=== PATIENT | female | born 1980 | race Caucasian/White ===

== ENCOUNTER → 2022-08-06 16:08 | Outpatient (CLI) | payer BC, SELFPAY ==
--- NOTE | ~2022-08-06 | MM_ITS ---
EXAMINATION: MM screening sony BI w kumar HISTORY: Screening mammogram TECHNIQUE: Craniocaudal and mediolateral oblique 3-D tomosynthesis images were obtained and synthetic 2-D images were generated. CAD analysis was submitted and interpreted. COMPARISON: None, baseline BREAST PARENCHYMAL COMPOSITION: There are scattered areas of fibroglandular density. FINDINGS: No suspicious mass, calcification, or architectural distortion are identified in either marisol ast to suggest malignancy. IMPRESSION: 1. No mammographic evidence of malignancy. 2. Recommend routine screening mammography in one year. BI-RADS Category 1: Negative Reviewed, dictated and finalized at location A. NSE ISSUER
== END ==
PROVIDERS: PCP Nurse Practitioner Obstetrics & Gynecology; Visit Provider Nurse Practitioner Obstetrics & Gynecology
DX: Z12.31 Encounter for screening mammogram for malignant neoplasm of breast (principal)
CPT/HCPCS: 77063; 77067

== ENCOUNTER → 2022-10-17 16:07 | Outpatient (CLI) | payer BC, SELFPAY ==
--- NOTE | ~2022-10-17 | MR_ITS ---
MRI of the left knee Clinical history: Chronic pain Technique: Coronal proton density and proton density-weighted images, sagittal proton-density and T2 fat-sat images, and axial proton-density fat-saturated images were acquired. Findings: Anterior and posterior cruciate ligaments are intact. Medial collateral ligament and the la teral collateral ligament complex are intact. Popliteus tendon is intact. Medial and lateral menisci are intact, without evidence of tear. Articular cartilage is well preserved in the medial lateral compartments, and along the femoral troch angela. Focal moderate to high-grade chondral lesions or fissures at the patellar apex and along the lateral patellar facet. Bone marrow signals are essentially unremarkable. Extensor mechanism is intact. Very large joint effusion is present. Small Garcia cyst present. There i s extensive subcutaneous soft tissue edema about the knee. There is marked edematous change of the po pliteus muscle belly with possible focal muscle tear. There is minimal edematous change of the distal vastus medialis muscle belly. Impression: Very large joint effusion, with small Garcia's cyst. This is nonspecific, and precise etiology for thi s effusion is unclear. Consider joint aspiration, especially if there is any clinical concern for inf ected joint. Focal degenerative chondromalacia patella lesions, as above. Marked edematous change and possible tear of the popliteus muscle belly. Minimal edematous change of the distal vastus medialis muscle belly. Reviewed, dictated and finalized at [facility]. Impression: Very large joint effusion, with small Garcia's cyst. This is nonspecific, and pr ecise etiology for this effusion is unclear. Consider joint aspiration, especia lly if there is any clinical concern for infected joint. Focal degenerative chondromalacia patella lesions, as above. Marked edematous change and possible tear of the popliteus muscle belly. Minima l edematous change of the distal vastus medialis muscle belly.
== END ==
PROVIDERS: PCP Nurse Practitioner Family; Visit Provider Orthopaedic Surgery
DX: M25.562 Pain in left knee (principal); G89.29 Other chronic pain; M25.462 Effusion, left knee; M71.22 Synovial cyst of popliteal space [Baker], left knee; M22.42 Chondromalacia patellae, left knee
CPT/HCPCS: 73721

== ENCOUNTER 2023-07-26 11:03 | Outpatient (CLI) | payer BC, SELFPAY ==
--- NOTE | ~2023-07-26 | XR_ITS ---
Left wrist Technique: PA, oblique, lateral, and ulnar deviation views were obtained. Clinical History: Polyarthralgia Findings: No acute fracture or dislocation is seen. Osseous alignment is anatomic. Joint spaces are p reserved. Soft tissues are unremarkable. Impression: Unremarkable left wrist radiographs. Reviewed, dictated and finalized at location . GROWER Impression: Unremarkable left wrist radiographs.
--- NOTE | ~2023-07-26 | XR_ITS ---
Right wrist Technique: PA, oblique, lateral, and ulnar deviation views were obtained. Clinical History: Polyarthralgia Findings: No acute fracture or dislocation is seen. Osseous alignment is anatomic. Joint spaces are p reserved. Soft tissues are unremarkable. Impression: Unremarkable right wrist radiographs. Reviewed, dictated and finalized at location . MACHINERY MECHANIC Impression: Unremarkable right wrist radiographs.
--- NOTE | ~2023-07-26 | XR_ITS ---
Left Hand Technique: PA, oblique, and lateral views were obtained. Clinical History: Arthritis Findings: No acute fracture or dislocation is seen. Osseous alignment is anatomic. Joint spaces are p reserved. Soft tissues are unremarkable. Impression: Unremarkable left hand. Reviewed, dictated and finalized at location M. AS WORKER Impression: Unremarkable left hand.
--- NOTE | ~2023-07-26 | XR_ITS ---
AP and oblique views of the bilateral SI joints CLINICAL HISTORY: Polyarthralgia FINDINGS: No fracture or dislocation seen. Bilateral hip and bilateral SI joints are unremarkable. So ft tissues are unremarkable, aside from IUD. IMPRESSION: No significant abnormality seen. Reviewed, dictated and finalized at [facility]. TER HAND
--- NOTE | ~2023-07-26 | XR_ITS ---
Right foot Technique: AP, oblique, and lateral views were obtained. Clinical History: Polyarthralgia Findings: No acute fracture or dislocation is seen. Osseous alignment is anatomic. Joint spaces are p reserved without erosive or degenerative change. Soft tissues are unremarkable. Impression: Unremarkable right foot radiographs. Reviewed, dictated and finalized at [facility]. STANT TO THE VICE PRESIDENT Impression: Unremarkable right foot radiographs.
--- NOTE | ~2023-07-26 | XR_ITS ---
Right Hand Technique: PA, oblique, and lateral views were obtained. Clinical History: Polyarthralgia Findings: No acute fracture or dislocation is seen. Osseous alignment is anatomic. Joint spaces are p reserved. Soft tissues are unremarkable. Impression: Unremarkable right hand. Reviewed, dictated and finalized at location . SMITH Impression: Unremarkable right hand.
--- NOTE | ~2023-07-26 | XR_ITS ---
Left foot Technique: AP, oblique, and lateral views were obtained. Clinical History: Polyarthralgia Findings: No acute fracture or dislocation is seen. Osseous alignment is anatomic. Joint spaces are p reserved without erosive or degenerative change. Soft tissues are unremarkable. Impression: Unremarkable left foot radiographs. Reviewed, dictated and finalized at [facility]. L LOT OPERATOR Impression: Unremarkable left foot radiographs.
== END 2023-07-26 11:04 | disposition home or self-care (01) ==
PROVIDERS: PCP Nurse Practitioner Family
DX: M25.50 Pain in unspecified joint (principal)
CPT/HCPCS: 72202; 73110; 73130; 73630

== ENCOUNTER 2024-07-20 02:00 | Emergency (ER) | payer OTHER, SELFPAY ==
--- NOTE | ~2024-07-20 | US_ITS ---
Duplex Sonography of the right upper extremity: Indication: Pain and swelling Sagittal and transverse B-mode images as well as color-flow imaging were performed on the right inter nal jugular, subclavian, axillary, brachial, basilic veins. B-mode examination was done without and with compression in the transverse plane. There is good visualization of the internal jugular, subcl jurgen, axillary, brachial, and basilic veins. Normal flow was seen on color-flow imaging. Normal com pressibility was demonstrated. Impression: No evidence of deep vein thrombosis involving the right upper extremity. Reviewed, dictated and finalized at location M. TECH Impression: No evidence of deep vein thrombosis involving the right upper extre [facility].
--- NOTE | ~2024-07-20 | XR_ITS ---
Right Hand Technique: PA, oblique, and lateral views were obtained. Clinical History: Pain Findings: No acute fracture or dislocation is seen. Osseous alignment is anatomic. Joint spaces are p reserved. Soft tissues are unremarkable. Impression: Unremarkable right hand. Reviewed, dictated and finalized at location M. LE ASSEMBLER Impression: Unremarkable right hand.
[2024-07-20 02:12] VITALS: BP 161/98; PULSE 100; RESP 16; TEMP 37; O2SAT 98
[2024-07-20 05:35] VITALS: BP 135/105; PULSE 67; RESP 16; TEMP 36.2; O2SAT 99
[2024-07-20 07:30] VITALS: BP 161/100; PULSE 85; RESP 18; O2SAT 97
--- NOTE | 2024-07-20 08:53 | ED_ITS ---
HPI - Extremity Injury (Upper) General Chief Complaint: Extremity Injury, Upper Stated Complaint: right hand swelling x 1 week Time Seen by Provider: 07/20/24 08:24 Source: patient Mode of arrival: ambulatory Limitations: no limitations History of Present Illness HPI narrative: Patient presents with complaint of right hand and forearm swelling. This is accompanied by intermittent paresthesias from her right elbow occurring distally. The pain and swelling is limiting her ability to fully use this extremity which is her dominant hand. Denies any fevers, trauma, or previous surgical intervention on this arm. Denies any clear overuse injury although she states possibly while pushing a shopping cart. Alternating Prescription strength ibuprofen and ydeo-ezx-rgyilqs Tylenol was helping at 1st not now. She does have some skin that is breaking and peeling in her left greater than right hand for the past 1 week. She has also been using ice and heat. This happened previously approximately 2-3 years ago in September in her left leg and subsequently in her left arm. She had extensive workup done which 1st did not identify any clear etiology however was later determined that she has psoriatic arthritis this she follows with a enchilada maker Dr. Marlin Guy through [facility] ([facility]). PCP is Janell Lemos in [place]. She has been on various regimens for her psoriatic arthritis, previously injection but had site reaction. She has been on Otesla BID for awhile now. Not on steroids chronically. Denies that neck pain had been a complaint other than some very mild neck pain she is experiencing only after having been sitting awhile in the ER waiting room. Related Data Allergies Allergy/AdvReac Type Severity Reaction Status Date / Time latex Allergy Unknown Verified 04/08/16 13:49 Penicillins Allergy Unknown Verified 04/08/16 13:49 [facility] Past Medical History Medical History (Updated 07/21/24 @ 06:11 by Keli King MD) Psoriatic arthritis follows w/ Insurance Sales Associate Dr Jeremy Guy ([facility]) Exam 2 Narrative: GENERAL: Well-appearing, well-nourished, and in no acute distress. HEAD: Normocephalic, atraumatic. EYES: Non injected, non icteric ENT: Nares clear, no rhinorrhea or epistaxis. NECK: Supple. CHEST: Speaking in full sentences. No respiratory distress. HEART: Regular rate and rhythm. Strong radial pulse is the right. Brisk capillary refill in multiple digits on the right. ABDOMEN: Soft, nondistended. EXTREMITIES: Mild swelling throughout entirety of right hand and right wrist as well as to a lesser degree throughout the right forearm when compared to the left. Patient is able demonstrate extension and flexion at the elbow. Full range of motion with extension and flexion as well as eversion inversion at the right wrist is limited (motion is initiated but unable to perform at the extremes). Patient can generally make a fist although not tight and does demonstrate full extension of fingers. Can oppose each digit to the thumb. SKIN: Warm, dry. Some skin breakdown and peeling although particularly in digits on the left hand to a greater degree than on the right. NEURO: No focal deficits. Alert and oriented x3. Sensation intact throughout bilateral upper extremity including throughout the forearm wrist and hand on the right. PSYCH: Normal mood and affect. Course Vital Signs Vital signs: Vital Signs Temperature 98.6 F 07/20/24 02:12 Pulse Rate 100 07/20/24 02:12 Respiratory Rate 16 07/20/24 02:12 Blood Pressure 161/98 H 07/20/24 02:12 Pulse Oximetry 98 07/20/24 02:12 Oxygen Delivery Room Air 07/20/24 02:12 Temperature 98.0 F 07/20/24 12:03 Pulse Rate 80 07/20/24 12:03 Respiratory Rate 20 07/20/24 12:03 Blood Pressure 149/99 H 07/20/24 12:03 Pulse Oximetry 100 07/20/24 12:03 Oxygen Delivery Room Air 07/20/24 02:12 MDM - Extremity Injury (Upper) MDM Narrative Medical decision making narrative: Patient is a mxqti-vktb-hlikuyzx female who presents with right hand and forearm swelling. She has a history of psoriatic arthritis and sees a enchilada maker and is on Otesla BID. In the emergency department she is afebrile with vital signs notable for hypertension. Physical exam is reassuring in that she is neurovascularly intact although there is a degree swelling throughout the hand wrist and to a lesser degree the forearm. Full range of motion at the extremes at the wrist is limited secondary to pain and swelling although she can initiate each of these movements. Analgesic medication ordered. Patient has an elevated CRP as well as a leukocytosis. ESR is also elevated. Ultrasound negative. No emergent etiology identified for her symptoms. While this may represent a psoriatic arthritis flare, of the main stays of treatment for this are NSAIDs as well as potential DMARDs. Advised her to continue her analgesic regimen and follow-up with her primary care physician and knitting machine operator helper. Discharged in stable condition. Differential Diagnosis Differential diagnosis: Likely sprain and strain of wrist and other (DVT, psoriatic arthritis, myositis) Lab Data Attestation: I reviewed the patient's lab results. 07/20/24 09:49 07/20/24 09:26 Labs: Lab Results 07/20/24 07/20/24 Range/Units 09:26 09:49 WBC 13.2 H (4.5-10.0) K/mm3 RBC 5.02 (4.2-5.4) M/mm3 Hgb 15.4 H (12.0-15.0) g/dL Hct 45.2 (37.0-47.0) % MCV 90.0 (80-100) fl MCH 30.7 (26-34) pg MCHC 34.1 (32-36) g/dl RDW 12.1 (11.5-14.5) % Plt Count 257 (150-375) k/mm3 MPV 9.0 (7.4-10.4) fl Immature Gran % (Auto) 0.3 (0-0.5) % Neut % (Auto) 70.0 (45.5-73.1) % Lymph % (Auto) 21.8 (18.3-44.2) % Calvert % (Auto) 5.1 (2.6-8.5) % Eos % (Auto) 2.4 (0-4.4) % Baso % (Auto) 0.4 (0.2-1.2) % Lymph # (Auto) 2.88 (0.9-3.2) K/mm3 Calvert # (Auto) 0.7 H (0.1-0.6) K/mm3 Eos # (Auto) 0.3 (0-0.3) K/mm3 Baso # (Auto) 0.1 (0.0-0.1) K/mm3 Abs Immat Gran (auto) 0.04 H (0.00-0.031) K/mm3 Absolute Neuts (auto) 9.2 H (1.3-6.7) K/mm3 Absolute Nucleated RBC 0.000 (0.0-0.012) K/mm3 Nucleated RBC % 0.0 (0.0-0.2) % ESR 52 H (0-20) mm/hr Sodium 135 L (137-145) mmol/L Potassium 4.2 (3.4-5.0) mmol/L Chloride 108 H (98-107) mmol/L Carbon Dioxide 22 (22-30) mmol/L Anion Gap 5 (4-12) mmol/L BUN 12 (7-17) mg/dL Creatinine 0.70 (0.7-1.0) mg/dL Estim Creat Clear Calc 110 ml/min Estimated GFR > 60 (59 - ) Glucose 108 (65-110) mg/dL Calcium 9.1 (8.4-10.2) mg/dL Total Creatine Kinase 43 (30-135) U/L C-Reactive Protein 3.7 H (<1.0) mg/dL Imaging Data Radiologist's impression: Impressions Hand X-Ray 07/20/24 06:23 Impression: Unremarkable right hand. Venous Doppler Study 07/20/24 12:20 Impression: No evidence of deep vein thrombosis involving the right upper extremity. Discharge Plan Discharge Clinical Impression: Swelling of right upper extremity, Leukocytosis, CRP elevated, ESR raised Patient Disposition: Home, Self-Care Condition: Stable Instructions: Antibiotic Form, Leukocytosis (ED), Arm Pain (ED) Additional Instructions: No clear etiology for your symptoms. Follow-up with primary care physician and your enchilada maker. Return to the emergency department any new or worsening symptoms. If this represents a flare of your psoriatic arthritis, the recommendation is to use NSAIDs. Acetaminophen/Tylenol (maximum 4000 mg per day, typically taken as 1000mg every 6 hours) is safe to take with NSAIDs (ibuprofen/Motrin 600mg every 8 hours) for pain relief. Make sure taking optimal/maximal dosing. Return to the emergency department with any new or worsening symptoms. Patient Language: Mexican Prescriptions: New acetaminophen 500 mg capsule 1,000 mg PO Q6H PRN (Reason: pain) Qty: 20 0RF ibuprofen 600 mg tablet 600 mg PO TID PRN (Reason: pain) Qty: 20 0RF Follow-up/Referrals: Canelo,ANTONELLA Donaldson [Primary Care Provider] - Stand Alone Forms: Work/School Release IP Time of Disposition: 12:52
[2024-07-20] MEDS: HYDROcodone/acetaminophen (*CRX) 5-325 MG TABLET 1 TAB PO (09:14)
[2024-07-20 09:50] LABS: Anion Gap 5 mmol/L (4-12); Blood Urea Nitrogen 12 mg/dL (7-17); CRP 3.7 mg/dL (<1.0); Calcium 9.1 mg/dL (8.4-10.2); Carbon Dioxide 22 mmol/L (22-30); Chloride 108 mmol/L (98-107); Creatine Kinase 43 U/L (30-135); Estimated CRCL calculation 110 ml/min; Estimated Glomerular Filt Rate > 60; Glucose 108 mg/dL (65-110); Potassium 4.2 mmol/L (3.4-5.0); Sodium 135 mmol/L (137-145)
[2024-07-20 09:58] LABS: Basophils Absolute Auto 0.1 K/mm3 (0.0-0.1); Basophils Percent Auto 0.4 % (0.2-1.2); Eosinophils Absolute Auto 0.3 K/mm3 (0-0.3); Eosinophils Percent Auto 2.4 % (0-4.4); Hematocrit 45.2 % (37.0-47.0); Hemoglobin 15.4 g/dL (12.0-15.0); Immature Granulocyte Absolute 0.04 K/mm3 (0.00-0.031); Immature Granulocyte Percent A 0.3 % (0-0.5); Lymphocytes Absolute Auto 2.88 K/mm3 (0.9-3.2); Lymphocytes Percent Auto 21.8 % (18.3-44.2); Mean Corpuscular HGB Conc 34.1 g/dl (32-36); Mean Corpuscular Hemoglobin 30.7 pg (26-34); Monocytes Absolute Auto 0.7 K/mm3 (0.1-0.6); Monocytes Percent Auto 5.1 % (2.6-8.5); Neutrophils Absolute Auto 9.2 K/mm3 (1.3-6.7); Platelet Count Result 257 k/mm3 (150-375); Red Blood Count 5.02 M/mm3 (4.2-5.4); Red Cell Distribution Width 12.1 % (11.5-14.5); White Blood Count 13.2 K/mm3 (4.5-10.0)
[2024-07-20 10:51] LABS: Erythrocyte Sedimentation Rate 52 mm/hr (0-20)
[2024-07-20 12:03] VITALS: BP 149/99; PULSE 80; RESP 20; TEMP 36.7; O2SAT 100
[2024-07-20] MEDS: KETOROLAC 30 MG/ML VIAL (*BKC) 15 MG IM (13:24)
--- OUTSIDE RECORDS SUMMARY | 2024-07-27 02:30 | XMS_ITS | Encounter Summary ---
Author Organization [facility] Address [facility] [place] [address] Care Team Providers Care Porcelain Technician Name Role Phone Anika Lemos EARL-VIRTUAL OFFICE ASSISTANT Primary Care Provider + Encounter Details Date Type Department Care Team (Late Contact Info) Description 06/25/2024 Orders Only [facility] - Rheumatology [address] [place] [phone] Jeremy Guy MD [address] [place] [address] [address] [place] [phone] Therapeutic drug monitoring Social History Tobacco Use Types Packs/Day Years Used Date Smoking Tobacco: Never Smokeless Tobacco: Never Alcohol Use Standard Drinks/Week Comments Not Currently 0 (1 standard drink = 0.6 oz pur e alcohol) PHQ-2 Answer Date Recorded Patient Health Questionnaire-2 Score 0 03/30/2024 Sex and Gender Information Value Date Recorded Sex Assigned at Not on file Gender Identity Not on file Sexual Orientation Not on file documented as of this encounter Plan of Treatment Upcoming Encounters Date Type Department Care Team (Late Contact Info) Description 09/28/2024 3:00 PM CDT Office Visit [facility] - Rheumatology [address] [place] [phone] Jeremy Guy MD [address] [place] [address] [address] [place] [phone] documented as of this encounter Visit Diagnoses Diagnosis Therapeutic drug monitoring Encounter for therapeutic drug monitoring documented in this encounter Care Teams Porcelain Technician Relationship Specialty Start Date End Date Anika Lmeos, HEAD BOYS TENNIS COACH-VIRTUAL OFFICE ASSISTANT [facility] [facility] [address] [facility] [place] [address] PCP - General Nurse Practitioner 07/08/23 documented as of this encounter
--- OUTSIDE RECORDS SUMMARY | 2024-07-27 02:30 | XMS_ITS | Encounter Summary ---
Author Organization [facility] Address [address] [place] [address] Care Team Providers Care Salon Coordinator Name Role Phone Anika Lemos Yung ELLIOTT-EXTRUDING MACHINE OPERATOR Primary Care Provider + Reason for Visit * Reason Onset Date Comments Medication Management 11/05/2023 Humira Encounter Details Date Type Department Care Team (Late st Contact Info) Description 11/05/2023 Refill [facility] - Rheumatology [address] [place] [address], [place] [phone] Jeremy Guy MD [address] [place] [address] [place] [phone] Medication Management (Humira) Social History Tobacco Use Types Packs/Day Years Used Date Smoking Tobacco: Never Smokeless Tobacco: Never Alcohol Use Standard Drinks/Week Comments Not Currently 0 (1 standard drink = 0.6 oz pur e alcohol) Sex and Gender Information Value Date Recorded Sex Assigned at Not on file Gender Identity Not on file Sexual Orientation Not on file documented as of this encounter Miscellaneous Notes * Telephone Encounter - Nathan Fuchs, PharmD - 11/05/2023 5:22 PM CDT [facility] has received specialty prescription order (Humira) for this patient. Our pharmacy is unable to fill the prescription due to insurance restrictions. Prescription(s) have been pended back to prescriber to be resent to correct pharmacy- ([facility]). Thank you for the opportunity to participate in this patient's care. [place] Status: Prior Authorization Approved Nathan Fuchs PharmD [facility]- [phone] documented in this encounter Plan of Treatment Upcoming Encounters Date Type Department Care Team (Late st Contact Info) Description 09/28/2024 3:00 PM CDT Office Visit [facility] - Rheumatology [address] [place] [address], [place] [phone] Jeremy Guy MD [facility] [place] [phone] documented as of this encounter Visit Diagnoses Diagnosis Psoriatic arthritis (HCC) Psoriatic arthropathy documented in this encounter Care Teams Salon Coordinator Relationship Specialty Start Date End Date Anika Lemos APRN-EXTRUDING MACHINE OPERATOR [address] [facility] [address] PCP - General Nurse Practitioner 07/08/23 documented as of this encounter
--- OUTSIDE RECORDS SUMMARY | 2024-07-27 02:30 | XMS_ITS | Encounter Summary ---
Author Organization [facility] Address [facility] [place] [address] Care Team Providers Care Jewelry Coater Name Role Phone Anika Lemos EARL-WEATHERIZATION TECHNICIAN Primary Care Provider + Encounter Details Date Type Department Care Team ([facility] Contact Info) Description 01/09/2024 Orders Only [facility] - Rheumatology [address] [place] [phone] Jereym Guy MD [address] [place] [address] [address] [place] [address] Therapeutic drug monitoring Social History [...] Upcoming Encounters Date Type Department Care Team ([facility] Contact Info) Description 09/28/2024 3:00 PM CDT Office Visit [facility] - Rheumatology [address] [place] [phone] Jeremy Guy MD [address] [place] [address] [address] [phone] documented as of this encounter Visit Diagnoses Diagnosis Therapeutic drug monitoring Encounter for therapeutic drug monitoring documented in this encounter Care Teams Jewelry Coater Relationship Specialty Start Date End Date Anika Lemos, MEDICAL OFFICE COORDINATOR-WEATHERIZATION TECHNICIAN [address] [facility] [address] [place] [address] [place] [id number] PCP - General Nurse Practitioner 07/08/23 documented as of this encounter
--- OUTSIDE RECORDS SUMMARY | 2024-07-27 02:30 | XMS_ITS | Data Portability ---
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 Patient will come back in a year unless there are new symptoms. [email or web address] Not available 01/02/2021 12:43:53 05/06/2022 05/06/2022 Annual gynecological exam performed. Patient will come back in a year unless there are new symptoms. Not available 05/06/2022 12:12:24 08/07/2023 08/07/2023 Annual gynecological exam performed. Patient will come back in a year unless there are new symptoms. [email or web address] Not available 08/07/2023 09:30:11 Plan of Treatment Reminders Order Date Submit Date Provider Last Modified By Organization Details Last Modified Time Details Appointments None recorded. Lab None recorded. Referral None recorded. Procedures None recorded. Surgeries None recorded. Imaging MAMMO, screening, bilateral 2023 024 [email or web address] [facility], [address], [place], [address], 15:54:56 Medication Orders Diflucan 200 mg tablet 2023 024 [id number], [address], [place], [place], [id number], 4 09:51:26 Patient TargetsNo targets recorded. Patient InstructionsNo instructions recorded. Reason for Referral None Reported. Results Created Date Observation Date Name Description Value Unit Range Abnormal Flag Note LastModifiedBy Organization Detail LastModifiedTime 05/06/20 22 05/06/2022 IMAGE GUIDE D PAP AND HPV REGAR DLESS image guided Pap, HPV regardless of Pap result SEE RESULT S BELOW CASE REPOR T: Cytol ogy Gynec ologi sonu Repor t Case: [id number] Autho geoff otto Provi axel: Sherice dena Jones Colle cted: 05/06 1303 [facility] PROVIDER Order ing Locat ion: [place] Path[facility] log[facility] Recei benita: 05/07 0340 First Scree n: Malia Mendes, CT Rescr een: Ember Muñoz, CT Speci men: Scree abdon Pap - Image d, Cervi x STATE MENT OF ADEQU ACY: Satis facto ry for evalu ation Trans forma tion zone compo nent absen t The absen ce of an endoc ervic al compo nent was confi rmed by an addit ional scree ner. FINAL DIAGN OSIS: Negat mitchel for Intra epith elial Lesio n or Elsie hoyt (NIL) . Funga l organ isms morph ologi samaria consi stent with Ambreen da spp. Elect wilmer musa dylon d by Ember Muñoz, CT on 05/10 at 7:39 AM ----- ----- ----- ----- ----- ----- ----- ----- ----- ----- ----- ----- ----- ----- ----- ----- ----- ---- HPV RESUL TS: HPV mRNA E6/E7 : No HPV mRNA Detec gricel NOTE: This high risk HPV mRNA assay detec ts fourt een high- risk HPV types (16, 18, 31, 33, 35, 39, 45, 51, 52, 56, 58, 59, 66, 68) witho ut diffe renti ation . COMME NT: Note: This speci men was revie wed by a Cytot echno logis t and/o r Patho logis t (as indic ated in this repor t) after evalu ation using the Thinp rep Imagi ng Syste m. CLINI SONU INFOR MATIO N: Menst rual Statu s: LMP (if appli cable ): Clini sonu Histo ry/Pr eviou s Pap: Type of Neopl bailee (if appli cable ): Signi fican t Clini sonu Findi ngs: Other Histo ry: Hormo paige (if appli cable ): PAP EDUCA JOSSE L NOTE: The Pap Test is a scree abdon test with an inher ent false negat mitchel rate. Liqui d-bas ed sampl ing may decre ase, but will not elimi madelyn, false negat mitchel resul ts. A negat mitchel resul t does not precl ude the prese nce and/o r devel opmen t of disea se, since the prese nce of abnor mal cells in the sampl e depen ds on the locat ion of the lesio n and sampl ing techn ique. Pedro nued regul ar scree abdon is the best metho d of cance r preve ntion . If repor gricel cytol ogic findi ng do not corre late with physi sonu and/o r histo rical findi ngs, furth er inves tigat ion is recom bria d, as clini samaria preston nted. Not Available [facility] [address] [place], [address], 05/10/2022 08:42:14 08/07/19 24 08/07/2023 IMAGE GUIDE D PAP AND HPV REGAR DLESS image guided Pap, HPV regardless of Pap result SEE RESULT S BELOW CASE REPOR T: Cytol ogy Gynec ologi sonu Repor t Case: [id number] Autho geoff otto Provi axel: Jones Mattson Colle cted: 08/07 1058 [facility]DC[facility] PROVIDER Order ing Locat ion: [place] Patho logy Recei benita: 08/08 0639 First Scree n: Laura Sims ret, CT Speci men: Scree abdon Pap - Image d, Cervi x STATE MENT OF ADEQU ACY: Satis facto ry for evalu ation Trans forma tion zone compo nent prese nt Parti ally obscu ring blood prese nt. FINAL DIAGN OSIS: Negat mitchel for Intra epith elial Lesio n or Elsie hoyt (NIL) . Elect wilmer lencho dylon d by Laura Sims ret, CT on 2023 at 11:31 AM ----- ----- ----- ----- ----- ----- ----- ----- ----- ----- ----- ----- ----- ----- ----- ----- ----- ---- HPV RESUL TS: HPV mRNA E6/E7 : No HPV mRNA Detec gricel NOTE: This high risk HPV mRNA assay detec ts fourt een high- risk HPV types (16, 18, 31, 33, 35, 39, 45, 51, 52, 56, 58, 59, 66, 68) witho ut diffe renti ation . COMME NT: This speci men was revie wed by a Cytot echno logis t and/o r Patho logis t (as indic ated in this repor t) after evalu ation using the Thinp rep Imagi ng Syste m. CLINI SONU INFOR MATIO N: Menst rual Statu s: LMP (if appli cable ): Clini sonu Histo ry/Pr eviou s Pap: Type of Neopl bailee (if appli cable ): Signi fican t Clini sonu Findi ngs: Other Histo ry: Hormo paige (if appli cable ): PAP EDUCA JOSSE L NOTE: The Pap Test is a scree abdon test with an inher ent false negat mitchel rate. Liqui d-bas ed sampl ing may decre ase, but will not elimi madelyn, false negat mitchel resul ts. A negat mitchel resul t does not precl ude the prese nce and/o r devel opmen t of disea se, since the prese nce of abnor mal cells in the sampl e depen ds on the locat ion of the lesio n and sampl ing techn ique. Pedro nued regul ar scree abdon is the best metho d of cance r preve ntion . If repor gricel cytol ogic findi ng do not corre late with physi sonu and/o r histo rical findi ngs, furth er inves tigat ion is recom bria d, as clini samaria warrmar nted. Not Available [facility] (Lab) [address], [place], [address], 08/09/2023 12:35:28 08/06/19 23 08/06/2022 MAMMO , scree abdon, bilat eral No observ ation record ed. [email or web address] [facility] [address] [facility] [address], [place], [address], 08/07/2023 09:51:34 Result Notes None recorded. Problems Name Problem SNOMED Code Status Onset Date Resolution Date Notes Provider Name and Address Organization Details Recorded Time Insertio n of intraute rine contrace ptive device Completed 201601/02/2021 Encounte r for insertio n of intraute rine contrace ptive device;P ractice ID: 0001 Shyanne huizar [facility] 12:45:38 Pregnanc y test negative [id number] Completed 201601/02/2021 Encounte r for pregnanc y test, result negative ;Practic e ID: 0001 Shyanne huizar [facility] 12:45:54 Contrace ptive sheath status [id number] Completed 201601/02/2021 Encounte r for routine checking of intraute rine contrace p dev;Prac jade ID: 0001 Shyanne huizar [facility] 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 12:46:09 Primigra nathalie [id number] Completed 201401/02/2021 Supervis ion of normal first pregnanc y;Record ed Elsewher e: No Locat ion: [facility] S ource: EHR Public Health Analyst elsa: N Jeffti ce ID: 0001 Bandar lable Time: 03:15:00 PM Shyanne Torre [facility] 12:46:01 Screenin g for malignan t neoplasm of cervix Completed 201401/02/2021 Screenin g for malignan t neoplasm s of the cervix;R ecorded Elsewher e: No Locat ion: [facility] S ource: EHR Public Health Analyst elsa: N Practi ce ID: 0001 Bandar lable Time: 01:15:00 PM Shyanne Torre [facility] 12:46:02 Speciali zed medical examinat ion Completed 201101/02/2021 Gynecolo gical Examinat ion;Guicho rded Elsewher e: No Locat ion: [facility] S ource: EHR Public Health Analyst elsa: N Jeffti ce ID: 0001 Bandar lable Time: 10:00:00 AM Shyanne Torre [facility] 12:46:10 Syphilis test finding [id number] Completed 201501/02/2021 Encntr screen for infectio ns w sexl mode of transmis s;Record ed Elsewher e: No Locat ion: [facility] S ource: EHR Public Health Analyst elsa: N Practi ce ID: 0001 Bandar lable Time: 05:00:00 PM Shyanne Torre [facility] 1 12:46:14 Acute frontal sinusiti s [id number] Completed 201301/02/2021 Sinusiti s of frontal sinus;Re corded Elsewher e: No Locat ion: Oanh gregory [facility] S ource: EHR Public Health Analyst elsa: N Mary ce ID: 0001 Bandar lable Time: 10:45:[address] [facility] 12:44:59 Pregnanc y, childbir th and puerperi um finding Completed 201501/02/2021 Encounte r for supervis ion of normal first pregnanc y, third trimeste r;Record ed Elsewher e: No Locat ion: Oanh gregory [facility] S ource: EHR Public Health Analyst elsa: N Mary ce ID: 0001 Bandar lable Time: 08:45:[address] [facility] 1 12:45:59 Normal pregnanc y in multigra nathalie [id number] Completed 201501/02/2021 Encounte r for suprvsn of normal pregnanc y, third trimeste r;Record ed Elsewher e: No Locat ion: Oanh gregory [facility] S ource: EHR Public Health Analyst elsa: N Mary ce ID: 0001 Bandar lable Time: 06:15:[address] [facility] 1 12:45:46 Antenata l ultrasou nd scan for slow growth [id number] Completed 201401/02/2021 Antenata l screenin g for growth retardat ion using ultrason ics;Guicho rded Elsewher e: No Locat ion: Oanh gregory [facility] S ource: EHR Public Health Analyst elsa: N Mary ce ID: 0001 Bandar lable Time: 08:00:[address] [facility] 1 12:45:07 Clinical finding Completed 201601/02/2021 Presence of (intraut erine) contrace ptive device;R ecorded Elsewher e: No Locat ion: Oanh gregory [facility] S ource: EHR Public Health Analyst elsa: N Practi ce ID: 0001 Bandar lable Time: 04:00:00 PM Shyanne huizar [facility] 12:45:10 Body mass index 30+ - obesity 226199539 Completed 201701/02/2021 Body mass index (BMI) 35.0-35. 9, adult;Re corded Elsewher e: No Locat ion: Oanh gregory [facility] S ource: EHR Public Health Analyst elsa: N Practi ce ID: 0001 Bnadar lable Time: 02:00:00 PM Shyanne huizar [facility] 12:45:08 Infectio n screenin g Completed 201501/02/2021 Encounte r for screenin g for oth infec/pa rastc diseases ;Recorde d Elsewher e: No Locat ion: Oanh gregory [facility] S ource: EHR Public Health Analyst elsa: N Practi ce ID: 0001 Bandar lable Time: 05:00:00 PM Shyanne huizar [facility] 12:45:37 Amenorrh ea 09013270 Completed 201201/02/2021 AMENORRH EA;Pract ice ID: 0001 Shyanne huizar, [facility] 12:45:02 Threaten ed miscarri age [id number] Completed 201201/02/2021 Threaten ed , antepart um;Pract ice ID: 0001 Shyanne huizar, [facility] 12:46:16 Pregnanc y test positive [id number] Completed 201201/02/2021 Positive Pregnanc y Test;Pra ctice ID: 0001 Shyanne huizar, [facility] 12:45:56 Complete Completed 201201/02/2021 Spontane ous , complete , without mention of complica tion;Pra ctice ID: 0001 Shyanne huizar, [facility] 12:45:13 Pregnanc y care of habitual aborter Completed 201301/02/2021 Habitual aborter, currentl y , unspecif ied as to episode of care;Pra ctice ID: 0001 [facility] 12:45:50 Acute pharyngi tis [id number] Completed 201301/02/2021 Acute pharyngi tis;Prac jade ID: [address] [facility] 12:45:01 Speciali zed medical examinat ion Completed 201301/02/2021 Other specifie d chlamydi al diseases ;Practic e ID: [address] [facility] 12:46:12 Venereal disease screenin g Completed 201301/02/2021 Screenin g examinat ion for venereal disease; Practice ID: 0001 Shyanne huizar [facility] 12:46:22 Ultrason ography Completed 201301/02/2021 Antenata l screenin g for malforma tion using ultrason ics;Prac jade ID: 0001 Shyanne huizar [facility] 12:46:18 Antenata l screenin g Completed 201301/02/2021 Antenata l screenin g for malforma tion using ultrason ics;Prac jade ID: 0001 Shyanne huizar [facility] 12:45:05 Congenit al malforma tion [id number] Completed 201301/02/2021 Antenata l screenin g for malforma tion using ultrason ics;Prac jade ID: 0001 Shyanne huizar [facility] 12:45:16 anatomy study Completed [facility]02[facility];P ractice ID: 0001 Shyanne huizar [facility] 12:45:29 Dietary manageme nt surveill ance Completed 201401/02/2021 Dietary surveill ance and counseli ng;Pract ice ID: 0001 [facility] 12:45:25 Poor growth affectin g manageme nt [id number] Completed 201401/02/2021 GROWTH POOR SGA;Prac jade ID: 0001 Shyanne huizar [facility] 12:45:47 Glucose toleranc e test during pregnanc y - baby not yet delivere d outside referenc e range [id number] Completed 201401/02/2021 Gestatat ional Diabetes Antepart um;Pract ice ID: 0001 [facility] 12:44:58 Delivery normal [id number] Completed 201401/02/2021 Normal delivery ;Practic e ID: 0001 Shyanne huizar [facility] 12:45:23 Single live [id number] Completed 201401/02/2021 Mother with single liveborn ;Practic e ID: 0001 Shyanne huizar [facility] 12:46:05 Postpart um care Completed 201401/02/2021 Postpart um follow-u p;Practi ce ID: 0001 Shyanne huizar [facility] 12:45:49 Secondar y amenorrh ea [id number] Completed 201501/02/2021 Secondar y amenorrh ea;Pract ice ID: 0001 [facility] 12:46:04 Pregnanc y detectio n examinat ion Completed 201501/02/2021 Encounte r for pregnanc y test, result positive ;Practic e ID: 0001 Shyanne huizar, [facility] 12:45:52 Pregnanc y, childbir th and puerperi um finding Completed 201501/02/2021 Encntr for suprvsn of normal first preg, second trimeste r;Practi ce ID: 0001 Shyanne Torre [facility], [facility] 12:45:58 Uterine size for dates discrepa ncy Completed 201501/02/2021 Uterine size-kash e discrepa ncy, third trimeste r;Practi ce ID: 0001 Shyanne Torre [facility], [facility] 12:46:20 Gestatio n period, 38 weeks [id number] Completed 201501/02/2021 38 weeks gestatio n of pregnanc y;Practi ce ID: 0001 Shyanne Torre [facility], [facility] 12:45:32 Antenata l care: multipar ous, older than 35 years [id number] Completed 201501/02/2021 Supervis ion of elderly multigra nathalie, third trimeste r;Practi ce ID: 0001 Shyanne huizar, [facility] 12:45:04 Lacerati on of female perineum Completed 201501/02/2021 Second degree perineal lacerati on during delivery ;Practic e ID: 0001 Shyanne huizar, [facility] 12:45:40 Gestatio n period, 39 weeks [id number] Completed 201501/02/2021 39 weeks gestatio n of pregnanc y;Practi ce ID: 0001 [facility] 12:45:34 Hemorrho ids [id number] Completed 201501/02/2021 Unspecif ied hemorrho ids;Prac jade ID: 0001 Shyanne Torre [facility] 12:45:35 Lochia finding Completed 201501/02/2021 Encounte r for routine postpart um follow-u p;Practi ce ID: 0001 Shyanne Torre [facility] 12:45:43 Gestatio n period, 13 weeks [id number] Completed 201501/02/2021 13 weeks gestatio n of pregnanc y;Record ed Elsewher e: No Locat ion: Oanh gregory [facility] S ource: EHR Public Health Analyst elsa: N Practi ce ID: 0001 Bandar lable Time: 05:00:00 PM Shyanne Torre [facility] 12:45:30 Abnormal glucose toleranc e in mother complica ting pregnanc y, childbir th AND/OR puerperi um [id number] Completed 201401/02/2021 Abnormal glucose toleranc e of mother, complica ting pregnanc y, childbir th, or the puerperi um, unspecif ied as to episode of care;Rec orded Elsewher e: No Locat ion: Oanh gregory [facility] S ource: EHR Public Health Analyst elsa: N Practi ce ID: 0001 Bandar lable Time: 09:00:00 AM Shyanne Torre [facility] 12:44:[address] Concept Completed 201601/02/2021 Encntr for general adult medical exam w/o abnormal findings ;Recorde d Elsewher e: No Locat ion: Oanh gregory [facility] S ource: EHR Public Health Analyst elsa: N Practi ce ID: 0001 Bandar lable Time: 03:30:00 PM Shyanne Torre [facility] 1 12:46:07 Excessiv e growth affectin g manageme nt of mother [id number] Completed 201401/02/2021 Excessiv e growth, affectin g manageme nt of mother, antepart um;Recor ded Elsewher e: No Locat ion: [facility] S ource: EHR Public Health Analyst elsa: N Practi ce ID: 0001 Bandar lable Time: 08:00:00 AM Shyanne [facility] 1 12:45:27 Contrace ption care manageme nt Completed 201601/02/2021 Encounte r for contrace ptive manageme nt, unspecif ied;Guicho rded Elsewher e: No Locat ion: [facility] S ource: EHR Public Health Analyst elsa: N Practi ce ID: 0001 Bandar lable Time: 04:45:[address] [facility] 1 12:45:18 Problem Notes None recorded. Procedures Surgical History Date Name Laterality Status Provider Name and Address Organization Details Recorded Time 3 Date of Last Mammogram completed [facility] 08/07/2023 09:36:13 2 Date of Last Pap Smear completed [facility] 08/07/2023 09:27:15 Imaging Results Imaging Date Name Status LastModified by Organiz ation Details LastModified Time 08/06/2022 MAMMO, screening, bilateral completed [address] [facility] [address], [place], [address], 08/07/2023 09:51:34 Procedure Notes None recorded. Medical Equipment None Reported. Allergies Allergen ID Allergen Name Allergen Category Reaction Reaction Severity Criticality Documentation Date Start Date Code Code System Note Provider Name and Address Organization Details Recorded Time 31724 latex environme nt,medica tion Not available Not available Not available 07/07/2020 15103 91 RxNorm Comme nt: Locat ion: Sowmya Delgado r; Not Available [facility] 0 14:20:41 74452 Medicinal product containin g penicilli n and acting as antibacte rial agent (product) medicatio n Not available Not available Not available 07/07/2020 24618 05 SNOMED Comme nt: Locat ion: Sowmya Delgado r; Not Available [facility] 0 14:20:41 Medications Name Sig Start Date Stop Date Status Note LastModified by Organization Details LastModified Time Mirena 21 mcg/24 hr (up to 8 years) 52 mg intrauter ine device active Prescrib ed Elsewher e: Yes Loca tion: Oanh gregory [facility] odify By: carlos grandeunter DateTime : 07/08/20 02:30:00 PM Not Available Not Available Not Available doxycycli ne hyclate 100 mg capsule TAKE 1 CAPSULE BY MOUTH TWICE DAILY WITH FOOD FOR 14 DAYS 08/07 completed Not Available Not Available Not Available ibuprofen 800 mg tablet active Not Available Not Available Not Available fluconazo le 200 mg tablet TAKE 1 TABLET BY MOUTH EVERY OTHER DAY. active Not Available Not Available No t Available prednison e 20 mg tablet TAKE 3 TABLETS BY MOUTH DAILY FOR 3 DAYS THEN TAKE 2 TABLETS BY MOUTH DAILY FOR 3 DAYS THEN TAKE 1 TABLET BY MOUTH DAILY FOR 3 DAYS 08/07 completed Not Available Not Available Not Available Zithromax Z-Edward 250 mg tablet take 2 tablet by oral route every day for 1 day then 1 tablet (250 mg) by oral route once daily for 4 days 06/11 completed Prescrib ed Elsewher e: No Locat ion: Mellissasejal bri [facility] odify By: cmedical Landont er DateTime : 06/07/20 14 10:45:00 AM Not Available Not Available Not Available meloxicam 7.5 mg tablet TAKE 2 TABLETS BY MOUTH DAILY 08/07 completed Not Available Not Available Not Available lancets Check blood sugar QID. Fasting in the morning and 1 hr after meals. 02/16 completed Prescrib ed Elsewher e: No Locat ion: Mellissaerica bri [facility] odify By: amkuhl E ncounter DateTime : 11/22/19 15 11:01:25 AM Not Available Not Available Not Available methotrex ate sodium 2.5 mg tablet active Not Available Not Available Not Available doxycycli ne monohydra te 100 mg capsule take 1 capsule by oral route 2 times every day for 20 days 12/12 completed Prescrib ed Elsewher e: No [facility] By: fred Navarrete ter DateTime : 11/24/19 14 03:30:00 PM Not Available Not Available Not Available omeprazol e 20 mg capsule,d elayed release active Not Available Not Available Not Available folic acid 1 mg tablet TAKE 1 TABLET BY MOUTH EVERY DAY active Not Available Not Available No t Available Vitamin D2 1,250 mcg (50,000 unit) capsule take 1 capsule by oral route every week 05/09 completed Prescrib ed Elsewher e: No Locat ion: [facility] odify By: robbi Gregory ncounter DateTime : 10/26/19 16 01:53:17 PM Not Available Not Available Not Available Zyrtec 10 mg capsule 05/06 completed Prescrib ed Elsewher e: Yes Loca tion: [facility] odify By: saran Gregory ncounter DateTime : 06/15/20 14 01:00:00 PM Not Available Not Available Not Available Triveen-D uo DHA 29 mg-1 mg-400 mg oral pack TAKE ONE TABLET AND ONE SOFTGEL CAPSULE BY MOUTH ONCE DAILY DIRECTED 11/11 completed Prescrib ed Elsewher e: No [facility] By: radha Gregory ncounter DateTime : 10/11/19 16 05:00:00 PM Not Available Not Available Not Available biotin 1 mg capsule 12/03 completed Prescrib ed Elsewher e: Yes [facility] By: farrukh z Landon ter DateTime : 03/01/20 15 01:15:00 PM Not Available Not Available Not Available Anusol-HC 2.5 % topical cream with perineal applicato r apply by topical route 2 times every day to the affected area(s) 05/06 completed Prescrib matt Brock e: No Locat ion: [facility] M odify By: fred choe DateTime : 05/09/20 16 11:15:00 AM Not Available Not Available Not Available Vitals Date Recorded Body height Body mass index (BMI) Body weight Systolic blood pressure Diastolic blood pressure Provider Name and Address Organization Details Last Updated DateTime 01/03/2021 162.56 cm 37.2 kg/m2 05108.54 g 120 mm[Hg] 79 mm[Hg] [facility] 1 16:54:07 Date Recorded Body height Body mass index (BMI) Body weight Systolic blood pressure Diastolic blood pressure Provider Name and Address Organization Details Last Updated DateTime 05/06/2022 163.83 cm 37.3 kg/m2 889992.9 1 g 126 mm[Hg] 74 mm[Hg] [facility] 2 12:13:05 Date Recorded Body height Body mass index (BMI) Body weight Systolic blood pressure Diastolic blood pressure Provider Name and Address Organization Details Last Updated DateTime 08/07/2023 163.83 cm 37.9 kg/m2 433454.6 9 g 128 mm[Hg] 91 mm[Hg] Lexus Hewitt [facility] 4 09:33:44 Social History Question Answer Notes LastModified by Organizat ion Details LastModified Time Tobacco Smoking Status Never Smoker [facility] 05/06/2022 12:02:48 Do You Have An Advance Directive? No Information not available 01/03/2021 What Is Your Level Of Alcohol Consumption? Occasional Information not available 01/03/2021 How Many Years Have You Consumed Alcohol? 19 Information not available 01/03/2021 Are You Blind Or Do You Have Difficulty Seeing? No Information not available 01/03/2021 What Is Your Level Of Caffeine Consumption? Moderate Information not available 01/03/2021 How Much Tobacco Do You Chew? None Information not available 01/03/2021 In The 14 Days Before Symptom Onset, Have You Had Close Contact With A Laboratory-confir med COVID-19 While That Case Was Ill? No Information not available 01/03/2021 In The 14 Days Before Symptom Onset, Have You Had Close Contact With A Person Who Is Under Investigation For COVID-19 While That Person Was Ill? No Information not available 01/03/2021 Have You Been To An Area Known To Be High Risk For COVID-19? No Information not available 01/03/2021 Are You Deaf Or Do You Have Serious Difficulty Hearing? No Information not available 01/03/2021 What Type Of Diet Are You Following? CARBOHYDRATE Information not available 01/03/2021 What Is The Highest Grade Or Level Of School You Have Completed Or The Highest Degree You Have Received? 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 Yes Information not available 01/03/2021 Do You Use Protection During Sex? Always Information not available 01/03/2021 Do You Use Your Seat Belt Or Car Seat Routinely? Yes Information not available 01/03/2021 Do You Have Smoke And Carbon Monoxide Detectors In Your Home? Yes Information not available 01/03/2021 How Much Tobacco Do You Smoke? No Information not available 01/03/2021 Do You Feel Stressed (tense, Restless, Nervous, Or Anxious, Or Unable To Sleep At Night)? [id number] Information not available 01/03/2021 Do You Use Any Illicit Or Recreational Drugs? No Information not available 01/03/2021 Do You Use Sunscreen Routinely? Yes Information not available 01/03/2021 Have You Used IV Drugs? No Information not available 01/03/2021 Sex: Unknown Functional Status Question Answer Note LastModified by Organizat ion Details LastModified Time Do you have difficulty walking or climbing stairs? No Information not available 05/06/2022 Are you able to walk? YESWOREST Information not available 01/03/2021 Are you able to care for yourself? Yes Information not available 05/06/2022 Do you have difficulty dressing or bathing? No Information not available 05/06/2022 What is your exercise level? Occasional Information not available 01/03/2021 Mental Status None recorded. Family History Relationship Description Onset Age of this Age Resolved Age Notes LastModified by Organization Details LastModified Time Maternal Grandfather Blood coagulation disorder Not available 2020 12:50:51 Maternal Grandfather Malignant tumor of lung Not available 2020 12:51:01 Maternal Grandmother Diabetes mellitus Not available 2020 12:51:08 Mother Disorder of thyroid gland Not available 2020 12:51:16 Medical History Condition Response Allergies (Food, seasonal, environmental ) Y Other Y Breast Cancer N Drug/Latex Allergies/Reactions N Blood Transfusion N Dermatologic Disorders N Lung Disease N Defects or Inherited Disease N Breast Problem N Gestational Diabetes N Hematologic disorders N Anesthesia Complications N History of STI N Deep Vein Thrombosis N Polycystic ovary syndrome N Anxiety Disorder N Autoimmune disease N Arthritis Y Infertility N Polyps N Acid Reflux (GERD) N History of abnormal pap N Cancer Y Stroke N Varicosities N Neurologic/Epilepsy N Endometriosis N High Cholesterol N Headaches N Fibromyalgia N Kidney Disease N Heart Problems N Kidney or Bladder Problems N Thyroid Problems N GI Problems N Eating Disorder N Anemia N Art (IVF or FET) N Psychiatric Illness N Ovarian Cancer N Diabetes N Pulmonary (TB, Asthma) N Hepatitis/Liver Disease N No Past Medical History N Eczema Y Urinary Tract Infection N Abuse/Domestic Violence N Asthma N Trauma/Violence N Depression/ depression N Heart Disease N Pre-Eclampsia N Hypertension N Osteoporosis N Thrombophilias N Gynecological History Statement/Question Response Abnormal Pap Y Flow Light Date of Last Mammogram 08/06/2022 Date of LMP N On BCP's at Conception? N STIs/STDs N Was last menstrual period normal Y HPV Vaccine N Duration of Flow (days) 2 Current Control Method IUD Age at First Child 34 Are cycles usually normal N Sexually Active? Y IUD Menses Monthly N Age of first menstrual cycle 11 Date of Last Pap Smear 05/06/2022 Sexual Problems? N LMP Approximate Desired Control Method IUD N Obstetrics History GPAL:G 4 P 2 0 2 2 Type Value Full Term 2 Spontaneous 2 Living 2 Total 4 Past Encounters Encounter ID Performer Location Encounter Start Date Encounter Closed Date Diagnosis/Indication Diagnosis SNOMED-CT Code Diagnosis ICD10 Code Diagnosis Note [id number] Damaris Trimble [facility] [address] [address] 01/03/2021 16:43:26 01/03/2021 17:14:03 Gynecologic examination [id number] Z01.419 Suggested Calcium with Vitamin D 1200-1500m g daily. Patient advised to get an annual flu shot in the fall and she could obtain at [facility] or [facility] care clinic. Also to obtain TDap vaccinatio n if you have not had one in the last 10 years. Recommend yearly mammograms . Encouraged monthly self breast exams. Encourage safe sexual practices, to use condoms and limit partners if not already in a monogamous relationsh ip. Engage in daily exercise of low impact aerobic exercise 45-60 minutes 4-5 times weekly. Avoid tobacco and illicit drugs as well as using moderation with alcohol intake less than 1-2 8 oz beverages daily. This lifestyle behavior pattern will lead to less health conditions and longer life span. If BMI greater than 25 weight watchers or dietary consult advised. All questions have been answered. Patient appears to understand informatio n, but if you have any questions please call or respond to this email. Pap/hpv defer 2022 (q5yrs per asccp unless otherwise indicated) .STD declinedMa mmo orderedNo issues or questionsM raad IUD good for 6yrs from placement. [id number] Damaris Trimble [facility] [address] [address] 05/06/2022 12:01:18 05/07/2022 16:27:05 Gynecologic examination [id number] Z01.419 Z11.51 Suggested Calcium with Vitamin D 1200-1500m g daily. Patient advised to get an annual flu shot in the fall and she could obtain at [facility] or [facility] care clinic. Also to obtain TDap vaccinatio n if you have not had one in the last 10 years. Recommend yearly mammograms . Encouraged monthly self breast exams. Encourage safe sexual practices, to use condoms and limit partners if not already in a monogamous relationsh ip. Engage in daily exercise of low impact aerobic exercise 45-60 minutes 4-5 times weekly. Avoid tobacco and illicit drugs as well as using moderation with alcohol intake less than 1-2 8 oz beverages daily. This lifestyle behavior pattern will lead to less health conditions and longer life span. If BMI greater than 25 weight watchers or dietary consult advised. All questions have been answered. Patient appears to understand informatio n, but if you have any questions please call or respond to this email. Pap/hpv sent STD Screen declined Genetic Screen discussed Colon Screen na Dexa Screen na Routine Labs PCPMammo ordered [id number] Damaris Trimble [facility] [address] [address] 08/07/2023 09:25:08 08/07/2023 09:53:45 Gynecologic examination [id number] Z01.419 Z11.51 Suggested Calcium with Vitamin D 1200-1500m g daily. Patient advised to get an annual flu shot in the fall and she could obtain at [facility] or [facility]. Also to obtain TDap vaccinatio n if you have not had one in the last 10 years. Recommend yearly mammograms . Encouraged monthly self breast exams. Encourage safe sexual practices, to use condoms and limit partners if not already in a monogamous relationsh ip. Engage in daily exercise of low impact aerobic exercise 45-60 minutes 4-5 times weekly. Avoid tobacco and illicit drugs as well as using moderation with alcohol intake less than 1-2 8 oz beverages daily. This lifestyle behavior pattern will lead to less health conditions and longer life span. If BMI greater than 25 weight watchers or dietary consult advised. All questions have been answered. Patient appears to understand informatio n, but if you have any questions please call or respond to this email.Pap/ hpv defer 2022 (q5yrs per asccp unless otherwise indicated) .STD declinedMa mmo orderedNo issues or questionsM raad IUD good for 8yrs from placement. Screening mammography [id number] Z12.31 Vaginitis [id number] N76.0 Yeast + on exam todayRx sent Counseled on medication R/B's, Most common side effects, & use. All questions were answered to patient satisfacti on. Health Concerns Section Related Observation LastModified by Organization Detai ls LastModified Time None Recorded Concern Status LastModified by Organization Details LastModified Time None Recorded Advance Directives Directive N: Payers Encounter Date Sequence Insurance Name Policy Number Policy Saldana Covered Member ID Saldana Member ID Guarantor Name 01/03/2021 1 [place] [id number] Yarelis Mann [id number] Yarelis Mann 05/06/2022 1 [place] [id number] Yarelis Mann [id number] Yarelis Mann 08/07/2023 1 [place] [id number] Yarelis Mann [id number] Yarelis Mann Notes Date Note Type Note Provider Name and Address Organization Details Recorded Time 01/03/2021 text/html Annual GYNReport ed bypatient.History: no gynecologic complaints Menstrual cycle:Amenorrheic on IUD. Urinary symptoms:No hematuria; No incontinence Vulva:No genital lesion Vagina:Normal vaginal discharge Breast:No breast pain; No breast lump; No nipple discharge Current Contraception:Sati sfied with current contraception; Monogamous relationship; Intrauterine device (iud) Sexual complaints:No sexual complaints; No pain during intercourse; Normal libido Menopausal Symptoms:No menopausal symptoms; Normal vaginal lubrication Psychological symptoms:No depression; No anxiety; No PMDD Preventive measures:Encourage self breast examination; Encourage regular exercise; Encourage no tobacco use; Encourage regular mammograms starting age 40; Followed with Q3 year pap smear and high risk HPV typing; Needs to schedule mammogram RUFINO Ferguson- [address], [place], [address], [facility] 01/03/2021 17:13:05 05/06/2022 text/html Annual GYNReport ed bypatient.Menstrua l cycle:Normal menses (Only random light menses some months on Mirena IUD) Urinary symptoms:No hematuria; No incontinence Vulva:No genital lesion Vagina:Normal vaginal discharge Breast:No breast pain; No breast lump; No nipple discharge Current Contraception:Sati sfied with current contraception; Intrauterine device (iud) Sexual complaints:No sexual complaints; No pain during intercourse; Normal libido Menopausal Symptoms:No menopausal symptoms; Normal vaginal lubrication Psychological symptoms:No depression; No anxiety; No PMDD Preventive measures:Encourage self breast examination; Encourage regular exercise; Encourage no tobacco use; Encourage regular mammograms starting age 40; Followed with yearly pap smears; Needs to schedule mammogram MARGOT Ferguson [address], [place], [address], [facility] 05/06/2022 20:42:07 08/07/2023 text/html Annual GYNReport ed bypatient.History: no gynecologic complaints Menstrual cycle:Normal menses (Light or amenorrheic on IUD) Urinary symptoms:No hematuria; No incontinence Vulva:No genital lesion Vagina:Normal vaginal discharge Breast:No breast pain; No breast lump; No nipple discharge Current Contraception:Sati sfied with current contraception; Intrauterine device (iud) Sexual complaints:No sexual complaints; No pain during intercourse; Normal libido Menopausal Symptoms:No menopausal symptoms; Normal vaginal lubrication Psychological symptoms:No depression; No anxiety; No PMDD Preventive measures:Encourage self breast examination; Encourage regular exercise; Encourage no tobacco use; Encourage regular mammograms starting age 40; Followed with yearly pap smears; Needs to schedule mammogram RUFINO FergusonCLAIR [address], [place], [address], [facility] 08/07/2023 09:53:05 OBGyn Episode Ob Episode Information Episode Created Date Number of Fetuses Patient Bloodtype Patient rh Status Prepregnancy Weight lbs Domestic Partner Domestic Partner Phone Father Name Scrap Hoist Operator Status 01/03/20 21 1 CLOSED Fetus Data First Name Last Name Admitted to NICU Weight (g) Sex Living Outcome Pediatric Complications Fetus ID Race Codes Race Delivery Type 2834.95 F Full Term [id number] Vaginal Delivery Kwadwo Calculation Initial Kwadwo Date Initial Exam Date Initial Exam Provider Initial Ultrasound Date Last Menstrual Period Date Ultra Sound Weeks Gestation 0 Eighteen To Twenty Week Kwadwo Update Ultra Sound Date Fundal Height At Umbil Quickening Date Ultra Sound Latest Weeks Gestation Final Kwadwo Confirmed By Final Kwadwo Confirmed Date Final Kwadwo Date Ultra Sound Latest Days Gestation 0 0 Menstrual History Last Menstrual Date Menses Monthly On Bcp Conception Prior Menses Frequency Hcg Plus Date Menarche Onset Age Delivery Information Delivery Date Delivery Type Labor Anesthesia Weeks Gestation Incision Type Labor Labor Length Hrs Delivered By Post Complications Tubal Sterilization Discharge Date Comments 6 39 Discharge Information Feeding Method Contraceptive Method Maternal HG B and HCT Levels Ob Episode Information Episode Created Date Number of Fetuses Patient Bloodtype Patient rh Status Prepregnancy Weight lbs Domestic Partner Domestic Partner Phone Father Name Scrap Hoist Operator Status 01/03/20 21 1 CLOSED Fetus Data First Name Last Name Admitted to NICU Weight (g) Sex Living Outcome Pediatric Complications Fetus ID Race Codes Race Delivery Type , Spontane ous [id number] Kwadwo Calculation Initial Kwadwo Date Initial Exam Date Initial Exam Provider Initial Ultrasound Date Last Menstrual Period Date Ultra Sound Weeks Gestation 0 Eighteen To Twenty Week Kwadwo Update Ultra Sound Date Fundal Height At Umbil Quickening Date Ultra Sound Latest Weeks Gestation Final Kwadwo Confirmed By Final Kwadwo Confirmed Date Final Kwadwo Date Ultra Sound Latest Days Gestation 0 0 Menstrual History Last Menstrual Date Menses Monthly On Bcp Conception Prior Menses Frequency Hcg Plus Date Menarche Onset Age Delivery Information Delivery Date Delivery Type Labor Anesthesia Weeks Gestation Incision Type Labor Labor Length Hrs Delivered By Post Complications Tubal Sterilization Discharge Date Comments 8 Discharge Information Feeding Method Contraceptive Method Maternal HG B and HCT Levels Ob Episode Information Episode Created Date Number of Fetuses Patient Bloodtype Patient rh Status Prepregnancy Weight lbs Domestic Partner Domestic Partner Phone Father Name Scrap Hoist Operator Status 01/03/20 21 1 CLOSED Fetus Data First Name Last Name Admitted to NICU Weight (g) Sex Living Outcome Pediatric Complications Fetus ID Race Codes Race Delivery Type 2522.87 [id number] F Full Term [id number] Vaginal Delivery Kwadwo Calculation Initial Kwadwo Date Initial Exam Date Initial Exam Provider Initial Ultrasound Date Last Menstrual Period Date Ultra Sound Weeks Gestation 0 Eighteen To Twenty Week Kwadwo Update Ultra Sound Date Fundal Height At Umbil Quickening Date Ultra Sound Latest Weeks Gestation Final Kwadwo Confirmed By Final Kwadwo Confirmed Date Final Kwadwo Date Ultra Sound Latest Days Gestation 0 0 Menstrual History Last Menstrual Date Menses Monthly On Bcp Conception Prior Menses Frequency Hcg Plus Date Menarche Onset Age Delivery Information Delivery Date Delivery Type Labor Anesthesia Weeks Gestation Incision Type Labor Labor Length Hrs Delivered By Post Complications Tubal Sterilization Discharge Date Comments 5 39 Discharge Information Feeding Method Contraceptive Method Maternal HG B and HCT Levels Ob Episode Information Episode Created Date Number of Fetuses Patient Bloodtype Patient rh Status Prepregnancy Weight lbs Domestic Partner Domestic Partner Phone Father Name Scrap Hoist Operator Status 01/03/20 21 1 CLOSED Fetus Data First Name Last Name Admitted to NICU Weight (g) Sex Living Outcome Pediatric Complications Fetus ID Race Codes Race Delivery Type , Spontane ous [id number] Kwadwo Calculation Initial Kwadwo Date Initial Exam Date Initial Exam Provider Initial Ultrasound Date Last Menstrual Period Date Ultra Sound Weeks Gestation 0 Eighteen To Twenty Week Kwadwo Update Ultra Sound Date Fundal Height At Umbil Quickening Date Ultra Sound Latest Weeks Gestation Final Kwadwo Confirmed By Final Kwadwo Confirmed Date Final Kwadwo Date Ultra Sound Latest Days Gestation 0 0 Menstrual History Last Menstrual Date Menses Monthly On Bcp Conception Prior Menses Frequency Hcg Plus Date Menarche Onset Age Delivery Information Delivery Date Delivery Type Labor Anesthesia Weeks Gestation Incision Type Labor Labor Length Hrs Delivered By Post Complications Tubal Sterilization Discharge Date Comments 3 Discharge Information Feeding Method Contraceptive Method Maternal HG B and HCT Levels
--- OUTSIDE RECORDS SUMMARY | 2024-07-27 02:30 | XMS_ITS | Encounter Summary ---
Author Organization [facility] Address [address] [place] [address] Care Team Providers Care Oil Rig Driller Name Role Phone Anika Lemos Primary Care Provider + Encounter Details Date Type Department Care Team (Latest Contact Info) Description 07/31/2023 Travel Social History Tobacco Use Types Packs/Day Years [...] Office Visit [facility] - Rheumatology [address] [place] [address], [place] [phone] Jeremy Guy MD [address] [place] [address] [place] [phone] documented as of this encounter Visit Diagnoses Not on filedocumented in this encounter Care Teams Oil Rig Driller Relationship Specialty Start Date End Date Anika Lemos APRN-CNP [address] [place] [address] PCP - General Nurse Practitioner 07/08/23 documented as of this encounter
--- OUTSIDE RECORDS SUMMARY | 2024-07-27 02:30 | XMS_ITS | Encounter Summary ---
Author Organization [facility] Address [address] [place] [address] Care Team Providers Care Ladle Repairman Name Role Phone Anika Lemos Primary Care Provider + Encounter Details Date Type Department Care Team (Latest Contact Info) Description 12/30/2023 Travel Social History Tobacco Use Types Packs/Day [...] Office Visit [facility] - Rheumatology [address] [place] [address], [place] [phone] Jeremy Guy MD [address] [place] [address] [place] [phone] documented as of this encounter Visit Diagnoses Not on filedocumented in this encounter Care Teams Ladle Repairman Relationship Specialty Start Date End Date Anika Lemos APRN-CNP [address] [facility] [place] [address] PCP - General Nurse Practitioner 07/08/23 documented as of this encounter
--- OUTSIDE RECORDS SUMMARY | 2024-07-27 02:30 | XMS_ITS | Encounter Summary ---
Author Organization [facility] Address [address] [place] [address] Care Team Providers Care Burnisher Name Role Phone Anika Lemos Yung ELLIOTT-MATLAB DEVELOPER Primary Care Provider + Reason for Referral * Medication Prior Authorization - Closed Specialty Diagnoses / Procedures Referred By Contac t Referred To Contact Diagnoses Psoriatic arthritis (HCC) Jeremy Guy MD [address] [place] [address] [address] [place] [address] Referral ID Status Reason Start Date Expiration Date Visits Re quested Visits Authorized [id number] Closed 1 1 Reason for Visit * Reason Comments Follow-up 3 month f/u Encounter Details Date Type Department Care Team (Late st Contact Info) Description 03/30/2024 3:40 PM CDT Office Visit [facility] - Rheumatology [address] [place] [address], [place] [address] Jeremy Guy MD [address] [place] [address] [address] [place] [address] Psoriatic arthritis (HCC) (Primary Dx); Therapeutic drug monitoring; Immunosuppression due to drug therapy (HCC) Social History Tobacco Use Types Packs/Day Years Used Date Smoking Tobacco: Never Smokeless Tobacco: Never Tobacco Cessation:Counseling Given: Not Answered Alcohol Use Standard Drinks/Week Comments Not Currently 0 (1 standard drink = 0.6 oz pur e alcohol) PHQ-2 Answer Date Recorded Patient Health Questionnaire-2 Score 0 03/30/2024 Sex and Gender Information Value Date Recorded Sex Assigned at Not on file Gender Identity Not on file Sexual Orientation Not on file documented as of this encounter Last Filed Vital Signs Vital Sign Reading Time Taken Comments Blood Pressure 128/93 03/30/2024 3:07 PM CDT Pulse 94 03/30/2024 3:07 PM CDT Temperature 36.8 ??C (98.2 ??F) 03/30/2024 3:07 PM CD T Respiratory Rate - - Oxygen Saturation 97% 03/30/2024 3:07 PM CDT Inhaled Oxygen Concentration - - Weight 105.2 kg (232 lb) 03/30/2024 3:07 PM CDT Height 165.1 cm (5' 5 ) 03/30/2024 3:07 PM CDT Body Mass Index 38.61 03/30/2024 3:07 PM CDT documented in this encounter Progress Notes * Jeremy Guy MD - 03/30/2024 3:43 PM CDT Images from the original note were not included. Rheumatology Clinic Note Patient: Yarelis Mann ( 1980, ) Encounter Date: 03/30/2024 Chief Concern: Psoriatic Arthritis Assessment & Recommendations Yarelis Mann is a 43 year old female seen for follow up of Psoriatic arthritis #. Psoriatic arthritis - Onset: 2022. Phenotype: Inflammatory arthritis history involving left knee, right wrist. left index finger dactylitis(confirmed on exam), nail pitting and dystrophic changes and dry rash on palms(suspected skin psoriasis), Negative RA serologies. Her sister has skin psoriasis. She is on Humira 40 mg subcut. every other week and reported no significant response to Humira so far plus she has persistent injection site reaction with Humira and would prefer PO meds so will switch Humira to Otezla as below. #. Long-Term Immunosuppression due to Drug Therapy ( prior use of Humira): Checking HBV, HCV, TB quant. Negative HBV (2022), HCV (-2022), TB Quant (-2022). Immunizations per PCP: for all patients on immunosuppressive therapy with Humira I recommend annual influenza vaccine, COVID19 vaccine, Prevnar, Pneumovax, Shingrix. Avoid live vaccines. Patient advised to contact clinic in case of any infections or antibiotic use. #. Follow-up: In 2-3 months or sooner if needed. Thank you for placing trust in us. I educated the patient regarding risks and benefits of the management plan, their medical problems, and contingency plans for worsening symptoms. Additional contributions to medical decision making for today's encounter: - The patient will be on drug therapy requiring intensive monitoring for toxicity. - I reviewed the patient's chart including review of clinical notes, laboratory results, and imaging results dating back to 11/2023 Jeremy Guy MD Division of Rheumatology Department of Internal Medicine [facility] ICD-10-CM 1. Psoriatic arthritis (HCC) L40.50 2. Therapeutic drug monitoring Z51.81 3. Immunosuppression due to drug therapy (HCC) D84.821 Z79.899 Orders Placed This Encounter apremilast (Otezla) 10 & 20 & 30 MG tablet Apremilast (Otezla) 30 MG Future Appointments Date Time Provider Department Center 06/29/2024 3:40 PM Jeremy Guy MD [address] Subjective History of Present Illness: She is overall feeling better still has left index finger stiffness though better mobility. She haspersistent injection site reactions with Humira and wants to try PO meds. Prior therapy: MTX: D.c 10/2023 for elevated ALT and after Humira was started. Disease Hx: 10/10 she woke up with left knee swelling(she thought she twisted it) s/p knee aspiration by Ortho showing WBCs ~34506 and negative for infectious and crystals. Knee swelling has mostly resolved and she is able to walk. Left finger swelled up and looked like Sausage and was seen by DErm where she was told she might have dactylitis. she gets dry rash on palms and underneath nailbeds and follows Derm for h/o Eczema. she does not carry any dx of Skin psoriasis. she still has difficulty bending leftindex finger. Then 04/12 her right distal forearm to dorsum of hand was swollen and was given prednisone that resolved the swelling. she has lower back stiffness(h/o spine injury) in the morning for an hour. does not wake her up from sleep. sister has psoriasis. no h/o IBD. no h/o Uveitis. Review of Systems: All other systems reviewed and negative or noncontributory except as stated in the HPI. Home Medications: Current Outpatient Medications: adalimumab (Humira, 2 Pen,) 40 MG/0.4ML injection, Inject 0.4 mL subcutaneously every 14 days, Disp: 2.4 mL, Rfl: 1 apremilast (Otezla) 10 & 20 & 30 MG tablet, Take by mouth as directed, Disp: 1 Each, Rfl: 0 Apremilast (Otezla) 30 MG, Take 1 (one) tablet by mouth 2 times daily, Disp: 180 tablet, Rfl: 0 cetirizine (ZyrTEC) 10 MG tablet, Take 1 (one) tablet by mouth as needed for Allergies, Disp: , Rfl: Cholecalciferol 250 MCG (25308 UT) TABS, Take 1 (one) tablet by mouth once daily, Disp: , Rfl: levonorgestrel (Mirena, 52 MG,) 20 MCG/DAY IUD, Mirena 21 mcg/24 hours (8 yrs) 52 mg intrauterine device, Disp: , Rfl: omeprazole (PriLOSEC) 20 MG capsule, Take 1 (one) capsule by mouth once daily, Disp: , Rfl: Adverse Drugs Reactions: Allergies Allergen Reactions Latex Urticaria Penicillins Urticaria Vitamin C Drops [Kdc:Red Dye+Yellow Dye+Ascorbate+Soybean Oil] Urticaria Fever blisters on mouth Past Medical History: Patient Active Problem List: Chronic pain of left knee Obesity (BMI 30-39.9) Past Medical History: Diagnosis Date Gestational diabetes (HCC) Past Surgical History: No past surgical history on file. Immunization History: There is no immunization history on file for this patient. Social History: Social History Socioeconomic History Marital status: Tobacco Use Smoking status: Never Smokeless tobacco: Never Vaping Use Vaping Use: Never used Substance and Sexual Activity Alcohol use: Not Currently Family History: Family History Problem Relation Name Age of Onset Psoriasis Sister Patient Care Team: Patient Care Team: Anika Lemos APRN-LAVINIA as PCP - General (Nurse Practitioner) Objective Physical Exam BP 128/93 Pulse 94 Temp 98.2 ??F (36.8 ??C) (Oral) Ht 1.651 m (5' 5 ) Wt 105.2 kg (232 lb) SpO2 97% BMI 38.61 kg/m?? GENERAL: not in acute distress HEENT/NECK: Eyes with white sclerae. No oropharyngeal lesions. CHEST/LUNGS: Normal work of breathing, CARDIOVASCULAR: Regular rhythm, no edema. SKIN/NAILS: dry rash on palms. NEURO: Normal muscle bulk and strength in limbs. MSK: nail pitting, left index finger DIP limited flexion. rest of small and larger joints without signs of active inflammatory arthritis Common Labs CBC Recent Labs Component Name 11/25/23 0856 08/30/23 1132 07/26/23 1044 WBC 8.6 10.6 10.6 HGB 14.6 14.5 15.0 MCV 95 90 90 PLTCOUNT 237 271 256 No results found for: NEUTABS , LYMPHS , MONO , EOS , BASO , GRANIMMABS Metabolic Profile Recent Labs Component Name 11/25/23 0856 08/30/23 1132 07/26/23 1044 POTASSIUM - 4.3 4.5 CO2 - 24 22 BUN - 10 12 CREATININE - 0.81 0.86 GLUCOSE - 87 91 CALCIUM - 8.9 8.8 EGFR - 93 86 AST 22 17 16 ALT 52* 24 23 ALKPHOS 68 62 69 Lab Results Component Value Date/Time DBIL 0.26 11/25/2023 08:56 AM UA & UPC No results found for: SPECGRAVUA , PHUA , PROTEINUA , BLOODUA , LEUKOCYTEUA , NITRITEUA , GLUCOSEUA , KETONEUA , BILIRUBINUA , UROBILINUA , REFLXSTAT , URMIC , SQUAMOUS , TRANSEPIUA , RBCUA , WBCUA , BACTUA , EOSINU No results found for: PROTEINTO , CREATININEUR , BMRLQIMCC0BG No results for input(s): HCGURINE , HCGQUANT in the last 40714 hours. Latent Infections No results found for: HEPBSAG , HBVSAB , HEPBSAB , HEPBCAB , HEPCAB No results found for: QUANTIFER , QNTTBGOLD , QNTPLUSTB1 , QNTPLUSTB2 , QNTMITOGEN , QUANTIFERO , QUANTIFECI , QUANTIF , QUANNIL , QUAMIT , QFTTBAGN , AOMDGXIJH21 , AFBSMR Immunology Labs Inflammatory Markers Recent Labs Component Name 11/25/23 0856 08/30/23 1132 07/26/23 1044 SEDRATE - 9 12 CRP 7 17* 11* RA-related Auto-Ab's Lab Results Component Value Date/Time RA <10.0 08/30/2023 11:32 AM CCPIGGIGA 8 08/30/2023 11:30 AM JOHNATHAN-related No results found for: ANATITER , ANAPATTERN , ANTINUCLE , ANAIGG , DSDNAABIU , ANTIDNADSABQ , DSDNAIGGAB , SMITHANTI , ANTICHRO , CHROMATINAB , SSAANTIBO , SSBANTIBO , SMRNPANTI , SMITHRNPAB , SCL70 , ANTICENTROB , TN0VJWTP , MJYRH815HE , HAEPTTV3ZI , HISTONEIGG No results for input(s): C3 , C4 in the last 81646 hours. APLS-related Auto-Ab's No results found for: W1RDWQMTLD , P0YMDJTHUZ , T2BAPQNQGF , WEIV3BOF , TNTY2OPJ , CRDLPNIGM , CRDLPNIGG , CRDLPNIGA , DILUTEPT , DPTCFMRATIO , TT , PTTLA , DRVVTBASE , LABINTE Myopathy No results found for: CK , ALDOLASE , SAE1AB , NXP2AB , MDA5AB , JVU1EMT , MYOINTERP , MI2AB , V202755 , PL12AB , PL7AB , OJAB , EJAB , SRPAB , AP9XCKMO , KUAB , SMITHRNPAB , BJNSW213JT , JIA20CH , VMN83KU , ESTXSFHG8WJH , ACHBLOCKAB , ACHBINDAB Vasculitis and ANCAs No results found for: NEUTCYTOAB , ANTIPROT3 , ANTIMPO , Y2NODVS Genetics Lab Results Component Value Date/Time HLAB27 Negative 08/30/2023 11:31 AM Gammopathy/Paraproteinemia No results found for: KAPPAFREE , LAMBDAFREE , KLFREERATIO , IGM , IGG , IGA No results found for: SPEINTERP , SERUMPEALB , SERUMPEA1 , SERUMPEA2 , SERUMPEBE , SERUMPEGA , PROT , LABIMMURE , CRYOGLOBQUAL Other Labs Endocrine & Metabolic No results for input(s): URICACID , HGBA1C , TSH , T4FREE in the last 72676 hours. No results found for: RBIC51AB Heme No results found for: RETICCTPCT , RETICULOCYTE , IRON , FERRITIN , TRANSFERRIN , TRANSFERRSAT , TIBC , FIBRINOGEN , DDIMER , VITB12 , FOLATE , HAPTOGLOBIN , LDHTOTAL No results for input(s): PT , INR , PTT in the last 12207 hours. Renal No results found for: CALCIUMION , PHBLD , IONCAART , MAGNESIUM , PHOS , SODIUMRAN , POTASSIUMUR , CHLORIDER Cardiac & Lipids No results for input(s): TROPONINI , CKMB , BNP in the last 42711 hours. No results for input(s): CHOL , TRIG , HDL , LDLCALC , LDLDIRECT in the last 36798 hours. Respiratory No results found for: SARSCOV2 , RINFLUANAA , RINFLUBNAA , INFLUARAPID , INFLUBRAPID , INFLUCNTRL , STREPARAPID , STREPAQC Hepatobiliary & GI No results found for: GGT , LIPASE , N8IWQEIUUIWO , CMVPCR , CMVSOURCE , GDHANTIGEN , CDIFFTOXINAB , CDIFFINTRP , GLIADINIGG , GLIADINIGA , ENDOMYSIA , TTRANIGA , TTRANIGG Drug Screen No results found for: THCUR , PCPUR , COCAINEUR , METHAMPHETUR , OPIATESUR , AMPHETUR , BENZODIAZUR , TCAUR , METHADONEUR , BARBITURATUR , OXYCODONEUR , PROPOXYUR Synovial Fluid No results found for: COLORFL , CLARITYFLUID , BFVOLUME , VISCOSITY , WBCFLUID , RBCFL , CRYSTALEXAM , DIFF , BFBAND , BFSEGS , BFLYMPH , BFMONO , BFEOS , BFMACRO , PATHDIFFRVW Neuro/CSF No results found for: GLUCSF , PROTEINCSF , HNJ9ERUSUF , FAF2SBTYRO , GFLB3JLM , COCCIDIGG , TEN2KPO , CRYPTOAGCSF , ENTEROVIRPCR , OLIGOBAND , OLIGOBANDNUM , IGG , YRU0OOA , ALBUMINMS , SOBQXDR9KPE , ALBUMININDEX , IGGINDEX , IGGALBRATIO , SYNTHESRTE , OLIGOCINTRP , TOXOPLASIGG , CYSTICERO Body Fluid No results found for: LABLD , GROSSDESCRIP , MICROPDESCR STIs (HIV, GC, Trich, Syphilis) No results found for: HIV12 , YKK8OFRTOA , KTD9TSK22MEE , CHLAMDIA , CHLTRNAA , GC , NGONORRNAA , TRICVAGAP , TRICHVAGBY , TPALLIDUM Cultures & Other Micro No results found for: URINECULT , BLOODCULT , BDERMAGUR , BDERMINTERP For assessment and recommendations, please see above. This note was generated using the [employer] speech recognition system. Grammatical errors, random wordinsertions, substitutions, deletions, pronoun errors, and incomplete sentences are an occasional consequence of this technology due to software limitations. Prior to signing the note, I reviewed it for misspellings or errors related to dictation to a reasonable extent, although it is possible that not all errors were caught or corrected. If there are questions or concerns about the content of this note or information contained within the body of this dictation, they should be addressed directlywith the author for clarification. Thank you. documented in this encounter Plan of Treatment Upcoming Encounters Date Type Department Care Team (Late st Contact Info) Description 09/28/2024 3:00 PM CDT Office Visit [facility] - Rheumatology [address] [place] [address], [facility] [place] [address] Jeremy Guy MD [address] [place] [address] [place] [id number] documented as of this encounter Visit Diagnoses Diagnosis Psoriatic arthritis (HCC)- Primary Psoriatic arthropathy Therapeutic drug monitoring Encounter for therapeutic drug monitoring Immunosuppression due to drug therapy (HCC) documented in this encounter Care Teams Burnisher Relationship Specialty Start Date End Date Anika Lemos APRN-MATLAB DEVELOPER [address] [place] [address] PCP - General Nurse Practitioner 07/08/23 documented as of this encounter
--- OUTSIDE RECORDS SUMMARY | 2024-07-27 02:30 | XMS_ITS | Clinical Summary ---
Author Organization [facility] Address [address] [place] [address] Care Team Providers Care Cardboard Cutter Name Role Phone Otilioclari Anika Yung ELLIOTT-DIRECT CARE SUPERVISOR Primary Care Provider + Source Comments [facility],non-owned Affiliates and Associated Physician Practices is amultiple site organization consisting of ambulatory clinics and hospital sitesin [place] and [place]. This disclosure is being madepursuant to the Care Everywhere program and may not contain all information available regarding this patient. Last updated 18.[facility] Allergies Active Allergy Reactions Criticality Noted Date Comments Latex Urticaria Medium 10/04/2022 Penicillins Urticaria Medium 10/04/2022 Kdc:Red Dye+Yellow Dye+Ascorbate+Soybean Oil Urticaria Medium 11/04/2023 Fever blisters on mouth Medications * Be aware that medications may not be up to date on this document. Alwaysverify current medications with the patient. Medication Sig Dispensed Refills Start Date End Date Status omeprazole (PriLOSEC) 20 MG capsule Take 1 (one) capsule by mouth once daily 06/10/2023 Active levonorgestrel (Mirena, 52 MG,) 20 MCG/DAY IUD Mirena 21 mcg/24 hours (8 yrs) 52 mg intrauterine device Active Cholecalciferol 250 MCG (91267 UT) TABS Take 1 (one) tablet by mouth once daily Active cetirizine (ZyrTEC) 10 MG tablet Take 1 (one) tablet by mouth as needed for Allergies Active Apremilast (Otezla) 30 MGIndications:P soriatic arthritis (HCC) Take 1 (one) tablet by mouth 2 times daily 180 tablet 03/30/2024 Active methylPREDNISol one (Medrol Dosepak) 4 MG tablet Take as directed by mouth per package instructions. 21 tablet 07/22/2024 Active adalimumab (Humira, 2 Pen,) 40 MG/0.4ML injectionIndica tions:Psoriatic arthritis (HCC) Inject 0.4 mL subcutaneously every 14 days 2.4 mL 1 11/06/2023 Discontinue d(List Clean-Up) apremilast (Otezla) 10 & 20 & 30 MG tabletIndicatio ns:Psoriatic arthritis (HCC) Take by mouth as directed 1 Each 03/30/2024 4 Discontinue d(List Clean-Up) Active Problems Problem Noted Date Diagnosed Date Obesity (BMI 30-39.9) 11/14/2022 07/08/2023 Overview (07/08/2023): Last Assessment & Plan: Discussed the patients BMI: The BMI is above average BMI management is complete. BMI follow-up includes: Nutrition Counseling and education provided Chronic pain of left knee 11/07/20222022 Encounters Date Type Department Care Team Description 07/22/2024 Orders Only [facility] - Rheumatology [address] [place] [phone] Jeremy Guy MD 07/22/2024 Telephone [facility] - Rheumatology [address] [place] [phone] Jeremy Guy MD Pain 06/29/2024 3:40 PM INSURANCE PROCESSING CLERK Office Visit [facility] - Rheumatology [address] [place] [phone] Jeremy Guy MD Psoriatic arthritis (HCC) (Primary Dx); Therapeutic drug monitoring 06/29/2024 Travel 06/25/2024 Orders Only [facility] - Rheumatology [address] [place] [phone] Jeremy Guy MD Therapeutic drug monitoring from Last 3 Months Family History Medical History Relation Name Comments Psoriasis Sister Relation Name Status Comments Sister Social History Tobacco Use Types Packs/Day Years [...] on file Sexual Orientation Not on file Last Filed Vital Signs Vital Sign Reading Time Taken Comments Blood Pressure 127/89 06/29/2024 3:50 PM INSURANCE PROCESSING CLERK Pulse 105 06/29/2024 3:50 PM INSURANCE PROCESSING CLERK Temperature 36.3 ??C (97.3 ??F) 06/29/2024 3:50 PM CS T Respiratory Rate - - Oxygen Saturation 97% 03/30/2024 3:07 PM CDT Inhaled Oxygen Concentration - - Weight 102.9 kg (226 lb 12.8 oz) 06/29/2024 3:50 PM INSURANCE PROCESSING CLERK Height 165.1 cm (5' 5 ) 06/29/2024 3:50 PM INSURANCE PROCESSING CLERK Body Mass Index 37.74 06/29/2024 3:50 PM INSURANCE PROCESSING CLERK Plan of Treatment Upcoming Encounters Date Type Department Care Team (Late st Contact Info) Description 09/28/2024 3:00 PM CDT Office Visit [facility] - Rheumatology [address] [place] [address], [place] [address] Jeremy Guy MD [address] [place] [address] [place] [address] Health Maintenance Due Date Last Done Comments LIPID TESTING 1980 MAMMOGRAM 1980 PAP SMEAR 1980 COVID-19 VACCINE (#1) 1985 PNEUMOCOCCAL VACCINE (1 of 2 - PCV) 1986 HIV SCREENING 12/16/1995 DTAP/TDAP/TD VACCINES (1 - Tdap) 12/16/1999 HEPATITIS B VACCINE (1 of 3 - 19+ 3-dose series) 12/16/1999 ZOSTER VACCINE (1 of 2) 12/16/1999 INFLUENZA VACCINE (#1) 2024 3, 05/11/2022, 05/10/2021, Additional history exists DEPRESSION SCREENING 07/21/2024 03/30/2024 SCREENING FOR DIABETES 08/30/2026 08/30/2023, 2023 HEPATITIS C SCREENING Completed 08/30/2023 HIB VACCINE Aged Out No longer eligi ble based on patient's age to complete this topic HPV VACCINE Aged Out No longer eligi ble based on patient's age to complete this topic MENINGOCOCCAL VACCINE Aged Out No lindsay suyapa eligible based on patient's age to complete this topic Procedures Procedure Name Priority Date/Time Associated Diagnosis Comments COMPREHENSIVE METABOLIC PANEL 08/30/2023 11:32 AM INSURANCE PROCESSING CLERK HEPATITIS C ANTIBODY Routine 08/30/2023 11:30 AM INSURANCE PROCESSING CLERK Polyarthritis from Last 3 Months or Most Recently Relevant to Health Maintenance Results * COMPREHENSIVE METABOLIC PANEL (08/30/2023 11:32 AM INSURANCE PROCESSING CLERK) Glucose 87 70 - 99 mg/dL [facility] INSURANCE BILL BUN 10 6 - 24 mg/dL [facility] INSURANCE BILL Creatinine 0.81 0.57 - 1.00 mg/dL [facility] INSURANCE BILL eGFR by CKD-EPI 93 >59 mL/min/1.7 3 [facility] INSURANCE BILL BUN/Creatinine Ratio 12 9 - 23 [facility] INSURANCE BILL Sodium 138 134 - 144 mmol/L [facility] INSURANCE BILL Potassium 4.3 3.5 - 5.2 mmol/L [facility] INSURANCE BILL Chloride 103 96 - 106 mmol/L [facility] INSURANCE BILL CO2 24 20 - 29 mmol/L [facility] INSURANCE BILL Calcium 8.9 8.7 - 10.2 mg/dL [facility] INSURANCE BILL Protein Total 6.6 6.0 - 8.5 g/dL [facility] INSURANCE BILL Albumin 4.1 3.9 - 4.9 g/dL [facility] INSURANCE BILL Globulin Total 2.5 1.5 - 4.5 g/dL [facility] INSURANCE BILL Albumin/Globulin Ratio 1.6 1.2 - 2.2 [facility] INSURANCE BILL Bilirubin Total 0.7 0.0 - 1.2 mg/dL [facility] INSURANCE BILL Alkaline Phosphatase 62 44 - 121 IU/L [facility] INSURANCE BILL AST 17 0 - 40 IU/L [facility] INSURANCE BILL ALT 24 0 - 32 IU/L [facility] INSURANCE BILL 08/30/2023 11:3 2 AM INSURANCE PROCESSING CLERK 08/30/2023 Narrative Resulting Agency Comment Lab Testing performed at: [facility] [address] ??[facility] [id number] Jeremy Guy MD LAB - CHEMISTRY LUZ RLODAN [facility] INSURANCE BILL [address] [place] [address] * HEPATITIS C ANTIBODY (08/30/2023 11:30 AM INSURANCE PROCESSING CLERK) Pathologist [facility] Hepatitis C Antibody Non Reactive Non Reactive [facility] INSURANCE BILL Comment: HCV antibody alone does not differentiate between previously resolved infection and active infection. Equivocal and Reactive HCV antibody results should be followed up with an HCV RNA test to support the diagnosis of active HCV infection. Blood BLOOD SPECIMEN / Unknown 08/30/2023 11:30 AM INSURANCE PROCESSING CLERK 08/30/2023 Narrative Resulting Agency Comment Lab Testing performed at: [facility] [address] ??[facility] [id number] Jeremy Guy MD LAB - CHEMISTRY LUZ ROLDAN Performing Organization Address City/[facility]/ZIP Co de Phone Number [facility] INSURANCE BILL [address] [place] [address] from Last 3 Months or Most Recently Relevant to Health Maintenance Care Teams Cardboard Cutter Relationship Specialty Start Date End Date Anika Lemos, DRAMATIC ART TEACHER-DIRECT CARE SUPERVISOR [address] [place] [address] PCP - General Nurse Practitioner 07/08/23
--- OUTSIDE RECORDS SUMMARY | 2024-07-27 02:30 | XMS_ITS | Patient Health Summary ---
Author Organization [facility] Address [address] [place] [address] Care Team Providers Care Loss Claim Clerk Name Role Phone OtilioclariAnika APRN-HANDSTITCHING MACHINE COLLAR FELLER Primary Care Provider + Note from [facility],non-owned Affiliates and Associated Physician Practices is amultiple site organization consisting of ambulatory clinics and hospital sitesin [place], [place], [place] and [place]. This disclosure is being madepursuant to the Care Everywhere program and may not contain all information available regarding this patient. Last updated 18.[facility] Allergies * Latex(Urticaria) -Medium Criticality * Penicillins(Urticaria) -Medium Criticality * Kdc:Red Dye+Yellow Dye+Ascorbate+Soybean Oil(Urticaria) -Medium Criticality Medications * Be aware that medications may not be up to date on this document. Alwaysverify current medications with the patient. * omeprazole (PriLOSEC) 20 MG capsule(Started 06/10/2023) Take 1 (one) capsule by mouth once daily * levonorgestrel (Mirena, 52 MG,) 20 MCG/DAY IUD Mirena 21 mcg/24 hours (8 yrs) 52 mg intrauterine device * Cholecalciferol 250 MCG (29865 UT) TABS Take 1 (one) tablet by mouth once daily * cetirizine (ZyrTEC) 10 MG tablet Take 1 (one) tablet by mouth as needed for Allergies * Apremilast (Otezla) 30 MG(Started 03/30/2024) Take 1 (one) tablet by mouth 2 times daily * methylPREDNISolone (Medrol Dosepak) 4 MG tablet(Started 07/22/2024) Take as directed by mouth per package instructions. Ended Medications* adalimumab (Humira, 2 Pen,) 40 MG/0.4ML injection(Started 11/06/2023)(Discontinued) Inject 0.4 mL subcutaneously every 14 days 1 refill by 11/05/2024 * apremilast (Otezla) 10 & 20 & 30 MG tablet(Started 03/30/2024)(Discontinued) Take by mouth as directed Active Problems Problem Noted Date Diagnosed Date Obesity (BMI 30-39.9) 11/14/2022 07/08/2023 Chronic pain of left knee 11/07/20222022 Social History Tobacco Use Types Packs/Day Years [...] Comments Blood Pressure 127/89 06/29/2024 3:50 PM STEEL LAYER Pulse 105 06/29/2024 3:50 PM STEEL LAYER Temperature 36.3 ??C (97.3 ??F) 06/29/2024 3:50 PM CS T Respiratory Rate - - Oxygen Saturation 97% 03/30/2024 3:07 PM CDT Inhaled Oxygen Concentration - - Weight 102.9 kg (226 lb 12.8 oz) 06/29/2024 3:50 PM STEEL LAYER Height 165.1 cm (5' 5 ) 06/29/2024 3:50 PM STEEL LAYER Body Mass Index 37.74 06/29/2024 3:50 PM STEEL LAYER Procedures * HEPATIC FUNCTION PANEL(Performed 11/25/2023) Performed for Therapeutic drug monitoring * C-REACTIVE PROTEIN(Performed 11/25/2023) Performed for Therapeutic drug monitoring * CBC W AUTO DIFFERENTIAL(Performed 11/25/2023) Performed for Therapeutic drug monitoring * QUANTIFERON-TB GOLD PLUS 4-TUBE(Performed 08/30/2023) * HEPATITIS B CORE ANTIBODY TOTAL(Performed 08/30/2023) * HEPATITIS B SURFACE ANTIGEN W RFLX CONFIRMATION(Performed 08/30/2023) * RHEUMATOID FACTOR BLOOD QUANTITATIVE(Performed 08/30/2023) * COMPREHENSIVE METABOLIC PANEL(Performed 08/30/2023) * ERYTHROCYTE SEDIMENTATION RATE(Performed 08/30/2023) * HEPATIC FUNCTION PANEL(Performed 08/30/2023) Performed for Therapeutic drug monitoring * C-REACTIVE PROTEIN(Performed 08/30/2023) Performed for Therapeutic drug monitoring * CBC W AUTO DIFFERENTIAL(Performed 08/30/2023) Performed for Therapeutic drug monitoring * HLA TYPING B27(Performed 08/30/2023) Performed for Polyarthritis * CYCLIC CITRUL PEPTIDE ANTIBODY IGG/IGA (CCP)(Performed 08/30/2023) Performed for Polyarthritis * HEPATITIS C ANTIBODY(Performed 08/30/2023) Performed for Polyarthritis * QUANTIFERON TB-GOLD(Performed 07/26/2023) * ERYTHROCYTE SEDIMENTATION RATE(Performed 07/26/2023) Performed for Polyarthralgia * C-REACTIVE PROTEIN(Performed 07/26/2023) Performed for Polyarthralgia * COMPREHENSIVE METABOLIC PANEL(Performed 07/26/2023) Performed for Polyarthralgia * CBC W AUTO DIFFERENTIAL(Performed 07/26/2023) Performed for Polyarthralgia * RHEUMATOID FACTOR BLOOD QUANTITATIVE(Performed 07/26/2023) Performed for Polyarthralgia * HLA TYPING B27(Performed 07/26/2023) Performed for Polyarthralgia * CYCLIC CITRULLINATED PEPTIDE(CCP) AB IGG(Performed 07/26/2023) Performed for Polyarthralgia * HEPATITIS B SURFACE ANTIGEN W RFLX CONFIRMATION(Performed 07/26/2023) Performed for Need for hepatitis B screening test * HEPATITIS B CORE ANTIBODY TOTAL(Performed 07/26/2023) Performed for Need for hepatitis B screening test Results * C-REACTIVE PROTEIN (11/25/2023 8:56 AM CDT) Only the most recent of3 resultswithin the time period is included. C-Reactive Protein 7 0 - 10 mg/L [employer] [facility] INSURANCE BILL Blood BLOOD SPECIMEN / Unknown 11/25/2023 8:56 AM CDT 11/25/2023 Narrative Resulting Agency Comment Lab Testing performed at: [facility] [address] ??[facility] [phone] Jeremy Guy MD LAB - CHEMISTRY LUZ ROLDAN [facility] Organization Address City/State/ZIP Co de Phone Number [facility] INSURANCE BILL [address] [place] [address] * CBC WITH DIFFERENTIAL (11/25/2023 8:56 AM CDT) Only the most recent of3 resultswithin the time period is included. WBC 8.6 3.4 - 10.8 x10E3/uL [facility] INSURANCE BILL RBC 4.63 3.77 - 5.28 x10E6/uL [facility] INSURANCE BILL Hemoglobin 14.6 11.1 - 15.9 g/dL [facility] INSURANCE BILL Hematocrit 44.0 34.0 - 46.6 % [facility] INSURANCE BILL MCV 95 79 - 97 fL [facility] INSURANCE BILL MCH 31.5 26.6 - 33.0 pg [facility] INSURANCE BILL MCHC 33.2 31.5 - 35.7 g/dL [facility] INSURANCE BILL RDW 14.5 11.7 - 15.4 % [facility] INSURANCE BILL Platelet Count 237 150 - 450 x10E3/uL [facility] INSURANCE BILL Granulocytes % 61 Not Estab. % [facility] INSURANCE BILL Lymphocytes % 30 Not Estab. % [facility] INSURANCE BILL Monocytes % 6 Not Estab. % [facility] INSURANCE BILL Eosinophils % 2 Not Estab. % [facility] INSURANCE BILL Basophils % 1 Not Estab. % [facility] INSURANCE BILL Immature Cells NOT AVAILABLE [facility] INSURANCE BILL Comment:Result cannot be obt ained for this observation. Granulocytes Absolute 5.2 1.4 - 7.0 x10E3/uL [facility] INSURANCE BILL Lymphocytes Absolute 2.6 0.7 - 3.1 x10E3/uL [facility] INSURANCE BILL Monocytes Absolute 0.5 0.1 - 0.9 x10E3/uL [facility] INSURANCE BILL Eosinophils Absolute 0.2 0.0 - 0.4 x10E3/uL [facility] INSURANCE BILL Basophils Absolute 0.0 0.0 - 0.2 x10E3/uL [facility] INSURANCE BILL Immature Granulocytes 0 Not Estab. % [facility] INSURANCE BILL Immature Granulocytes Absolute 0.0 0.0 - 0.1 x10E3/uL [facility] INSURANCE BILL nRBC NOT AVAILABLE [facility] INSURANCE BILL Comment:Result cannot be obt ained for this observation. Comment Hematology NOT AVAILABLE [facility] INSURANCE BILL Comment:Result cannot be obt ained for this observation. Blood BLOOD SPECIMEN / Unknown 11/25/2023 8:56 AM CDT 11/25/2023 Narrative Resulting Agency Comment Lab Testing performed at: [facility] [address] [facility] ??[facility] [phone] Jeremy Guy MD LAB - HEMATOLOGY ORD ERABLES [facility] INSURANCE BILL [address] [place] [address] * (ABNORMAL) HEPATIC FUNCTION PANEL (11/25/2023 8:56 AM CDT) Only the most recent of2 resultswithin the time period is included. Pathologist [facility] Protein Total 6.5 6.0 - 8.5 g/dL [facility] INSURANCE BILL Albumin 3.9 3.9 - 4.9 g/dL [facility] INSURANCE BILL Bilirubin Total 0.9 0.0 - 1.2 mg/dL [facility] INSURANCE BILL Bilirubin Direct 0.26 0.00 - 0.40 mg/dL [facility] INSURANCE BILL Alkaline Phosphatase 68 44 - 121 IU/L [facility] INSURANCE BILL AST 22 0 - 40 IU/L [facility] INSURANCE BILL ALT 52(H) 0 - 32 IU/L [facility] INSURANCE BILL Blood BLOOD SPECIMEN / Unknown 11/25/2023 8:56 AM CDT 11/25/2023 Narrative Resulting Agency Comment Lab Testing performed at: [facility] [address] ??[facility] [phone] Jeremy Guy MD LAB - CHEMISTRY ORDE RABLES Performing Organization Address City/[facility]/ZIP Co de Phone Number [facility] INSURANCE BILL [address] [place] [address] * QUANTIFERON-TB GOLD PLUS 4-TUBE (08/30/2023 11:32 AM STEEL LAYER) QuantiFERON Criteria [facility] INSURANCE BILL Comment: QuantiFERON-TB Gold Plus is a qualitative indirect test for M tuberculosis infection (including disease) and is intended for use in conjunction with risk assessment, radiography, and other medical and diagnostic evaluations. The QuantiFERON-TB Gold Plus result is determined by subtracting the Nil value from either TB antigen (Ag) value. The Mitogen tube serves as a control for the test. QuantiFERON TB1 Ag Value 0.01 IU/mL [facility] INSURANCE BILL QuantiFERON TB2 Ag Value 0.01 IU/mL [facility] INSURANCE BILL QuantiFERON Nil Value 0.02 IU/mL [facility] INSURANCE BILL QuantiFERON Mitogen Value >10.00 IU/mL [facility] INSURANCE BILL QuantiFERON-TB Gold Plus Negative Negative [facility] INSURANCE BILL Comment: No response to M tuberculosis antigens detected. Infection with M tuberculosis is unlikely, but high risk individuals should be considered for additional testing (ATS/IDSA/CDC Clinical Practice Guidelines, 2017). The reference range is an Antigen minus Nil result of <0.35 IU/mL. The specimen received for QuantiFERON testing was incubated by the ordering institution. Specific procedures outlined in our Directory of Services and in the package insert for the QuantiFERON Gold (In Tube) test must be followed to enable for proper stimulation of cells for the production of interferon gamma. Chemiluminescence immunoassay methodology 08/30/2023 11:3 2 AM STEEL LAYER 08/30/2023 Narrative Resulting Agency Comment Lab Testing performed at: [facility] ??[facility] [phone] Jeremy Guy MD LAB - CHEMISTRY LUZ [facility] Organization Address City/State/ZIP Co de Phone Number [facility] INSURANCE BILL [address] [place] [address] * RHEUMATOID FACTOR BLOOD QUANTITATIVE (08/30/2023 11:32 AM STEEL LAYER) Only the most recent of2 resultswithin the time period is included. Rheumatoid Factor <10.0 <14.0 IU/mL [facility] INSURANCE BILL 08/30/2023 11:3 2 AM STEEL LAYER 08/30/2023 Narrative Resulting Agency Comment Lab Testing performed at: [facility] ??[facility] [phone] Jeremy Guy MD LAB - CHEMISTRY ORDJuju ROLDAN [facility] INSURANCE BILL [address] [place] [address] * ERYTHROCYTE SEDIMENTATION RATE (08/30/2023 11:32 AM STEEL LAYER) Only the most recent of2 resultswithin the time period is included. Erythrocyte Sedimentation Rate Westergren 9 0 - 32 mm/hr [facility] INSURANCE BILL 08/30/2023 11:3 2 AM STEEL LAYER 08/30/2023 Narrative Resulting Agency Comment Lab Testing performed at: [facility] [address] ??[facility] [phone] Jeremy Guy MD LAB - HEMATOLOGY ORD ISAK Performing Organization Address City/[facility]/ZIP Co de Phone Number [facility] INSURANCE BILL [address] [place] [address] * COMPREHENSIVE METABOLIC PANEL (08/30/2023 11:32 AM STEEL LAYER) Only the most recent of2 resultswithin the time period is included. Glucose 87 70 - 99 mg/dL [facility] [...] [facility] INSURANCE BILL 08/30/2023 11:3 2 AM STEEL LAYER 08/30/2023 Narrative Resulting Agency Comment Lab Testing performed at: [facility] [address] ??[facility] [phone] Jeremy Guy MD LAB - CHEMISTRY LUZ ROLDAN [facility] INSURANCE BILL [address] [place] [address] * HEPATITIS B CORE ANTIBODY TOTAL (08/30/2023 11:32 AM STEEL LAYER) Only the most recent of2 resultswithin the time period is included. Hepatitis B Core Virus Antibody Total Negative Negative [facility] INSURANCE BILL 08/30/2023 11:3 2 AM STEEL LAYER 08/30/2023 Narrative Resulting Agency Comment Lab Testing performed at: [facility] [address] ??[facility] [phone] Jeremy Guy MD LAB - CHEMISTRY LUZ ROLDAN [facility] INSURANCE BILL [address] [place] [address] * HEPATITIS B SURFACE ANTIGEN W RFLX CONFIRMATION (08/30/2023 11:32 AM STEEL LAYER) Only the most recent of2 resultswithin the time period is included. Hepatitis B Virus Surface Antigen Negative Negative [facility] INSURANCE BILL 08/30/2023 11:3 2 AM STEEL LAYER 08/30/2023 Narrative Resulting Agency Comment Lab Testing performed at: [facility] [address] ??[facility] [phone] Jeremy Guy MD LAB - CHEMISTRY LUZ ROLDAN [facility] INSURANCE BILL [address] [place] [address] * HLA TYPING B27 (08/30/2023 11:31 AM STEEL LAYER) Only the most recent of2 resultswithin the time period is included. Pathologist [facility] HLA-B27 Negative [facility] INSURANCE BILL Comment: HLA-B*27 Negative B27 allele interpretation for all loci based on IMGT/HLA database version 3.51.0 This test was developed and its performance characteristics determined by [facility]. ??It has not been cleared or approved by the Food and Drug Administration. HLA Lab CLIA ID Number [id number] THis test was performed using Polymerase Chain Reaction (PCR) and Sequence Specific Oligonucleotide Probes (SSOP) technique. Sequence Based Typing (SBT) may be used as a supplemental method when necessary. If you have questions, please call [employer] customer service at or email at [email or web address]. Blood BLOOD SPECIMEN / Unknown 08/30/2023 11:31 AM STEEL LAYER 08/30/2023 Narrative Resulting Agency Comment Lab Testing performed at: [place] [address] [facility] ??[facility] [phone] Jeremy Guy MD LAB - CHEMISTRY LUZ ROLDAN [facility] INSURANCE BILL [address] [place] [address] * CYCLIC CITRUL PEPTIDE ANTIBODY IGG/IGA (CCP) (08/30/2023 11:30 AM STEEL LAYER) [facility] CCP Antibodies IgG/IgA 8 0 - 19 units [facility] INSURANCE BILL Comment: ? Negative ? <20 ? Weak positive ?20 - 39 ? Moderate positive ??40 - 59 ? Strong positive ?>59 Blood BLOOD SPECIMEN / Unknown 08/30/2023 11:30 AM STEEL LAYER 08/30/2023 Narrative Resulting Agency Comment [facility]: [facility] [address] ??[facility] [phone] Jeremy Guy MD LAB - SEROLOGY ORDER GEOVANNA Performing Organization Address [facility] de Phone Number [facility] INSURANCE BILL [address] [place] [address] * HEPATITIS C ANTIBODY (08/30/2023 11:30 AM STEEL LAYER) Hepatitis C Antibody Non Reactive Non Reactive [facility] INSURANCE BILL Comment: HCV antibody alone does not differentiate between previously resolved infection and active infection. Equivocal and Reactive HCV antibody results should be followed up with an HCV RNA test to support the diagnosis of active HCV infection. Blood BLOOD SPECIMEN / Unknown 08/30/2023 11:30 AM STEEL LAYER 08/30/2023 Narrative Resulting Agency Comment Lab Testing performed at: [facility] [address] ??[facility] [phone] Jeremy Guy MD LAB - CHEMISTRY ORDE RABMIGUEL Performing Organization Address [facility] de Phone Number [facility] INSURANCE BILL [address] [place] [address] * CYCLIC CITRULLINATED PEPTIDE(CCP) AB IGG (07/26/2023 10:44 AM STEEL LAYER) CCP Antibodies IgG/IgA <20 <20 Units [facility] INSURANCE BILL Comment: ? Negative: <20 ? Weak Positive: 20-39 ? Moderate Positive: 40-59 ??Strong Positive: >59 Blood BLOOD SPECIMEN / Unknown 07/26/2023 10:44 AM STEEL LAYER 07/26/2023 Narrative Resulting Agency Comment Lab Testing performed at: [facility] [address] [facility] ??[facility] [phone] Jeremy Guy MD LAB - CHEMISTRY LUZ ROLDAN Performing Organization Address City/[facility]/ZIP Co de Phone Number [facility] INSURANCE BILL [address] [place] [address] * QUANTIFERON TB-GOLD (07/26/2023 10:44 AM STEEL LAYER) [facility] QuantiFERON Incubation Incubation performed. [facility] INSURANCE BILL QuantiFERON Criteria [facility] INSURANCE BILL Comment: QuantiFERON-TB Gold Plus is a qualitative indirect test for M tuberculosis infection (including disease) and is intended for use in conjunction with risk assessment, radiography, and other medical and diagnostic evaluations. The QuantiFERON-TB Gold Plus result is determined by subtracting the Nil value from either TB antigen (Ag) value. The Mitogen tube serves as a control for the test. QuantiFERON TB1 Ag Value 0.01 IU/mL [facility] INSURANCE BILL QuantiFERON TB2 Ag Value 0.01 IU/mL [facility] INSURANCE BILL QuantiFERON Nil Value 0.00 IU/mL [facility] INSURANCE BILL QuantiFERON Mitogen Value >10.00 IU/mL [facility] INSURANCE BILL QuantiFERON-TB Gold Plus Negative Negative [facility] INSURANCE BILL Comment: No response to M tuberculosis antigens detected. Infection with M tuberculosis is unlikely, but high risk individuals should be considered for additional testing (ATS/IDSA/CDC Clinical Practice Guidelines, 2017). The reference range is an Antigen minus Nil result of <0.35 IU/mL. Chemiluminescence immunoassay methodology 07/26/2023 10:4 4 AM STE[employer]ER 07/26/2023 Narrative Resulting Agency Comment Lab Testing performed at: [facility] [place] [address] ??[facility] [phone] Jeremy Guy MD LAB - CHEMISTRY LUZ ROLDAN [facility] INSURANCE BILL [address] [place] [address] Care Teams Loss Claim Clerk Relationship Specialty Start Date End Date Anika Lemos, SHOWER ROOM ATTENDANT-HANDSTITCHING MACHINE COLLAR FELLER [address] [place] [address] PCP - General Nurse Practitioner 07/08/23
--- OUTSIDE RECORDS SUMMARY | 2024-07-27 02:30 | XMS_ITS | Encounter Summary ---
Author Organization [facility] Address [address] [place] [address] Care Team Providers Care Flame Cutting Supervisor Name Role Phone Anika Lemos Primary Care Provider + Encounter Details Date Type Department Care Team (Latest Contact Info) Description 07/23/2023 Travel Social History Tobacco Use Types Packs/Day [...] Office Visit [facility] - Rheumatology [address] [place] [address], [place] [phone] Jeremy Guy MD [address] [place] [address] [place] [address] documented as of this encounter Visit Diagnoses Not on filedocumented in this encounter Care Teams Flame Cutting Supervisor Relationship Specialty Start Date End Date Anika Lemos APRN-CNP [address] [place] [address] PCP - General Nurse Practitioner 07/08/23 documented as of this encounter
--- OUTSIDE RECORDS SUMMARY | 2024-07-27 02:30 | XMS_ITS | Referral Summary ---
Author Organization [facility] Address [address] [facility] [place] [address] Care Team Providers Care Template Storage Clerk Name Role Phone Anika Lemos Yung ELLIOTT-DIRECTOR OF OPERATIONS Primary Care Provider + Source Comments [facility],non-owned Affiliates and Associated Physician Practices is amultiple site organization consisting of ambulatory clinics and hospital sitesin [place], [place], [place] and [place]. This disclosure is being madepursuant to the Care Everywhere program and may not contain all information available regarding this patient. Last updated 18.[facility] Encounters Date Type Department Care Team Description 07/22/2024 Orders Only [facility] - Rheumatology [address] [place] [phone] Jeremy Guy MD 07/22/2024 Telephone [facility] - Rheumatology [address] [place] [phone] Jeremy Guy MD Pain 06/29/2024 Travel 06/29/2024 3:40 PM RUBBER CUTTER AND SHAPE CARVER Office Visit [facility] - Rheumatology [address] [place] [phone] Jeremy Guy MD Psoriatic arthritis (HCC) (Primary Dx); Therapeutic drug monitoring 06/25/2024 Orders Only [facility] - Rheumatology [address] [place] [phone] Jeremy Guy MD Therapeutic drug monitoring from Last 3 Months Allergies Active Allergy Reactions Criticality Noted Date [...] mg intrauterine device Active Cholecalciferol 250 MCG (64395 UT) TABS Take 1 (one) tablet by [...] every 14 days 2.4 mL 1 11/06/2023 4 Discontinue d(List Clean-Up) apremilast (Otezla) 10 & [...] provided Chronic pain of left knee 11/07/20222022 Social [...] Comments Blood Pressure 127/89 06/29/2024 3:50 PM RUBBER CUTTER AND SHAPE CARVER Pulse 105 06/29/2024 3:50 PM RUBBER CUTTER AND SHAPE CARVER Temperature 36.3 ??C (97.3 ??F) 06/29/2024 3:50 PM CS T Respiratory Rate - - Oxygen Saturation 97% 03/30/2024 3:07 PM CDT Inhaled Oxygen Concentration - - Weight 102.9 kg (226 lb 12.8 oz) 06/29/2024 3:50 PM RUBBER CUTTER AND SHAPE CARVER Height 165.1 cm (5' 5 ) 06/29/2024 3:50 PM RUBBER CUTTER AND SHAPE CARVER Body Mass Index 37.74 06/29/2024 3:50 PM RUBBER CUTTER AND SHAPE CARVER Plan of Treatment Upcoming Encounters Date Type Department Care Team (Late st Contact Info) Description 09/28/2024 3:00 PM CDT Office Visit [facility] - Rheumatology [address] [place] [address], [facility] [place] [address] Jeremy Guy MD [address] [place] [address] [place] [address] Procedures Procedure Name Priority Date/Time Associated Diagnosis Comments COMPREHENSIVE METABOLIC PANEL 08/30/2023 11:32 AM RUBBER CUTTER AND SHAPE CARVER HEPATITIS C ANTIBODY Routine 08/30/2023 11:30 AM RUBBER C[employer]TER AND SHAPE CARVER Polyarthritis from Last 3 Months or Most Recently Relevant to Health Maintenance Results * COMPREHENSIVE METABOLIC PANEL (08/30/2023 11:32 AM RUBBER CUTTER AND SHAPE CARVER) Glucose 87 70 - 99 mg/dL [facility] [...] [facility] INSURANCE BILL 08/30/2023 11:3 2 AM RUBBER CUTTER AND SHAPE CARVER 08/30/2023 Narrative Resulting Agency Comment Lab Testing performed at: [place] [id number] [facility] ??[facility] [phone] Jeremy Guy MD LAB - CHEMISTRY LUZ ROLDAN [facility] INSURANCE BILL [address] [place] [address] * HEPATITIS C ANTIBODY (08/30/2023 11:30 AM RUBBER C[employer]TER AND SHAPE CARVER) Hepatitis C Antibody Non Reactive Non Reactive [facility] INSURANCE BILL Comment: HCV antibody alone does not differentiate between previously resolved infection and active infection. Equivocal and Reactive HCV antibody results should be followed up with an HCV RNA test to support the diagnosis of active HCV infection. Blood BLOOD SPECIMEN / Unknown 08/30/2023 11:30 AM RUBBER CUTTER AND SHAPE CARVER 08/30/2023 Narrative Resulting Agency Comment Lab Testing performed at: [facility] [address] ??[place] [phone] Jeremy Guy MD LAB - CHEMISTRY LUZ ROLDAN [facility] INSURANCE BILL [address] [place] [address] from Last 3 Months or Most Recently Relevant to Health Maintenance Care Teams Template Storage Clerk Relationship Specialty Start Date End Date Anika Lemos, SHOW DOG TRAINER-DIRECTOR OF OPERATIONS [facility] [facility] [place] [address] PCP - General Nurse Practitioner 07/08/23
--- OUTSIDE RECORDS SUMMARY | 2024-07-27 02:30 | XMS_ITS | Encounter Summary ---
Author Organization [facility] Address [address] [place] [address] Care Team Providers Care Environmental Solutions Engineer Name Role Phone Anika Lemos Yung ELLIOTT-TECHNICAL INSTRUCTOR COURSE DEVELOPER Primary Care Provider + Reason for Visit * Reason Comments Follow-up 3 MONTH F/U Encounter Details Date Type Department Care Team (Late st Contact Info) Description 06/29/2024 3:40 PM PEDIATRIC ACUTE CARE UNIT NURSE Office Visit [facility] - Rheumatology [address] [place] [address], [facility] [place] [address] Jeremy Guy MD [address] [place] [address] [place] [address] Psoriatic arthritis (HCC) (Primary Dx); Therapeutic drug monitoring Social History Tobacco Use [...] Comments Blood Pressure 127/89 06/29/2024 3:50 PM PEDIATRIC ACUTE CARE UNIT NURSE Pulse 105 06/29/2024 3:50 PM PEDIATRIC ACUTE CARE UNIT NURSE Temperature 36.3 ??C (97.3 ??F) 06/29/2024 3:50 PM CS T Respiratory Rate - - Oxygen Saturation - - Inhaled Oxygen Concentration - - Weight 102.9 kg (226 lb 12.8 oz) 06/29/2024 3:50 PM PEDIATRIC ACUTE CARE UNIT NURSE Height 165.1 cm (5' 5 ) 06/29/2024 3:50 PM PEDIATRIC ACUTE CARE UNIT NURSE Body Mass Index 37.74 06/29/2024 3:50 PM PEDIATRIC ACUTE CARE UNIT NURSE documented in this encounter Progress Notes * Jeremy Guy MD - 06/29/2024 4:00 PM CST Images from the original note were not included. Rheumatology Clinic Note Patient: Yarelis Mann ( 1980, ) Encounter Date: 06/29/2024 Chief Concern: Psoriatic Arthritis Assessment & Recommendations [...] sister has skin psoriasis. She is on Otezla 30 mg BID and overall responding well without signs of active inflammatory arthritis on exam. Continue Otezla #. Long-Term Immunosuppression due to Drug Therapy [...] infections or antibiotic use. #. Follow-up: In 3 months or sooner if needed. Thank you for placing trust in us. I educated the patient regarding risks and benefits of the management plan, their medical problems, and contingency plans for worsening symptoms. Additional contributions to medical decision making for today's encounter: - The patient will be on drug therapy requiring monitoring for toxicity. - I reviewed the patient's chart including review of clinical notes, laboratory results, and imaging results dating back to 03/2024 Jeremy Guy MD Division of Rheumatology Department of Internal Medicine [facility] ICD-10-CM 1. Psoriatic arthritis (HCC) L40.50 2. Therapeutic drug monitoring Z51.81 Z79.899 No orders of the defined types were placed in this encounter. Future Appointments Date Time Provider Department Center 09/28/2024 3:00 PM Jeremy Guy MD [id number] Subjective History of Present Illness: She is overall feeling better still has left index finger stiffness though better mobility. She thinks Otezla working well for her. NO GI intolerance. Prior therapy: MTX: D.c 10/2023 for elevated ALT and after Humira was started. Humira: ineffective+injection site reaction Disease Hx: 10/10 she woke up with left knee swelling(she thought she twisted it) s/p knee aspiration by Ortho showing WBCs ~22445 and negative for infectious and crystals. Knee [...] the HPI. Home Medications: Current Outpatient Medications: Apremilast (Otezla) 30 MG, Take 1 (one) tablet by mouth 2 times daily, Disp: 180 tablet, Rfl: 0 cetirizine (ZyrTEC) 10 MG tablet, Take 1 (one) tablet by mouth as needed for Allergies, Disp: , Rfl: Cholecalciferol 250 MCG ([address] UT) TABS, Take 1 (one) tablet by [...] Never Smokeless tobacco: Never Vaping Use Vaping status: Never Used Substance and Sexual Activity Alcohol use: Not Currently Family History: Family History Problem Relation Name Age of Onset Psoriasis Sister Patient Care Team: Patient Care Team: Anika Lemos APRN-LAVINIA as PCP - General (Nurse Practitioner) Objective Physical Exam BP 127/89 (BP Location: Left arm, Patient Position: Sitting, BP Cuff Size: Adult) Pulse 105 Temp 97.3 ??F (36.3 ??C) (Skin) Ht 1.651 m (5' 5 ) Wt 102.9 kg (226 lb 12.8 oz) BMI 37.74 kg/m?? GENERAL: not in acute distress HEENT/NECK: [...] results found for: PROTEINTO , CREATININEUR , UPKGHRLCD7ED No results for input(s): HCGURINE , HCGQUANT in the last 97621 hours. Latent Infections No results found for: HEPBSAG , HBVSAB , HEPBSAB , HEPBCAB , HEPCAB No results found for: QUANTIFER , QNTTBGOLD , QNTPLUSTB1 , QNTPLUSTB2 , QNTMITOGEN , QUANTIFERO , QUANTIFECI , QUANTIF , QUANNIL , QUAMIT , QFTTBAGN , PQGIOQWAU17 , AFBSMR Immunology Labs Inflammatory Markers Recent [...] , SMITHRNPAB , SCL70 , ANTICENTROB , AR6SOAPW , CYFKG113ED , NUNENNJ4XO , HISTONEIGG No results for input(s): C3 , C4 in the last 00134 hours. APLS-related Auto-Ab's No results found for: W3YRETTWIP , W3CNGXOSUB , C5YXCJIWDV , IMVF2MUD , IYDR0BWF , CRDLPNIGM , CRDLPNIGG , CRDLPNIGA , DILUTEPT , DPTCFMRATIO , TT , PTTLA , DRVVTBASE , LABINTE Myopathy No results found for: CK , ALDOLASE , SAE1AB , NXP2AB , MDA5AB , DPC7NXE , MYOINTERP , MI2AB , [id number] , PL12AB , PL7AB , OJAB , EJAB , SRPAB , VA4TPLOM , KUAB , SMITHRNPAB , KWKHP619ZB , TLL49MQ , RDY25GV , LXSQCVBA5RTN , ACHBLOCKAB , ACHBINDAB Vasculitis and ANCAs No results found for: NEUTCYTOAB , ANTIPROT3 , ANTIMPO , E3PYBYR Genetics Lab Results Component Value Date/Time HLAB27 [...] , TSH , T4FREE in the last 53437 hours. No results found for: DIZK00HX Heme No results found for: RETICCTPCT , RETICULOCYTE , IRON , FERRITIN , TRANSFERRIN , TRANSFERRSAT , TIBC , FIBRINOGEN , DDIMER , VITB12 , FOLATE , HAPTOGLOBIN , LDHTOTAL No results for input(s): PT , INR , PTT in the last 47835 hours. Renal No results found for: CALCIUMION , PHBLD , IONCAART , MAGNESIUM , PHOS , SODIUMRAN , POTASSIUMUR , CHLORIDER Cardiac & Lipids No results for input(s): TROPONINI , CKMB , BNP in the last 80905 hours. No results for input(s): CHOL , TRIG , HDL , LDLCALC , LDLDIRECT in the last 27998 hours. Respiratory No results found for: SARSCOV2 , RINFLUANAA , RINFLUBNAA , INFLUARAPID , INFLUBRAPID , INFLUCNTRL , STREPARAPID , STREPAQC Hepatobiliary & GI No results found for: GGT , LIPASE , L1JKLMHMIEGB , CMVPCR , CMVSOURCE , GDHANTIGEN , [...] results found for: GLUCSF , PROTEINCSF , NYX3UOOWCX , UEV0WWTGLE , DSKD3MLT , COCCIDIGG , OPY1TVF , CRYPTOAGCSF , ENTEROVIRPCR , OLIGOBAND , OLIGOBANDNUM , IGG , ITG2SLH , ALBUMINMS , NXZNAND0OZL , ALBUMININDEX , IGGINDEX , IGGALBRATIO , SYNTHESRTE , OLIGOCINTRP , TOXOPLASIGG , CYSTICERO Body Fluid No results found for: LABLD , GROSSDESCRIP , MICROPDESCR STIs (HIV, GC, Trich, Syphilis) No results found for: HIV12 , IES7WZJDEC , OCC1HVH75ZQN , CHLAMDIA , CHLTRNAA , GC , NGONORRNAA , TRICVAGAP , TRICHVAGBY , TPALLIDUM Cultures & Other Micro No results found for: URINECULT , BLOODCULT , BDERMAGUR , BDERMINTERP For assessment and recommendations, please see above. This note was generated using the [employer] speech recognition system. Grammatical errors, random wordinsertions, [...] directlywith the author for clarification. Thank you. [facility] UN[facility] NURSE documented in this encounter Plan of Treatment Upcoming Encounters Date Type Department Care Team (Late st Contact Info) Description 09/28/2024 3:00 PM CDT Office Visit [facility] - Rheumatology [address] [facility], [place] [address] Jeremy Guy MD [address] [place] [address] [place] [phone] documented as of this encounter Visit Diagnoses Diagnosis Psoriatic arthritis (HCC)- Primary Psoriatic arthropathy Therapeutic drug monitoring Encounter for therapeutic drug monitoring documented in this encounter Care Teams Environmental Solutions Engineer Relationship Specialty Start Date End Date Anika Lemos, EARL-TECHNICAL INSTRUCTOR COURSE DEVELOPER [address] [place] [address] PCP - General Nurse Practitioner 07/08/23 documented as of this encounter
--- OUTSIDE RECORDS SUMMARY | 2024-07-27 02:30 | XMS_ITS | Encounter Summary ---
Author Organization [facility] Address [address] [place] [address] Care Team Providers Care Senior Painter Name Role Phone Anika Lemos Primary Care Provider + Encounter Details Date Type Department Care Team (Latest Contact Info) Description 11/04/2023 Travel Social History Tobacco Use Types Packs/Day [...] Office Visit [facility] - Rheumatology [address] [place] [address], [place] [address] Jeremy Guy MD [address] [place] [address] [place] [phone] documented as of this encounter Visit Diagnoses Not on filedocumented in this encounter Care Teams Senior Painter Relationship Specialty Start Date End Date Anika Lemos APRN-CNP [address] [address] PCP - General Nurse Practitioner 07/08/23 documented as of this encounter
--- OUTSIDE RECORDS SUMMARY | 2024-07-27 02:30 | XMS_ITS | Encounter Summary ---
Author Organization [facility] Address [address] [place] [address] Care Team Providers Care Flatwork Tier Name Role Phone Anika Lemos Yung ELLIOTT-MANAGER VIDEO Primary Care Provider + Reason for Visit * Reason Comments Establish Care Encounter Details Date Type Department Care Team (Latest Contact Info) Description 07/08/2023 1:00 PM SENIOR GEOTECHNICAL ENGINEER Office Visit [facility] - Rheumatology [address] [place] [address], [facility] [place] [address] Jeremy Guy MD [address] [place] [address] [place] [address] Polyarthritis (Primary Dx); Need for hepatitis B screening test; Need for hepatitis C screening test; Screening-pulmonary TB; Polyarthralgia; Family history of psoriasis Social History Tobacco Use Types Packs/Day Years [...] Sign Reading Time Taken Comments Blood Pressure 138/88 07/08/2023 1:07 PM SENIOR GEOTECHNICAL ENGINEER Pulse 81 07/08/2023 1:07 PM SENIOR GEOTECHNICAL ENGINEER Temperature 36.4 ??C (97.6 ??F) 07/08/2023 1:07 PM CS T Respiratory Rate - - Oxygen Saturation - - Inhaled Oxygen Concentration - - Weight 100.6 kg (221 lb 12.8 oz) 07/08/2023 1:07 PM SENIOR GEOTECHNICAL ENGINEER Height 167.6 cm (5' 6 ) 07/08/2023 1:07 PM SENIOR GEOTECHNICAL ENGINEER Body Mass Index 35.8 07/08/2023 1:07 PM SENIOR GEOTECHNICAL ENGINEER documented in this encounter Progress Notes * Jeremy Guy MD - 07/08/2023 1:17 PM CST Images from the original note were not included. Rheumatology Clinic Note Patient: Yarelis Mann ( 1980, ) Encounter Date: 07/08/2023 Chief Concern: Inflammatory Arthritis Assessment & Recommendations Yarelis Mann is a 42 year old female seen as new consult for evaluation of Inflammatory arthritis. #. Inflammatory arthritis - Onset: 2022. Phenotype: Inflammatory arthritis history involving left knee, right wrist and left index finger dactylitis, nail dystrophic changes/15. Reported history of eczema involving the nails and palms which I suspect could be due to skin psoriasis. Her sister has skin psoriasis. Her history is very suggestive of inflammatory arthritis and with family history of psoriasis and dactylitis I think she probably has psoriatic arthritis. I will check RA serologies, musculoskeletal x-rays, HLA-B27 and other labs as below but she would need to be on DMARDs which we will review at follow-up visit. #. Long-Term Immunosuppression due to Drug Therapy (anticipated DMARDs use): Checking HBV, HCV, TB quant. Negative HBV (ordered), HCV (ordered), TB Quant (ordered). Immunizations per PCP: for all patients on immunosuppressive therapy with DMARDs I recommend annual influenza vaccine, COVID19 vaccine, Prevnar, Pneumovax, Shingrix. Avoid live vaccines. Patient advised to contact clinic in case of any infections or antibiotic use. #. Follow-up: In 3 weeks or sooner if needed. Thank you for placing trust in us. I educated the patient regarding risks and benefits of the management plan, their medical problems, and contingency plans for worsening symptoms. Additional contributions to medical decision making for today's encounter: - The patient has a -undiagnosed new problem with uncertain prognosis and requires further workup -chronic illness that poses a threat to life or bodily function in the short- term without treatment. - The patient will be on drug therapy requiring intensive monitoring for toxicity. - I reviewed the patient's chart including review of clinical notes, laboratory results, and imaging results dating back to 10/10 - Additional independent source(s) of information used for assessment included the patient's spousewho accompanied the patient during the visit. - Total time spent reviewing records, conducting interview and physical, counseling, care coordination, placing any orders for investigative studies and/or medications, and documentation: 45 minutes. Jeremy Guy MD Division of Rheumatology Department of Internal Medicine [facility] Encounter Diagnoses, Orders, and Future Appointments: 1. Polyarthritis 2. Need for hepatitis B screening test 3. Need for hepatitis C screening test 4. Screening-pulmonary TB Orders Placed This Encounter ??? XR HAND LEFT 3VW OR MORE ??? XR FOOT RIGHT WT BEARING 3VW ??? XR WRIST LEFT 3VW OR MORE ??? XR WRIST RIGHT 3VW OR MORE ??? XR HAND RIGHT 3VW OR MORE ??? XR SI JOINTS 3VW OR MORE ??? XR FOOT LEFT WT BEARING 3VW ??? HEPATITIS B CORE ANTIBODY TOTAL ??? HEPATITIS B SURFACE ANTIGEN W RFLX CONFIRMATION ??? HEPATITIS C AB SCREEN RFLX NAAT QUANT ??? QUANTIFERON-TB GOLD PLUS 4-TUBE ??? CYCLIC CITRULLINATED PEPTIDE(CCP) AB IGG ??? HLA TYPING B27 ??? RHEUMATOID FACTOR BLOOD QUANTITATIVE ??? CBC WITH DIFFERENTIAL ??? COMPREHENSIVE METABOLIC PANEL ??? C-REACTIVE PROTEIN ??? ERYTHROCYTE SEDIMENTATION RATE Future Appointments Date Time Provider Department Center 07/29/2023 3:20 PM Jeremy Guy MD [id number] [facility] Subjective History of Present Illness: 10/10 she woke up with left knee swelling(she thought she twisted it) s/p knee aspiration by Ortho showing WBCs ~85043 and negative for infectious and crystals. Knee [...] the HPI. Home Medications: Current Outpatient Medications: ??? Cholecalciferol 250 MCG (64641 UT) TABS, Take 1 (one) tablet by mouth once daily, Disp: , Rfl: ??? levonorgestrel (Mirena, 52 MG,) 20 MCG/DAY IUD, Mirena 21 mcg/24 hours (8 yrs) 52 mg intrauterine device, Disp: , Rfl: ??? omeprazole (PriLOSEC) 20 MG capsule, Take 1 (one) capsule by mouth once daily, Disp: , Rfl: Adverse Drugs Reactions: Allergies Allergen Reactions ??? Latex Urticaria ??? Penicillins Urticaria Past Medical History: Patient Active Problem List: Chronic pain of left knee Obesity (BMI 30-39.9) Past Medical History: Diagnosis Date ??? Gestational diabetes Past Surgical History: No past surgical history on file. Immunization History: There is no immunization history on file for this patient. Social History: Social History Socioeconomic History ??? Marital status: Tobacco Use ??? Smoking status: Never ??? Smokeless tobacco: Never Vaping Use ??? Vaping Use: Never used Substance and Sexual Activity ??? Alcohol use: Not Currently Family History: Family History Problem Relation Name Age of Onset ??? Psoriasis Sister Patient Care Team: Patient Care Team: Anika Lemos APRN-LAVINIA as PCP - General (Nurse Practitioner) Objective Physical Exam BP 138/88 Pulse 81 Temp 97.6 ??F (36.4 ??C) Ht 1.676 m (5' 6 ) Wt 100.6 kg (221 lb 12.8 oz) BMI 35.80 kg/m?? GENERAL: not in acute distress HEENT/NECK: Eyes with white sclerae. No oropharyngeal lesions. CHEST/LUNGS: Normal work of breathing, CARDIOVASCULAR: Regular rhythm, no edema. SKIN/NAILS: dry rash on palms. NEURO: Normal muscle bulk and strength in limbs. MSK: left knee swelling but no warmth or erythema. possible nail pitting. rest of small and larger joints without signs of active inflammatory arthritis Common Labs CBC No results for input(s): WBC , HGB , MCV , PLTCOUNT in the last 58287 hours. No results found for: NEUTABS , LYMPHS , MONO , EOS , BASO , GRANIMMABS Metabolic Profile No results for input(s): NA , POTASSIUM , CL , CO2 , BUN , CREATININE , GLUCOSE , CALCIUM , ANIONGAP , EGFR , AST , ALT , ALKPHOS , PROT , ALB , TBILI in the last 89836 hours. No results found for: MG , PHOS , DBIL UA & UPC No results found for: SPECGRAVUA , PHUA , PROTEINUA , BLOODUA , LEUKOCYTEUA , NITRITEUA , GLUCOSEUA , KETONEUA , BILIRUBINUA , UROBILINUA , REFLXSTAT , URMIC , SQUAMOUS , TRANSEPIUA , RBCUA , WBCUA , BACTUA , EOSINU No results found for: PROTEINTO , CREATININEUR , GIHDPLGHU7BB No results for input(s): HCGURINE , HCGQUANT in the last 48632 hours. Latent Infections No results found for: HEPBSAG , HBVSAB , HEPBSAB , HEPBCAB , HEPCAB No results found for: QUANTIFER , QNTTBGOLD , QNTPLUSTB1 , QNTPLUSTB2 , QNTMITOGEN , QUANTIFERO , QUANTIFECI , QUANTIF , QUANNIL , QUAMIT , QFTTBAGN , JYHNJAIGE87 , AFBSMR Immunology Labs Inflammatory Markers No results for input(s): ESR , SEDRATE , CRP in the last 61923 hours. RA-related Auto-Ab's No results found for: RF , RA , RAQNT , CCPIGG , CCPIGGIGA JOHNATHAN-related No results found for: ANATITER , ANAPATTERN , ANTINUCLE , ANAIGG , DSDNAABIU , ANTIDNADSABQ , DSDNAIGGAB , SMITHANTI , ANTICHRO , CHROMATINAB , SSAANTIBO , SSBANTIBO , SMRNPANTI , SMITHRNPAB , SCL70 , ANTICENTROB , XK0VLFRQ , JXQLI630BV , CFPCNJP7IY , HISTONEIGG No results for input(s): C3 , C4 in the last 14969 hours. APLS-related Auto-Ab's No results found for: H0KAKNTSXD , C6ZTESFRJX , Q0GVSRIMBG , HXIZ4LWJ , OHIF5SYG , CRDLPNIGM , CRDLPNIGG , CRDLPNIGA , DILUTEPT , DPTCFMRATIO , TT , PTTLA , DRVVTBASE , LABINTE Myopathy No results found for: CK , ALDOLASE , SAE1AB , NXP2AB , MDA5AB , TKK6CAX , MYOINTERP , MI2AB , N829236 , PL12AB , PL7AB , OJAB , EJAB , SRPAB , PS1NEGDB , KUAB , SMITHRNPAB , KMKJQ946WN , OIV23QX , XOV30UE , WLAVWANR3QDR , ACHBLOCKAB , ACHBINDAB Vasculitis and ANCAs No results found for: NEUTCYTOAB , ANTIPROT3 , ANTIMPO , G4ZGEUI Genetics No results found for: HLAB27 Gammopathy/Paraproteinemia No results found for: KAPPAFREE , LAMBDAFREE , KLFREERATIO , IGM , IGG , IGA No results found for: SPEINTERP , SERUMPEALB , SERUMPEA1 , SERUMPEA2 , SERUMPEBE , SERUMPEGA , PROT , LABIMMURE , CRYOGLOBQUAL Other Labs Endocrine & Metabolic No results for input(s): URICACID , HGBA1C , TSH , T4FREE in the last 01077 hours. No results found for: KVLX38MP Heme No results found for: RETICCTPCT , RETICULOCYTE , IRON , FERRITIN , TRANSFERRIN , TRANSFERRSAT , TIBC , FIBRINOGEN , DDIMER , VITB12 , FOLATE , HAPTOGLOBIN , LDHTOTAL No results for input(s): PT , INR , PTT in the last 66178 hours. Renal No results found for: CALCIUMION , PHBLD , IONCAART , MAGNESIUM , PHOS , SODIUMRAN , POTASSIUMUR , CHLORIDER Cardiac & Lipids No results for input(s): TROPONINI , CKMB , BNP in the last 52752 hours. No results for input(s): CHOL , TRIG , HDL , LDLCALC , LDLDIRECT in the last 21031 hours. Respiratory No results found for: SARSCOV2 , RINFLUANAA , RINFLUBNAA , INFLUARAPID , INFLUBRAPID , INFLUCNTRL , STREPARAPID , STREPAQC Hepatobiliary & GI No results found for: GGT , LIPASE , H2BOUTEIEFJG , CMVPCR , CMVSOURCE , GDHANTIGEN , [...] results found for: GLUCSF , PROTEINCSF , SUX2JZYYWL , MVW4DQZOMA , VCZD4JYY , COCCIDIGG , XMT3NUB , CRYPTOAGCSF , ENTEROVIRPCR , OLIGOBAND , OLIGOBANDNUM , IGG , SUD6NMR , ALBUMINMS , GDODNHF2HPK , ALBUMININDEX , IGGINDEX , IGGALBRATIO , SYNTHESRTE , OLIGOCINTRP , TOXOPLASIGG , CYSTICERO Body Fluid No results found for: LABLD , GROSSDESCRIP , MICROPDESCR STIs (HIV, GC, Trich, Syphilis) No results found for: HIV12 , KPO2PMWPZE , WEL2NNN07ZEC , CHLAMDIA , CHLTRNAA , GC , NGONORRNAA , TRICVAGAP , TRICHVAGBY , TPALLIDUM Cultures & Other Micro No results found for: URINECULT , BLOODCULT , BDERMAGUR , BDERMINTERP For assessment and recommendations, please see above. This note was generated using the [employer] speech recognition system. Grammatical errors, random wordinsertions, [...] directlywith the author for clarification. Thank you. OR GEOTECHNICAL ENGINEER documented in this encounter Plan of Treatment Upcoming Encounters Date Type Department Care Team (Late st Contact Info) Description 09/28/2024 3:00 PM CDT Office Visit [facility] - Rheumatology [address] [place] [address], [place] [address] Jeremy Guy MD [address] [place] [address] [place] [address] Scheduled Orders Name Type Priority Associated Diagnoses Orde r Schedule HEPATITIS C AB SCREEN RFLX NAAT QUANT Lab Routine Need for hepatitis C screening test Ordered: 07/08/2023 QUANTIFERON-TB GOLD PLUS 4-TUBE Lab Routine Screening-pulmonary TB Ordered: 07/08/2023 XR HAND LEFT 3VW OR MORE Imaging Routine Polyarthralgia 1 Occurrences starting 07/08/2023 until 07/08/2024 XR FOOT RIGHT WT BEARING 3VW Imaging Routine Polyarthralgia 1 Occurrences starting 07/08/2023 until 07/08/2024 XR WRIST LEFT 3VW OR MORE Imaging Routine Polyarthralgia 1 Occurrences starting 07/08/2023 until 07/08/2024 XR WRIST RIGHT 3VW OR MORE Imaging Routine Polyarthralgia 1 Occurrences starting 07/08/2023 until 07/08/2024 XR HAND RIGHT 3VW OR MORE Imaging Routine Polyarthralgia 1 Occurrences starting 07/08/2023 until 07/08/2024 XR SI JOINTS 3VW OR MORE Imaging Routine Polyarthralgia 1 Occurrences starting 07/08/2023 until 07/08/2024 XR FOOT LEFT WT BEARING 3VW Imaging Routine Polyarthralgia 1 Occurrences starting 07/08/2023 until 07/08/2024 documented as of this encounter Procedures Procedure Name Priority Date/Time Associated Diagnosis Comments RHEUMATOID FACTOR BLOOD QUANTITATIVE Routine 07/26/2023 10:44 AM SENIOR GEOTECHNICAL ENGINEER Polyarthralgia C-REACTIVE PROTEIN Routine 07/26/2023 10 :44 AM SENIOR GEOTECHNICAL ENGINEER Polyarthralgia HLA TYPING B27 Routine 07/26/2023 10:44 AM SENIOR GEOTECHNICAL ENGINEER Polyarthralgia CYCLIC CITRULLINATED PEPTIDE(CCP) AB IGG Routine 07/26/2023 10:44 AM SENIOR GEOTECHNICAL ENGINEER Polyarthralgia QUANTIFERON TB-GOLD 07/26/2023 1 0:44 AM SENIOR GEOTECHNICAL ENGINEER ERYTHROCYTE SEDIMENTATION RATE Routine 07/26/2023 10:44 AM SENIOR GEOTECHNICAL ENGINEER Polyarthralgia CBC W AUTO DIFFERENTIAL Routine 07/26/2023 10:44 AM SENIOR GEOTECHNICAL ENGINEER Polyarthralgia COMPREHENSIVE METABOLIC PANEL Routine 07/26/2023 10:44 AM SENIOR GEOTECHNICAL ENGINEER Polyarthralgia HEPATITIS B CORE ANTIBODY TOTAL Routine 07/26/2023 10:44 AM SENIOR GEOTECHNICAL ENGINEER Need for hepatitis B screening test HEPATITIS B SURFACE ANTIGEN W RFLX CONFIRMATION Routine 07/26/2023 10:44 AM SENIOR GEOTECHNICAL ENGINEER Need for hepatitis B screening test documented in this encounter Results * QUANTIFERON TB-GOLD (07/26/2023 10:44 AM SENIOR GEOTECHNICAL ENGINEER) QuantiFERON Incubation Incubation performed. [facility] INSURANCE BILL [...] Chemiluminescence immunoassay methodology 07/26/2023 10:4 4 AM SENIOR GEOTECHNICAL ENGINEER 07/26/2023 Narrative Resulting Agency Comment Lab Testing performed at: [facility] [address] ??[facility] [phone] Jeremy Guy MD LAB - CHEMISTRY ORDJuju ROLDAN Performing Organization Address City/[facility]/ZIP Co de Phone Number [facility] INSURANCE BILL [address] [place] [address] * ERYTHROCYTE SEDIMENTATION RATE (07/26/2023 10:44 AM SENIOR GEOTECHNICAL ENGINEER) Erythrocyte Sedimentation Rate Westergren 12 0 - 32 mm/hr [facility] INSURANCE BILL Blood BLOOD SPECIMEN / Unknown 07/26/2023 10:44 AM SENIOR GEOTECHNICAL ENGINEER 07/26/2023 Narrative Resulting Agency Comment Lab Testing performed at: [facility] [address] ??[facility] [phone] Jeremy Guy MD LAB - HEMATOLOGY ORD ERABLES Performing Organization Address [facility] Co de Phone Number [facility] INSURANCE BILL [address] [place] [address] * (ABNORMAL) C-REACTIVE PROTEIN (07/26/2023 10:44 AM SENIOR GEOTECHNICAL ENGINEER) C-Reactive Protein 11(H) 0 - 10 mg/L [facility] INSURANCE BILL Blood BLOOD SPECIMEN / Unknown 07/26/2023 10:44 AM SENIOR GEOTECHNICAL ENGINEER 07/26/2023 Narrative Resulting Agency Comment Lab Testing performed at: [facility] [address] ??[facility] [phone] Jeremy Guy MD LAB - CHEMISTRY ORDE RABMIGUEL [facility] INSURANCE BILL [address] [place] [address] * COMPREHENSIVE METABOLIC PANEL (07/26/2023 10:44 AM SENIOR GEOTECHNICAL ENGINEER) Pathologist [facility] Glucose 91 70 - 99 mg/dL [facility] INSURANCE BILL BUN 12 6 - 24 mg/dL [facility] INSURANCE BILL Creatinine 0.86 0.57 - 1.00 mg/dL [facility] INSURANCE BILL eGFR by CKD-EPI 86 >59 mL/min/1.7 3 [facility] INSURANCE BILL BUN/Creatinine Ratio 14 9 - 23 [facility] INSURANCE BILL Sodium 139 134 - 144 mmol/L [facility] INSURANCE BILL Potassium 4.5 3.5 - 5.2 mmol/L [facility] INSURANCE BILL Chloride 104 96 - 106 mmol/L [facility] INSURANCE BILL CO2 22 20 - 29 mmol/L [facility] INSURANCE BILL Calcium 8.8 8.7 - 10.2 mg/dL [facility] INSURANCE BILL Protein Total 6.8 6.0 - 8.5 g/dL [facility] INSURANCE BILL Albumin 4.1 3.9 - 4.9 g/dL [facility] INSURANCE BILL Globulin Total 2.7 1.5 - 4.5 g/dL [facility] INSURANCE BILL Albumin/Globulin Ratio 1.5 1.2 - 2.2 [facility] INSURANCE BILL Bilirubin Total 0.9 0.0 - 1.2 mg/dL [facility] INSURANCE BILL Alkaline Phosphatase 69 44 - 121 IU/L [facility] INSURANCE BILL AST 16 0 - 40 IU/L [facility] INSURANCE BILL ALT 23 0 - 32 IU/L [facility] INSURANCE BILL Blood BLOOD SPECIMEN / Unknown 07/26/2023 10:44 AM SENIOR GEOTECHNICAL ENGINEER 07/26/2023 Narrative Resulting Agency Comment Lab Testing performed at: [facility] [address] [facility] ??[facility] [phone] Jeremy Guy MD LAB - CHEMISTRY LUZ ROLDAN [facility] INSURANCE BILL [address] [place] [address] * (ABNORMAL) CBC WITH DIFFERENTIAL (07/26/2023 10:44 AM SENIOR GEOTECHNICAL ENGINEER) [facility] WBC 10.6 3.4 - 10.8 x10E3/uL [facility] INSURANCE BILL RBC 4.95 3.77 - 5.28 x10E6/uL [facility] INSURANCE BILL Hemoglobin 15.0 11.1 - 15.9 g/dL [facility] INSURANCE BILL Hematocrit 44.7 34.0 - 46.6 % [facility] INSURANCE BILL MCV 90 79 - 97 fL [facility] INSURANCE BILL MCH 30.3 26.6 - 33.0 pg [facility] INSURANCE BILL MCHC 33.6 31.5 - 35.7 g/dL [facility] INSURANCE BILL RDW 12.7 11.7 - 15.4 % [facility] INSURANCE BILL Platelet Count 256 150 - 450 x10E3/uL [facility] INSURANCE BILL Granulocytes % 61 Not Estab. % [facility] INSURANCE BILL Lymphocytes % 27 Not Estab. % [facility] INSURANCE BILL Monocytes % 6 Not Estab. % [facility] INSURANCE BILL Eosinophils % 5 Not Estab. % [facility] INSURANCE BILL Basophils % 1 Not Estab. % [facility] INSURANCE BILL Immature Cells NOT AVAILABLE [facility] INSURANCE BILL Comment:Result cannot be obt ained for this observation. Granulocytes Absolute 6.6 1.4 - 7.0 x10E3/uL [facility] INSURANCE BILL Lymphocytes Absolute 2.8 0.7 - 3.1 x10E3/uL [facility] INSURANCE BILL Monocytes Absolute 0.6 0.1 - 0.9 x10E3/uL [facility] INSURANCE BILL Eosinophils Absolute 0.5(H) 0.0 - 0.4 x10E3/uL [facility] INSURANCE BILL Basophils Absolute 0.1 0.0 - 0.2 x10E3/uL [facility] INSURANCE BILL Immature Granulocytes 0 Not Estab. % [facility] INSURANCE BILL Immature Granulocytes Absolute 0.0 0.0 - 0.1 x10E3/uL [facility] INSURANCE BILL nRBC NOT AVAILABLE [facility] INSURANCE BILL Comment:Result cannot be obt ained for this observation. Comment Hematology NOT AVAILABLE [facility] INSURANCE BILL Comment:Result cannot be obt ained for this observation. Blood BLOOD SPECIMEN / Unknown 07/26/2023 10:44 AM SENIOR GEOTECHNICAL ENGINEER 07/26/2023 Narrative Resulting Agency Comment Lab Testing performed at: [facility] ??[facility] [phone] Jeremy Guy MD LAB - HEMATOLOGY ORD ERAEMANUEL [facility] INSURANCE BILL [address] [place] [address] * RHEUMATOID FACTOR BLOOD QUANTITATIVE (07/26/2023 10:44 AM SENIOR GEOTECHNICAL ENGINEER) Rheumatoid Factor <10.0 <14.0 IU/mL [facility] INSURANCE BILL Blood BLOOD SPECIMEN / Unknown 07/26/2023 10:44 AM SENIOR GEOTECHNICAL ENGINEER 07/26/2023 Narrative Resulting Agency Comment [facility] performed at: [facility] [address] [facility] ??[facility] [phone] Jeremy Guy MD LAB - CHEMISTRY LUZ ROLDAN Performing Organization Address [facility] Co de Phone Number [facility] INSURANCE BILL [address] [place] [address] * HLA TYPING B27 (07/26/2023 10:44 AM SENIOR GEOTECHNICAL ENGINEER) Pathologist [facility] HLA-B27 Negative [facility] INSURANCE BILL Comment: HLA-B*27 Negative B27 allele interpretation for all loci based on IMGT/HLA database version 3.51.0 This test was developed and its performance characteristics determined by [facility]. ??It has not been cleared or approved by the Food and Drug Administration. [facility] CLIA ID Number [id number] THis test was performed using Polymerase Chain Reaction (PCR) and Sequence Specific Oligonucleotide Probes (SSOP) technique. Sequence Based Typing (SBT) may be used as a supplemental method when necessary. If you have questions, please call [facility] customer service at or email at [email or web address]. Blood BLOOD SPECIMEN / Unknown 07/26/2023 10:44 AM SENIOR GEOTECHNICAL ENGINEER 07/26/2023 Narrative Resulting Agency Comment Lab Testing performed at: [facility] ??[facility] [phone] Jeremy Guy MD LAB - CHEMISTRY LUZ ROLDAN [facility] INSURANCE BILL [address] [place] [address] * CYCLIC CITRULLINATED PEPTIDE(CCP) AB IGG (07/26/2023 10:44 AM SENIOR GEOTECHNICAL ENGINEER) CCP Antibodies IgG/IgA <20 <20 Units [facility] INSURANCE BILL Comment: ? Negative: <20 ? Weak Positive: 20-39 ? Moderate Positive: 40-59 ??Strong Positive: >59 Blood BLOOD SPECIMEN / Unknown 07/26/2023 10:44 AM SENIOR GEOTECHNICAL ENGINEER 07/26/2023 Narrative Resulting Agency Comment Lab Testing performed at: [facility] [address] [place] [address] ??[facility] [phone] Jeremy Guy MD LAB - CHEMISTRY LUZ ROLDAN Performing Organization Address [facility] de Phone Number [facility] INSURANCE BILL [address] [place] [address] * HEPATITIS B SURFACE ANTIGEN W RFLX CONFIRMATION (07/26/2023 10:44 AM SENIOR GEOTECHNICAL ENGINEER) Hepatitis B Virus Surface Antigen Negative Negative [facility] INSURANCE BILL Blood BLOOD SPECIMEN / Unknown 07/26/2023 10:44 AM SENIOR GEOTECHNICAL ENGINEER 07/26/2023 Narrative Resulting Agency Comment Lab Testing performed at: [facility] [address] [place] [address] ??[facility] [phone] Jeremy Guy MD LAB - CHEMISTRY LUZ ROLDAN [facility] INSURANCE BILL [address] [place] [address] * HEPATITIS B CORE ANTIBODY TOTAL (07/26/2023 10:44 AM SENIOR GEOTECHNICAL ENGINEER) Hepatitis B Core Virus Antibody Total Negative Negative [facility] INSURANCE BILL Blood BLOOD SPECIMEN / Unknown 07/26/2023 10:44 AM SENIOR GEOTECHNICAL ENGINEER 07/26/2023 Narrative Resulting Agency Comment Lab Testing performed at: [facility] [address] [facility] ??[facility] [phone] Jeremy Guy MD LAB - CHEMISTRY LUZ ROLDAN [facility] INSURANCE BILL [address] [place] [address] documented in this encounter Visit Diagnoses Diagnosis Polyarthritis- Primary Unspecified polyarthropathy or polyarthritis, site unspecified Need for hepatitis B screening test Need for hepatitis C screening test Special screening examination for other specified viral diseases Screening-pulmonary TB Screening examination for pulmonary tuberculosis Polyarthralgia Pain in joint, multiple sites Family history of psoriasis Family history of skin conditions documented in this encounter Care Teams Flatwork Tier Relationship Specialty Start Date End Date Anika Lemos, EVENT SPECIALIST-MANAGER VIDEO [address] [place] [address] PCP - General Nurse Practitioner 07/08/23 documented as of this encounter
--- OUTSIDE RECORDS SUMMARY | 2024-07-27 02:30 | XMS_ITS | Encounter Summary ---
Author Organization [facility] Address [address] [place] [address] Care Team Providers Care Brand Marketing Manager Name Role Phone Anika Lemos EARL-MACHINE ERECTOR Primary Care Provider + Encounter Details Date Type Department Care Team ([facility] Contact Info) Description 10/17/2023 Orders Only [facility] - Rheumatology [address] [place] [phone] Jeremy Guy MD [address] [place] [address] [address] [place] [address] Therapeutic drug monitoring Social History [...] Upcoming Encounters Date Type Department Care Team ([facility] Contact Info) Description 09/28/2024 3:00 PM CDT Office Visit [facility] - Rheumatology [address] [place] [phone] Jeremy Guy MD [address] [place] [address] [address] [place] [phone] documented as of this encounter Procedures Procedure Name Priority Date/Time Associated Diagnosis Comments C-REACTIVE PROTEIN Routine 11/25/2023 8: 56 AM CDT Therapeutic drug monitoring CBC W AUTO DIFFERENTIAL Routine 11/25/2023 8:56 AM CDT Therapeutic drug monitoring HEPATIC FUNCTION PANEL Routine 11/25/2023 8:56 AM CDT Therapeutic drug monitoring documented in this encounter Results * (ABNORMAL) HEPATIC FUNCTION PANEL (11/25/2023 8:56 AM CDT) Protein Total 6.5 6.0 - 8.5 g/dL [...] Agency Comment Lab Testing performed at: [facility] [address] [facility] [phone] Jeremy Guy MD LAB - CHEMISTRY LUZ ROLDAN Performing Organization Address [facility] Co de Phone Number [facility] INSURANCE BILL [address] [place] [address] * C-REACTIVE PROTEIN (11/25/2023 8:56 AM CDT) C-Reactive Protein 7 0 - 10 mg/L [facility] INSURANCE BILL Blood BLOOD SPECIMEN / Unknown 11/25/2023 8:56 AM CDT 11/25/2023 Narrative Resulting Agency Comment Lab Testing performed at: [facility] [address] ??[facility] [phone] Jeremy Guy MD LAB - CHEMISTRY LUZ ROLDAN [facility] INSURANCE BILL [address] [place] [address] * CBC WITH DIFFERENTIAL (11/25/2023 8:56 AM CDT) WBC 8.6 3.4 - 10.8 x10E3/uL [facility] [...] Agency Comment Lab Testing performed at: [facility] [address] [facility] [phone] Jeremy Guy MD LAB - HEMATOLOGY ORD ERABLES [facility] INSURANCE BILL [address] [place] [address] documented in this encounter Visit Diagnoses Diagnosis Therapeutic drug monitoring Encounter for therapeutic drug monitoring documented in this encounter Care Teams Brand Marketing Manager Relationship Specialty Start Date End Date Anika Lemos, ELECTRICAL MAINTENANCE WORKER-MACHINE ERECTOR [address] [facility] [address] [place] [address] [place] [id number] PCP - General Nurse Practitioner 07/08/23 documented as of this encounter
--- OUTSIDE RECORDS SUMMARY | 2024-07-27 02:30 | XMS_ITS | Encounter Summary ---
Author Organization [facility] Address [address] [place] [address] Care Team Providers Care Community Health Consultant Name Role Phone Anika Lemos Yung ELLIOTT-STOCK BUYER Primary Care Provider + Reason for Visit * Reason Comments Follow-up Encounter Details Date Type Department Care Team (Late st Contact Info) Description 12/30/2023 3:40 PM CDT Office Visit [facility] - Rheumatology [address] [place] [address], [facility] [place] [address] Jeremy Guy MD [address] [place] [address] [place] [address] Psoriatic arthritis (HCC) (Primary Dx); [...] Sign Reading Time Taken Comments Blood Pressure 137/95 12/30/2023 3:24 PM CDT Pulse 91 12/30/2023 3:16 PM CDT Temperature 36.1 ??C (97 ??F) 12/30/2023 3:16 PM CDT Respiratory Rate - - Oxygen Saturation 98% 12/30/2023 3:16 PM CDT Inhaled Oxygen Concentration - - Weight 103.2 kg (227 lb 9.6 oz) 12/30/2023 3:16 PM CDT Height 165.1 cm (5' 5 ) 12/30/2023 3:16 PM CDT Body Mass Index 37.87 12/30/2023 3:16 PM CDT documented in this encounter Progress Notes * Jeremy Guy MD - 12/30/2023 3:26 PM CDT Images from the original note were not included. Rheumatology Clinic Note Patient: Yarelis Mann ( 1980, ) Encounter Date: 12/30/2023 Chief Concern: Psoriatic Arthritis Assessment & Recommendations Yaerlis Mann is a 43 year old female [...] 40 mg subcut. every other week and doing well. Status: responding well to Humira and will continue at current dose. #. Therapeutic drug monitoring(Methotrexate) Patient was on drug therapy requiring intensive lab monitoring. last labs showed elevated liver enzymes to check hepatic function panel for follow up. MTX has been discontinued #. Long-Term Immunosuppression due to Drug Therapy ( Humira): Checking HBV, HCV, TB quant. NegativeHBV (2022), HCV (-2022), TB Quant (-2022). Immunizations [...] results, and imaging results dating back to 09/2023 Jeremy Guy MD Division of Rheumatology Department of Internal Medicine [facility] ICD-10-CM 1. Psoriatic arthritis (HCC) L40.50 2. Therapeutic drug monitoring Z51.81 3. Immunosuppression due to drug therapy (HCC) D84.821 Z79.899 Orders Placed This Encounter HEPATIC FUNCTION PANEL Future Appointments Date Time Provider Department Center 03/30/2024 3:40 PM Jeremy Guy MD [id number] [facility] Subjective History of Present Illness: She is overall feeling better and still has left index finger stiffness though better mobility. Shehas had 3 injections of Humira so far. She has stopped MTX Prior therapy: MTX: D.c 10/2023 for elevated ALT and after Humira was started. Disease Hx: 10/10 she woke up with left knee swelling(she thought she twisted it) s/p knee aspiration by Ortho showing WBCs ~44742 and negative for infectious and crystals. Knee [...] HPI. Home Medications: Current Outpatient Medications: adalimumab (Humira) 40 MG/0.4ML injection, Inject 0.4 mL subcutaneously every 14 days, Disp: 0.4 mL, Rfl: 0 adalimumab (Humira, 2 Pen,) 40 MG/0.4ML injection, Inject 0.4 mL subcutaneously every 14 days, Disp: 2.4 mL, Rfl: 1 cetirizine (ZyrTEC) 10 MG tablet, Take 1 (one) tablet by mouth once daily, Disp: , Rfl: Cholecalciferol 250 MCG (67878 UT) TABS, Take 1 (one) tablet by [...] General (Nurse Practitioner) Objective Physical Exam BP 137/95 Pulse 91 Temp 97 ??F (36.1 ??C) (Skin) Ht 1.651 m (5' 5 ) Wt 103.2 kg (227 lb 9.6oz) LMP (Exact Date) SpO2 98% BMI 37.87 kg/m?? GENERAL: not in acute distress HEENT/NECK: [...] results found for: PROTEINTO , CREATININEUR , DTJNYWZTB3NG No results for input(s): HCGURINE , HCGQUANT in the last 51330 hours. Latent Infections No results found for: HEPBSAG , HBVSAB , HEPBSAB , HEPBCAB , HEPCAB No results found for: QUANTIFER , QNTTBGOLD , QNTPLUSTB1 , QNTPLUSTB2 , QNTMITOGEN , QUANTIFERO , QUANTIFECI , QUANTIF , QUANNIL , QUAMIT , QFTTBAGN , UCHSLTCOV88 , AFBSMR Immunology Labs Inflammatory Markers Recent [...] , SMITHRNPAB , SCL70 , ANTICENTROB , DT2PFJFW , YGQVB769NP , OIEAPJK8JH , HISTONEIGG No results for input(s): C3 , C4 in the last 27177 hours. APLS-related Auto-Ab's No results found for: Z4EFMLZROJ , B5SITULVHF , E7PHQWTAUH , GAFF2IET , WHHX3XGV , CRDLPNIGM , CRDLPNIGG , CRDLPNIGA , DILUTEPT , DPTCFMRATIO , TT , PTTLA , DRVVTBASE , LABINTE Myopathy No results found for: CK , ALDOLASE , SAE1AB , NXP2AB , MDA5AB , QEH5AKH , MYOINTERP , MI2AB , Y951613 , PL12AB , PL7AB , OJAB , EJAB , SRPAB , BA6BZGBG , KUAB , SMITHRNPAB , WXDKI197KD , DIO64DD , GVA22HB , WSKUZEKY2BVC , ACHBLOCKAB , ACHBINDAB Vasculitis and ANCAs No results found for: NEUTCYTOAB , ANTIPROT3 , ANTIMPO , N7AUUPG Genetics Lab Results Component Value Date/Time HLAB27 [...] , TSH , T4FREE in the last 05658 hours. No results found for: RQMK28PK Heme No results found for: RETICCTPCT , RETICULOCYTE , IRON , FERRITIN , TRANSFERRIN , TRANSFERRSAT , TIBC , FIBRINOGEN , DDIMER , VITB12 , FOLATE , HAPTOGLOBIN , LDHTOTAL No results for input(s): PT , INR , PTT in the last 39146 hours. Renal No results found for: CALCIUMION , PHBLD , IONCAART , MAGNESIUM , PHOS , SODIUMRAN , POTASSIUMUR , CHLORIDER Cardiac & Lipids No results for input(s): TROPONINI , CKMB , BNP in the last 41773 hours. No results for input(s): CHOL , TRIG , HDL , LDLCALC , LDLDIRECT in the last 41065 hours. Respiratory No results found for: SARSCOV2 , RINFLUANAA , RINFLUBNAA , INFLUARAPID , INFLUBRAPID , INFLUCNTRL , STREPARAPID , STREPAQC Hepatobiliary & GI No results found for: GGT , LIPASE , X1SJQNGAUBDW , CMVPCR , CMVSOURCE , GDHANTIGEN , [...] results found for: GLUCSF , PROTEINCSF , UZA5YYYMMW , KUH9DMVTBX , FRRH7ZFL , COCCIDIGG , XWP5TDR , CRYPTOAGCSF , ENTEROVIRPCR , OLIGOBAND , OLIGOBANDNUM , IGG , QGJ0BJA , ALBUMINMS , FJYILDB2CFZ , ALBUMININDEX , IGGINDEX , IGGALBRATIO , SYNTHESRTE , OLIGOCINTRP , TOXOPLASIGG , CYSTICERO Body Fluid No results found for: LABLD , GROSSDESCRIP , MICROPDESCR STIs (HIV, GC, Trich, Syphilis) No results found for: HIV12 , JTP1WGMKGD , UFN8QWS87BVA , CHLAMDIA , CHLTRNAA , GC , NGONORRNAA , TRICVAGAP , TRICHVAGBY , TPALLIDUM Cultures & Other Micro No results found for: URINECULT , BLOODCULT , BDERMAGUR , BDERMINTERP For assessment and recommendations, please see above. This note was generated using the [employer] speech recognition system. Grammatical errors, random wordinsertions, [...] Description 09/28/2024 3:00 PM CDT Office Visit [facility] - Rheumatology [address] [place] [address], [facility] [place] [address] Jeremy Guy MD [address] [place] [address] [place] [address] Scheduled Orders Name Type Priority Associated Diagnoses Orde r Schedule HEPATIC FUNCTION PANEL Lab Routine Therapeutic drug monitoring Ordered: 12/30/2023 documented as of this encounter Visit Diagnoses Diagnosis Psoriatic arthritis (HCC)- Primary Psoriatic arthropathy Therapeutic drug monitoring Encounter for therapeutic drug monitoring Immunosuppression due to drug therapy (HCC) documented in this encounter Care Teams Community Health Consultant Relationship Specialty Start Date End Date Anika Lemos, EARL-STOCK BUYER [address] [place] [address] PCP - General Nurse Practitioner 07/08/23 documented as of this encounter
--- OUTSIDE RECORDS SUMMARY | 2024-07-27 02:30 | XMS_ITS | Encounter Summary ---
Author Organization [facility] Address [address] [place] [address] Care Team Providers Care Manager Emergency Name Role Phone Anika Lemos Primary Care Provider + Encounter Details Date Type Department Care Team (Latest Contact Info) Description 03/30/2024 Travel Social History Tobacco Use Types Packs/Day [...] Office Visit [facility] - Rheumatology [address] [place] [address], [place] [phone] Jeremy Guy MD [address] [place] [address] [place] [phone] documented as of this encounter Visit Diagnoses Not on filedocumented in this encounter Care Teams Manager Emergency Relationship Specialty Start Date End Date Anika Lemos APRN-CNP [address] [place] [address] PCP - General Nurse Practitioner 07/08/23 documented as of this encounter
--- OUTSIDE RECORDS SUMMARY | 2024-07-27 02:30 | XMS_ITS | Encounter Summary ---
Author Organization [facility] Address [address] [place] [address] Care Team Providers Care Lead Infrastructure Architect Name Role Phone Anika Lemos Yung ELLIOTT-LAVINIA Primary Care Provider + Reason for Visit * Reason Onset Date Comments Medication Prior Auth Request 03/31/2024 Ot ezla Start Pack Encounter Details Date Type Department Care Team (Late st Contact Info) Description 03/31/2024 Telephone [facility] - Rheumatology [address] [place] [address], [place] [address] Jeremy Guy MD [address] [place] [address] [place] [address] Medication Prior Auth Request (Otezla Start Pack) Social History Tobacco Use Types Packs/Day Years [...] encounter Miscellaneous Notes * Telephone Encounter - Jaswinder Sosa CPhT - 03/31/2024 8:27 AM CDT Medication Prior Authorization Medication: apremilast (Otezla) 10 & 20 & 30 MG tablet Status: Approved through 03/30/2025 Submitted via: [email or web address] Insurance: [employer] Case Number: Mane: [id number] documented in this encounter Plan of Treatment Upcoming Encounters Date Type Department Care Team (Late st Contact Info) Description 09/28/2024 3:00 PM CDT Office Visit [facility] - Rheumatology [address] [place] [address], [place] [phone] Jeremy Guy MD [address] [place] [address] [place] [phone] documented as of this encounter Visit Diagnoses Not on filedocumented in this encounter Care Teams Lead Infrastructure Architect Relationship Specialty Start Date End Date Anika Lemos, EARL-DEPENDENCY COUNSELOR [address] [facility] [address] [place] [address] [place] [id number] PCP - General Nurse Practitioner 07/08/23 documented as of this encounter
--- OUTSIDE RECORDS SUMMARY | 2024-07-27 02:30 | XMS_ITS | Encounter Summary ---
Author Organization [facility] Address [address] [place] [address] Care Team Providers Care Project Manager Industrial Name Role Phone Anika Lemos Yung ELLIOTT-AUTOMOTIVE ACCESSORY INSTALLER Primary Care Provider + Reason for Visit * Reason Comments Follow-up Polyarthritis Encounter Details Date Type Department Care Team (Latest Contact Info) Description 07/31/2023 3:20 PM PRO SHOP ATTENDANT Office Visit [facility] - Rheumatology [address] [place] [address], [place] [address] Jeremy Guy MD [address] [place] [address] [place] [address] Psoriatic arthritis (HCC) (Primary Dx); Polyarthritis; Therapeutic drug monitoring; Immunosuppression due to drug therapy (HCC); Encounter for counseling regarding contraception Social History Tobacco Use Types Packs/Day Years [...] Sign Reading Time Taken Comments Blood Pressure 122/88 07/31/2023 3:28 PM PRO SHOP ATTENDANT Pulse 95 07/31/2023 3:28 PM PRO SHOP ATTENDANT Temperature 36.7 ??C (98 ??F) 07/31/2023 3:28 PM PRO SHOP ATTENDANT Respiratory Rate - - Oxygen Saturation - - Inhaled Oxygen Concentration - - Weight 104.2 kg (229 lb 12.8 oz) 07/31/2023 3:28 PM PRO SHOP ATTENDANT Height 167.6 cm (5' 6 ) 07/31/2023 3:28 PM PRO SHOP ATTENDANT Body Mass Index 37.09 07/31/2023 3:28 PM PRO SHOP ATTENDANT documented in this encounter Progress Notes * Jeremy Guy MD - 07/31/2023 3:24 PM CST Images from the original note were not included. Rheumatology Clinic Note Patient: Yarelis Mann ( 1980, ) Encounter Date: 07/31/2023 Chief Concern: Psoriatic Arthritis Assessment & Recommendations Yarelis Mann is a 42 year old female seen for follow up of Psoriatic arthritis #. Psoriatic arthritis - Onset: 2022. Phenotype: Inflammatory arthritis history involving left knee, right wrist. left index finger dactylitis(confirmed on exam), nail pitting and dystrophic changes and dry rash on palms(suspected skin psoriasis), Negative RA serologies. Her sister has skin psoriasis. I reviewed the nature of her symptoms and the diagnosis of psoriatic arthritis with the patient andthe need to start on DMARDs. I reviewed the indication of methotrexate and its toxicity profile including hepatotoxicity and need to avoid alcohol. Patient agreed. Will start her on methotrexate 10 mg p.o. weekly with dose escalation to 20 mg p.o. weekly over the next 4 weeks #. Therapeutic drug monitoring(methotrexate) Patient is on drug therapy requiring intensive lab monitoring. CBC, CMP in 1 month and then every 12 weeks. folic acid 1 mg daily #. Counseling for contraception(methotrexate) I reviewed in detail the teratogenic risk of methotrexate in childbearing age and need to use effective contraception while being on methotrexate. Patient reported that she does not have any future plans for and has IUD in place. #. 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 Negative HBV (2022), HCV (ordered again this visit), TB Quant (- 2022). Immunizations per PCP: for all patients on immunosuppressive therapy with methotrexate I recommend annual influenza vaccine, [id number], Prevnar, Pneumovax, Shingrix. Avoid live vaccines. Patient [...] today's encounter: - The patient has a -chronic illness that poses a threat to life or bodily function in the short- term without treatment. - The patient will be on drug therapy requiring intensive monitoring for toxicity. - I reviewed the patient's chart including review of clinical notes, laboratory results, and imaging results dating back to 06/2023 Jeremy Guy MD Division of Rheumatology Department of Internal Medicine [facility] ICD-10-CM 1. Psoriatic arthritis ([facility]) L40.50 2. Polyarthritis M13.0 3. Therapeutic drug monitoring Z51.81 4. Immunosuppression due to drug therapy ([facility]) D84.821 Z79.899 5. Encounter for counseling regarding contraception Z30.09 Orders Placed This Encounter ??? HEPATITIS C ANTIBODY ??? CYCLIC CITRUL PEPTIDE ANTIBODY IGG/IGA (CCP) ??? HLA TYPING B27 ??? CBC WITH DIFFERENTIAL ??? C-REACTIVE PROTEIN ??? HEPATIC FUNCTION PANEL ??? methotrexate 2.5 MG tablet ??? folic acid (Folvite) 1 MG tablet Future Appointments Date Time Provider Department Center 11/04/2023 3:40 PM Jeremy Guy MD [id number] Subjective History of Present Illness: 10/10 she woke up with left knee swelling(she thought she twisted it) s/p knee aspiration by Ortho showing WBCs ~30903 and negative for infectious and crystals. Knee [...] Current Outpatient Medications: ??? Cholecalciferol 250 MCG (30749 UT) TABS, Take 1 (one) tablet by mouth once daily, Disp: , Rfl: ??? folic acid (Folvite) 1 MG tablet, Take 1 (one) tablet by mouth once daily, Disp: 90 tablet, Rfl: 4 ??? levonorgestrel (Mirena, 52 MG,) 20 MCG/DAY IUD, Mirena 21 mcg/24 hours (8 yrs) 52 mg intrauterine device, Disp: , Rfl: ? ? methotrexate 2.5 MG tablet, Week 1&2: take 4 pills once a week. Week 3&4: take 6 pills once a week and then increase to 8 pills once a week Reasons: Psoriasis associated with Arthritis, Disp: 120 tablet, Rfl: 0 ??? omeprazole (PriLOSEC) 20 MG capsule, Take [...] General (Nurse Practitioner) Objective Physical Exam BP 122/88 Pulse 95 Temp 98 ??F (36.7 ??C) Ht 1.676 m (5' 6 ) Wt 104.2 kg (229 lb 12.8 oz) BMI 37.09 kg/m?? GENERAL: not in acute distress HEENT/NECK: Eyes with white sclerae. No oropharyngeal lesions. CHEST/LUNGS: Normal work of breathing, CARDIOVASCULAR: Regular rhythm, no edema. SKIN/NAILS: dry rash on palms. NEURO: Normal muscle bulk and strength in limbs. MSK: left knee swelling but no warmth or erythema. nail pitting. rest of small and larger joints without signs of active inflammatory arthritis Common Labs CBC Recent Labs Component Name 07/26/23 1044 WBC 10.6 HGB 15.0 MCV 90 PLTCOUNT 256 No results found for: NEUTABS , LYMPHS , MONO , EOS , BASO , GRANIMMABS Metabolic Profile Recent Labs Component Name 07/26/23 1044 POTASSIUM 4.5 CO2 22 BUN 12 CREATININE 0.86 GLUCOSE 91 CALCIUM 8.8 EGFR 86 AST 16 ALT 23 ALKPHOS 69 No results found for: MG , PHOS , DBIL UA & UPC No results found for: SPECGRAVUA , PHUA , PROTEINUA , BLOODUA , LEUKOCYTEUA , NITRITEUA , GLUCOSEUA , KETONEUA , BILIRUBINUA , UROBILINUA , REFLXSTAT , URMIC , SQUAMOUS , TRANSEPIUA , RBCUA , WBCUA , BACTUA , EOSINU No results found for: PROTEINTO , CREATININEUR , QALCAOGYI1JR No results for input(s): HCGURINE , HCGQUANT in the last 52408 hours. Latent Infections No results found for: HEPBSAG , HBVSAB , HEPBSAB , HEPBCAB , HEPCAB No results found for: QUANTIFER , QNTTBGOLD , QNTPLUSTB1 , QNTPLUSTB2 , QNTMITOGEN , QUANTIFERO , QUANTIFECI , QUANTIF , QUANNIL , QUAMIT , QFTTBAGN , PPEMRSKNU86 , AFBSMR Immunology Labs Inflammatory Markers Recent Labs Component Name 07/26/23 1044 SEDRATE 12 CRP 11* RA-related Auto-Ab's Lab Results Component Value Date/Time RA <10.0 07/26/2023 10:44 AM CCPIGGIGA <20 07/26/2023 10:44 AM JOHNATHAN-related No results found for: ANATITER , ANAPATTERN , ANTINUCLE , ANAIGG , DSDNAABIU , ANTIDNADSABQ , DSDNAIGGAB , SMITHANTI , ANTICHRO , CHROMATINAB , SSAANTIBO , SSBANTIBO , SMRNPANTI , SMITHRNPAB , SCL70 , ANTICENTROB , MQ1JISJW , VYDJI332JC , LDSYSVY4ZD , HISTONEIGG No results for input(s): C3 , C4 in the last 03480 hours. APLS-related Auto-Ab's No results found for: E3RFUGGBGO , N3VGLRJADY , T8AVMQNPEH , MOYK9FWR , YJAC6CGZ , CRDLPNIGM , CRDLPNIGG , CRDLPNIGA , DILUTEPT , DPTCFMRATIO , TT , PTTLA , DRVVTBASE , LABINTE Myopathy No results found for: CK , ALDOLASE , SAE1AB , NXP2AB , MDA5AB , FAS4ULG , MYOINTERP , MI2AB , R827999 , PL12AB , PL7AB , OJAB , EJAB , SRPAB , QK7QWCIN , KUAB , SMITHRNPAB , QUCCZ134UP , FUG63HW , SJH56YN , FZKRBZAK1CFU , ACHBLOCKAB , ACHBINDAB Vasculitis and ANCAs No results found for: NEUTCYTOAB , ANTIPROT3 , ANTIMPO , I1ATEMF Genetics No results found for: HLAB27 Gammopathy/Paraproteinemia No results found for: KAPPAFREE , LAMBDAFREE , KLFREERATIO , IGM , IGG , IGA No results found for: SPEINTERP , SERUMPEALB , SERUMPEA1 , SERUMPEA2 , SERUMPEBE , SERUMPEGA , PROT , LABIMMURE , CRYOGLOBQUAL Other Labs Endocrine & Metabolic No results for input(s): URICACID , HGBA1C , TSH , T4FREE in the last 02562 hours. No results found for: PBZY44FI Heme No results found for: RETICCTPCT , RETICULOCYTE , IRON , FERRITIN , TRANSFERRIN , TRANSFERRSAT , TIBC , FIBRINOGEN , DDIMER , VITB12 , FOLATE , HAPTOGLOBIN , LDHTOTAL No results for input(s): PT , INR , PTT in the last 83300 hours. Renal No results found for: CALCIUMION , PHBLD , IONCAART , MAGNESIUM , PHOS , SODIUMRAN , POTASSIUMUR , CHLORIDER Cardiac & Lipids No results for input(s): TROPONINI , CKMB , BNP in the last 21322 hours. No results for input(s): CHOL , TRIG , HDL , LDLCALC , LDLDIRECT in the last 58301 hours. Respiratory No results found for: SARSCOV2 , RINFLUANAA , RINFLUBNAA , INFLUARAPID , INFLUBRAPID , INFLUCNTRL , STREPARAPID , STREPAQC Hepatobiliary & GI No results found for: GGT , LIPASE , U4YUZOFFHPVY , CMVPCR , CMVSOURCE , GDHANTIGEN , [...] results found for: GLUCSF , PROTEINCSF , FRO3OKCMYJ , SKY7QSHHCD , TCKE1JMF , COCCIDIGG , YZL6UFC , CRYPTOAGCSF , ENTEROVIRPCR , OLIGOBAND , OLIGOBANDNUM , IGG , KWG9MOE , ALBUMINMS , GCUKLZD1FHM , ALBUMININDEX , IGGINDEX , IGGALBRATIO , SYNTHESRTE , OLIGOCINTRP , TOXOPLASIGG , CYSTICERO Body Fluid No results found for: LABLD , GROSSDESCRIP , MICROPDESCR STIs (HIV, GC, Trich, Syphilis) No results found for: HIV12 , FDF8LQYPAX , YWT5ELG35NIE , CHLAMDIA , CHLTRNAA , GC , NGONORRNAA , TRICVAGAP , TRICHVAGBY , TPALLIDUM Cultures & Other Micro No results found for: URINECULT , BLOODCULT , BDERMAGUR , BDERMINTERP For assessment and recommendations, please see above. This note was generated using the [email or web address]@ speech recognition system. Grammatical errors, random wordinsertions, [...] directlywith the author for clarification. Thank you. SHOP ATTENDANT documented in this encounter Plan of Treatment Upcoming Encounters Date Type Department Care Team (Late st Contact Info) Description 09/28/2024 3:00 PM CDT Office Visit [facility] - Rheumatology [address] [place] [address], [facility] [place] [address] Jeremy Guy MD [address] [place] [address] [place] [address] Scheduled Orders Name Type Priority Associated Diagnoses Orde r Schedule CBC WITH DIFFERENTIAL Lab Routine Therapeutic drug monitoring E-12Weeks for 6 Occurrences starting 07/31/2023 until 08/31/2024, 2 completed C-REACTIVE PROTEIN Lab Routine Therapeutic drug monitoring E-12Weeks for 6 Occurrences starting 07/31/2023 until 08/31/2024, 2 completed HEPATIC FUNCTION PANEL Lab Routine Therapeutic drug monitoring E-12Weeks for 6 Occurrences starting 07/31/2023 until 08/31/2024, 2 completed documented as of this encounter Procedures Procedure Name Priority Date/Time Associated Diagnosis Comments QUANTIFERON-TB GOLD PLUS 4-TUBE 08/30/2023 11:32 AM PRO SHOP ATTENDANT RHEUMATOID FACTOR BLOOD QUANTITATIVE 08/30/2023 11:32 AM PRO SHOP ATTENDANT C-REACTIVE PROTEIN Routine 08/30/2023 11 :32 AM PRO SHOP ATTENDANT Therapeutic drug monitoring ERYTHROCYTE SEDIMENTATION RATE 08/30/2023 11:32 AM PRO SHOP ATTENDANT CBC W AUTO DIFFERENTIAL Routine 08/30/2023 11:32 AM PRO SHOP ATTENDANT Therapeutic drug monitoring COMPREHENSIVE METABOLIC PANEL 08/30/2023 11:32 AM PRO SHOP ATTENDANT HEPATIC FUNCTION PANEL Routine 11:32 AM PRO SHOP ATTENDANT Therapeutic drug monitoring HEPATITIS B CORE ANTIBODY TOTAL 08/30/2023 11:32 AM PRO SHOP ATTENDANT HEPATITIS B SURFACE ANTIGEN W RFLX CONFIRMATION 08/30/2023 11:32 AM PRO SHOP ATTENDANT HLA TYPING B27 Routine 08/30/2023 11:31 AM PRO SHOP ATTENDANT Polyarthritis CYCLIC CITRUL PEPTIDE ANTIBODY IGG/IGA (CCP) Routine 08/30/2023 11:30 AM PRO SHOP ATTENDANT Polyarthritis HEPATITIS C ANTIBODY Routine 08/30/2023 11:30 AM PRO SHOP ATTENDANT Polyarthritis documented in this encounter Results * (ABNORMAL) [...] Resulting Agency Comment [facility] performed at: [facility] [address] [facility] ??[facility] [id number] Jeremy Guy MD LAB - CHEMISTRY LUZ ROLDAN [facility] INSURANCE BILL [address] [place] [address] * C-REACTIVE PROTEIN (11/25/2023 8:56 AM CDT) Pathologist [facility] C-Reactive Protein 7 0 - 10 mg/L [facility] INSURANCE BILL Blood BLOOD SPECIMEN / Unknown 11/25/2023 8:56 AM CDT 11/25/2023 Narrative Resulting Agency Comment Lab Testing performed at: [facility] [address] ??[facility] [id number] Jeremy Guy MD LAB - CHEMISTRY LUZ ROLDAN [facility] INSURANCE BILL [address] [place] [address] * CBC WITH DIFFERENTIAL (11/25/2023 8:56 AM CDT) Pathologist [facility] WBC 8.6 3.4 - 10.8 x10E3/uL [facility] [...] Resulting Agency Comment Lab Testing performed at: [facility] [address] [facility] ??[facility] [id number] Jeremy Guy MD LAB - HEMATOLOGY ORD ERABLES [facility] INSURANCE BILL [address] [place] [address] * QUANTIFERON-TB GOLD PLUS 4-TUBE (08/30/2023 11:32 AM PRO SHOP ATTENDANT) QuantiFERON Criteria [facility] INSURANCE BILL Comment: QuantiFERON-TB [...] Chemiluminescence immunoassay methodology 08/30/2023 11:3 2 AM PRO SHOP ATTENDANT 08/30/2023 Narrative Resulting Agency Comment Lab Testing performed at: [facility] [address] ??[facility] [phone] Jeremy Guy MD LAB - CHEMISTRY LUZ ROLDAN [facility] INSURANCE BILL [address] [place] [address] * HEPATITIS B CORE ANTIBODY TOTAL (08/30/2023 11:32 AM PRO SHOP ATTENDANT) Hepatitis B Core Virus Antibody Total Negative Negative [facility] INSURANCE BILL 08/30/2023 11:3 2 AM PRO SHOP ATTENDANT 08/30/2023 Narrative Resulting Agency Comment Lab Testing performed at: [facility] [address] ??[facility] [phone] Jeremy Guy MD LAB - CHEMISTRY LUZ ROLDAN [facility] INSURANCE BILL [address] [place] [address] * HEPATITIS B SURFACE ANTIGEN W RFLX CONFIRMATION (08/30/2023 11:32 AM PRO SHOP ATTENDANT) Hepatitis B Virus Surface Antigen Negative Negative [facility] INSURANCE BILL 08/30/2023 11:3 2 AM PRO SHOP ATTENDANT 08/30/2023 Narrative Resulting Agency Comment Lab Testing performed at: [facility] [address] ??[facility] [phone] Jeremy Guy MD LAB - CHEMISTRY LUZ ROLDAN [facility] INSURANCE BILL [address] [place] [address] * RHEUMATOID FACTOR BLOOD QUANTITATIVE (08/30/2023 11:32 AM PRO SHOP ATTENDANT) Rheumatoid Factor <10.0 <14.0 IU/mL [facility] INSURANCE BILL 08/30/2023 11:3 2 AM PRO SHOP ATTENDANT 08/30/2023 Narrative Resulting Agency Comment Lab [facility] performed at: [facility] [address] [facility] ??[facility] [phone] Jeremy Guy MD LAB - CHEMISTRY LUZ ROLDAN [facility] INSURANCE BILL [address] [place] [address] * COMPREHENSIVE METABOLIC PANEL (08/30/2023 11:32 AM PRO SHOP ATTENDANT) Pathologist [facility] Glucose 87 70 - 99 mg/dL [facility] [...] [facility] INSURANCE BILL 08/30/2023 11:3 2 AM PRO SHOP ATTENDANT 08/30/2023 Narrative Resulting Agency Comment Lab Testing performed at: [facility] [address] ??[facility] [id number] Jeremy Guy MD LAB - CHEMISTRY LUZ ROLDAN Performing Organization Address City/[facility]/ZIP Co de Phone Number [facility] INSURANCE BILL [address] [place] [address] * ERYTHROCYTE SEDIMENTATION RATE (08/30/2023 11:32 AM PRO SHOP ATTENDANT) Erythrocyte Sedimentation Rate Westergren 9 0 - 32 mm/hr [facility] INSURANCE BILL 08/30/2023 11:3 2 AM PRO SHOP ATTENDANT 08/30/2023 Narrative Resulting Agency Comment Lab Testing performed at: [facility] [address] ??[facility] [id number] Jeremy Guy MD LAB - HEMATOLOGY ORD ISAK Performing Organization Address [facility] Co de Phone Number [facility] INSURANCE BILL [address] [place] [address] * HEPATIC FUNCTION PANEL (08/30/2023 11:32 AM PRO SHOP ATTENDANT) Bilirubin Direct 0.20 0.00 - 0.40 mg/dL [facility] INSURANCE BILL Blood BLOOD SPECIMEN / Unknown 08/30/2023 11:32 AM PRO SHOP ATTENDANT 08/30/2023 Narrative Resulting Agency Comment Lab Testing performed at: [address] ??[facility] [id number] Jeremy Guy MD LAB - CHEMISTRY LUZ ROLDAN Performing Organization Address City/[facility]/ZIP Co de Phone Number [facility] INSURANCE BILL [address] [place] [address] * (ABNORMAL) C-REACTIVE PROTEIN (08/30/2023 11:32 AM PRO SHOP ATTENDANT) C-Reactive Protein 17(H) 0 - 10 mg/L [facility] INSURANCE BILL Blood BLOOD SPECIMEN / Unknown 08/30/2023 11:32 AM PRO SHOP ATTENDANT 08/30/2023 Narrative Resulting Agency Comment Lab Testing performed at: [employer] ??[facility] [id number] Jeremy Guy MD LAB - CHEMISTRY LUZ Nixon Organization Address City/State/ZIP Co de Phone Number [facility] INSURANCE BILL [address] [place] [address] * CBC WITH DIFFERENTIAL (08/30/2023 11:32 AM PRO SHOP ATTENDANT) WBC 10.6 3.4 - 10.8 x10E3/uL [facility] INSURANCE BILL RBC 4.80 3.77 - 5.28 x10E6/uL [facility] INSURANCE BILL Hemoglobin 14.5 11.1 - 15.9 g/dL [facility] INSURANCE BILL Hematocrit 43.4 34.0 - 46.6 % [facility] INSURANCE BILL MCV 90 79 - 97 fL [facility] INSURANCE BILL MCH 30.2 26.6 - 33.0 pg [facility] INSURANCE BILL MCHC 33.4 31.5 - 35.7 g/dL [facility] INSURANCE BILL RDW 12.6 11.7 - 15.4 % [facility] INSURANCE BILL Platelet Count 271 150 - 450 x10E3/uL [facility] INSURANCE BILL Granulocytes % 65 Not Estab. % [facility] INSURANCE BILL Lymphocytes % 27 Not Estab. % [facility] INSURANCE BILL Monocytes % 5 Not Estab. % [facility] INSURANCE BILL Eosinophils % 3 Not Estab. % [facility] INSURANCE BILL Basophils % 0 Not Estab. % [facility] INSURANCE BILL Immature Cells NOT AVAILABLE [facility] INSURANCE BILL Comment:Result cannot be obt ained for this observation. Granulocytes Absolute 6.8 1.4 - 7.0 x10E3/uL [facility] INSURANCE BILL Lymphocytes Absolute 2.9 0.7 - 3.1 x10E3/uL [facility] INSURANCE BILL Monocytes Absolute 0.6 0.1 - 0.9 x10E3/uL [facility] INSURANCE BILL Eosinophils Absolute 0.3 0.0 - 0.4 x10E3/uL [facility] INSURANCE BILL [...] this observation. Blood BLOOD SPECIMEN / Unknown 08/30/2023 11:32 AM PRO SHOP ATTENDANT 08/30/2023 Narrative Resulting Agency Comment Lab [facility] performed at: [facility] [address] [facility] ??[facility] [id number] Jeremy Guy MD LAB - HEMATOLOGY ORD ERABLES Performing Organization Address City/[facility]/ZIP Co de Phone Number [facility] INSURANCE BILL [address] [place] [address] * HLA TYPING B27 (08/30/2023 11:31 AM PRO SHOP ATTENDANT) [facility]B27 Negative [facility] Comment: HLA-B*27 Negative B27 allele interpretation for all loci based on IMGT/HLA database version 3.51.0 This test was developed and its performance characteristics determined by [facility]. ??It has not been cleared or approved by the Food and Drug Administration. [facility] CLIA ID Number [id number] THis test was performed using Polymerase Chain Reaction (PCR) and Sequence Specific Oligonucleotide Probes (SSOP) technique. Sequence Based Typing (SBT) may be used as a supplemental method when necessary. If you have questions, please call [facility] customer service at or email at [email or web address]. Blood BLOOD SPECIMEN / Unknown 08/30/2023 11:31 AM PRO SHOP ATTENDANT 08/30/2023 Narrative Resulting Agency Comment Lab Testing performed at: [facility] ??[facility] [id number] Jeremy Guy MD LAB - CHEMISTRY ORDE RABLES Performing Organization Address City/[facility]/ZIP Co de Phone Number [facility] INSURANCE BILL [address] [place] [address] * CYCLIC CITRUL PEPTIDE ANTIBODY IGG/IGA (CCP) (08/30/2023 11:30 AM PRO SHOP ATTENDANT) CCP Antibodies IgG/IgA 8 0 - 19 units [facility] INSURANCE BILL Comment: ? Negative ? <20 ? Weak positive ?20 - 39 ? Moderate positive ??40 - 59 ? Strong positive ?>59 Blood BLOOD SPECIMEN / Unknown 08/30/2023 11:30 AM PRO SHOP ATTENDANT 08/30/2023 Narrative Resulting Agency Comment Lab Testing performed at: [facility] [facility] ??[facility] [phone] Jeremy Guy MD LAB - SEROLOGY ORDER GEOVANNA Performing Organization Address [facility] de Phone Number [employer] INSURANCE BILL [address] [place] [address] * HEPATITIS C ANTIBODY (08/30/2023 11:30 AM PRO SHOP ATTENDANT) Hepatitis C Antibody Non Reactive Non Reactive [facility] Comment: HCV antibody alone does not differentiate between previously resolved infection and active infection. Equivocal and Reactive HCV antibody results should be followed up with an HCV RNA test to support the diagnosis of active HCV infection. Blood BLOOD SPECIMEN / Unknown 08/30/2023 11:30 AM PRO SHOP ATTENDANT 08/30/2023 Narrative Resulting Agency Comment Lab Testing performed at: [employer] [address] ??[facility] [id number] Jeremy Guy MD LAB - CHEMISTRY ORDE JAMAR Performing Organization Address [facility] de Phone Number [employer] INSURANCE BILL [address] [place] [address] documented in this encounter Visit Diagnoses Diagnosis Psoriatic arthritis (HCC)- Primary Psoriatic arthropathy Polyarthritis Unspecified polyarthropathy or polyarthritis, site unspecified Therapeutic drug monitoring Encounter for therapeutic drug monitoring Immunosuppression due to drug therapy (HCC) Encounter for counseling regarding contraception documented in this encounter Care Teams Project Manager Industrial Relationship Specialty Start Date End Date Anika Lemos, FIELD OPERATIONS SUPERVISOR-AUTOMOTIVE ACCESSORY INSTALLER [address] [place] [address] PCP - General Nurse Practitioner 07/08/23 documented as of this encounter
--- OUTSIDE RECORDS SUMMARY | 2024-07-27 02:30 | XMS_ITS | Encounter Summary ---
Author Organization [facility] Address [address] [place] [address] Care Team Providers Care Log Feeder Name Role Phone Anika Lemos Yung ELLIOTT-ACADEMIC SERVICES PROFESSIONAL Primary Care Provider + Reason for Visit * Reason Onset Date Comments Medication Reaction 02/02/2024 Encounter Details Date Type Department Care Team (Late st Contact Info) Description 02/02/2024 Telephone [facility] - Rheumatology [address] [place] [address], [facility] [place] [address] Jeremy Guy MD [address] [place] [address] [place] [address] Medication Reaction Social History Tobacco Use Types Packs/Day Years [...] encounter Miscellaneous Notes * Telephone Encounter - Ariadna Hamilton RN - 02/02/2024 1:59 PM CDT Pt called complaining of injection site reaction for last two doses of Humira. Pt describes reaction as red, raised skin and itchy, denies burning. Pt states reaction last for a few hours. Please advise, pt callback: [phone] documented in this encounter Plan of Treatment Upcoming Encounters Date Type Department Care Team (Late st Contact Info) Description 09/28/2024 3:00 PM CDT Office Visit [facility]ology [address] [facility], [place] [phone] Jeremy Guy MD [facility] 2L [place] [address] documented as of this encounter Visit Diagnoses Not on filedocumented in this encounter Care Teams Log Feeder Relationship Specialty Start Date End Date Anika Lemos, MAINTENANCE TEAM LEADER-ACADEMIC SERVICES PROFESSIONAL [address] [place] [address] PCP - General Nurse Practitioner 07/08/23 documented as of this encounter
--- OUTSIDE RECORDS SUMMARY | 2024-07-27 02:30 | XMS_ITS | Encounter Summary ---
Author Organization [facility] Address [address] [address] Care Team Providers Care It Architecture Consultant Name Role Phone Anika Lemos Primary Care Provider + Encounter Details Date Type Department Care Team (Latest Contact Info) Description 06/29/2024 Travel Social History Tobacco Use Types Packs/Day [...] Office Visit [facility] Rheumatology [address] [place] [address], [place] [phone] Jeremy Guy MD [address] [place] [address] [place] [phone] documented as of this encounter Visit Diagnoses Not on filedocumented in this encounter Care Teams It Architecture Consultant Relationship Specialty Start Date End Date Anika Lemos APRN-CNP [address] [facility] [place] [address] PCP - General Nurse Practitioner 07/08/23 documented as of this encounter
--- OUTSIDE RECORDS SUMMARY | 2024-07-27 02:30 | XMS_ITS | Encounter Summary ---
Author Organization [facility] Address [address] [place] [address] Care Team Providers Care Plumber And Tinner Name Role Phone Anika Lemos Yung ELLIOTT-DEPENDENCY PROGRAM DIRECTOR Primary Care Provider + Reason for Visit * Reason Onset Date Comments Appointment 09/15/2023 Encounter Details Date Type Department Care Team (Late st Contact Info) Description 09/15/2023 Telephone [facility] Rheumatology [address] [place] [address], [facility] [place] [address] Jeremy Guy MD [address] [place] [phone] Appointment Social History Tobacco Use Types Packs/Day Years [...] Telephone Encounter - Ariadna Hamilton RN - 09/15/2023 4:23 PM CST Pt called to clarify next appointment, confirmed 11/04/23 appt. Pt states she is at 8 tab/week for methotrexate, will contact pharmacy if refill is needed until NOV. No further questions at this time.Appt reminder placed in mail. CALIBRATOR documented in this encounter Plan of Treatment Upcoming Encounters Date Type Department Care Team (Late st Contact Info) Description 09/28/2024 3:00 PM CDT Office Visit [facility] Rhe[facility]ology [address] [facility], [place] [phone] Jeremy Guy MD [facility] 2L [place] [phone] documented as of this encounter Visit Diagnoses Not on filedocumented in this encounter Care Teams Plumber And Tinner Relationship Specialty Start Date End Date Anika Lemos, GRINDER SET UP OPERATOR GEAR TOOL-DEPENDENCY PROGRAM DIRECTOR [address] [facility] [address] PCP - General Nurse Practitioner 07/08/23 documented as of this encounter
--- OUTSIDE RECORDS SUMMARY | 2024-07-27 02:30 | XMS_ITS | Encounter Summary ---
Author Organization [facility] Address [facility] [facility] [place] [place] [address] Care Team Providers Care Automation Engineering Technician Name Role Phone Anika Lemos EARL-SOFTWARE ENGINEER Primary Care Provider + Encounter Details Date Type Department Care Team (Late Contact Info) Description 04/02/2024 Orders Only [facility] - Rheumatology [address] [place] [phone] Jeremy Guy MD [address] [place] [address] 2L [place] [address] Therapeutic drug monitoring Social History [...] Office Visit [facility] - Rheumatology [address] [place] [phone] Jeremy Guy MD [address] [place] [address] 2L [place] [phone] documented as of this encounter Visit Diagnoses Diagnosis Therapeutic drug monitoring Encounter for therapeutic drug monitoring documented in this encounter Care Teams Automation Engineering Technician Relationship Specialty Start Date End Date Anika Lemos, UROLOGIST PHYSICIAN-SOFTWARE ENGINEER [facility] [address] [facility] [place] [address] PCP - General Nurse Practitioner 07/08/23 documented as of this encounter
--- OUTSIDE RECORDS SUMMARY | 2024-07-27 02:30 | XMS_ITS | Encounter Summary ---
Author Organization [facility] Address [address] [place] [address] Care Team Providers Care Information Technology Officer Name Role Phone Anika Lemos Yung ELLIOTT-ROAD DESIGN ENGINEER Primary Care Provider + Reason for Visit * Reason Comments Psoriatic Arthritis Encounter Details Date Type Department Care Team (Latest Contact Info) Description 11/04/2023 3:40 PM CDT Office Visit [facility] - Rheumatology [address] [place] [address], [place] [address] Jeremy Guy MD [address] [place] [address] [place] [address] Psoriatic arthritis (HCC) (Primary Dx); [...] Reading Time Taken Comments Blood Pressure 137/95 11/04/2023 3:43 PM CDT Pulse 106 11/04/2023 3:43 PM CDT Temperature 37.1 ??C (98.8 ??F) 11/04/2023 3:43 PM CD T Respiratory Rate - - Oxygen Saturation 96% 11/04/2023 3:43 PM CDT Inhaled Oxygen Concentration - - Weight 102.1 kg (225 lb) 11/04/2023 3:43 PM CDT Height 165.1 cm (5' 5 ) 11/04/2023 3:43 PM CDT Body Mass Index 37.44 11/04/2023 3:43 PM CDT documented in this encounter Progress Notes * Ariadna Hamilton RN - 11/04/2023 4:26 PM CDT Pt in office for est patient appt. Pt verbalized name and date of . Instructed on correct administration technique and dosing schedule. Pt gave self first dose of Humira in office during established patient appointment with sample provided. Pt with no further questions at this time. Agreeable to contact office with questions or concerns. * Jeremy Guy MD - 11/04/2023 3:38 PM CDT Images from the original note were not included. Rheumatology Clinic Note Patient: Yarelis Mann ( 1980, ) Encounter Date: 11/04/2023 Chief Concern: Psoriatic Arthritis Assessment & Recommendations [...] serologies. Her sister has skin psoriasis. She was started on MTX last visit with dose escalation to 20 mg Po weekly(she misunderstood instructions and taking over a week rather in one day). still with left index finger DIP being and limited mobility. Status: Active disease. I reviewed with her the nature of her symptoms and that should anti-TNF alpha blockers like Humira for better disease control she agreed. Will start her on Humira 40 mg subcut every other week and increase methotrexate to 25 mg p.o. weekly. #. Therapeutic drug monitoring(Methotrexate) Patient is on drug therapy requiring intensive lab monitoring. CBC, CMP every 12 weeks. folic acid 1 mg daily. #. Counseling for contraception(Methotrexate) I reviewed in detail the teratogenic risk of methotrexate in childbearing age and need to use effective contraception while being on methotrexate. Patient reported that she does not have any future plans for and has IUD in place. #. Long-Term Immunosuppression due to Drug Therapy (methotrexate, Humira): Checking HBV, HCV, TB quant. Negative HBV (2022), HCV (-2022), TB Quant (-2022). Immunizations per PCP: for all patients on immunosuppressive therapy with methotrexate and Humira I recommend annual influenza vaccine, [id number], Prevnar, Pneumovax, Shingrix. Avoid live vaccines. Patient [...] today's encounter: - The patient has a -A chronic disease which is not at goal - The patient will be on drug therapy requiring intensive monitoring for toxicity. - I reviewed the patient's chart including review of clinical notes, laboratory results, and imaging results dating back to 07/2023 Jeremy Guy MD Division of Rheumatology Department of Internal Medicine [facility] ICD-10-CM 1. Psoriatic arthritis (HCC) L40.50 2. Therapeutic drug monitoring Z51.81 3. 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 Encounter for counseling regarding contraception Z30.09 Orders Placed This Encounter ??? methotrexate 2.5 MG tablet ??? adalimumab (Humira, 2 Pen,) 40 MG/0.4ML injection Future Appointments Date Time Provider Department Center 12/30/2023 3:40 PM Jeremy Guy MD [id number] Subjective History of Present Illness: still has left index DIP swelling and not able to completely flex the finger though proximal fingerswelling has improved. no other joints pain reported today. Disease Hx: 10/10 she woke up with left knee swelling(she thought she twisted it) s/p knee aspiration by Ortho showing WBCs ~63012 and negative for infectious and crystals. Knee [...] HPI. Home Medications: Current Outpatient Medications: ??? adalimumab (Humira, 2 Pen,) 40 MG/0.4ML injection, Inject 0.4 mL subcutaneously every 14 days, Disp: 2.4 mL, Rfl: 1 ??? cetirizine (ZyrTEC) 10 MG tablet, Take 1 (one) tablet by mouth once daily, Disp: , Rfl: ??? Cholecalciferol 250 MCG (02290 UT) TABS, Take 1 (one) tablet by mouth once daily, Disp: , Rfl: ??? folic acid (Folvite) 1 MG tablet, Take 1 (one) tablet by mouth once daily, Disp: 90 tablet, Rfl: 4 ??? levonorgestrel (Mirena, 52 MG,) 20 MCG/DAY IUD, Mirena 21 mcg/24 hours (8 yrs) 52 mg intrauterine device, Disp: , Rfl: ??? methotrexate 2.5 MG tablet, Take 10 (ten) tablets by mouth every 7 days Reasons: Psoriasis associated with Arthritis, Disp: 128 tablet, Rfl: 1 ??? omeprazole (PriLOSEC) 20 MG capsule, Take 1 (one) capsule by mouth once daily, Disp: , Rfl: Adverse Drugs Reactions: Allergies Allergen Reactions ??? Latex Urticaria ??? Penicillins Urticaria ??? Vitamin C Drops [Kdc:Red Dye+Yellow Dye+Ascorbate+Soybean Oil] Urticaria Fever blisters on mouth Past Medical History: Patient Active Problem List: Chronic pain of left knee Obesity (BMI 30-39.9) Past Medical History: Diagnosis Date ??? Gestational diabetes (HCC) Past Surgical History: No [...] Practitioner) Objective Physical Exam BP 137/95 Pulse 106 Temp 98.8 ??F (37.1 ??C) Ht 1.651 m (5' 5 ) Wt 102.1 kg (225 lb) YsP937% BMI 37.44 kg/m?? GENERAL: not in acute distress HEENT/NECK: Eyes with white sclerae. No oropharyngeal lesions. CHEST/LUNGS: Normal work of breathing, CARDIOVASCULAR: Regular rhythm, no edema. SKIN/NAILS: dry rash on palms. NEURO: Normal muscle bulk and strength in limbs. MSK: nail pitting, left index finger DIP tenderness to palpation and limited flexion. rest of smalland larger joints without signs of active inflammatory arthritis Common Labs CBC Recent Labs Component Name 08/30/23 1132 07/26/23 1044 WBC 10.6 10.6 HGB 14.5 15.0 MCV 90 90 PLTCOUNT 271 256 No results found for: NEUTABS , LYMPHS , MONO , EOS , BASO , GRANIMMABS Metabolic Profile Recent Labs Component Name 08/30/23 1132 07/26/23 1044 POTASSIUM 4.3 4.5 CO2 24 22 BUN 10 12 CREATININE 0.81 0.86 GLUCOSE 87 91 CALCIUM 8.9 8.8 EGFR 93 86 AST 17 16 ALT 24 23 ALKPHOS 62 69 Lab Results Component Value Date/Time DBIL 0.20 08/30/2023 11:32 AM UA & UPC No results found for: SPECGRAVUA , PHUA , PROTEINUA , BLOODUA , LEUKOCYTEUA , NITRITEUA , GLUCOSEUA , KETONEUA , BILIRUBINUA , UROBILINUA , REFLXSTAT , URMIC , SQUAMOUS , TRANSEPIUA , RBCUA , WBCUA , BACTUA , EOSINU No results found for: PROTEINTO , CREATININEUR , NWKMHEXXR3EZ No results for input(s): HCGURINE , HCGQUANT in the last 07743 hours. Latent Infections No results found for: HEPBSAG , HBVSAB , HEPBSAB , HEPBCAB , HEPCAB No results found for: QUANTIFER , QNTTBGOLD , QNTPLUSTB1 , QNTPLUSTB2 , QNTMITOGEN , QUANTIFERO , QUANTIFECI , QUANTIF , QUANNIL , QUAMIT , QFTTBAGN , WAHHGQYXE63 , AFBSMR Immunology Labs Inflammatory Markers Recent Labs Component Name 08/30/23 1132 07/26/23 1044 SEDRATE 9 12 CRP 17* 11* RA-related Auto-Ab's Lab Results Component Value Date/Time RA <10.0 08/30/2023 11:32 AM CCPIGGIGA 8 08/30/2023 11:30 AM JOHNATHAN-related No results found for: ANATITER , ANAPATTERN , ANTINUCLE , ANAIGG , DSDNAABIU , ANTIDNADSABQ , DSDNAIGGAB , SMITHANTI , ANTICHRO , CHROMATINAB , SSAANTIBO , SSBANTIBO , SMRNPANTI , SMITHRNPAB , SCL70 , ANTICENTROB , IG8GZYAY , OGEKA647EP , CZAWOPW9VN , HISTONEIGG No results for input(s): C3 , C4 in the last 65019 hours. APLS-related Auto-Ab's No results found for: I2DXPFXBDT , N4WNHTGMDS , T2LUWANEJE , NQAN0QKV , MLYH4OPG , CRDLPNIGM , CRDLPNIGG , CRDLPNIGA , DILUTEPT , DPTCFMRATIO , TT , PTTLA , DRVVTBASE , LABINTE Myopathy No results found for: CK , ALDOLASE , SAE1AB , NXP2AB , MDA5AB , GSW0HVO , MYOINTERP , MI2AB , J261349 , PL12AB , PL7AB , OJAB , EJAB , SRPAB , PM3BHFRS , KUAB , SMITHRNPAB , LILMW860QR , PZS44DB , ACT94NV , RYXVUTMV3VAO , ACHBLOCKAB , ACHBINDAB Vasculitis and ANCAs No results found for: NEUTCYTOAB , ANTIPROT3 , ANTIMPO , E7EMSEJ Genetics Lab Results Component Value Date/Time HLAB27 [...] , TSH , T4FREE in the last 04600 hours. No results found for: JNFW01AH Heme No results found for: RETICCTPCT , RETICULOCYTE , IRON , FERRITIN , TRANSFERRIN , TRANSFERRSAT , TIBC , FIBRINOGEN , DDIMER , VITB12 , FOLATE , HAPTOGLOBIN , LDHTOTAL No results for input(s): PT , INR , PTT in the last 00899 hours. Renal No results found for: CALCIUMION , PHBLD , IONCAART , MAGNESIUM , PHOS , SODIUMRAN , POTASSIUMUR , CHLORIDER Cardiac & Lipids No results for input(s): TROPONINI , CKMB , BNP in the last 89691 hours. No results for input(s): CHOL , TRIG , HDL , LDLCALC , LDLDIRECT in the last 26481 hours. Respiratory No results found for: SARSCOV2 , RINFLUANAA , RINFLUBNAA , INFLUARAPID , INFLUBRAPID , INFLUCNTRL , STREPARAPID , STREPAQC Hepatobiliary & GI No results found for: GGT , LIPASE , O0BIHUUDCTRC , CMVPCR , CMVSOURCE , GDHANTIGEN , [...] results found for: GLUCSF , PROTEINCSF , PKA6LOYSCP , VFK7BGUABV , RHUZ1YRB , COCCIDIGG , LXM3AVR , CRYPTOAGCSF , ENTEROVIRPCR , OLIGOBAND , OLIGOBANDNUM , IGG , EDR9KMV , ALBUMINMS , VQTYOCV3WVD , ALBUMININDEX , IGGINDEX , IGGALBRATIO , SYNTHESRTE , OLIGOCINTRP , TOXOPLASIGG , CYSTICERO Body Fluid No results found for: LABLD , GROSSDESCRIP , MICROPDESCR STIs (HIV, GC, Trich, Syphilis) No results found for: HIV12 , YFJ8WBGWDA , YIX1ALG27YZW , CHLAMDIA , CHLTRNAA , GC , NGONORRNAA , TRICVAGAP , TRICHVAGBY , TPALLIDUM Cultures & Other Micro No results found for: URINECULT , BLOODCULT , BDERMAGUR , BDERMINTERP For assessment and recommendations, please see above. This note was generated using the Ziptr speech recognition system. Grammatical errors, random wordinsertions, [...] 09/28/2024 3:00 PM CDT Office Visit [facility] - Rheumatology [address] [place] [phone] Jeremy Guy MD [address] [place] [address] [place] [address] documented as of this encounter Visit Diagnoses Diagnosis Psoriatic arthritis (HCC)- Primary Psoriatic arthropathy Therapeutic drug monitoring Encounter for therapeutic drug monitoring Immunosuppression due to drug therapy (HCC) Encounter for counseling regarding contraception documented in this encounter Care Teams Information Technology Officer Relationship Specialty Start Date End Date Anika Lemos, LIABILITY CLAIMS REPRESENTATIVE-ROAD DESIGN ENGINEER [address] [address] PCP - General Nurse Practitioner 07/08/23 documented as of this encounter
--- OUTSIDE RECORDS SUMMARY | 2024-07-27 02:30 | XMS_ITS | Encounter Summary ---
Author Organization [facility] Address [facility] [place] [address] Care Team Providers Care Plating Stripper Name Role Phone Anika Lemos EARL-CURTAIN HEMMER AUTOMATIC Primary Care Provider + Reason for Visit * Reason Comments Refill Request Encounter Details Date Type Department Care Team (Late st Contact Info) Description 04/05/2024 Refill [facility] - Rheumatology [address] [place] [phone] Jeremy Guy MD [address] [place] [address] 2L [place] [address] Refill Request Social History Tobacco Use Types Packs/Day Years [...] Office Visit [facility] - Rheumatology [address] [place] [phone] Jeremy Guy MD [address] [place] [address] 2L [place] [phone] documented as of this encounter Visit Diagnoses Diagnosis Psoriatic arthritis (HCC) Psoriatic arthropathy documented in this encounter Care Teams Plating Stripper Relationship Specialty Start Date End Date Anika Lemos, AVAYA ENGINEER-CURTAIN HEMMER AUTOMATIC [address] [facility] [place] [address] PCP - General Nurse Practitioner 07/08/23 documented as of this encounter
--- OUTSIDE RECORDS SUMMARY | 2024-07-27 02:30 | XMS_ITS | Encounter Summary ---
Author Organization [facility] Address [address] [place] [address] Care Team Providers Care Answering Service Telephone Operator Name Role Phone Anika Lemos Yung ELLIOTT-TRANSCRIPT CLERK Primary Care Provider + Reason for Visit * Reason Onset Date Comments MEDICATION REFILL 11/04/2023 Encounter Details Date Type Department Care Team (Late st Contact Info) Description 11/04/2023 Refill [facility] - Rheumatology [address] [place] [address], [facility] [place] [address] Jeremy Guy MD [address] [place] [address] [place] [address] MEDICATION REFILL Social History Tobacco Use Types Packs/Day Years [...] Telephone Encounter - Ariadna Hamilton RN - 11/04/2023 4:28 PM CDT Pending for sample given in office. Refill Request Yarelis Mann Allergies: Allergies Allergen Reactions ??? Latex Urticaria ??? Penicillins Urticaria ??? Vitamin C Drops [Kdc:Red Dye+Yellow Dye+Ascorbate+Soybean Oil] Urticaria Fever blisters on mouth Pended Medication Order: Requested Prescriptions Pending Prescriptions Disp Refills ??? adalimumab (Humira) 40 MG/0.4ML injection 0.4 mL 0 Sig: Inject 0.4 mL subcutaneously every 14 days documented in this encounter Plan of Treatment Upcoming Encounters Date Type Department Care Team (Late st Contact Info) Description 09/28/2024 3:00 PM CDT Office Visit [facility] - Rheumatology [address] [place] [address], [facility] [place] [phone] Jeremy Guy MD [address] [place] [address] [place] [phone] documented as of this encounter Visit Diagnoses Diagnosis Psoriatic arthritis (HCC) Psoriatic arthropathy documented in this encounter Care Teams Answering Service Telephone Operator Relationship Specialty Start Date End Date Anika Lemos, EARL-TRANSCRIPT CLERK [address] [facility] [address] [place] [address] [place] [address] PCP - General Nurse Practitioner 07/08/23 documented as of this encounter
--- OUTSIDE RECORDS SUMMARY | 2024-07-27 02:31 | XMS_ITS | Encounter Summary ---
Author Organization [facility] Healthcare Address [address] [place] [id number] Care Team Providers Care Superintendent Storage Area Name Role Phone Anika Lemos NP Primary Care Provider [phone] Reason for Visit * Reason Comments Hand Pain Right hand swollen s marco April 14 Encounter Details Date Type Department Care Team (Late st Contact Info) Description 04/25/2023 8:30 AM CDT Office Visit [facility] Internal Medicine at [place] [address] [place] [address] Anika Lemos NP [address] [place] [address] Localized swelling on right hand (Primary Dx); BMI 36.0-36.9,adult; Obesity (BMI 30-39.9) Social History Tobacco Use Types Packs/Day Years Used Date Smoking Tobacco: Former Cigarettes Q uit: 07/22/2002 Smokeless Tobacco: Never Tobacco Cessation:Counseling Given: Not Answered PHQ-2 Answer Date Recorded PHQ-2 Total Score (If total score is 3 or more points, staff should administer the PHQ-9) 0 04/25/2023 Personal Safety Answer Date Recorded Have you ever been in or are you currently in a harmful physical or emotional relationship or is someone making you feel afraid or unsafe? Denies 10/04/2022 Comments No Sex and Gender Information Value Date Recorded Sex Assigned at Not on file Legal Sex Female 10:34 AM TRANSIT PLANNING DIRECTOR Gender Identity Not on file Sexual Orientation Not on file documented as of this encounter Last Filed Vital Signs Vital Sign Reading Time Taken Comments Blood Pressure - - Pulse 84 04/25/2023 8:27 AM CDT Temperature 37.1 ??C (98.8 ??F) 04/25/2023 8:27 AM CD T Respiratory Rate - - Oxygen Saturation 97% 04/25/2023 8:27 AM CDT Inhaled Oxygen Concentration - - Weight 98.9 kg (218 lb) 04/25/2023 8:27 AM CDT Height 165.1 cm (5' 5 ) 04/25/2023 8:27 AM CDT Body Mass Index 36.28 04/25/2023 8:27 AM CDT documented in this encounter Patient Instructions * Patient Instructions* Anika Lemos NP - 04/25/2023 8:30 AM CDT Prednisone as directed. Ibuprofen as needed for pain. Follow-up as needed or at next scheduled visit for evaluation documented in this encounter Ordered Prescriptions Prescription Sig Dispense Quantity Refills Last Filled Start Date End Date ibuprofen (ADVIL,MOTRIN) 800 mg tabletIndications: Pain Take 1 tablet (800 mg total) by mouth 3 (three) times a day 90 tablet 04/25/2023 predniSONE (DELTASONE) 20 mg tabletIndications: Localized swelling on right hand Take 3 tabs (60mg) daily for 3 days, then take 2 tabs (40mg) daily for 3 days, then take 1 tab (20mg) daily for 3 days. 18 tablet 04/25/2023 05/04/2023 documented in this encounter Progress Notes * Anika Lemos NP - 04/25/2023 8:30 AM CDT Images from the original note were not included. Subjective/Objective Patient ID: Yarelis Mann is a 42 y.o. female. Visit Date: 04/25/2023 Chief Complaint Hand Pain (Right hand swollen since April 14) HPI 42-year-old female presents with right hand swelling since April 14. Currently waiting to seeRheumatology in June. Rheumatoid factor was negative. She does have intermittent swelling of the right hand the left index finger in the right knee. Her right hand is swollen and mildly warm. Shecan not close it all the way. We will prescribe prednisone for her and Motrin for pain. She does have follow-up at the end of this month for evaluation Review of Systems Constitutional: Negative for activity change, chills and fatigue. HENT: Negative for congestion, ear pain, nosebleeds, rhinorrhea and sinus pressure. Respiratory: Negative for cough and shortness of breath. Cardiovascular: Negative for chest pain and palpitations. Gastrointestinal: Negative for abdominal pain. Endocrine: Negative for cold intolerance. Genitourinary: Negative for difficulty urinating and hematuria. Musculoskeletal: Positive for arthralgias (Right hand swelling and pain). Negative for back pain and myalgias. Neurological: Negative for dizziness, weakness and headaches. Psychiatric/Behavioral: Negative for agitation, confusion and sleep disturbance. Physical Exam Constitutional: Appearance: Normal appearance. She is well-developed. She is obese. HENT: Head: Normocephalic and atraumatic. Eyes: Pupils: Pupils are equal, round, and reactive to light. Cardiovascular: Rate and Rhythm: Normal rate and regular rhythm. Heart sounds: Normal heart sounds. Pulmonary: Effort: Pulmonary effort is normal. Breath sounds: Normal breath sounds. Abdominal: General: Bowel sounds are normal. There is no distension. Palpations: Abdomen is soft. Musculoskeletal: General: Swelling and tenderness (Right hand mild swelling with mild warmth and pain with palpation) present. Cervical back: Normal range of motion and neck supple. Skin: General: Skin is warm and dry. Capillary Refill: Capillary refill takes less than 2 seconds. Findings: No rash. Neurological: Mental Status: She is alert and oriented to person, place, and time. Psychiatric: Behavior: Behavior normal. Thought Content: Thought content normal. Assessment/Plan Diagnoses and all orders for this visit: Localized swelling on right hand (R22.31) (Primary) Comments: Take prednisone as directed. Motrin as needed for pain. Follow up at next scheduled visit in April for follow-up Orders: - predniSONE (DELTASONE) 20 mg tablet; Take 3 tabs (60mg) daily for 3 days, then take 2 tabs (40mg)daily for 3 days, then take 1 tab (20mg) daily for 3 days. - ibuprofen (ADVIL,MOTRIN) 800 mg tablet; Take 1 tablet (800 mg total) by mouth 3 (three) times a day BMI 36.0-36.9,adult (Z68.36) Comments: Diet and exercise on a regular basis as tolerated Assessment & Plan: Discussed the patients BMI: The BMI is above average BMI management is complete. BMI follow-up includes: Nutrition Counseling and education provided Obesity (BMI 30-39.9) (E66.9) Comments: Monitor caloric intake Assessment & Plan: Discussed the patients BMI: The BMI is above average BMI management is complete. BMI follow-up includes: Nutrition Counseling and education provided Other orders - Flu Vaccine Quad PF 6m+ IM - Fluarix / FluLaval / Fluzone documented in this encounter Miscellaneous Notes * Assessment & Plan Note - Grecia Brown MA - 04/25/2023 8:32 AM CDT Associated Problem(s): Obesity (BMI 30-39.9) Discussed the patients BMI: The BMI is above average BMI management is complete. BMI follow-up includes: Nutrition Counseling and education provided documented in this encounter Plan of Treatment Not on file documented as of this encounter Visit Diagnoses Diagnosis Localized swelling on right hand- Primary BMI 36.0-36.9,adult Obesity (BMI 30-39.9) documented in this encounter Orders Immunization/Injection Count Last Ordered Date First Ordered Date FLU VACCINE QUAD PF 6M+ IM - FLUARIX / FLULAVAL / FLUZONE- SYRINGE 1 04/25/2023 documented in this encounter Care Teams Superintendent Storage Area Relationship Specialty Start Date End Date Anika Lemos NP [address] [facility] [address] [place] [address] PCP - General Internal Medicine 10/28/22 documented as of this encounter
--- OUTSIDE RECORDS SUMMARY | 2024-07-27 02:31 | XMS_ITS | Encounter Summary ---
Author Organization [facility] Healthcare Address [address] [place] [id number] Care Team Providers Care Educational Advisor Name Role Phone Anika Lemos NP Primary Care Provider [phone] Reason for Visit * Reason Onset Date Comments Test Results 11/26/2023 Encounter Details Date Type Department Care Team (Late st Contact Info) Description 11/26/2023 Telephone [facility] Medical Group Internal Medicine at [place] [address] [place] [address] Anika Lemos NP [address] [place] [address] Test Results Social History Tobacco Use Types Packs/Day Years Used Date Smoking Tobacco: Former Cigarettes Q uit: 07/22/2002 Smokeless Tobacco: Never AUDIT-C Answer Date Recorded Q1: How often do you have a drink containing alcohol? Never 11/11/2023 Q2: How many drinks containi ng alcohol do you have on a typical day when you are drinking? Patient does not drink Q3: How often do you have si x or more drinks on one occasion? Never 11/11/2023 PHQ-2 Answer Date Recorded PHQ-2 Total Score (If total score is 3 or more points, staff should administer the PHQ-9) 0 05/21/2023 Personal Safety Answer Date Recorded Have you ever been in or are you currently in a harmful physical or emotional relationship or is someone making you feel afraid or unsafe? 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 CS relayed results topatient and she stated she is taking her Vit-D supplements 1x a day Does message need to be routed? Yes-FYI Only documented in this encounter Plan of Treatment Not on file documented as of this encounter Visit Diagnoses Not on filedocumented in this encounter Care Teams Educational Advisor Relationship Specialty Start Date End Date Anika Lemos NP [address] [facility] [address] [place] [address] PCP - General Internal Medicine 10/28/22 documented as of this encounter
--- OUTSIDE RECORDS SUMMARY | 2024-07-27 02:31 | XMS_ITS | Encounter Summary ---
Author Organization [facility] Medical Group Address [address] [facility] [address] [place] [address] Care Team Providers Care Insurance Policy Clerk Name Role Phone Anika Lemos NP Primary Care Provider [phone] Reason for Visit * Reason Comments Pain Encounter Details Date Type Department Care Team (Late st Contact Info) Description 10/28/2022 3:00 PM CDT Office Visit [facility] Orthopedics and Sports Medicine [address] [place] [phone] Clint Willson MD [address] [place] [id number] Chronic pain of left knee (Primary Dx) Social History Tobacco Use Types Packs/Day Years Used Date Smoking Tobacco: Never Personal Safety Answer Date Recorded Have you ever been in or are you currently in a harmful physical or emotional relationship or is someone making you feel afraid or unsafe? 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 Visit Date: 10/28/2022 Physician: Clint WillsonMD Assessments: 1.41 y.o. female with left knee pain and effusion several days after twisting her knee 09/29/22 withevidence of effusion and concern for meniscus tear pathology and possible gout or pseudogout 2. 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 10/17/22 left knee MRI showing very large joint effusion, small Garcia's cyst, focal degenerative chondromalacia lesions, possible tear of popliteus muscle belly History of Present Illness: The patient returns today along with her family and she still has swelling with the knee but is decreased compared to last visit. She recently had the MRI performed. She denies any new accident injury or trauma. She has no history in her family or in her medical history of gout or pseudogout. Review of Systems and Examination: Left knee exam On examination, the patient is alert and oriented times three. The patient is in no acute distress and has unlabored respirations. Hearing is intact to spoken word. There is no evidence of clinical infection about the lower extremity. The calf demonstrates no evidence of deep vein thrombosis. Thereis evidence of warmth and perfusion of the lower leg. Superficial peroneal nerve, deep peroneal nerve, sural, saphenous, and plantar nerve sensation and motor function is grossly intact. The patient still has presence of an intra-articular effusion on palpation. Her range of motion has improved andshe is near full extension to flexion beyond 100 degrees without much difficulty. She is no overt pain with activation of the popliteus or pain with resisted internal and external rotation of the lower leg. She is diffuse tenderness posteriorly. Data Review: I reviewed the radiographs personally. I personally reviewed the patient's MRI report and MRI images and my personal review of 10/17/22 right knee MRI shows evidence of chondral fissuringthat is near full-thickness on the sagittal views with no evidence of overt loose body. There is evidence of large intra-articular effusion. There is evidence of continuity of the cruciate and collateral ligaments as well as the remaining extensor mechanism. There is no evidence of overt meniscus tear pathology. I personally and independently performed interpretation of a test performed by another provider. Plan: This time I discussed with the patient that there is evidence of irregularity on the MRI predominantly at the patella with fissuring present however there is no overt loose body present or evidence of cruciate or meniscus tear pathology. We discussed the role of aspiration for diagnostic as well astherapeutic purposes given her continued effusion within the knee and since her onset of pain was not necessarily directly related to the suspected trauma. We would be looking to rule out definitively gout pseudogout or other systemic process like rheumatoid arthritis. The patient is interested in proceeding with this.The patient was interested and consented to receiving a aspiration to the left knee after considering the risks, benefits, and alternatives. I chloraprepped the left knee and aspirated little over 20 cc of synovial fluid that was normal appearing. A band-aid was placed over the injection site. The patient tolerated the procedure well. The patient will follow up on an as neededbasis to the surgical clinic. We will follow up with the patient following the results of the aspiration. We will see the patient back in approximately 1-2 weeks' time and if she continues to have recalcitrant symptoms then consideration of continued nonoperative versus arthroscopy options can be considered for the patella chondral defect and fissuring. documented in this encounter Plan of Treatment Not on file documented as of this encounter Results * Aerobic and anaerobic culture and gram stain Synovial fluid Knee, left (10/28/2022 6:19 PM CDT) Direct Specimen Exam Stain: Cytospin Gram stain shows: Abundant polymorphonuclear leukocytes seen. Red blood cells present. No organisms seen. LETHA ROGER Comment:Testing performed by : [facility], [address] [place]., [address] Report Final Report: No growth LETHA ROGER Comment:Testing performed by : [facility], [address] [place] [address]., [id number] Synovial fluid (Knee, left) 10/28/2022 6:19 PM CDT 10/28/2022 10:57 PM CDT Narrative LETHA - 11/03/2022 12:24 PM CDT Insufficient specimen volume received for specimen concentration.?? Culture results may be falsely negative due to the limited volume of specimen received. Testing performed by [facility] Microbiology Laboratory ([phone]) Specimens submitted from normally sterile body sites will have all bacterial morphotypes identified. Specimens that contain grossly mixed sharon and/or are from body sites that are not normally sterile will be examined for Staphylococcus aureus, Pseudomonas aeruginosa, beta-hemolytic strep, vancomycin-resistant Enterococcus, Bacteroides, Parabacteroides, Clostridium perfringens and fungus. If any of these are isolated, the organism will be reported. Current interpretive data was last revised on 2019. Clint Willson MD LAB MICROBIOLOGY - GENE RAL ORDERABLES Final Result Performing Organization Address City/[facility]/ZIP Co de Phone Number LETHA [address] [place] [address] * Cell count with reflex to differential, body fluid (10/28/2022 3:58 PM CDT) Specimen type, fld Synovial [facility] Color, fld Crystal [facility] Clarity, fld Turbid [facility] Nucleated cells, fld 17,314 /cumm [facility] Comment: Interpretive Data Unless otherwise specified, the reference range and other method performance specifications have not been established for CSF/Body Fluid tests. ??The test results should be integrated into the clinical context for interpretation. Current interpretive data was last revised on 2019. RBC, fld 11,000 /cumm [facility] Fluid 10/28/2022 3:58 PM CDT 10/28/2022 3:58 PM CDT Clint Willson MD LAB BODY FLUIDS AND STO OLS ORDERABLES Edited Result - Final Performing Organization Address [facility] Co de Phone Number [address] [place] [place] [address] * Crystal Analysis, Body Fluid (10/28/2022 3:58 PM CDT) Specimen type, fld Synovial [facility] Crystals Not Present Not Present [facility] Fluid 10/28/2022 3:58 PM CDT 10/28/2022 3:58 PM CDT Clint Willson MD LAB BODY FLUIDS AND STO OLS ORDERABLES Final Result Performing Organization Address City/[facility]/ZIP Co de Phone Number LETHA [address] [place] [address] documented in this encounter Visit Diagnoses Diagnosis Chronic pain of left knee- Primary Chronic pain of left knee documented in this encounter Historical Medications * This list may reflect changes made after this encounter. doxycycline hyclate 100 mg capsule TAKE 1 CAPSULE BY MOUTH TWICE DAILY WITH FOOD FOR 14 DAYS 10/24/2022 11/14/2022 added in this encounter Care Teams Insurance Policy Clerk Relationship Specialty Start Date End Date Anika Lemos NP [address] [address] PCP - General Internal Medicine 10/28/22 documented as of this encounter
--- OUTSIDE RECORDS SUMMARY | 2024-07-27 02:31 | XMS_ITS | Encounter Summary ---
Author Organization [facility] Healthcare Address [address] [place] [address] Care Team Providers Care Electric Lift Truck Driver Name Role Phone Anika Lemos NP Primary Care Provider [phone] Reason for Referral * Diagnostic Imaging (Routine) - Closed Specialty Diagnoses / Procedures Referred By Contac t Referred To Contact Diagnoses Breast cancer screening by mammogram Procedures Screening Mammogram Bilateral W Saud Anika Lemos NP [address] [place] [address] Phone: tel: fax: Unknown Place of Service fax: Referral ID Status Reason Start Date Expiration Date Visits Re quested Visits Authorized [id number] Closed 05/21/2023 06/19/2024 1 1 Reason for Visit * Reason Comments Follow-up Follow up on Vit D Encounter Details Date Type Department Care Team (Late st Contact Info) Description 05/21/2023 8:30 AM CDT Office Visit [facility] [place] [address] [place] [id number] Anika Lemos NP [address] [place], [place] [id number] Vitamin D deficiency (Primary Dx); BMI 37.0-37.9, adult; Obesity (BMI 30-39.9); Breast cancer screening by mammogram Social History Tobacco Use Types Packs/Day Years [...] on file 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 Gender Identity Not on file Sexual Orientation Not on file documented as of this encounter Last Filed Vital Signs Vital Sign Reading Time Taken Comments Blood Pressure 130/84 05/21/2023 8:22 AM CDT Pulse 82 05/21/2023 8:22 AM CDT Temperature 36.9 ??C (98.5 ??F) 05/21/2023 8:22 AM CD T Respiratory Rate - - Oxygen Saturation 97% 05/21/2023 8:22 AM CDT Inhaled Oxygen Concentration - - Weight 101.6 kg (224 lb) 05/21/2023 8:22 AM CDT Height 165.1 cm (5' 5 ) 05/21/2023 8:22 AM CDT Body Mass Index 37.28 05/21/2023 8:22 AM CDT documented in this encounter Patient Instructions * Patient Instructions* Anika Lemos NP - 05/21/2023 8:30 AM CDT Continue medications as directed. Have lab work completed. Follow-up in 6 months or sooner as needed. Contact the office with any questions or concerns documented in this encounter Progress Notes * Anika Lemos NP - 05/21/2023 8:30 AM CDT Images from the original note were not included. Subjective/Objective Patient ID: Yarelis Mann is a 42 y.o. female. Visit Date: 05/21/2023 Chief Complaint Follow-up (Follow up on Vit D ) HPI 42-year-old female in for routine 6 month follow-up. Patient with low vitamin-D and was started on D3 2000 units daily. She would like to have lab work repeated. She is due for mammogram. Her last Pap was last year at [facility]. She sees Rheumatology in June for her bilateral hand pain. She states her hands have been actually feeling pretty good lately Review of Systems Constitutional: Negative for activity change, chills and fatigue. HENT: Negative for congestion, ear pain, nosebleeds, rhinorrhea and sinus pressure. Respiratory: Negative for cough and shortness of breath. Cardiovascular: Negative for chest pain and palpitations. Gastrointestinal: Negative for abdominal pain. Endocrine: Negative for cold intolerance. Genitourinary: Negative for difficulty urinating and hematuria. Musculoskeletal: Positive for arthralgias (left index finger pain). Negative for back pain and myalgias. [...] distension. Palpations: Abdomen is soft. Musculoskeletal: General: Tenderness (left index finger tenderness with palpation. No bilateral hand swelling) present. Normal range of motion. Cervical back: Normal range of motion and neck supple. Skin: General: Skin is warm and dry. Capillary Refill: Capillary refill takes less than 2 seconds. Findings: No rash. Neurological: Mental Status: She is alert and oriented to person, place, and time. Psychiatric: Behavior: Behavior normal. Thought Content: Thought content normal. Assessment/Plan Diagnoses and all orders for this visit: Vitamin D deficiency (E55.9) (Primary) Comments: Continue vitamin-D supplementation as directed. Have lab work completed Orders: - Vitamin D 25 hydroxy; Future BMI 37.0-37.9, adult (Z68.37) Comments: diet and exercise on a regular basis as tolerated Assessment & Plan: Discussed the patients BMI: The BMI is above average BMI management is complete. BMI follow-up includes: Nutrition Counseling and education provided Obesity (BMI 30-39.9) (E66.9) Comments: monitor caloric intake. Exercise as tolerated Assessment & Plan: Discussed the patients BMI: The BMI is above average BMI management is complete. BMI follow-up includes: Nutrition Counseling and education provided Breast cancer screening by mammogram (Z12.31) Comments: schedule and complete mammogram as you are due Orders: - Screening Mammogram Bilateral W Saud; Future documented in this encounter Miscellaneous Notes * Assessment & Plan Note - Grecia Brown MA - 05/21/2023 8:27 AM CDT Associated Problem(s): Obesity (BMI 30-39.9) Discussed the patients BMI: The BMI is above average BMI management is complete. BMI follow-up includes: Nutrition Counseling and education provided documented in this encounter Plan of Treatment Scheduled Orders Name Type Priority Associated Diagnoses Orde r Schedule Screening Mammogram Bilateral W Saud Imaging Schedule Routine, Read Routine (OP Routine) Breast cancer screening by mammogram Expected: 05/21/2023, Expires: 05/21/2024 documented as of this encounter Procedures Procedure Name Priority Date/Time Associated Diagnosis Comments VITAMIN D 25 HYDROXY Routine 11/25/2023 8:59 AM CDT Vitamin D deficiency documented in this encounter Results * (ABNORMAL) Vitamin D 25 hydroxy (11/25/2023 8:59 AM CDT) Vitamin D, 25-Hydroxy 29.3(L) 30.0 - 100.0 ng/mL [facility] - 01 Comment: Vitamin D deficiency has been defined by the Jackson of Medicine and an Endocrine Society practice guideline as a level of serum 25-OH vitamin D less than 20 ng/mL (1,2). The Endocrine Society went on to further define vitamin D insufficiency as a level between 21 and 29 ng/mL (2). 1. IOM (Jackson of Medicine). 2010. Dietary reference ?? intakes for calcium and D. [place]: The ?? National Academies Press. 2. Miriam MF, Shae NC, Rush RHODES, et al. ?? Evaluation, treatment, and prevention of vitamin D ?? deficiency: an Endocrine Society clinical practice ?? guideline. JCEM. 2010; 96(7):1911-30. Blood 11/25/2023 8:59 AM CDT 11/25/2023 Narrative [facility] - 11/26/2023 9:38 AM CDT Performed at: ??01 - [facility] [address] ??[id number] Title Assistant: Casper Huddleston PhD, Phone: ??[phone] Anika Lemos NP LAB BLOOD ORDERABLES Final Re sult [facility] - 01 documented in this encounter Visit Diagnoses Diagnosis Vitamin D deficiency- Primary BMI 37.0-37.9, adult Obesity (BMI 30-39.9) Breast cancer screening by mammogram documented in this encounter Historical Medications * This list may reflect changes made after this encounter. Medication Sig Dispense Quantity Refills Last Filled Start D ate End Date cholecalciferol (VITAMIN D-3) 71499 unit tablet added in this encounter Care Teams Electric Lift Truck Driver Relationship Specialty Start Date End Date Anika Lemos NP [address] [facility] [address] [place] [address] PCP - General Internal Medicine 10/28/22 documented as of this encounter
--- OUTSIDE RECORDS SUMMARY | 2024-07-27 02:31 | XMS_ITS | Encounter Summary ---
Author Organization [facility] Healthcare Address [address] [place] [address] Care Team Providers Care Ring Spinner Name Role Phone Anika Lemos NP Primary Care Provider [phone] Encounter Details Date Type Department Care Team (Late st Contact Info) Description 07/26/2023 Orders Only [facility] Health Information Management [address] [place] [id number] Scanning, Provider Social History Tobacco Use Types Packs/Day Years Used Date Smoking Tobacco: Former Cigarettes Q uit: 07/22/2002 Smokeless Tobacco: Never PHQ-2 Answer Date Recorded PHQ-2 Total Score [...] on file 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 Gender Identity Not on file Sexual Orientation Not on file documented as of this encounter Plan of Treatment Not on file documented as of this encounter Procedures Procedure Name Priority Date/Time Associated Diagnosis Comments SCAN - RADIOLOGY/IMAGING 07/26/2023 documented in this encounter Results * SCAN - RADIOLOGY/IMAGING (07/26/2023) Anatomical Region Laterality Modality Other us Provider Scanning Final Result documented in this encounter Visit Diagnoses Not on filedocumented in this encounter Care Teams Ring Spinner Relationship Specialty Start Date End Date Anika Lemos NP [address] [facility] [address] [place] [address] PCP - General Internal Medicine 10/28/22 documented as of this encounter
--- OUTSIDE RECORDS SUMMARY | 2024-07-27 02:31 | XMS_ITS | Encounter Summary ---
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 Gender Identity Not on file Sexual Orientation Not on file documented as of this encounter Plan of Treatment Not on file documented as of this encounter Procedures Procedure Name Priority Date/Time Associated Diagnosis Comments SCAN - RADIOLOGY/IMAGING 10/17/2022 documented in this encounter Results * SCAN - RADIOLOGY/IMAGING (10/17/2022) Anatomical Region Laterality Modality Other us Provider Scanning Final Result documented in this encounter Visit Diagnoses Not on filedocumented in this encounter Care Teams Farm Service Consultant Relationship Specialty Start Date End Date No, Physician PCP - General 10/04/22 10/27/22 documented as of this encounter
--- OUTSIDE RECORDS SUMMARY | 2024-07-27 02:31 | XMS_ITS | Encounter Summary ---
Author Organization [facility] Address [address] [place] [address] Care Team Providers Care Tire Bagger Name Role Phone Anika Lemos NP Primary Care Provider [phone] Reason for Visit * Auth/Cert (Routine) Specialty Diagnoses / Procedures Referred By Torres rayo Referred To Contact Diagnoses Dysphagia, unspecified type Dysphagia, unspecified type [R13.10] Procedures AR ESOPHAGOGASTRODUODENOSCOPY TRANSORAL DIAGNOSTIC ESOPHAGOGASTRODUODENOSCOPY Referral ID Status Reason Start Date Expiration Date Visits Re quested Visits Authorized [id number] 1 1 Encounter Details Date Type Department Care Team (Late st Contact Info) Description 11/11/2023 12:40 PM CDT Anesthesia Event [facility] [address] [place] [address] Doris Rider MD [address] [address] Abdirashid Steven MD [address] [place] [address] Anesthesia Record Procedure Summary Procedure Name Responsible Anesthesiologist Anesthesia Start Time Anesthesia Stop Time ESOPHAGOGASTRODUODENOSCOPY ESOPHAGEAL GUIDE WIRE Doris Rider MD 11/11/23 1240 11/11/23 1255 Events Date Time Event Comment 11/11/2023 1123 1218 In Room 1240 An Start 1240 An Start Data 1240 Patient Positioned Laterally 1240 Bite Block Placed 1241 An Induction The patient was reevaluated immediately before moderate or deep sedation use and before anesthesia induction. 1242 Proc Start 1248 Proc Fin 1249 Anesthesia Ready 1251 Out of Room 1254 an stop data 1255 Handoff to RN I completed my handoff to the receiving nurse during which we: 1. Patient identified 2. Responsible provider identified 3. Pertinent medical history reviewed 4. Procedure type and surgical course discussed 5. Intraoperative anesthetic management and any significant issues discussed 6. Expectations and concerns for postop period discussed 7. Questions solicited from receiving nurse 8. Patient disposition at the time of handoff: No value filed. 1255 An Stop Meds Name Total lidocaine (cardiac) syringe 2 % 100 mg propofol 160 mg Lactated Ringer's (LR) infusion 0 mL * Agents Name O2% N2O O2 N2O Air * Blood No blood administrations on file. 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 Gender Identity Not on file Sexual Orientation Not on file documented as of this encounter OR Notes * Anesthesia Postprocedure Evaluation - Doris Rider MD - 11/11/2023 1:13 PM CDT Patient: Yarelis Mann Procedure Summary Date: 11/11/23 Room / Location: [facility] ENDOSCOPY ROOM [facility] Anesthesia Start: 1240 Anesthesia Stop: 1255 Procedures: ESOPHAGOGASTRODUODENOSCOPY ESOPHAGEAL GUIDE WIRE ENDO ADD ON ESOPHAGOGASTRODUODENOSCOPY BIOPSY Diagnosis: Dysphagia, unspecified type (Dysphagia, unspecified type [R13.10]) Providers: Jax Johnson MD Responsible Provider: Doris Rider MD Anesthesia Type: MAC ASA Status: 2 Anesthesia Type: MAC Last vitals BP 138/74 Pulse 80 Temp 36.4 ??C (97.6 ??F) (Tympanic) Resp 18 SpO2 98% Anesthesia Post Evaluation Patient location during evaluation: PACU Patient participation: complete - patient participated Level of consciousness: fully awake Pain management: adequate Airway patency: adequate Evidence of recall: no Cardiovascular status: acceptable Respiratory status: acceptable Hydration status: acceptable Pt is: normothermic Nausea/Vomiting status: none No notable events documented. * Anesthesia Preprocedure Evaluation - Doris Rider MD - 11/11/2023 10:57 AM CDT Images from the original note were not included. Anesthesia Evaluation Yarelis Mann is a 42 y.o. female ESOPHAGOGASTRODUODENOSCOPY Pre-Op Diagnosis Codes: * Dysphagia, unspecified type [R13.10] HISTORY Past Medical History Neurological Pertinent negatives: CVA/stroke Cardiovascular Pertinent negatives: hypertension Respiratory Pertinent negatives: COPD and asthma Endocrine / Other + Obesity (BMI >30) Review of Systems Pertinent negatives: SOB; chest pain and heartburn Patient Active Problem List Diagnosis Date Noted Vitamin D deficiency 05/21/2023 Breast cancer screening by mammogram 05/08/2023 Localized swelling on right hand 04/25/2023 obesity 11/14/2022 Arthralgia 11/14/2022 Screening for thyroid disorder 11/14/2022 Obesity (BMI 30-39.9) 11/14/2022 Dysphagia 11/14/2022 Knee effusion, left 11/07/2022 Chronic pain of left knee 11/07/2022 History of obstetric problem 11/03/2015 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 Allergies Allergen Reactions Latex Hives Penicillins Hives Taking? Last Dose Start Date End Date Provider cholecalciferol (VITAMIN D-3) 22297 unit tablet Past Week -- -- Sandy Meehan MD folic acid (FOLVITE) 1 mg tablet 11/05/2023 07/31/23 -- Sandy Meehan MD ibuprofen (ADVIL,MOTRIN) 800 mg tablet Past Week 04/25/23 -- Anika Lemos NP Take 1 tablet (800 mg total) by mouth 3 (three) times a day levonorgestreL (Mirena) IUD -- -- -- Sandy Meehan MD methotrexate 2.5 mg tablet Past Week 08/01/23 -- Sandy Meehan MD omeprazole (PriLOSEC) 20 mg capsule 11/04/2023 09/15/23 -- Jax Johnson MD TAKE 1 CAPSULE(20 MG) BY MOUTH DAILY BEFORE BREAKFAST No current facility-administered medications for this encounter. Social History Tobacco Use Smoking Status Former Current packs/day: 0.00 Types: Cigarettes Quit date: 07/22/2002 Years since quittin.3 Smokeless Tobacco Never Alcohol Use: Not At Risk (11/05/2023) AUDIT-C Frequency of Alcohol Consumption: Never Average Number of Drinks: Patient does not drink Frequency of Binge Drinking: Never Substance and Sexual Activity Drug Use Never Comment: occ alcohol Family History Problem Relation Age of Onset Thyroid disease Mother No Known Problems Father There were no vitals filed for this visit. PT: No results found for requested labs within last 30 days. INR: No results found for requested labs within last 30 days. APTT: No results found for requested labs within last 30 days. Hgb A1C: No results found for requested labs within last 30 days. CBC RBC: No results found for requested labs within last 30 days. RDW: No results found for requested labs within last 30 days. MCHC: No results found for requested labs within last 30 days. MCH: No results found for requested labs within last 30 days. MCV: No results found for requested labs within last 30 days. Hct: No results found for requested labs within last 30 days. Hgb: No results found for requested labs within last 30 days. WBC: No results found for requested labs within last 30 days. MPV: No results found for requested labs within last 30 days. Platelets: No results found for requested labs within last 30 days. RDW CV: No results found for requested labs within last 30 days. RDW Sd: No results found for requested labs within last 30 days. BMP Glucose: No results found for requested labs within last 30 days. Calcium: No results found for requested labs within last 30 days. Sodium: No results found for requested labs within last 30 days. Potassium: No results found for requested labs within last 30 days. CO2: No results found for requested labs within last 30 days. Chloride: No results found for requested labs within last 30 days. BUN: No results found for requested labs within last 30 days. Creatinine: No results found for requested labs within last 30 days. STOP-Bang Total Score: 3 DOS Physical Exam Medical history, medications, and allergies reviewed. Attestation: This PAT evaluation 11/11/2023. Airway Exam: Mallampati: II Cardiovascular Exam: Rate: regular Rhythm: regular EENT Exam: trachea midline Skin Exam: Skin is warm. Current state: Patient's current state is cooperative and interactive. Anesthesia Plan ASA 2 My patient is approved for the Anesthesia Controlled Medication protocol when under care of a PROCUREMENT CONSULTANT Planned anesthesia: MAC Induction: Induction: intravenous. Informed Consent: Discussed plan with PROCUREMENT CONSULTANT. Anesthesia plan and risks discussed with patient. Consent and Attending signature: I and/or my designee have discussed the anesthesia plan, benefits, possible alternatives, parental presence at time of induction (if indicated), and clinically relevant risks that may include dental injury, unintentional awareness, and/or other complications. The patient and/or parent/legal guardian understand, and agree to proceed. All questions answered. documented in this encounter Plan of Treatment Not on file documented as of this encounter Visit Diagnoses Not on filedocumented in this encounter Administered Medications Inactive Administered Medications - up to 3 most recent administrations Medication Order MAR Action Action Date Dose Rate Site Lactated Ringer's (LR) infusion 30 mL/hr, intravenous, Continuous, Starting on Fri11/11/23 at 1215, Pre-Op Rate/Dose Verify 11/11/2023 12:40 PM CDT 30 mL/hr New Bag 11/11/2023 11:35 AM CDT 30 mL/hr 30 mL/hr lidocaine (cardiac) (XYLOCAINE) preservative free injection intravenous, As needed, Starting on Fri11/11/23 at 1242, Anesthesia Intra-op, Indications: Ventricular ArrhythmiasIndications:Ventricular Arrhythmias Given 11/11/2023 12:42 PM CDT 100 mg propofoL (DIPRIVAN) 10 mg/mL IV intravenous, As needed, Starting on Fri11/11/23 at 1242, Anesthesia Intra-op Bolus 11/11/2023 12:47 PM CDT 20 mg Bolus 11/11/2023 12:46 PM CDT 20 mg Bolus 11/11/2023 12:45 PM CDT 20 mg documented in this encounter Care Teams Tire Bagger Relationship Specialty Start Date End Date Anika Lemos NP [address] [address] PCP - General Internal Medicine 10/28/22 documented as of this encounter
--- OUTSIDE RECORDS SUMMARY | 2024-07-27 02:31 | XMS_ITS | Encounter Summary ---
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 Name Role Phone Anika Lemos NP Primary Care Provider [phone] Reason for Visit * Auth/Cert (Routine) Specialty Diagnoses / Procedures Referred By Torres rayo Referred To Contact Diagnoses Dysphagia, unspecified type Dysphagia, unspecified type [R13.10] Procedures HI ESOPHAGOGASTRODUODENOSCOPY TRANSORAL DIAGNOSTIC ESOPHAGOGASTRODUODENOSCOPY Referral ID Status Reason Start Date Expiration Date Visits Re quested Visits Authorized [id number] 1 1 Encounter Details Date Type Department Care Team (Latest Contact Info) Description 11/11/2023 10:45 AM CDT - 11/11/2023 1:32 PM CDT Hospital Encounter [facility] GI Lab [address] [place] [address] Jax Johnson MD [facility] [address] [address] Dysphagia, unspecified type Discharge Disposition: Discharge to home or self care Social History Tobacco Use Types Packs/Day Years Used Date Smoking Tobacco: Former Cigarettes Q uit: 07/22/2002 Smokeless Tobacco: Never Tobacco Cessation:Counseling Given: Not Answered AUDIT-C Answer Date Recorded Q1: How often [...] on file 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 Gender Identity Not on file Sexual Orientation Not on file documented as of this encounter Last Filed Vital Signs Vital Sign Reading Time Taken Comments Blood Pressure 146/92 11/11/2023 1:20 PM CDT Pulse 78 11/11/2023 1:20 PM CDT Temperature 36.4 ??C (97.6 ??F) 11/11/2023 12:51 PM C DT Respiratory Rate 17 11/11/2023 1:20 PM CDT Oxygen Saturation 98% 11/11/2023 1:20 PM CDT Inhaled Oxygen Concentration - - Weight - - Height - - Body Mass Index - - documented in this encounter Discharge Instructions * Discharge Instructions* Kelli Kauffman RN - 11/11/2023 1:17 PM CDT Esophageal Dilation WHAT YOU NEED TO KNOW: Esophageal dilation is a procedure to widen a narrow part of your esophagus. Your healthcare provider will use a dilator (inflatable balloon or another tool that expands) to make the area wider. He may also do an endoscopy before or during your esophageal dilation. During an endoscopy, your healthcare provider will use a scope to see inside your esophagus. DISCHARGE INSTRUCTIONS: Medicines: Medicines may be given to decrease stomach acid that can irritate your esophagus. Take your medicine as directed. Contact your healthcare provider if you think your medicine is not helping or if you have side effects. Tell him if you are allergic to any medicine. Keep a list of the medicines, vitamins, and herbs you take. Include the amounts, and when and why you take them. Bring the list or the pill bottles to follow-up visits. Carry your medicine list with you in case of an emergency. Follow up with your healthcare provider as directed: Write down your questions so you remember to ask them during your visits. Nutrition: You may eat foods you normally eat. Chew your food well. Eat soft foods if you still have problems swallowing. Soft foods include applesauce, bananas, cooked cereal, cottage cheese, eggs, pudding, and yogurt. Ask for more information on what types of food to eat. Seek care immediately or call 911 if: You vomit blood. You are not able to swallow any food. You have a fast heartbeat, chest pain, or sudden trouble breathing. Your abdomen suddenly becomes tender and hard. ?? 2017 [employer] Information is for End User's use only and may not be sold, redistributed or otherwise used for commercial purposes. All illustrations and images included in CareNotes?? are the copyrighted property of [employer], [employer]. or [employer]. The above information is an manager educational only. It is not intended as medical advice for individual conditions or treatments. Talk to your doctor, nurse or pharmacist before following any medical regimen to see if it is safe and effective for you. General Instructions: Call MD if you have any of the following symptoms: Fever over 101 degrees Chills Persistent nausea or vomiting Sever or unrelieved pain 2. Go home and rest for 4-6 hours 3. Start with a light meal today then advance diet as tolerated 4. If you experience nausea or vomiting, stop your present intake and go back to clear liquids Additional Diet Instructions: 5. Do not drive until tomorrow or put yourself at risk of falls or injury due to residual side effects of medications given, unless otherwise directed 6. Do not sign any legal documents today 7. Do not drink any alcohol today 8. We strongly advise that a responsible person be with you the rest of the day 9. Return to normal activity AFTER AN UPPER ENDOSCOPY: You may have a sore throat or hoarseness for several days. Treat it as you would any sore throat. Report to your doctor any pain, palpitations, severe heartburn, difficulty swallowing, breathing orspitting up blood. AFTER A LOWER ENDOSCOPY: You may have mild abdominal bloating and tenderness. To relieve this, allow gas to pass. Report to your doctor any large amounts of bright red blood in your stools. documented in this encounter Medications at Time of Discharge cholecalciferol (VITAMIN D-3) 31901 unit tablet folic acid (FOLVITE) 1 mg tablet Take 1 tablet (1,000 mcg total) by mouth daily 07/31/2023 ibuprofen (ADVIL,MOTRIN) 800 mg tabletIndication s:Pain Take 1 tablet (800 mg total) by mouth 3 (three) times a day 90 tablet 04/25/2023 levonorgestreL (Mirena) IUD Mirena 21 mcg/24 hours (8 yrs) 52 mg intrauterine device methotrexate 2.5 mg tablet 08/01/2023 omeprazole (PriLOSEC) 20 mg capsule TAKE 1 CAPSULE(20 MG) BY MOUTH DAILY BEFORE BREAKFAST 90 capsule 1 09/15/2023 documented as of this encounter Discharge Disposition Disposition Code Departure Means Destination Comment s Discharge to home or self care Wheelchair documented in this encounter H&P Notes * Jax Johnson MD - 11/11/2023 12:05 PM CDT Gastroenterology History and Physical SUBJECTIVE: Patient is a 42 y.o. female for EGD INDICATIONS: Dysphagia Past Medical History: Diagnosis Date Back injury Dysphagia PONV (postoperative nausea and vomiting) Vitamin D deficiency Medications Prior to Admission Medication Sig Dispense Refill Last Dose folic acid (FOLVITE) 1 mg tablet Take 1 tablet (1,000 mcg total) by mouth daily 11/09/2023 at 2200 ibuprofen (ADVIL,MOTRIN) 800 mg tablet Take 1 tablet (800 mg total) by mouth 3 (three) times a day 90 tablet 0 Past Week methotrexate 2.5 mg tablet 11/09/2023 at 0800 omeprazole (PriLOSEC) 20 mg capsule TAKE 1 CAPSULE(20 MG) BY MOUTH DAILY BEFORE BREAKFAST 90 capsule 1 11/10/2023 at 0800 cholecalciferol (VITAMIN D-3) 91053 unit tablet 11/09/2023 at 2200 levonorgestreL (Mirena) IUD Mirena 21 mcg/24 hours (8 yrs) 52 mg intrauterine device Allergies Allergen Reactions Latex Hives Penicillins Hives Review of Systems: Respiratory: negative Cardiovascular: negative Gastrointestinal: positive for dysphagia OBJECTIVE: Vitals: 11/11/23 1112 BP: 139/96 Pulse: 90 Resp: 18 Temp: 36.6 ??C (97.8 ??F) SpO2: 98% General Appearance: Well developed, no distress Lungs: Clear to auscultation bilaterally, respirations unlabored Cardiovascular: Regular rate and rhythm, S1 and S2 normal Abdomen: Soft, non-tender, bowel sounds active all four quadrants, no masses, no organomegaly, non-distended Neurologic: Alert & oriented x 3 PLAN: EGD The risks (risks of bleeding, infection, perforation requiring surgery, missed polyps/cancer, dental injury, aspiration pneumonia, anesthesia complications such as drug reaction and cardiopulmonary complications including rare chance of ), benefits, and alternatives of the planned procedure were explained to the patient who understands and consents to having procedure done. documented in this encounter Procedure Notes * Jax Johnson MD - 11/11/2023 12:39 PM CDTAssociated Order(s): EGD [facility] GI ENDOSCOPY Patient Name: Amada White Procedure Date: 11/11/2023 12:39 PM Date of : 1980 Admit Type: Outpatient Age: 42 Gender: Female Attending MD: Jax Johnson M.D. Room: [facility] ENDOSCOPY ROOM 05 Note Status: Finalized Procedure: Upper GI endoscopy Indications: Dysphagia Referring MD: Idalia Blanco Providers: Jax Johnson M.D. Medicines: Monitored Anesthesia Care Complications: No immediate complications. Procedure: Pre-Anesthesia Assessment: - Prior to the procedure, a History and Physical was performed, and patient medications and allergies were reviewed. The risks and benefits of the procedure and the sedation options and risks were discussed with the patient. All questions were answered and informed consent was obtained. Patient identification and proposed procedure were verified. After reviewing the risks and benefits, the patient was deemed in satisfactory condition to undergo the procedure. The anesthesia plan was to use monitored anesthesia care (MAC). Immediately prior to administration of medications, the patient was re-assessed for adequacy to receive sedatives. The heart rate, respiratory rate, oxygen saturations, blood pressure, adequacy of pulmonary ventilation, and response to care were monitored throughout the procedure. The physical status of the patient was re-assessed after the procedure. The benefits, risks, and alternatives to the procedure and sedation were discussed and informed consent was obtained. The scope was passed under direct vision. The GIF-Q180 upper endoscope was introduced through the mouth, and advanced to the second part of duodenum. The upper GI endoscopy was accomplished without difficulty. The patient tolerated the procedure well. Findings: One mild stenosis was found at the gastroesophageal junction. The stenosis was traversed. A guidewire was placed and the scope was withdrawn. Dilation was performed with a Savary dilator with no resistance at 54 Fr. Biopsies were taken with a cold forceps for histology. The exam of the esophagus was otherwise normal. Biopsy with a cold forceps in the proximal esophagus and in the mid esophagus was performed for evaluation of eosinophilic esophagitis. Mild inflammation characterized by erythema was found in the stomach. Biopsies were taken with a cold forceps for Helicobacter pylori testing. The examined duodenum was normal. The cardia and gastric fundus were normal on retroflexion. The exam was otherwise without abnormality. Impression: - Esophageal stenosis. Dilated. Biopsied. - Gastritis. Biopsied. - Normal examined duodenum. - The examination was otherwise normal. - Biopsies were performed in the proximal esophagus and in the mid esophagus. Recommendation: - Patient has a contact number available for emergencies. The signs and symptoms of potential delayed complications were discussed with the patient. Return to normal activities tomorrow. Written discharge instructions were provided to the patient. - Resume previous diet. - Continue PPI daily. - Await pathology results. - Return to GI clinic as previously scheduled. Jax Johnson M.D. Jax Johnson M.D. 11/11/2023 12:51:28 PM . Number of Addenda: 0 Note Initiated On: 11/11/2023 12:39 PM Recognized by the [employer] for promoting quality in endoscopy documented in this encounter Miscellaneous Notes * Pre-Procedure Instructions - Amada Purdy RN - 11/05/2023 3:22 PM CDT - No alcohol or smoking 12 hours before surgery - Bard teeth in the morning but don't swallow any of the water - Shower or bathe, don't apply powders or lotions - Expect to remove wigs, dentures, partials, contact lenses, body piercing's, and hair accessories containing metal - Leave all jewelry and valuables at home - Bring your glasses and hearing aides - Make plans for a responsible adult to bring you home - Bring a living will or POA paperwork if you have it - Follow GI physician instructions regarding blood thinners and vitamins - Bring inhalers - Take prep according to GI physician - Please take the following medications with a sip of water the AM of the procedure: Hold all medications morning of procedure - Covid: Denies Location ([facility] 1 Entrance A, [address] [place] [id number]), arrival time (0830), procedure time (929), NPO status (nothing to eat or drink aftermidnight the night before the procedure) also reviewed. Patient expressing understanding of all pre-op instructions. documented in this encounter Plan of Treatment Not on file documented as of this encounter Procedures Procedure Name Priority Date/Time Associated Diagnosis Comments SURGICAL PATHOLOGY Routine 11/11/2023 12:43 PM CDT Dysphagia, unspecified type EGD 11/11/2023 12:39 PM CDT ENDO ADD ON ESOPHAGOGASTRODUODENOSCOPY BIOPSY 11/11/2023 12:18 PM CDT Dysphagia, unspecified type ESOPHAGOGASTRODUODENOSCOPY ESOPHAGEAL GUIDE WIRE 11/11/2023 12:18 PM CDT Dysphagia, unspecified type POCT HCG, URINE Routine 11/11/2023 11:15 AM CDT documented in this encounter Results * Surgical pathology (11/11/2023 12:43 PM CDT) Tissue (Gastric/Stomach biopsy) 11/11/2023 12:43 PM CDT Tissue (Esophagus, Partial / Total Resection) 11/11/2023 12:43 PM CDT Tissue (Esophagus, Partial / Total Resection) 11/11/2023 12:44 PM CDT Narrative PATHOLOGY [facility] - 11/13/2023 1:18 PM CDT [facility] Department of Pathology [address] [place] [address] ?? Note to Patients: ??This report may contain a detailed description of human tissue sent by a health care provider to the laboratory for pathologic evaluation. ??The content of this report is essential for diagnosis and may provide important critical findings. ??This information may be unfamiliar to patients to review without a medical professional present. ?? It is advised that the patient review this report in the presence of a health care provider who can answer questions and explain the details. Final Report Patient Name: AMADA WHITE : ??1980 (Age: 42) Gender: ??F Address: ??[address] [place] [address] ??[address] [facility] #: [id number] Service: Gastro Location: Patient Type: B SDS OUTPATIENT ? Taken: 11/11/2023 Received: 11/11/2023 Accessioned: 11/11/2023 Reported: 11/13/2023 Physician(s): Dirk Wilde FNP Diagnosis: A. ??Gastric, biopsy ? - Corpus and antral mucosa with no significant pathologic change. ? - No H. pylori or intestinal metaplasia identified. B. ??Distal esophagus, biopsy ? - Squamocolumnar mucosa with no significant pathologic change. ? - No intestinal metaplasia identified. C. ??Mid esophagus, biopsy ? - Squamous epithelium with no significant pathologic change. Steven Aguilar M.D. Report Electronically Reviewed and Signed Out By ??Steven Aguilar M.D. 11/13/2023 13:18:51 Specimen(s) Received: A: Gastric body and antrum B: Distal esophagus C: Mid esophagus Microscopic Description: Microscopic examination is performed. Microscopic examination is performed. Clinical History: The patient is a 42-year-old woman with unspecified dysphagia. ??Operative procedure: ??Upper GI endoscopy with biopsy. Gross Description Received in three formalin jars labeled with the patient's identifiers. A. ??Labeled gastric body and antrum rule out H pylori and consists of three luna-pink tissue fragments ranging from 0.2-0.5 cm. ??Entirely submitted. ?? Labeled A1. Jar 0. B. ??Labeled distal esophagus rule out Barretts and consists of a 0.4 cm luna- pink, friable tissue fragment. ??Entirely submitted. ?? Labeled B1. Jar 0. C. ??Labeled mid esophagus rule out EOE and consists of two luna-white tissue fragments each measuring 0.3 cm. ??Entirely submitted. ?? Labeled C1. Jar 0. ?? jjmhb/11/11/2023 13:41 SUM[facility] Carm[facility] Microscopic slide review and interpretation for this case was performed at [facility], Department of Surgical Pathology, [address] [facility] [place], [place] [id number], ??[place], [place] ??[address] ?? CLIA # [id number] us Jax Johnson MD LAB PATHOLOGY ORDERABLES Final R esult PATHOLOGY [facility] * EGD (11/11/2023 12:39 PM CDT) Anatomical Region Laterality Modality Other Narrative Procedure Note Jax Johnson MD - 11/11/2023 12:39 PM CDT [facility] GI ENDOSCOPY Patient Name: Amada White Procedure Date: 11/11/2023 12:39 PM Date of : 1980 Admit Type: Outpatient Age: 42 Gender: Female Attending MD: Jax Johnson M.D. Room: [facility] ENDOSCOPY ROOM 05 Note Status: Finalized Procedure: Upper GI endoscopy Indications: Dysphagia Referring MD: Anika Lemos F.N.P. Providers: Jax Johnson M.D. Medicines: Monitored Anesthesia Care Complications: No immediate complications. Procedure: Pre-Anesthesia Assessment: - Prior to the procedure, a History and Physicalwas performed, and patient medications and allergieswere reviewed. The risks and benefits of the procedureand the sedation options and risks were discussed withthe patient. All questions were answered and informed consent was obtained. Patient identification and proposed procedure were verified. After reviewingthe risks and benefits, the patient was deemed in satisfactory condition to undergo the procedure.The anesthesia plan was to use monitored anesthesiacare (MAC). Immediately prior to administration of medications, the patient was re-assessed foradequacy to receive sedatives. The heart rate, respiratory rate, oxygen saturations, blood pressure, adequacyof pulmonary ventilation, and response to care were monitored throughout the procedure. The physical status of the patient was re-assessed after the procedure. The benefits, risks, and alternatives to theprocedure and sedation were discussed and informed consentwas obtained. The scope was passed under direct vision. The GIF-Q180 upper endoscope was introduced through the mouth, and advanced to the second part of duodenum. The upper GI endoscopy was accomplished without difficulty. The patient tolerated the procedure well. Findings: One mild stenosis was found at the gastroesophageal junction. The stenosis was traversed. A guidewire was placed and the scope was withdrawn. Dilation was performed with a Savary dilator with no resistance at 54 Fr. Biopsies were taken with a cold forceps for histology. The exam of the esophagus was otherwise normal. Biopsy with a cold forceps in the proximal esophagus and in the mid esophagus was performed for evaluation of eosinophilic esophagitis. Mild inflammation characterized by erythema was found in the stomach. Biopsies were taken with a cold forceps for Helicobacter pyloritesting. The examined duodenum was normal. The cardia and gastric fundus were normal on retroflexion. The exam was otherwise without abnormality. Impression: - Esophageal stenosis. Dilated. Biopsied. - Gastritis. Biopsied. - Normal examined duodenum. - The examination was otherwise normal. - Biopsies were performed in the proximal esophagus and in the mid esophagus. Recommendation: - Patient has a contact number available for emergencies. The signs and symptoms of potential delayed complications were discussed with thepatient. Return to normal activities tomorrow. Written discharge instructions were provided to thepatient. - Resume previous diet. - Continue PPI daily. - Await pathology results. - Return to GI clinic as previously scheduled. Jax Johnson M.D. Jax Johnson M.D. 11/11/2023 12:51:28 PM . Number of Addenda: 0 Note Initiated On: 11/11/2023 12:39 PM Recognized by the [employer] for promoting quality in endoscopy Jax Johnson MD ENDOSCOPY PROCEDURES Final Resul t * POCT hCG, urine (11/11/2023 11:15 AM CDT) HCG, ur, POC Negative Negative Lot Number [id number] QC Backgroud Clear Acceptable QC Control Line Acceptable Urine 11/11/2023 11:1 5 AM CDT Abdirashid Steven MD POINT OF CARE TEST ORDERABLES Final Result documented in this encounter Visit Diagnoses Diagnosis Dysphagia, unspecified type documented in this encounter Admitting Diagnoses Diagnosis Dysphagia documented in this encounter Administered Medications Inactive Administered Medications - up to 3 most recent administrations Medication Order MAR Action Action Date Dose Rate Site Lactated Ringer's (LR) infusion 30 mL/hr, intravenous, Continuous, Starting on Fri11/11/23 at 1215, Pre-Op Rate/Dose Verify 11/11/2023 12:40 PM CDT 30 mL/hr New Bag 11/11/2023 11:35 AM CDT 30 mL/hr 30 mL/hr documented in this encounter Historical Medications * This list may reflect changes made after this encounter. methotrexate 2.5 mg tablet 08/01/2023 folic acid (FOLVITE) 1 mg tablet Take 1 tablet (1,000 mcg total) by mouth daily 07/31/2023 added in this encounter Active and Recently Administered Medications Times are shown in CDT. Continuous Medication Order 11/09/2023 11/10/2023 11/11/2023 Lactated Ringer's (LR) infusion 30 mL/hr, intravenous, Continuous, Starting on Fri11/11/23 at 1215, Pre-Op 1135 (New Bag - Prov ider: Janell Vaughn RN)1240 (Rate/Dose Verify - Provider: Renate Pena CRNA)1747 (Due: Stopped) PRN Medication Order 11/09/2023 11/10/2023 11/11/2023 sodium chloride 0.9% flush 0.5-20 mL 0.5-20 mL, intra-catheter, As needed, line care, Starting on Fri11/11/23 at 1059, Pre-Op, Flush volume based on line type and size. Flush before and after each use. 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
--- OUTSIDE RECORDS SUMMARY | 2024-07-27 02:31 | XMS_ITS | Encounter Summary ---
Author Organization [facility] Address [address] [place] [address] Care Team Providers Care Signwriter Name Role Phone Anika Lemos NP Primary Care Provider [phone] Encounter Details Date Type Department Care Team (Late st Contact Info) Description 11/14/2022 Orders Only [facility] Medical [facility] Internal Medicine at Sun [address] [place] [address] Anika Lemos INSPECTION MACHINE TENDER [address] [place], [place] [id number] Social History Tobacco Use Types Packs/Day Years Used Date Smoking Tobacco: Former Cigarettes Q uit: 07/22/2002 Smokeless Tobacco: Never PHQ-2 Answer Date Recorded PHQ-2 Total Score (If total score is 3 or more points, staff should administer the PHQ-9) 0 11/14/2022 Personal Safety Answer Date Recorded Have you ever been in or are you currently in a harmful physical or emotional relationship or is someone making you feel afraid or unsafe? 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 Gender Identity Not on file Sexual Orientation Not on file documented as of this encounter Plan of Treatment Not on file documented as of this encounter Procedures Procedure Name Priority Date/Time Associated Diagnosis Comments SPECIMEN STATUS REPORT Routine 9:58 AM CDT CBC/DIFF AMBIGUOUS DEFAULT Routine 11/14/2022 9:58 AM CDT VITAMIN D 25 HYDROXY Routine 11/14/2022 9:58 AM CDT RHEUMATOID FACTOR Routine 11/14/2022 9:5 8 AM CDT TSH Routine 11/14/2022 9:58 AM CDT HEMOGLOBIN A1C Routine 11/14/2022 9:58 AM CDT LIPID PANEL Routine 11/14/2022 9:58 AM CDT COMPREHENSIVE METABOLIC PANEL Routine 11/14/2022 9:58 AM CDT documented in this encounter Results * Specimen Status Report (11/14/2022 9:58 AM CDT) Specimen Status Report Comment [facility] - 01 Comment: Ambwojciech Abbrev CMP14 Default Ambig Abbrev CMP14 Default A hand-written panel/profile was received from your office. In accordance with the [facility] Ambiguous Test Code Policy dated January 2003, we have completed your order by using the closest currently or formerly recognized AMA panel. ??We have assigned Comprehensive Metabolic Panel (14), Test Code #495467 to this request. ??If this is not the testing you wished to receive on this specimen, please contact the [facility] Client Inquiry/Technical Services Department to clarify the test order. ??We appreciate your business. Ambig Abbrev LP Default Ambig Abbrev LP Default A hand-written panel/profile was received from your office. In accordance with the [facility] Ambiguous Test Code Policy dated January 2003, we have completed your order by using the closest currently or formerly recognized AMA panel. ??We have assigned Lipid Panel, Test Code #953997 to this request. If this is not the testing you wished to receive on this specimen, please contact the [facility] Client Inquiry/Technical Services Department to clarify the test order. ??We appreciate your business. 11/14/2022 9:58 AM CDT 11/14/2022 Narrative [facility] - 11/15/2022 7:38 AM CDT Performed at: ??01 - [facility] [address] ??[id number] Vamp Seamer: Casper Huddleston PhD, Phone: ??[phone] Anika Lemos INSPECTION MACHINE TENDER LAB BLOOD ORDERABLES Final Re sult Performing Organization Address [facility] de Phone Number [facility] - * (ABNORMAL) Vitamin D 25 hydroxy (11/14/2022 9:58 AM CDT) Vitamin D, 25-Hydroxy 14.2(L) 30.0 - 100.0 ng/mL [facility] - Comment: Vitamin D deficiency has been defined by the [place] of Medicine and an Endocrine Society practice guideline as a level of serum 25-OH vitamin D less than 20 ng/mL (1,2). The Endocrine Society went on to further define vitamin D insufficiency as a level between 21 and 29 ng/mL (2). 1. IOM ([place] of Medicine). 2010. Dietary reference ?? intakes for calcium and D. [place]: The ?? National Academies Press. 2. Miriam MF, Shae NC, Rush RHODES, et al. ?? Evaluation, treatment, and prevention of vitamin D ?? deficiency: an Endocrine Society clinical practice ?? guideline. JCEM. 2010; 96(7):1911-30. 11/14/2022 9:58 AM CDT 11/14/2022 Narrative [facility] - 11/15/2022 7:38 AM CDT Performed at: ?? - [facility] [address] ??[id number] Vamp Seamer: Casper Huddleston PhD, Phone: ??[phone] Anika Lemos INSPECTION MACHINE TENDER LAB BLOOD ORDERABLES Final Re sult Performing Organization Address [facility] Co de Phone Number [facility] - * Rheumatoid factor (11/14/2022 9:58 AM CDT) RA Latex Turbid. <10.0 <14.0 IU/mL [facility] - 01 11/14/2022 9:58 AM CDT 11/14/2022 Narrative [facility] - 11/15/2022 7:38 AM CDT Performed at: ??01 - [facility] ??[id number] Vamp Seamer: Casper Huddleston PhD, Phone: ??[phone] Anika Lemos INSPECTION MACHINE TENDER LAB BLOOD ORDERABLES Final Re sult Performing Organization Address [facility] de Phone Number [facility] - 01 * TSH (11/14/2022 9:58 AM CDT) Pathologist [facility] TSH 2.060 0.450 - 4.500 uIU/mL [facility] - 01 11/14/2022 9:58 AM CDT 11/14/2022 Narrative [facility] - 11/15/2022 7:38 AM CDT Performed at: ??01 - [facility] ??[id number] Vamp Seamer: Casper Huddleston PhD, Phone: ??[phone] Anika Lemos NP LAB BLOOD ORDERABLES Final Re sult Performing Organization Address [facility] de Phone Number [facility] - 01 * Hemoglobin A1c (11/14/2022 9:58 AM CDT) Hgb A1C 5.4 4.8 - 5.6 % [facility] - 01 Comment: ? Prediabetes: 5.7 - 6.4 ? Diabetes: >6.4 ? Glycemic control for adults with diabetes: <7.0 11/14/2022 9:58 AM CDT 11/14/2022 Narrative [facility] - 11/15/2022 7:38 AM CDT Performed at: ??01 - [facility] [address] ??[id number] Vamp Seamer: Casper Huddleston PhD, Phone: ??[phone] Anika Lemos INSPECTION MACHINE TENDER LAB BLOOD ORDERABLES Final Re sult Performing Organization Address [facility] de Phone Number [facility] - * Lipid panel (11/14/2022 9:58 AM CDT) Cholesterol 134 100 - 199 mg/dL [facility] - 01 Triglycerides 60 0 - 149 mg/dL [facility] - 01 HDL Cholesterol 43 >39 mg/dL [facility] - 01 VLDL 13 5 - 40 mg/dL [facility] - 01 LDL, calculated 78 0 - 99 mg/dL [facility] - 01 11/14/2022 9:58 AM CDT 11/14/2022 Narrative [facility] - 11/15/2022 7:38 AM CDT Performed at: ??01 - [facility] [address] ??[id number] Vamp Seamer: Casper Huddleston PhD, Phone: ??[phone] Anika Lemos INSPECTION MACHINE TENDER LAB BLOOD ORDERABLES Final Re sult Performing Organization Address [facility] Phone Number [facility] - * (ABNORMAL) Comprehensive metabolic panel (11/14/2022 9:58 AM CDT) Glucose 93 70 - 99 mg/dL [facility] - 01 BUN 11 6 - 24 mg/dL [facility] - 01 Creatinine, Serum 0.89 0.57 - 1.00 mg/dL [facility] - 01 eGFR 83 >59 mL/min/1.7 3 [facility] - 01 BUN/creat ratio 12 9 - 23 [facility] - 01 Sodium 137 134 - 144 mmol/L [facility] - 01 Potassium, sr 4.8 3.5 - 5.2 mmol/L [facility] - 01 Chloride 103 96 - 106 mmol/L [facility] - 01 CO2 23 20 - 29 mmol/L [facility] - 01 Calcium 8.8 8.7 - 10.2 mg/dL [facility] - 01 Protein, sr 7.5 6.0 - 8.5 g/dL [facility] - 01 Albumin 3.8 3.8 - 4.8 g/dL [facility] - 01 Globulin, Total 3.7 1.5 - 4.5 g/dL [facility] - 01 A/G Ratio 1.0(L) 1.2 - 2.2 [facility] - 01 Bilirubin, Total 1.2 0.0 - 1.2 mg/dL [facility] - 01 Alk phos 61 44 - 121 IU/L [facility] - 01 AST 19 0 - 40 IU/L [facility] - 01 ALT 20 0 - 32 IU/L [facility] - 01 11/14/2022 9:58 AM CDT 11/14/2022 Narrative [facility] - 11/15/2022 7:38 AM CDT Performed at: ?? - [facility] ??[id number] Vamp Seamer: Casper Huddleston PhD, Phone: ??[phone] us Anika Lemos NP LAB BLOOD ORDERABLES Final Re sult [facility] - 01 * (ABNORMAL) CBC/Diff Ambiguous Default (11/14/2022 9:58 AM CDT) WBC 9.2 3.4 - 10.8 x10E3/uL [facility] - 01 RBC 4.42 3.77 - 5.28 x10E6/uL [facility] - 01 Hgb 13.3 11.1 - 15.9 g/dL [facility] - 01 Hct 38.9 34.0 - 46.6 % [facility] - 01 MCV 88 79 - 97 fL [facility] - 01 MCH 30.1 26.6 - 33.0 pg [facility] - 01 MCHC 34.2 31.5 - 35.7 g/dL [facility] - 01 Rdw 12.8 11.7 - 15.4 % [facility] - 01 Platelets 304 150 - 450 x10E3/uL [facility] - 01 Neutrophils pct 56 Not Estab. % [facility] - 01 Lymphs pct 34 Not Estab. % [facility] - 01 Monocytes pct 6 Not Estab. % [facility] - 01 Eosinophils pct 3 Not Estab. % [facility] - 01 Basophil pct 1 Not Estab. % [facility] - 01 Neutrophil abs 5.1 1.4 - 7.0 x10E3/uL [facility] - 01 Lymphs (Absolute) 3.2(H) 0.7 - 3.1 x10E3/uL [facility] - 01 Monocyte abs 0.5 0.1 - 0.9 x10E3/uL [facility] - 01 Eosinophils, abs 0.3 0.0 - 0.4 x10E3/uL [facility] - 01 Basophils, abs 0.1 0.0 - 0.2 x10E3/uL [facility] - 01 Immature Granulocytes 0 Not Estab. % [facility] - 01 Immature Grans (Abs) 0.0 0.0 - 0.1 x10E3/uL [facility] - 01 Comment: A hand-written panel/profile was received from your office. In accordance with the [facility] Ambiguous Test Code Policy dated January 2003, we have assigned CBC with Differential/Platelet, Test Code #[id number] to this request. If this is not the testing you wished to receive on this specimen, please [facility] to clarify the test order. We appreciate your business. 11/14/2022 9:58 AM CDT 11/14/2022 Narrative [facility] - 11/15/2022 7:38 AM CDT Performed at: ?? - [facility] [address] ??[id number] Vamp Seamer: Casper Huddleston PhD, Phone: ??[phone] us Anika Lemos NP LAB BLOOD ORDERABLES Final Re sult [facility] - documented in this encounter Visit Diagnoses Not on filedocumented in this encounter Care Teams Signwriter Relationship Specialty Start Date End Date Anika Lemos, ANTONELLA [address] [place] [address] PCP - General Internal Medicine 10/28/22 documented as of this encounter
--- OUTSIDE RECORDS SUMMARY | 2024-07-27 02:31 | XMS_ITS | Referral Summary ---
Author Organization [facility] Address [address] [place] [address] Care Team Providers Care Group Contract Analyst Name Role Phone Anika Lemos NP Primary Care Provider [phone] Allergies Active Allergy Reactions Criticality Noted Date Comments Latex Hives Medium 10/04/2022 Penicillins Hives Medium 10/04/2022 Medications levonorgestreL (Mirena) IUD Mirena 21 mcg/24 hours (8 yrs) 52 mg intrauterine device Active ibuprofen (ADVIL,MOTRIN) 800 mg tabletIndicati ons:Pain Take 1 tablet (800 mg total) by mouth 3 (three) times a day 90 tablet 04/25/20 23 Active cholecalcifero l (VITAMIN D-3) 33417 unit tablet Active folic acid (FOLVITE) 1 mg tablet Take 1 tablet (1,000 mcg total) by mouth daily 07/31/19 24 Active methotrexate 2.5 mg tablet 08/01/19 24 Active omeprazole (PriLOSEC) 20 mg capsule TAKE 1 CAPSULE(20 MG) BY MOUTH DAILY BEFORE BREAKFAST 90 capsule 07/01/20 24 Active omeprazole (PriLOSEC) 20 mg capsule TAKE 1 CAPSULE(20 MG) BY MOUTH DAILY BEFORE BREAKFAST 30 capsule 3 03/16/20 24 024 Discontinued Active Problems Problem Noted Date Diagnosed Date Vitamin D deficiency 05/21/2023 Breast cancer screening by mammogram 05/08/2023 Assessment & Plan (05/08/2023 3:13 PM CDT): Due for colon screening November of 2025 Localized swelling on right hand 04/25/2023 obesity 11/14/2022 Assessment & Plan (11/14/2022 8:57 AM CDT): Discussed the patients BMI: The BMI is above average BMI management is complete. BMI follow-up includes: Nutrition Counseling and education provided Arthralgia 11/14/2022 Screening for thyroid disorder 11/14/2022 Obesity (BMI 30-39.9) 11/14/2022 Assessment & Plan (05/21/2023 8:27 AM CDT): Discussed the patients BMI: The BMI is above average BMI management is complete. BMI follow-up includes: Nutrition Counseling and education provided Assessment & Plan (04/25/2023 8:32 AM CDT): Discussed the patients BMI: The BMI is above average BMI management is complete. BMI follow-up includes: Nutrition Counseling and education provided Dysphagia 11/14/2022 Assessment & Plan (05/08/2023 3:12 PM CDT): Twelve weeks of PPI usage and patient is still having symptoms. EGD ordered to further evaluate -continue PPI BID -schedule EGD with possible dilation The risks (risks of bleeding, infection, perforation requiring surgery, missed polyps/cancer, dental injury, aspiration pneumonia, anesthesia complications such as drug reaction and cardiopulmonary complications including rare chance of ), benefits, and alternatives of the planned procedure were explained to the patient who understands and consents to having procedure done. 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 Resolved Problems Problem Noted Date Diagnosed Date Resolved Date History of gestational diabe tiffany mellitus (GDM) 11/03/2015 04/25/2023 Gestational diabetes mellitus (GDM) 12/22/2014 04/25/2023 Immunizations Name Administration Dates Next Due Influenza, Quadrivalent, Spl it, Preservative Free, Intramuscular 04/25/2023,04/12/2016 Influenza, Trivalent, Preservative Free, Intramu scular 04/29/2017,08/08/2014 Influenza, Unspecified 05/11/2022,05/10/2021 Td, adsorbed 02/27/1995 Tdap 03/05/2016,01/02/2015 Social History Tobacco Use Types Packs/Day Years [...] on file 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 Gender Identity Not on file Sexual Orientation Not on file Last Filed Vital Signs Vital Sign Reading Time Taken Comments Blood Pressure 138/74 11/11/2023 1:34 PM CDT Pulse 80 11/11/2023 1:34 PM CDT Temperature 36.4 ??C (97.6 ??F) 11/11/2023 12:51 PM C DT Respiratory Rate 18 11/11/2023 1:34 PM CDT Oxygen Saturation 98% 11/11/2023 1:20 PM CDT Inhaled Oxygen Concentration - - Weight 101.6 kg (224 lb) 05/21/2023 8:22 AM CDT Height 165.1 cm (5' 5 ) 05/21/2023 8:22 AM CDT Body Mass Index 37.28 05/21/2023 8:22 AM CDT Plan of Treatment Not on file Insurance [employer] Freedom2 ACCESS OOS Freedom2 ACCESS OOS Care Teams Group Contract Analyst Relationship Specialty Start Date End Date Anika Lemos, ANTONELLA [address] [facility] [address] [facility] [address] [facility] [address] [place] [address] PCP - General Internal Medicine 10/28/22
--- OUTSIDE RECORDS SUMMARY | 2024-07-27 02:31 | XMS_ITS | Encounter Summary ---
Author Organization [facility] Address [address] [place] [address] Care Team Providers Care Nitric Acid Plant Operator Name Role Phone Anika Lemos NP Primary Care Provider [phone] Reason for Visit * Reason Onset Date Comments Lab Results 10/29/2022 Encounter Details Date Type Department Care Team (Late st Contact Info) Description 10/29/2022 Telephone [facility] Orthopedics and Sports Medicine [address] [place] [phone] Judy Durham ATC Lab Results Social History Tobacco Use Types Packs/Day [...] on file 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 We will see her next week to see how things are going. documented in this encounter Plan of Treatment Not on file documented as of this encounter Visit Diagnoses Not on filedocumented in this encounter Care Teams Nitric Acid Plant Operator Relationship Specialty Start Date End Date Anika Lemos, MEDICAL LABORATORY TECHNICAL OFFICER [address] [facility] [address] [place] [address] PCP - General Internal Medicine 10/28/22 documented as of this encounter
--- OUTSIDE RECORDS SUMMARY | 2024-07-27 02:31 | XMS_ITS | Encounter Summary ---
Author Organization [facility] Address [address] [place] [address] Care Team Providers Care Commissioner Public Works Name Role Phone Anika Lemos NP Primary Care Provider [phone] Reason for Visit * Reason Comments New Patient Dysphagia Difficulty chewing n ot swallowing. EGD EGD/CSC never done i n the past. * Consultation (Routine) - Closed Specialty Diagnoses / Procedures Referred By Contac t Referred To Contact Gastroenterology Diagnoses Dysphagia, unspecified type Anika Lemos NP [address] [facility] [address] [place] [address] Phone: tel: fax: Jax Johnson MD [address] [place] [address] [address] [place] [address] Phone: tel: fax: Referral ID Status Reason Start Date Expiration Date V isits Requested Visits Authorized [id number] Closed Specialty Services Required 11/14/2022 12/14/2023 1 1 Encounter Details Date Type Department Care Team (Latest Contact Info) Description 05/08/2023 10:00 AM CDT Office Visit [facility] Gastroenterology at [address] [place] [phone] Natalya Cat NP [address] [place] [address] Dysphagia, unspecified type Social History Tobacco Use Types Packs/Day Years [...] on file 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 Gender Identity Not on file Sexual Orientation Not on file documented as of this encounter Last Filed Vital Signs Vital Sign Reading Time Taken Comments Blood Pressure 131/95 05/08/2023 10:16 AM CDT Pulse 98 05/08/2023 10:16 AM CDT Temperature - - Respiratory Rate - - Oxygen Saturation - - Inhaled Oxygen Concentration - - Weight 98.4 kg (216 lb 14.4 oz) 023 10:16 AM CDT Height 165.1 cm (5' 5 ) 05/08/2023 10:1 6 AM CDT Body Mass Index 36.09 05/08/2023 10:16 AM CDT documented in this encounter Ordered Prescriptions Prescription Sig Dispense Quantity Refills Last Filled Start Date End Date omeprazole (PriLOSEC) 20 mg capsule Take 1 capsule (20 mg total) by mouth daily before breakfast 30 capsule 3 05/08/2023 4 documented in this encounter Progress Notes * Natalya Cat NP - 05/08/2023 10:00 AM CDT Images from the original note were not included. [facility] [place] Subjective/Objective Patient ID: Yarelis Mann is a 42 y.o. White female. I am seeing this patient in consultation, requested by Anika Lemos NP for dysphagia. Chief Complaint Patient presents with New Patient Dysphagia Difficulty chewing not swallowing. EGD EGD/CSC never done in the past. HPI- patient presents to the clinic with complaints of trouble swallowing and getting certain foodsdown. If patient does not chew the food passively it will get stuck in her throat and she will end up throwing up to relieve herself. Patient does take omeprazole b.I.d. for the last several months without any improvement. Patient declines abdominal pain, diarrhea, constipation or blood in the stool. Past Medical History: Diagnosis Date Back injury History reviewed. No pertinent surgical history. Social History Tobacco Use Smoking status: Former Types: Cigarettes Quit date: 07/22/2002 Years since quittin.8 Smokeless tobacco: Never Substance and Sexual Activity Drug use: Never Comment: occ alcohol Sexual activity: Yes control/protection: I.U.D. Alcohol Use: Not on file Family History Problem Relation Age of Onset Thyroid disease Mother No Known Problems Father Allergies Allergen Reactions Latex Hives Penicillins Hives HOME MEDICATIONS : ibuprofen (ADVIL,MOTRIN) 800 mg tablet levonorgestreL (Mirena) IUD omeprazole (PriLOSEC) 20 mg capsule Review of Systems Constitutional: Negative for chills and fever. HENT: Negative for mouth sores and sore throat. Eyes: Negative for pain and redness. Respiratory: Negative for cough and shortness of breath. Cardiovascular: Negative for chest pain and palpitations. Gastrointestinal: See HPI Endocrine: Negative for cold intolerance and heat intolerance. Musculoskeletal: Negative for arthralgias and back pain. Skin: Negative for color change and rash. Neurological: Negative for dizziness and light-headedness. Hematological: Negative for adenopathy. Does not bruise/bleed easily. Blood pressure 131/95, pulse 98, height 165.1 cm (5' 5 ), weight 98.4 kg (216 lb 14.4 oz). Body mass index is 36.09 kg/m??. Physical Exam Vitals reviewed. Constitutional: General: She is not in acute distress. HENT: Mouth/Throat: Mouth: Mucous membranes are moist. Pharynx: No oropharyngeal exudate. Eyes: Extraocular Movements: Extraocular movements intact. Conjunctiva/sclera: Conjunctivae normal. Cardiovascular: Rate and Rhythm: Normal rate and regular rhythm. Pulmonary: Effort: Pulmonary effort is normal. Breath sounds: Normal breath sounds. Abdominal: General: Bowel sounds are normal. There is no distension. Palpations: Abdomen is soft. There is no mass. Tenderness: There is no abdominal tenderness. There is no guarding or rebound. Skin: General: Skin is warm and dry. Neurological: General: No focal deficit present. Mental Status: She is alert and oriented to person, place, and time. Psychiatric: Mood and Affect: Mood normal. Behavior: Behavior normal. LABS Lab Results Component Value Date ALT 20 11/14/2022 AST 19 11/14/2022 ALKPHOS 61 11/14/2022 BILITOT 1.2 11/14/2022 No results found for: AMYLASE Lab Results Component Value Date WBC 9.2 11/14/2022 HGB 13.3 11/14/2022 HCT 38.9 11/14/2022 MCV 88 11/14/2022 Chemistry Component Value Date/Time SODIUM 137 11/14/2022 0958 CHLORIDE 103 11/14/2022 0958 CO2 23 11/14/2022 0958 BUNSER 11 11/14/2022 0958 CREATININE 0.89 11/14/2022 0958 GLUCOSE 93 11/14/2022 0958 Component Value Date/Time CALCIUM 8.8 11/14/2022 0958 ALKPHOS 61 11/14/2022 0958 AST 19 11/14/2022 0958 ALT 20 11/14/2022 0958 BILITOT 1.2 11/14/2022 0958 Assessment/Plan Diagnoses and all orders for this visit: Dysphagia, unspecified type Comments: Make sure to to your food up in small pieces. Drink water with swallowing. Use referral to follow-up with gastroenterology for upper endoscopy Assessment & Plan: Twelve weeks of PPI usage and patient [...] understands and consents to having procedure done. Orders: - Ambulatory referral to Gastroenterology - Case Request Operating Room: ESOPHAGOGASTRODUODENOSCOPY Other orders - omeprazole (PriLOSEC) 20 mg capsule; Take 1 capsule (20 mg total) by mouth daily before breakfast Follow-up 2 weeks after procedure Natalya Cat NP Voice recognition software ([employer]) was used to complete this document. Despite proofreading, door installer variances and typographical errors may occur. documented in this encounter Miscellaneous Notes * Assessment & Plan Note - Natalya Cat NP - 05/08/2023 3:13 PM CDTAssociated Problem(s): Breast cancer screening by mammogram Due for colon screening November of 2025 * Assessment & Plan Note - Natalya Cat NP - 05/08/2023 3:12 PM CDTAssociated Problem(s): Dysphagia Twelve weeks of PPI usage and patient [...] having procedure done. documented in this encounter Plan of Treatment Not on file documented as of this encounter Visit Diagnoses Diagnosis Dysphagia, unspecified type documented in this encounter Orders Outpatient Referral Count Last Ordered Date Fir st Ordered Date AMB REFERRAL TO GASTROENTEROLOGY 1 05/08/20 Case Request Count Last Ordered Date First Orde red Date CASE REQUEST OPERATING ROOM 1 05/08/2023 documented in this encounter Care Teams Commissioner Public Works Relationship Specialty Start Date End Date Anika Lemos NP [address] [facility] [address] [place] [address] PCP - General Internal Medicine 10/28/22 documented as of this encounter
--- OUTSIDE RECORDS SUMMARY | 2024-07-27 02:31 | XMS_ITS | Encounter Summary ---
Author Organization [facility] Address [address] [place] [address] Care Team Providers Care Hot Air Furnace Installer And Repairer Name Role Phone Anika Lemos NP Primary Care Provider [phone] Reason for Referral * Diagnostic Imaging (Routine) - Closed Specialty Diagnoses / Procedures Referred By Contac t Referred To Contact Procedures Mammogram Bilateral (Statistical Only) Sandy Meehan MD [address] [place] [address] Phone: tel: Referral ID Status Reason Start Date Expiration Date Visits Re quested Visits Authorized [id number] Closed 11/19/2022 12/19/2023 1 1 Encounter Details Date Type Department Care Team (Late st Contact Info) Description 11/19/2022 Orders Only [facility] Medical [facility] Internal Medicine at [place] [address] [place] [address] [address] [place] [address] Sandy Meehan MD [address] [place] [address] Social History Tobacco Use Types Packs/Day Years [...] on file 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 Gender Identity Not on file Sexual Orientation Not on file documented as of this encounter Plan of Treatment Not on file documented as of this encounter Procedures Procedure Name Priority Date/Time Associated Diagnosis Comments MAMMOGRAM BILATERAL (STATISTICAL ONLY) Schedule Routine, Read Routine (OP Routine) 08/06/2022 documented in this encounter Results * Mammogram Bilateral (Statistical Only) (08/06/2022) Anatomical Region Laterality Modality Breast Bilateral Mammography Historical Provider MD MCCABE MAMMO PROCEDURES Edit ed Result - Final documented in this encounter Visit Diagnoses Not on filedocumented in this encounter Care Teams Hot Air Furnace Installer And Repairer Relationship Specialty Start Date End Date Anika Lemos NP [facility] [facility] [address] [place] [address] PCP - General Internal Medicine 10/28/22 documented as of this encounter
--- OUTSIDE RECORDS SUMMARY | 2024-07-27 02:31 | XMS_ITS | Encounter Summary ---
Author Organization [facility] Address [address] [facility] [address] [place] [address] Care Team Providers Care Street Light Inspector Name Role Phone Anika Lemos NP Primary Care Provider [phone] Reason for Referral * Consultation (Routine) - Closed Specialty Diagnoses / Procedures Referred By Contac t Referred To Contact Gastroenterology Diagnoses Dysphagia, unspecified type Anika Lemos NP [address] [place] [address] Phone: tel: fax: Kareen Johnson MD [facility] [address] [place] [address] Phone: tel: fax: Referral ID Status Reason Start Date Expiration Date V isits Requested Visits Authorized [id number] Closed Specialty Services Required 11/14/2022 12/14/2023 1 1 Question Answer Please select the performing region: [facility] [[id number]] Please select the performing department: [facility] [[id number]] To provider: KAREEN JOHNSON [[id number]] # of visits: 1 Reason for Visit * Reason Comments Establish Care Est careLeft knee pa in, swollen finger and wrist pain onset 1mo ago Encounter Details Date Type Department Care Team (Late st Contact Info) Description 11/14/2022 8:45 AM CDT Office Visit [facility] Medical [facility] Internal Medicine at [place] [address] [place] [address] Anika Lemos NP [address] [place] [address] Physical exam, annual (Primary Dx); BMI 34.0-34.9,adult; Arthralgia, unspecified joint; History of gestational diabetes mellitus (GDM); Obesity (BMI 30-39.9); Screening for thyroid disorder; Dysphagia, unspecified type Social History Tobacco Use [...] on file 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 Gender Identity Not on file Sexual Orientation Not on file documented as of this encounter Last Filed Vital Signs Vital Sign Reading Time Taken Comments Blood Pressure 138/90 11/14/2022 8:47 AM CDT Pulse - - Temperature 37.1 ??C (98.7 ??F) 11/14/2022 8:47 AM CD T Respiratory Rate - - Oxygen Saturation 97% 11/14/2022 8:47 AM CDT Inhaled Oxygen Concentration - - Weight 94.8 kg (209 lb) 11/14/2022 8:47 AM CDT Height 165.1 cm (5' 5 ) 11/14/2022 8:47 AM CDT Body Mass Index 34.78 11/14/2022 8:47 AM CDT documented in this encounter Patient Instructions * Patient Instructions* Anika Lemos NP - 11/14/2022 8:45 AM CDT Routine annual physical completed today. Have lab work completed. Follow-up with gastroenterology for possible endoscopy related to difficulty swallowing. Follow-up in 6 months or sooner as needed. Contact the office with any questions or concerns documented in this encounter Progress Notes * Anika Lemos NP - 11/14/2022 8:45 AM CDT Subjective/Objective Patient ID: Yarelis Mann is a 41 y.o. female. Visit Date: 11/14/2022 Chief Complaint Establish Care (Est care/Left knee pain, swollen finger and wrist pain onset 1mo ago / ) HPI 41-year-old female in to [facility] for annual wellness exam. She has not had lab work done in some time. She does complain of generalized arthralgias to the left knee the right wrist in the leftindex finger. All the joints have been inflamed for approximally the last month. She would like to have a rheumatoid factor drawn as she has been seeing orthopedics and they think it may be rheumatoid in nature. Her left index finger is swollen without erythema. She does complain of difficulty withswallowing food. She does choke at times. We will refer her to GI for further evaluation. She does have a history of gestational diabetes. We will do an A1c. She is up-to-date on her Pap and her mammogram. Blood pressure slightly elevated at 138/90 Review of Systems Constitutional: Negative for activity change, chills and fatigue. HENT: Positive for trouble swallowing. Negative for congestion, ear pain, nosebleeds, rhinorrhea and sinus pressure. Respiratory: Negative for cough and shortness of breath. Cardiovascular: Negative for chest pain and palpitations. Gastrointestinal: Negative for abdominal pain. Endocrine: Negative for cold intolerance. Genitourinary: Negative for difficulty urinating and hematuria. Musculoskeletal: Positive for arthralgias and joint swelling. Negative for back pain and myalgias. Neurological: Negative for dizziness, weakness and headaches. Psychiatric/Behavioral: Negative for agitation, confusion and sleep disturbance. Physical Exam Constitutional: Appearance: Normal appearance. She is well-developed. She is obese. HENT: Head: Normocephalic and atraumatic. Right Ear: Tympanic membrane normal. Left Ear: Tympanic membrane normal. Nose: Nose normal. Mouth/Throat: Mouth: Mucous membranes are moist. Eyes: Pupils: Pupils are equal, round, and reactive to light. Cardiovascular: Rate and Rhythm: Normal rate and regular rhythm. Heart sounds: Normal heart sounds. Pulmonary: Effort: Pulmonary effort is normal. Breath sounds: Normal breath sounds. Abdominal: General: Bowel sounds are normal. There is no distension. Palpations: Abdomen is soft. Musculoskeletal: General: Tenderness (Left knee right wrist and left index finger tenderness with swelling. No erythema noted) present. Cervical back: Normal range of motion and neck supple. Skin: General: Skin is warm and dry. Capillary Refill: Capillary refill takes less than 2 seconds. Findings: No rash. Neurological: Mental Status: She is alert and oriented to person, place, and time. Psychiatric: Behavior: Behavior normal. Thought Content: Thought content normal. Assessment/Plan Diagnoses and all orders for this visit: Physical exam, annual (Z00.00) (Primary) Comments: Routine annual physical exam completed today. Have lab work completed. Follow-up in 6 months or sooner as needed Orders: - CBC with auto differential; Future - Comprehensive metabolic panel; Future - Lipid panel; Future - Vitamin D 25 hydroxy; Future BMI 34.0-34.9,adult (Z68.34) Comments: Diet and exercise on a regular basis as tolerated Assessment & Plan: Discussed the patients BMI: The BMI is above average BMI management is complete. BMI follow-up includes: Nutrition Counseling and education provided Arthralgia, unspecified joint (M25.50) Comments: Have Lab work completed. Orders: - Rheumatoid factor; Future History of gestational diabetes mellitus (GDM) (Z86.32) Comments: Have lab work completed Orders: - Hemoglobin A1c; Future Obesity (BMI 30-39.9) (E66.9) Comments: Monitor caloric intake. Exercise as tolerated Screening for thyroid disorder (Z13.29) Comments: Have lab work completed Orders: - TSH; Future Dysphagia, unspecified type (R13.10) Comments: Make sure to to your food up in small pieces. Drink water with swallowing. Use referral to follow-up with gastroenterology for upper endoscopy Assessment & Plan: This is a significant, separately identifiable problem that was evaluated and managed on the same day as the wellness exam Orders: - Ambulatory referral to Gastroenterology; Future documented in this encounter Miscellaneous Notes * Assessment & Plan Note - Anika Lemos NP - 11/14/2022 9:15 AM CDT Associated Problem(s): Dysphagia This is a significant, separately identifiable problem that was evaluated and managed on the same day as the wellness exam * Assessment & Plan Note - Grecia Brown MA - 11/14/2022 8:57 AM CDT Associated Problem(s): obesity Discussed the patients BMI: The BMI is above average BMI management is complete. BMI follow-up includes: Nutrition Counseling and education provided documented in this encounter Plan of Treatment Scheduled Orders Name Type Priority Associated Diagnoses Orde r Schedule CBC with auto differential Lab Routine Physical exam, annual Expected: 11/14/2022, Expires: 11/15/2023 Comprehensive metabolic panel Lab Routine Physical exam, annual Expected: 11/14/2022, Expires: 11/15/2023 Lipid panel Lab Routine Physical exam, annual Expected: 11/14/2022, Expires: 11/15/2023 Vitamin D 25 hydroxy Lab Routine Physical exam, annual Expected: 11/14/2022, Expires: 11/15/2023 Hemoglobin A1c Lab Routine History of gestational diabetes mellitus (GDM) Expected: 11/14/2022, Expires: 11/15/2023 Rheumatoid factor Lab Routine Arthralgia, unspecified joint Expected: 11/14/2022, Expires: 11/15/2023 TSH Lab Routine Screening for thyroid disorder Expected: 11/14/2022, Expires: 11/15/2023 Scheduled Referrals Name Type Priority Associated Diagnoses Order Schedule Ambulatory referral to Gastroenterology Outpatient Referral Routine Dysphagia, unspecified type Expected: 11/14/2022 (Approximate), Expires: 11/15/2023 documented as of this encounter Visit Diagnoses Diagnosis Physical exam, annual- Primary BMI 34.0-34.9,adult Arthralgia, unspecified joint History of gestational diabetes mellitus (GDM) Obesity (BMI 30-39.9) Screening for thyroid disorder Dysphagia, unspecified type documented in this encounter Discontinued Medications Medication Sig Discontinue Reason Start Date End Da te doxycycline hyclate 100 mg capsule TAKE 1 CAPSULE BY MOUTH TWICE DAILY WITH FOOD FOR 14 DAYS 10/24/2022 11/14/2022 meloxicam (MOBIC) 7.5 mg tabletIndications:Osteoa rthritis,Pain Take 2 tablets (15 mg total) by mouth daily for 14 days 10/04/2022 11/14/2022 documented as of this encounter Care Teams Street Light Inspector Relationship Specialty Start Date End Date Anika Lemos NP [address] [address] PCP - General Internal Medicine 10/28/22 documented as of this encounter
--- OUTSIDE RECORDS SUMMARY | 2024-07-27 02:31 | XMS_ITS | Encounter Summary ---
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 Gender Identity Not on file Sexual Orientation Not on file documented as of this encounter Medications at Time of Discharge levonorgestreL (Mirena) IUD Mirena 21 mcg/24 hours (8 yrs) 52 mg intrauterine device doxycycline hyclate 100 mg capsule TAKE 1 CAPSULE BY MOUTH TWICE DAILY WITH FOOD FOR 14 DAYS 10/24/2022 3 meloxicam (MOBIC) 7.5 mg tabletIndication s:Osteoarthritis ,Pain Take 2 tablets (15 mg total) by mouth daily for 14 days 30 tablet 10/04/2022 3 documented as of this encounter Discharge Disposition Disposition Code Departure Means Destination Discharge to home or self care documented in this encounter Plan of Treatment Not on file documented as of this encounter Procedures Procedure Name Priority Date/Time Associated Diagnosis Comments AEROBIC AND ANAEROBIC CULTURE AND GRAM STAIN Routine 10/28/2022 6:19 PM CDT Chronic pain of left knee CRYSTAL ANALYSIS, BODY FLUID Routine 10/28/2022 3:58 PM CDT Chronic pain of left knee CELL DIFFERENTIAL, BODY FLUID Routine 10/28/2022 3:58 PM CDT Chronic pain of left knee CELL COUNT W/REFLEX DIFFERENTIAL, BODY FLUID Routine 10/28/2022 3:58 PM CDT Chronic pain of left knee documented in this encounter Results * Aerobic and anaerobic culture and gram stain Synovial fluid Knee, left (10/28/2022 6:19 PM CDT) Direct Specimen Exam Stain: Cytospin Gram stain shows: Abundant polymorphonuclear leukocytes seen. Red blood cells present. No organisms seen. LETHA ROGER Comment:Testing performed by : [facility], [address] [place]., [address] Report Final Report: No growth LETHA Comment:Testing performed by : [facility], [address] [place]., [address] Synovial fluid (Knee, left) 10/28/2022 6:19 PM CDT 10/28/2022 10:57 PM CDT Narrative LETHA - 11/03/2022 12:24 PM CDT Insufficient specimen volume received for specimen concentration.?? Culture results may be falsely negative due to the limited volume of specimen received. Testing performed by [facility] Microbiology Laboratory ([phone]) Specimens submitted from normally sterile body sites [...] RAL ORDERABLES Final Result Performing Organization Address [facility] de Phone Number LETHA [address] [address] * Cell Differential, Body Fluid (10/28/2022 3:58 PM CDT) Pathologist [facility] Total cells diffed 100 % [facility] Comment: Interpretive Data Unless otherwise specified, the reference range and other method performance specifications have not been established for CSF/Body Fluid tests. ??The test results should be integrated into the clinical context for interpretation. Current interpretive data was last revised on 2019. Neutrophils, fld 81 % [facility] Lymphs, fld 14 % [facility] Monocyte, fld 5 % [facility] Fluid 10/28/2022 3:58 PM CDT 10/28/2022 3:58 PM CDT Clint Willson MD LAB BODY FLUIDS AND STO OLS ORDERABLES Final Result Performing Organization Address [facility] de Phone Number [address] [address] * Crystal Analysis, Body Fluid (10/28/2022 3:58 PM CDT) Specimen type, fld Synovial [facility] Crystals Not Present Not Present [facility] Fluid 10/28/2022 3:58 PM CDT 10/28/2022 3:58 PM CDT Clint Willson MD LAB BODY FLUIDS AND STO OLS ORDERABLES Final Result Performing Organization Address [facility] Co de Phone Number [phone] [address] * Cell count with reflex to differential, body fluid (10/28/2022 3:58 PM CDT) Specimen type, fld Synovial LETHA Color, fld Crystal LETHA Clarity, fld Turbid LETHA Nucleated cells, fld 17,314 /cumm LETHA Comment: Interpretive Data Unless otherwise specified, the reference range and other method performance specifications have not been established for CSF/Body Fluid tests. ??The test results should be integrated into the clinical context for interpretation. Current interpretive data was last revised on 2019. RBC, fld 11,000 /cumm LETHA Fluid 10/28/2022 3:58 PM CDT 10/28/2022 3:58 PM CDT us Clint Willson MD LAB BODY FLUIDS AND STO OLS ORDERABLES Edited Result - Final LETHA [address] [facility] Department [place] [address] documented in this encounter Visit Diagnoses Diagnosis Chronic pain of left knee documented in this encounter Care Teams Roller Bearing Inspector Relationship Specialty Start Date End Date Anika Lemos NP [address] [facility] [address] [place] [address] PCP - General Internal Medicine 10/28/22 documented as of this encounter
--- OUTSIDE RECORDS SUMMARY | 2024-07-27 02:31 | XMS_ITS | Encounter Summary ---
Author Organization [facility] Address [address] [place] [address] Care Team Providers Care Fur Buyer Name Role Phone No, Physician Primary Care Provider [phone] Reason for Visit * MRI/CAT/PET Scan (Routine) - Closed Specialty Diagnoses / Procedures Referred By Torres rayo Referred To Contact Procedures MSK MR Outside Reference Transcribed Order, Provider Referral ID Status Reason Start Date Expiration Date Visits Re quested Visits Authorized [id number] Closed 10/22/2022 11/21/2023 1 1 Encounter Details Date Type Department Care Team (Latest Contact Info) Description 10/17/2022 - 10/17/2022 11:59 PM CDT Hospital Encounter [facility] [address] [place] [address] Discharge Disposition: Discharge to home or self [...] on file 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 Gender Identity Not on file Sexual Orientation Not on file documented as of this encounter Medications at Time of Discharge levonorgestreL (Mirena) IUD Mirena 21 mcg/24 hours (8 yrs) 52 mg intrauterine device meloxicam (MOBIC) 7.5 mg tabletIndication s:Osteoarthritis ,Pain [...] Procedure Name Priority Date/Time Associated Diagnosis Comments MSK MR OUTSIDE REFERENCE Routine 10/17/2022 12:00 AM CDT documented in this encounter Results * MSK MR Outside Reference (10/17/2022 12:00 AM CDT) Narrative NATASHA_[id number]_MHE - 10/22/2022 8:47 AM CDT This order has been auto-finalized and does not contain a result. us Provider Transcribed Order IMG MRI PROCEDURES Fi nal Result RAD_CLARIO_MHB_MHE documented in this encounter Visit Diagnoses Not on filedocumented in this encounter Care Teams Fur Buyer Relationship Specialty Start Date End Date No, Physician PCP - General 10/04/22 10/27/22 documented as of this encounter
--- OUTSIDE RECORDS SUMMARY | 2024-07-27 02:31 | XMS_ITS | Encounter Summary ---
Author Organization [facility] Address [address] [facility] [address] [place] [address] Care Team Providers Care Supervisor Malt House Name Role Phone Anika Lemos NP Primary Care Provider [phone] Encounter Details Date Type Department Care Team (Late st Contact Info) Description 11/07/2022 8:30 AM CDT Office Visit [facility] Orthopedics and Sports Medicine [address] [place] [address] [address] [place] [phone] Clint Willson MD [address] [place] [id number] Left knee pain, unspecified chronicity (Primary Dx); Knee effusion, left Social History Tobacco Use Types Packs/Day Years [...] on file 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 Visit Date: 11/07/2022 Physician: Clint WillsonMD Assessments: 1.41 y.o. female with left knee pain and effusion several days after twisting her knee 09/29/22 withevidence of effusion and concern for meniscus tear pathology and possible gout or pseudogout 2. 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 10/17/2022 left knee MRI showing very large joint effusion, small Garcia cyst, focal degenerativechondromalacia patella lesions, increased edema about the popliteus. 4. Left knee aspiration 10/28/22 with no evidence of overt gout pseudogout or infection 5. The patient referred to primary care for evaluation of possible rheumatologic process. History of Present Illness: This is a 41-year-old female patient with a twisting type injury on 29 September 2022 with subsequent effusion and pain. The patient was seen in the emergency room at [facility] on 04 October and x-rays were taken showing no acute findings. She was seen in follow-up by Dr. Willson on 10 October and MR was ordered and completed on 17 october. . At her last visit on 28 October 2022 an aspiration of the knee was performed and fluid was sent for laboratory evaluation. The patient is not currently at treatment goal. She states today although there is still some swelling and discomfort the swelling has decreased inthe range of motion has increased since her last visit. She describes no numbness or tingling, no buckling, no locking. She is also had about the same time that she would the knee swelling onset of finger swelling at the PIP. There is consideration for possible systemic rheumatologic process that would account for her finger swelling wrist discomfort as well as the knee swelling. Review of Systems and Examination: Left knee [...] sensation and motor function is grossly intact. Range of motion of the knee is improved with full extension and flexion beyond 115 degrees without hesitation Localization of pain about the knee is similar to previous examination. There is mild edema of the knee. Minimal tenderness along the medial and lateral joint line. The knee is stable to varus and valgus stress at 30??. No calf tenderness. Good strength to resistance to dorsi and plantar flexion of the ankle. Positive dorsalis pedis pulse. Neurologically grossly intact Data Review: I reviewed the radiographs personally and I also reviewed the patient's MRI. My personal review shows evidence of intra-articular effusion and chondral fissuring at the patella that is partial-thickness with no evidence of overt loose body. The extensor mechanism is intact. There is edema about the popliteus. The cruciate and collateral ligaments are in continuity. There is no evidence of overt meniscus tear. Plan: At this time on further follow-up her knee appears to be improving as far as range of motion and overall comfort and ambulation. The synovial analysis shows no evidence of gout pseudogout or infection. The patient is also described concomitant wrist discomfort on the right side and finger swelling and this is suspicious for possible rheumatologic process so we will have her follow up with primarycare for further evaluation. Consideration of a cortisone injection for the knee can be considered in the future if she has recalcitrant swelling and discomfort and ultimately if it is thought that she has a dynamic chondral flaps at the patella that is causing symptoms that is recalcitrant to conservative management then diagnostic knee arthroscopy can be considered in the future. documented in this encounter Plan of Treatment Not on file documented as of this encounter Visit Diagnoses Diagnosis Left knee pain, unspecified chronicity- Primary Knee effusion, left Effusion of lower leg joint documented in this encounter Care Teams Supervisor Malt House Relationship Specialty Start Date End Date Anika Lemos NP [address] [facility] [address] [place] [address] PCP - General Internal Medicine 10/28/22 documented as of this encounter
--- OUTSIDE RECORDS SUMMARY | 2024-07-27 02:31 | XMS_ITS | Clinical Summary ---
Author Organization [facility] Address [address] [place] [address] Care Team Providers Care Wool Tamper Name Role Phone Anika eLmos NP Primary Care Provider [phone] Allergies Active Allergy Reactions Criticality Noted Date Comments Latex Hives Medium 10/04/2022 Penicillins Hives Medium 10/04/2022 Medications levonorgestreL (Mirena) IUD Mirena 21 mcg/24 hours (8 yrs) 52 mg intrauterine device Active ibuprofen (ADVIL,MOTRIN) 800 mg tabletIndicati ons:Pain Take 1 tablet (800 mg total) by mouth 3 (three) times a day 90 tablet 04/25/20 23 Active cholecalcifero l (VITAMIN D-3) 66467 unit tablet Active folic acid (FOLVITE) 1 [...] Unspecified 05/11/2022,05/10/2021 Td, adsorbed 02/27/1995 Tdap 03/05/2016,01/02/2015 Surgical History Surgery Date Site/Laterality Comments WISDOM TOOTH EXTRACTION Medical History Medical History Date Comments Back injury Vitamin D deficiency Dysphagia PONV (postoperative nausea and vomiting) Family History Medical History Relation Name Comments No Known Problems Father Thyroid disease Mother Relation Name Status Comments Father Mother Alive Social History Tobacco Use Types Packs/Day Years [...] on file 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 Gender Identity Not on file Sexual Orientation Not on file Obstetrics History Last Filed Vital Signs Vital Sign Reading [...] 05/21/2023 8:22 AM CDT Plan of Treatment Health Maintenance Due Date Last Done Comments Cervical Cancer Screening 1980 Hepatitis C Screening 1980 Varicella Vaccines (1 of 2 - 13+ 2-dose series) 1993 Hepatitis B Screening 1998 Zoster Vaccine (1 of 2) 12/16/1999 Covid-19 Vaccine (3 - Pfizer risk series) 12/22/2020 11/24/2020, 10/27/2020 Breast Cancer Screening-Mammogram 08/06/2023 08/06/2022 Regular Well Visit/Exam 18-64 11/15/2023 11/14/2022 Influenza Vaccine (#1) 2024 , 05/11/2022, 05/10/2021, Additional history exists Depression Screening 05/21/2024 05/21/2023, 04/25/2023, 11/14/2022 DTaP/Tdap/Td Vaccine (3 - Td or Tdap) 03/05/2026 03/05/2016, 01/02/2015, 02/27/1995 Pneumococcal vaccine <65 (1 of 2 - PCV) 2045 Postponed from 1986 (Provider's clinical decision) HPV Vaccines Aged Out No longer eligi ble based on patient's age to complete this topic Insurance [employer] ACCESS OOS [employer] ACCESS OOS Care Teams Wool Tamper Relationship Specialty Start Date End Date Anika Lemos NP [address] [place] [address] [address] [place] [address] PCP - General Internal Medicine 10/28/22
--- OUTSIDE RECORDS SUMMARY | 2024-07-27 02:31 | XMS_ITS | Encounter Summary ---
Author Organization [facility] Address [address] [place] [address] Care Team Providers Care Tile Picker Name Role Phone Anika Lemos NP Primary Care Provider [phone] Reason for Visit * Auth/Cert (Routine) Specialty Diagnoses / Procedures Referred By Torres rayo Referred To Contact Diagnoses Dysphagia, unspecified type Dysphagia, unspecified type [R13.10] Procedures MT ESOPHAGOGASTRODUODENOSCOPY TRANSORAL DIAGNOSTIC ESOPHAGOGASTRODUODENOSCOPY Referral ID Status Reason Start Date Expiration Date Visits Re quested Visits Authorized [id number] 1 1 Encounter Details Date Type Department Care Team (Latest Contact Info) Description 11/11/2023 12:00 PM CDT - 11/11/2023 12:30 PM CDT Surgery [facility] GI Lab [address] [place] [address] Jax Johnson MD [address] [place] [id number] ESOPHAGOGASTRODUODENOSCOPY ESOPHAGEAL GUIDE WIRE Surgery Details Date/Time Status Location OR Service Patient Class Case Class Case Type Trauma Case? 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 ?? 2017 [employer] Information is for End User's use only and may not be sold, redistributed or otherwise used for commercial purposes. All illustrations and images included in CareNotes?? are the copyrighted property of [employer]. or [employer]. The above information is an educational speech language clinician only. It is not intended as medical [...] at Time of Discharge cholecalciferol (VITAMIN D-3) 14067 unit tablet folic acid (FOLVITE) 1 mg [...] DAILY BEFORE BREAKFAST 90 capsule 1 09/15/2023 4 documented as of this encounter Discharge Disposition [...] 1 11/10/2023 at 0800 cholecalciferol (VITAMIN D-3) 04227 unit tablet 11/09/2023 at 2200 levonorgestreL (Mirena) [...] - 11/11/2023 12:39 PM CDTAssociated Order(s): EGD [facility] GI ENDOSCOPY Patient Name: Amada White Procedure Date: 11/11/2023 12:39 PM Date of : 1980 Admit Type: Outpatient Age: 42 Gender: Female Attending MD: Jax Johnson M.D. Room: [facility] ENDOSCOPY ROOM 05 Note Status: Finalized Procedure: [...] On: 11/11/2023 12:39 PM Recognized by the [place] [employer] for promoting quality in endoscopy documented in this encounter Miscellaneous Notes * Pre-Procedure Instructions - Amada Purdy RN - 11/05/2023 3:22 PM CDT - No alcohol or smoking 12 hours before surgery - Jacob teeth in the morning but don't swallow [...] morning of procedure - Covid: Denies Location ([facility] 1 Entrance A, [address] [place] [address]), arrival time (829), procedure time (929), NPO status (nothing to [...] Resection) 11/11/2023 12:44 PM CDT Narrative [facility] - 11/13/2023 1:18 PM CDT [facility] Department of Pathology [address] [place] [address] ?? Note to Patients: ??This report may [...] : ??1980 (Age: 42) Gender: ??F Address: ??[address] [place] [address] ??[address] [facility] #: [id number] Service: Gastro Location: Patient Type: [facility] OUTPATIENT ? Taken: 11/11/2023 Received: 11/11/2023 Accessioned: [...] submitted. ?? Labeled C1. Jar 0. ?? jjb/11/11/2023 13:41 SUMAN Carmona, SILVIA (ASCP) Microscopic slide review and interpretation for this case was performed at [facility], Department of Surgical Pathology, [address] [facility] [place], [place] [id number], ??[facility], [place] ??[address] ?? CLIA # [id number] us Jax Johnson MD LAB PATHOLOGY ORDERABLES Final R esult [facility] * EGD (11/11/2023 12:39 PM CDT) Anatomical Region Laterality Modality Other Narrative Procedure Note Jax Johnson MD - 11/11/2023 12:39 PM CDT [facility] GI ENDOSCOPY Patient Name: Amada White Procedure Date: 11/11/2023 12:39 PM Date of : 1980 Admit Type: Outpatient Age: 42 Gender: Female Attending MD: Jax Johnson M.D. Room: [facility] ENDOSCOPY ROOM 05 Note Status: Finalized Procedure: [...] On: 11/11/2023 12:39 PM Recognized by the [employer] for promoting quality [...] encounter Visit Diagnoses Diagnosis Dysphagia, unspecified type Dysphagia, unspecified type documented in this encounter [...] 11/11/2023 documented in this encounter Care Teams Tile Picker Relationship Specialty Start Date End Date Anika Lemos NP [address] [facility] [address] [place] [address] PCP - General Internal Medicine 10/28/22 documented as of this encounter
--- OUTSIDE RECORDS SUMMARY | 2024-07-27 02:32 | XMS_ITS | Encounter Summary ---
Author Organization [facility] Address [address] [facility] [address] [place] [address] Care Team Providers Care Residency Director Name Role Phone No, Physician Primary Care Provider [phone] Reason for Referral * Diagnostic Imaging (Routine) - Closed Specialty Diagnoses / Procedures Referred By Sydneeac t Referred To Contact Diagnoses Chronic pain of left knee Procedures XR Knee Left 1 or 2 Views Clint Willson MD [address] [place] [address] [address] SE[address] [place] [address] Phone: tel: fax: [address] [address] Referral ID Status Reason Start Date Expiration Date Visits Re quested Visits Authorized [id number] Closed 10/10/2022 11/09/2023 1 1 Reason for Visit * Consultation (Routine) - Closed Specialty Diagnoses / Procedures Referred By Controsa t Referred To Contact Orthopedic Surgery Diagnoses Knee effusion, left Acute pain of left knee Shashi Solano PA [address] [place] [address] [facility] [place] [address] Phone: tel: fax: Clint Willson MD [address] [place] [address] [address] SEBAST[address] [place] [address] Phone: tel: fax: Referral ID Status Reason Start Date Expiration Date V isits Requested Visits Authorized [id number] Closed Specialty Services Required 10/04/2022 11/03/2023 1 1 Encounter Details Date Type Department Care Team (Late st Contact Info) Description 10/10/2022 11:45 AM CDT Office Visit [facility] Orthopedics and Sports Medicine [facility] [address] [place] [phone] Clint Willson MD [address] [place] [address] [address] [place] [address] Chronic pain of left knee (Primary Dx); Knee effusion, left; Acute pain of left knee Social History Tobacco Use Types Packs/Day Years Used Date Smoking Tobacco: Never Tobacco Cessation:Counseling Given: Not Answered Personal Safety Answer Date Recorded Have you ever been in or are you currently in a harmful physical or emotional relationship or is someone making you feel afraid or unsafe? 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 Visit Date: 10/10/2022 Physician: Clint WillsonMD Assessments: 1.41 y.o. female with left knee pain and effusion several days after twisting her knee 09/29/22 withevidence of effusion and concern for meniscus tear pathology and possible gout or pseudogout 2. 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 The pain is global but does seem to be predominantly at the medial aspect. The pain is sharp moderate and she is difficult time with flexion as result of swelling in the knee. She is activity related as well as nighttime pain. There is no calf pain concerning for deep vein thrombosis or radiculopathy symptoms. She was seen in the emergency room where she had radiographs as well as anti-inflammatory injection. She is not currently attreatment goal. Review of Systems and Examination: Left knee exam On examination, the patient is alert and oriented times three. Hearing is intact to spoken word with mood and affect within normal limits. There is no groin pain with internal and external rotation of the hip. There are no symptoms of radiculopathy with straight-leg raise testing. The skin is intact across the lower extremity with no evidence of clinical infection. There is no evidence at the calf concerning for deep vein thrombosis. The lower extremity is warm and well perfused. Sensation is intact in the superficial peroneal nerve, deep peroneal nerve, sural, saphenous, and plantar nerves. There is intact strength with ankle dorsiflexion and plantarflexion. There is moderate to large evidence of intraarticular effusion. Near full extension of the knee. Ninety degrees of knee flexion. There is no tenderness at the patellar tendon and no tenderness at the quadriceps tendon. The knee is stable to varus and valgus testing at terminal extension and 30 degrees of flexion. Anterior drawer and Galileo exam is grade 1A and Posterior drawer test is grade 0. There is no overt crepitus and nopain with open chain knee extension. There is presence of considerable tenderness at the medial joint line. There is mild tenderness at the lateral joint line. Data Review: I personally reviewed the radiology images from the emergency room as well as weight-bearing Kimbrough view. There is no evidence of overt fracture dislocation or tumor. There is only evidence of mild degenerative changes present. Plan: At this time I discussed with the patient that given the clinical scenario of the patient's history, examination, and imaging, there is a suspected diagnosis of structural damage in the form meniscustear or chondral loose body causing a large effusion versus also possible gout or pseudogout as a cause for her knee effusion and I would recommend obtaining a knee MRI to better delineate the knee anatomy and potential pathology. The MRI will help determine treatment plan options including nonoperative and possible surgical options. We will schedule the patient to return to clinic following the MRI to review the results and discuss options. The patient will use a compression sleeve and the brace that she currently has as well as ambulation assistive device for safe ambulation and will keep ajournal of her symptoms. I gave her copies of the radiographs to take home. We will also order a uric acid level. documented in this encounter Plan of Treatment Not on file documented as of this encounter Results * XR Knee Left 1 or 2 Views (10/10/2022 11:47 AM CDT) Anatomical Region Laterality Modality Lower Extremities, Knee Left Computed Radiography 10/16/2022 12:4 5 PM CDT Narrative 10/16/2022 12:45 PM CDT EXAM DESCRIPTION: ?? XR KNEE LEFT 1 OR 2 VIEWS REASON FOR STUDY: ?? pain ?? COMPARISON: ??September 2022 left knee radiographs FINDINGS: There is no evidence of fracture, dislocation or tumor. ??The medial compartment as slight narrowing compared to the lateral compartment. ??There is no evidence of loose body. IMPRESSION: ??1. ??Evidence of mild degenerative changes with joint space narrowing at the medial compartment. THIS IS AN ELECTRONICALLY VERIFIED FINAL REPORT 10/16/2022 12:45 PM - Electronically signed by ??Clint Willson D: ??10/16/2022 12:45 PM T: Report ID: [id number] Reading Location: ??[place] [address] Procedure Note Clint Willson MD - 10/16/2022 EXAM DESCRIPTION: XR KNEE LEFT 1 OR 2 VIEWS REASON FOR STUDY: pain COMPARISON: September 2022 left knee radiographs FINDINGS: There is no evidence of fracture, dislocation or tumor. The medial compartment as slight narrowing compared to the lateral compartment.There is no evidence of loose body. IMPRESSION: 1. Evidence of mild degenerative changes with joint space narrowing at the medial compartment. THIS IS AN ELECTRONICALLY VERIFIED FINAL REPORT 10/16/2022 12:45 PM - Electronically signed by Clint Willson T: Report ID: [id number] Reading Location: [place] [address] Clint Willson MD IMG XR PROCEDURES Final Result documented in this encounter Visit Diagnoses Diagnosis Chronic pain of left knee- Primary Knee effusion, left Effusion of lower leg joint Acute pain of left knee Chronic pain of left knee documented in this encounter Historical Medications * This list may reflect changes made after this encounter. levonorgestreL (Mirena) IUD Mirena 21 mcg/24 hours (8 yrs) 52 mg intrauterine device added in this encounter Orders Outpatient Referral Count Last Ordered Date Fir st Ordered Date AMB REFERRAL TO ORTHOPEDIC SURGERY 1 2022 documented in this encounter Care Teams Residency Director Relationship Specialty Start Date End Date No, Physician PCP - General 10/04/22 10/27/22 documented as of this encounter
--- OUTSIDE RECORDS SUMMARY | 2024-07-27 02:32 | XMS_ITS | Encounter Summary ---
Author Organization [facility] Address [address] [facility] [address] [place] [address] Care Team Providers Care Assembler Golf Wood Head Name Role Phone No, Physician Primary Care Provider Anika Lemos NP Primary Care Provider [phone] Reason for Visit * Reason Onset Date Comments MRI Orders 10/11/2022 Encounter Details Date Type Department Care Team (Late st Contact Info) Description 10/11/2022 Telephone [facility] Orthopedics and Sports Medicine [address] [facility] [address] [place] [phone] Clint Willson MD [address] [place] [address] [id number] MRI Orders Social History Tobacco Use Types Packs/Day Years [...] on file 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 Gender Identity Not on file Sexual Orientation Not on file documented as of this encounter Miscellaneous Notes * Telephone Encounter - Veena Mendenhall - 10/11/2022 12:51 PM CDT MSH: Patient called to let ginger know she will be going to [facility] - I already faxed the ordersover ) documented in this encounter Plan of Treatment Not on file documented as of this encounter Visit Diagnoses Not on filedocumented in this encounter Care Teams Assembler Golf Wood Head Relationship Specialty Start Date End Date No, Physician PCP - General 10/04/22 10/27/22 Anika Lemos NP [address] [address] PCP - General Internal Medicine 10/28/22 documented as of this encounter
--- OUTSIDE RECORDS SUMMARY | 2024-07-27 02:32 | XMS_ITS | Encounter Summary ---
Author Organization [facility] Address [address] [facility] [address] [place] [address] Care Team Providers Care Seal Skinner Name Role Phone No, Physician Primary Care Provider [phone] Encounter Details Date Type Department Care Team (Late st Contact Info) Description 10/16/2022 Telephone [facility] Orthopedics and Sports Medicine [address] [place] [phone] Clint Willson MD [address] [place] [address] Social History Tobacco Use Types Packs/Day Years [...] on file 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
--- OUTSIDE RECORDS SUMMARY | 2024-07-27 02:32 | XMS_ITS | Encounter Summary ---
Author Organization [facility] Address [address] [facility] [address] [place] [address] Care Team Providers Care Commercial Real Estate Assistant Name Role Phone No, Physician Primary Care Provider [phone] Reason for Visit * Reason Onset Date Comments mri auth 10/15/2022 Encounter Details Date Type Department Care Team (Late st Contact Info) Description 10/15/2022 Telephone [facility] Orthopedics and Sports Medicine [address] [facility] [address] [place] [phone] Clint Willson MD [address] [place] [address] [address] [place] [address] mri auth Social History Tobacco Use Types Packs/Day Years [...] on file 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 Gender Identity Not on file Sexual Orientation Not on file documented as of this encounter Miscellaneous Notes * Telephone Encounter - Judy Durham ATC - 10/16/2022 8:02 AM CDT Auth faxed * Telephone Encounter - Fara Beaulieu - 10/15/2022 3:48 PM CDT LEO Ward from [facility] needing auth for MRI left knee documented in this encounter Plan of Treatment Not on file documented as of this encounter Visit Diagnoses Not on filedocumented in this encounter Care Teams Commercial Real Estate Assistant Relationship Specialty Start Date End Date No, Physician PCP - General 10/04/22 10/27/22 documented as of this encounter
--- OUTSIDE RECORDS SUMMARY | 2024-07-27 02:32 | XMS_ITS | Encounter Summary ---
Author Organization [facility] Address [address] [facility] [address] [place] [address] Care Team Providers Care College Administrator Name Role Phone No, Physician Primary Care Provider [phone] Anika Lemos NP Primary Care Provider Reason for Visit * Reason Onset Date Comments mri 10/14/2022 Encounter Details Date Type Department Care Team (Late st Contact Info) Description 10/14/2022 Telephone [facility] Orthopedics and Sports Medicine [address] [phone] Clint Willson MD [address] [place] [phone] mri Social History Tobacco Use Types Packs/Day Years Used Date Smoking Tobacco: Never PHQ-2 Answer Date Recorded PHQ-2 [...] on file 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 I scheduled her appt for next available for results but she would like sooner if possible. documented in this encounter Plan of Treatment Not on file documented as of this encounter Visit Diagnoses Not on filedocumented in this encounter Care Teams College Administrator Relationship Specialty Start Date End Date No, Physician PCP - General 10/04/22 10/27/22 Anika Lemos NP [address] [facility] [address] [place] [address] PCP - General Internal Medicine 10/28/22 documented as of this encounter
--- OUTSIDE RECORDS SUMMARY | 2024-07-27 02:32 | XMS_ITS | Encounter Summary ---
Author Organization [facility] Address [address] [place] [address] Care Team Providers Care Hunter Guide Name Role Phone No, Physician Primary Care Provider [phone] Reason for Referral * Consultation (Routine) - Closed Specialty Diagnoses / Procedures Referred By Contac t Referred To Contact Orthopedic Surgery Diagnoses Knee effusion, left Acute pain of left knee Shashi Solano PA [address] [place] [address] Phone: tel: fax: Clint Willson MD [address] [place] [address] Phone: tel: fax: Referral ID Status Reason Start Date Expiration Date V isits Requested Visits Authorized [id number] Closed Specialty Services Required 10/04/2022 11/03/2023 1 1 Question Answer Please select the performing region: External Order [171] To provider: CLINT WILLSON [[id number]] # of visits: 1 Reason for Visit * Reason Comments Leg Pain Knee Pain Encounter Details Date Type Department Care Team (Late st Contact Info) Description 10/04/2022 11:47 AM CDT - 10/04/2022 12:54 PM CDT Emergency [facility] [address] [place] [id number] Knee effusion, left (Primary Dx); Acute pain of left knee Discharge Disposition: Discharge to home or self care Social History Tobacco Use Types Packs/Day Years Used Date Smoking Tobacco: Never Assessed Personal Safety Answer Date Recorded Have you ever been in or are you currently in a harmful physical or emotional relationship or is someone making you feel afraid or unsafe? 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 Gender Identity Not on file Sexual Orientation Not on file documented as of this encounter Last Filed Vital Signs Vital Sign Reading Time Taken Comments Blood Pressure 126/89 10/04/2022 12:51 PM CDT Pulse 89 10/04/2022 12:51 PM CDT Temperature 37.6 ??C (99.6 ??F) 10/04/2022 10:00 AM C DT Respiratory Rate 18 10/04/2022 12:51 PM CDT Oxygen Saturation 97% 10/04/2022 12:51 PM CDT Inhaled Oxygen Concentration - - Weight - - Height - - Body Mass Index - - documented in this encounter Discharge Instructions * Discharge Instructions* Shashi Solano PA - 10/04/2022 11:56 AM CDT Follow-up as recommended is mandatory. You have received emergency care only at your visit today. This is not a substitute for ongoing care, further evaluation and treatment and therefore follow-up as directed is not optional but mandatory You MUST follow up for further evaluation of all incidental abnormal radiographic and laboratory findings, Have your physician obtain records from this visit and address all the incidental abnormal findings. This may include final results of lab testing, cultures, final x-ray reports which may not have been available during the time of the visit. Return immediately for any new symptoms, worsening of symptoms, or persistent symptoms * Attachments The following attachments cannot be sent through Care Everywhere. * Knee Pain (AfterCare(R) Instructions(ER/ED)) ([place]) documented in this encounter Medications at Time of Discharge meloxicam (MOBIC) 7.5 mg tabletIndications :Osteoarthritis,P ain Take 2 tablets (15 mg total) by mouth daily for 14 days 30 tablet 10/04/2022 11/14/2022 documented as of this encounter Ordered Prescriptions Prescription Sig Dispense Quantity Refills Last Filled Start Date End Date meloxicam (MOBIC) 7.5 mg tabletIndications: Osteoarthritis,Nellie n Take 2 tablets (15 mg total) by mouth daily for 14 days 30 tablet 10/04/2022 3 documented in this encounter Discharge Disposition Disposition Code Departure Means Destination Comment s Discharge to home or self care documented in this encounter ED Notes * Shashi Solano PA - 10/04/2022 11:57 AM CDT CHIEF COMPLAINT: Chief Complaint Patient presents with Leg Pain Knee Pain HPI 11:57 AM Yarelis Mann is a 41 y.o. female presenting to the ED with c/c of left knee pain for 5 days. Patient states she accidentally twisted her knee but unsure of the exact mechanism 5 nights ago. She then squatted down at work several days following this and felt pain in her hamstring. Patientnow reporting swelling about the knee, worse above the knee. No history of knee injury or trauma. Taking Tylenol and ibuprofen at home, but no analgesics attempted today. No fever or other illness. History provided by patient PCP: No, Physician PAST MEDICAL HISTORY No past medical history on file. PAST SURGICAL HISTORY No past surgical history on file. FAMILY HISTORY No family history on file. MEDICATIONS GIVEN IN THE ED Medications ketorolac (TORADOL) 30 mg/mL (1 mL) injection 30 mg (has no administration in time range) CURRENT HOME MEDICATIONS Current Facility-Administered Medications: ketorolac (TORADOL) 30 mg/mL (1 mL) injection 30 mg, 30 mg, intramuscular, Once, Shashi Solano PA Current Outpatient Medications: meloxicam (MOBIC) 7.5 mg tablet, Take 2 tablets (15 mg total) by mouth daily for 14 days, Disp: 30 tablet, Rfl: 0 ALLERGIES Allergies Allergen Reactions Latex Hives Penicillins Hives SOCIAL HISTORY Social History Tobacco Use Smoking status: Not on file Smokeless tobacco: Not on file Substance and Sexual Activity Drug use: Not on file Sexual activity: Not on file Alcohol Use: Not on file PHYSICAL EXAM TRIAGE VITAL SIGNS: ED Triage Vitals [10/04/22 1000] Temp Pulse Resp BP SpO2 37.6 ??C (99.6 ??F) 113 20 120/84 98 % Temp src Heart Rate Source Patient Position BP Location FiO2 (%) Oral -- -- -- -- Height Height Method Weight Weight Method -- -- -- -- Physical Exam Vitals and nursing note reviewed. Constitutional: General: She is not in acute distress. Appearance: Normal appearance. She is not ill-appearing or toxic-appearing. HENT: Head: Normocephalic and atraumatic. Right Ear: External ear normal. Left Ear: External ear normal. Nose: Nose normal. Mouth/Throat: Mouth: Mucous membranes are moist. Eyes: Extraocular Movements: Extraocular movements intact. Pupils: Pupils are equal, round, and reactive to light. Cardiovascular: Rate and Rhythm: Normal rate and regular rhythm. Heart sounds: Normal heart sounds. No murmur heard. No friction rub. No gallop. Pulmonary: Effort: Pulmonary effort is normal. Breath sounds: Normal breath sounds. Abdominal: General: Bowel sounds are normal. There is no distension. Palpations: Abdomen is soft. There is no mass. Tenderness: There is no abdominal tenderness. There is no guarding. Musculoskeletal: General: Swelling (about the entire knee; able to fully extend but only able to flex to 45 degrees.No erythema or warmth. No open wound. No suprapatellar pain or palpable patellar tendon rupture. PTpulse 2+. Skin warm, NVID.) present. No tenderness or deformity. Skin: General: Skin is warm and dry. Capillary Refill: Capillary refill takes less than 2 seconds. Neurological: General: No focal deficit present. Mental Status: She is alert and oriented to person, place, and time. Psychiatric: Mood and Affect: Mood normal. LABS Labs Reviewed POCT HCG, URINE RADIOLOGY XR Knee Left 3 Views Result Date: 10/04/2022 Narrative: EXAM DESCRIPTION: XR KNEE LEFT 3 VIEWS REASON FOR STUDY: injury Pt states my left leg Icant put pressure on it Pt reports twisting her leg when walking on Friday night. Pt c/o left thigh, knee, and lower leg pain 8/10. Breathing even non labored. TECHNIQUE: 3 radiographic views acquired of the left knee. COMPARISON: None FINDINGS: There is no definite evidence of acute displaced fracture or dislocation involving the left knee. There are mild tricompartmental degenerative changes of the left knee with mild joint space narrowing and minimal spurring. There is a small suprapatellarjoint effusion. IMPRESSION: Mild tricompartmental degenerative changes of the left knee with a small suprapatellar joint effusion. No definite evidence of acute displaced fracture or dislocation. THIS IS AN ELECTRONICALLY VERIFIED FINAL REPORT 10/04/2022 10:39 AM - Electronically signed by María Meléndez D.O. PS: JUAN M Report ID: [id number] Read ing Location: [place] [address] ED COURSE/MEDICAL DECISION MAKING Differential diagnosis included but not limited to intracapsular injury, fracture, contusion, sprain Patient presented to the ER with left knee pain following twisting injury. Imaging with suprapatellar effusion and arthritis, no fracture and otherwise unremarkable. Swelling on exam. Does have partial range of motion. No point tenderness to palpation. PT pulse 2 +. Patient placed in knee immobilizer, to start Mobic, and to follow up with Orthopedics for further evaluation. She had no further questions at time of discharge. Procedures FINAL IMPRESSION Knee effusion, left Acute pain of left knee DISPOSITION: Home All findings were discussed with patient. Pt agreeable with plan. Non toxic appearing, vitals stable. Patient stable for discharge home. Given return to ER precautions Close outpatient follow-up with a low threshold to return has been mandated , concerning symptoms have been emphasized in detail, and this patient expresses understanding PATIENT INSTRUCTED TO FOLLOW UP Cilnt Willson MD [address] [place] [facility] [address] Call in 1 day Clint Willson MD [address] [facility] [address] [facility] [address] DISCHARGE MEDICATIONS Your medication list START taking these medications Instructions Last Dose Given Next Dose Due meloxicam 7.5 mg tablet Commonly known as: MOBIC Take 2 tablets (15 mg total) by mouth daily for 14 days Where to Get Your Medications You can get these medications from any pharmacy Bring a paper prescription for each of these medications meloxicam 7.5 mg tablet This examination was transcribed using the Blottr voice recognition system without human machine ii coremaker. In an effort to expedite patient care, this report has not been adjusted for typographical, grammatical, and syntax by a trained biomedical specialist. Shashi Solano PA 10/04/22 1201 Cosigned by Azeb Peralta MD at 10/04/2022 7:53 PM CDT * Kim Colon RN - 10/04/2022 9:57 AM CDT Pt states my left leg I cant put pressure on it Pt reports twisting her leg when walking on Friday night. Pt c/o left thigh, knee, and lower leg pain 02/27. Breathing even non labored. documented in this encounter Plan of Treatment Scheduled Referrals Name Type Priority Associated Diagnoses Order Schedule Ambulatory referral to Orthopedic Surgery Outpatient Referral Routine Knee effusion, left Acute pain of left knee Expected: 10/18/2022 (Approximate), Expires: 10/05/2023 documented as of this encounter Procedures Procedure Name Priority Date/Time Associated Diagnosis Comments XR KNEE LEFT 3 VIEWS ED 10/04/2022 10:35 AM CDT documented in this encounter Results * XR Knee Left 3 Views (10/04/2022 10:35 AM CDT) Anatomical Region Laterality Modality Lower Extremities, Knee Left Computed Radiography 10/04/2022 10:3 8 AM CDT Narrative 10/04/2022 10:39 AM CDT EXAM DESCRIPTION: ? XR KNEE LEFT 3 VIEWS REASON FOR STUDY: ?? injury ?? Pt states my left leg I cant put pressure on it Pt reports twisting her leg when walking on Friday night. Pt c/o left thigh, knee, and lower leg pain 8/10. Breathing even non labored. ?? TECHNIQUE: ?? 3 ??radiographic views acquired of the left knee. COMPARISON: ?? None FINDINGS: There is no definite evidence of acute displaced fracture or dislocation involving the left knee. ??There are mild tricompartmental degenerative changes of the left knee with mild joint space narrowing and minimal spurring. ??There is a small suprapatellar joint effusion. IMPRESSION: Mild tricompartmental degenerative changes of the left knee with a small suprapatellar joint effusion. No definite evidence of acute displaced fracture or dislocation. THIS IS AN ELECTRONICALLY VERIFIED FINAL REPORT 10/04/2022 10:39 AM - Electronically signed by ??María Meléndez D.O. PS: PS D: ??10/04/2022 10:39 AM T: ??10/04/2022 10:39 AM Report ID: [id number] Reading Location: ??[id number] Procedure Note María Meléndez, DO - 10/04/2022 EXAM DESCRIPTION: XR KNEE LEFT 3 VIEWS REASON FOR STUDY: injury Pt states my left leg I cant put pressure on it Pt reports twisting herleg when walking on Friday. Pt c/o left thigh, knee, and lower leg pain 8/10. Breathing even non labored. TECHNIQUE: 3 radiographic views acquired of the left knee. COMPARISON: None FINDINGS: There is no definite evidence of acute displaced fracture or dislocation involving the left knee. There are mild tricompartmental degenerative changes of the left knee with mild joint space narrowing and minimal spurring. There is a small suprapatellar joint effusion. IMPRESSION: Mild tricompartmental degenerative changes of the left kneewith a small suprapatellar joint effusion. No definite evidence of acutedisplaced fracture or dislocation. THIS IS AN ELECTRONICALLY VERIFIED FINAL REPORT 10/04/2022 10:39 AM - Electronically signed by María Meléndez D.O. PS: JUAN M Report ID: [id number] Reading Location: [place] [address] Azeb Peralta MD IMG XR PROCEDURES Aysha l Result documented in this encounter Visit Diagnoses Diagnosis Knee effusion, left- Primary Effusion of lower leg joint Acute pain of left knee documented in this encounter Administered Medications Inactive Administered Medications - up to 3 most recent administrations Medication Order MAR Action Action Date Dose Rate Site ketorolac (TORADOL) 30 mg/mL (1 mL) injection 30 mg 30 mg, intramuscular, Once, On Fri10/04/22 at 1153, For 1 dose Given 10/04/2022 12:12 PM CDT 30 mg Right Deltoid documented in this encounter Active and Recently Administered Medications Times are shown in CDT. Scheduled Medication Order 10/02/2022 10/03/2022 10/04/2022 ketorolac (TORADOL) 30 mg/mL (1 mL) injection 30 mg (COMPLETED) 30 mg, intramuscular, Once, On Fri10/04/22 at 1153, For 1 dose 1212 (Given - Provid er: Lilli Rodriguez RN) documented in this encounter Orders Medications Ordered That Maximilian ht Not Have Been Administered Count Last Ordered Date First Ordered Date ketorolac (TORADOL) 30 mg/mL (1 mL) injection 30 mg 1 10/04/2022 Nursing Count Last Ordered Date First Orde red Date BRACE APPLICATION 1 10/04/2022 documented in this encounter Care Teams Hunter Guide Relationship Specialty Start Date End Date No, Physician PCP - General 10/04/22 10/27/22 documented as of this encounter
--- OUTSIDE RECORDS SUMMARY | 2024-07-27 02:32 | XMS_ITS | Encounter Summary ---
Author Organization [facility] Address [address] [place] [address] Care Team Providers Care Day Care Aide Name Role Phone No, Physician Primary Care Provider [phone] Reason for Referral * Diagnostic Imaging (Routine) - Closed Specialty Diagnoses / Procedures Referred By Sydneeac perri Referred To Contact Diagnoses Chronic pain of left knee Procedures XR Knee Left 1 or 2 Views Clint Willson MD [address] [place] [address] [address] [place] [phone] Phone: tel: fax: [address] [phone] Referral ID Status Reason Start Date Expiration Date Visits Re quested Visits Authorized [id number] Closed 10/10/2022 11/09/2023 1 1 Reason for Visit * Diagnostic Imaging (Routine) - Closed Specialty Diagnoses / Procedures Referred By Contac t Referred To Contact Diagnoses Chronic pain of left knee Procedures XR Knee Left 1 or 2 Views Clint Willson MD [address] [place] [address] [address] [place] [address] Phone: tel: fax: [address] [phone] Referral ID Status Reason Start Date Expiration Date Visits Re quested Visits Authorized [id number] Closed 10/10/2022 11/09/2023 1 1 Encounter Details Date Type Department Care Team (Latest Contact Info) Description 10/10/2022 11:43 AM CDT - 10/10/2022 11:59 PM CDT Hospital Encounter [facility] [address] [place] [address] Chronic pain of left knee Discharge Disposition: [...] on file 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 Gender Identity Not on file Sexual Orientation [...] Date/Time Associated Diagnosis Comments XR KNEE LEFT 1 OR 2 VIEWS Schedule Routine, Read Routine (OP Routine) 10/10/2022 11:47 AM CDT Chronic pain of left knee documented in this encounter Results * XR [...] D: ??10/16/2022 12:45 PM T: Report ID: [id number] Reading Location: ??[place] [address] Procedure Note Clint Willson MD - 10/16/2022 [...] signed by Clint Willson T: Report ID: [id number] Reading Location: [place] [address] Clint Willson MD IMG XR PROCEDURES Final Result documented in this encounter Visit Diagnoses Diagnosis Chronic pain of left knee documented in this encounter Care Teams Day Care Aide Relationship Specialty Start Date End Date No, Physician PCP - General 10/04/22 10/27/22 documented as of this encounter
--- OUTSIDE RECORDS SUMMARY | 2024-07-27 11:48 | XMS_ITS | Encounter Summary ---
Author Organization [facility] Address [address] [facility] [place] [address] Care Team Providers Care Pricing Strategist Name Role Phone Anika Lemos EARL-WAD IMPREGNATOR Primary Care Provider + Encounter Details Date Type Department Care Team (Late Contact Info) Description 06/25/2024 Orders Only [facility] - Rheumatology [address] [place] [phone] Jeremy Guy MD [address] [place] [address] [address] [place] [address] Therapeutic drug monitoring Social History [...] Department Care Team (Late Contact Info) Description 07/27/2024 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, [place] [phone] Jeremy Guy MD [address] [place] [address] [place] [phone] documented as of this encounter Visit Diagnoses Diagnosis Therapeutic drug monitoring Encounter for therapeutic drug monitoring documented in this encounter Care Teams Pricing Strategist Relationship Specialty Start Date End Date Anika Lemos, FRENCH FOLDER-WAD IMPREGNATOR [address] [facility] [address] [place] [phone] PCP - General Nurse Practitioner 07/08/23 documented as of this encounter
--- OUTSIDE RECORDS SUMMARY | 2024-07-27 11:48 | XMS_ITS | Encounter Summary ---
Author Organization [facility] Address [address] [place] [address] Care Team Providers Care Superintendent Automotive Name Role Phone Anika Lemos EARL-FLIGHT PARAMEDIC Primary Care Provider + Encounter Details Date Type Department Care Team ([facility] [place] Contact Info) Description 01/09/2024 Orders Only [facility] - Rheumatology [address] [place] [phone] Jeremy Guy MD [address] [place] [address] [address] [place] [phone] Therapeutic drug monitoring Social History Tobacco Use [...] Upcoming Encounters Date Type Department Care Team ([facility] [place] Contact Info) Description 07/27/2024 3:00 PM MANAGER CHANNEL Office Visit [facility] - Rheumatology [address] [place] [phone] Jeremy Guy MD [address] [place] [address] [address] [place] [phone] 09/28/2024 3:00 PM CDT Office Visit [facility] - Rheumatology [address] [place] [address] [place] [phone] Jeremy Guy MD [employer] [facility] [address]L [place] [address] documented as of this encounter Visit Diagnoses Diagnosis Therapeutic drug monitoring Encounter for therapeutic drug monitoring documented in this encounter Care Teams Superintendent Automotive Relationship Specialty Start Date End Date Anika Lemos, DOG OR HORSE RACING OFFICIAL-FLIGHT PARAMEDIC [address] [facility] [address] [place] [phone] PCP - General Nurse Practitioner 07/08/23 documented as of this encounter
--- OUTSIDE RECORDS SUMMARY | 2024-07-27 11:48 | XMS_ITS | Encounter Summary ---
Author Organization [facility] Address [address] [place] [address] Care Team Providers Care Floatman Name Role Phone Anika Lemos Yung ELLIOTT-WASTEWATER PLANT CIVIL ENGINEER Primary Care Provider + Reason for Visit * Reason Comments Follow-up Encounter Details Date Type Department Care Team (Late st Contact Info) Description 12/30/2023 3:40 PM CDT Office Visit [facility] - Rheumatology [address] [place] [address], [facility] [place] [address] Jeremy Guy MD [address] [place] [address] [place] [address] Psoriatic arthritis (HCC) (Primary Dx); [...] Division of Rheumatology Department of Internal Medicine [facility] ICD-10-CM 1. Psoriatic arthritis (HCC) L40.50 2. Therapeutic drug monitoring Z51.81 3. 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 Knee [...] daily, Disp: , Rfl: Cholecalciferol 250 MCG (77365 UT) TABS, Take 1 (one) tablet by [...] results found for: PROTEINTO , CREATININEUR , JNSANXZCC6SI No results for input(s): HCGURINE , HCGQUANT in the last 43443 hours. Latent Infections No results found for: HEPBSAG , HBVSAB , HEPBSAB , HEPBCAB , HEPCAB No results found for: QUANTIFER , QNTTBGOLD , QNTPLUSTB1 , QNTPLUSTB2 , QNTMITOGEN , QUANTIFERO , QUANTIFECI , QUANTIF , QUANNIL , QUAMIT , QFTTBAGN , PNVRQBRLF04 , AFBSMR Immunology Labs Inflammatory Markers Recent [...] , SMITHRNPAB , SCL70 , ANTICENTROB , RV0VTMUB , CKKGG911ZK , AMINVSJ7MB , HISTONEIGG No results for input(s): C3 , C4 in the last 16444 hours. APLS-related Auto-Ab's No results found for: F3KQZHCFSX , N7KYDMJANJ , H9LOVJUHCZ , UNAA7DYM , OGUJ5EXC , CRDLPNIGM , CRDLPNIGG , CRDLPNIGA , DILUTEPT , DPTCFMRATIO , TT , PTTLA , DRVVTBASE , LABINTE Myopathy No results found for: CK , ALDOLASE , SAE1AB , NXP2AB , MDA5AB , LSG3JJB , MYOINTERP , MI2AB , Q335437 , PL12AB , PL7AB , OJAB , EJAB , SRPAB , SB1LHZXS , KUAB , SMITHRNPAB , BBXAT282WN , ADC09QI , GRR42JV , DAKQSIFF0OVK , ACHBLOCKAB , ACHBINDAB Vasculitis and ANCAs No results found for: NEUTCYTOAB , ANTIPROT3 , ANTIMPO , E6XMXFT Genetics Lab Results Component Value Date/Time HLAB27 [...] , TSH , T4FREE in the last 43176 hours. No results found for: HKGL07GK Heme No results found for: RETICCTPCT , RETICULOCYTE , IRON , FERRITIN , TRANSFERRIN , TRANSFERRSAT , TIBC , FIBRINOGEN , DDIMER , VITB12 , FOLATE , HAPTOGLOBIN , LDHTOTAL No results for input(s): PT , INR , PTT in the last 25253 hours. Renal No results found for: CALCIUMION , PHBLD , IONCAART , MAGNESIUM , PHOS , SODIUMRAN , POTASSIUMUR , CHLORIDER Cardiac & Lipids No results for input(s): TROPONINI , CKMB , BNP in the last 01448 hours. No results for input(s): CHOL , TRIG , HDL , LDLCALC , LDLDIRECT in the last 96146 hours. Respiratory No results found for: SARSCOV2 , RINFLUANAA , RINFLUBNAA , INFLUARAPID , INFLUBRAPID , INFLUCNTRL , STREPARAPID , STREPAQC Hepatobiliary & GI No results found for: GGT , LIPASE , S2NMEBKSGVHO , CMVPCR , CMVSOURCE , GDHANTIGEN , [...] results found for: GLUCSF , PROTEINCSF , RZE0JDWVVP , YQL0DHLXTA , IRAJ8XCA , COCCIDIGG , QWD2HOL , CRYPTOAGCSF , ENTEROVIRPCR , OLIGOBAND , OLIGOBANDNUM , IGG , XUG8JSM , ALBUMINMS , CYYFRDE6FJW , ALBUMININDEX , IGGINDEX , IGGALBRATIO , SYNTHESRTE , OLIGOCINTRP , TOXOPLASIGG , CYSTICERO Body Fluid No results found for: LABLD , GROSSDESCRIP , MICROPDESCR STIs (HIV, GC, Trich, Syphilis) No results found for: HIV12 , WDC9YIFKIK , BWZ7JEY64XZP , CHLAMDIA , CHLTRNAA , GC , NGONORRNAA , TRICVAGAP , TRICHVAGBY , TPALLIDUM Cultures & Other Micro No results found for: URINECULT , BLOODCULT , BDERMAGUR , BDERMINTERP For assessment and recommendations, please see above. This note was generated using the [employer] speech recognition system. Grammatical errors, random wordinsertions, [...] Care Team (Late st Contact Info) Description 07/27/2024 3:00 PM TECHNICAL SOLUTIONS CONSULTANT Office Visit [facility] - Rheumatology [address] [place] [address], [place] [address] Jeremy Guy MD [address] [place] [address] 2[address] [place] [phone] 09/28/2024 3:00 PM CDT Office Visit [facility] - Rheumatology [address] [place] [phone] Jeremy Guy MD [address] [place] [address] 2[address] [place] [address] Scheduled Orders Name Type Priority Associated Diagnoses Orde r Schedule HEPATIC FUNCTION PANEL Lab Routine Therapeutic drug monitoring Ordered: 12/30/2023 documented as of this encounter Visit Diagnoses Diagnosis Psoriatic arthritis (HCC)- Primary Psoriatic arthropathy Therapeutic drug monitoring Encounter for therapeutic drug monitoring Immunosuppression due to drug therapy (HCC) documented in this encounter Care Teams Floatman Relationship Specialty Start Date End Date Anika Lemos, SCRAP PILER-WASTEWATER PLANT CIVIL ENGINEER [address] [place] [address] [place] [address] PCP - General Nurse Practitioner 07/08/23 documented as of this encounter
--- OUTSIDE RECORDS SUMMARY | 2024-07-27 11:48 | XMS_ITS | Encounter Summary ---
Author Organization [facility] Address [address] [place] [address] Care Team Providers Care Non Garment Sewing Machine Operator Name Role Phone Anika Lemos Yung ELLIOTT-LAVINIA Primary Care Provider + Reason for Visit * Reason Onset Date Comments Medication Prior Auth Request 03/31/2024 Ot ezla Start Pack Encounter Details Date Type Department Care Team (Late st Contact Info) Description 03/31/2024 Telephone [facility] - Rheumatology [address] [place] [address], [facility] [place] [address] Jeremy Guy MD [address] [place] [address] [place] [address] Medication Prior Auth Request (Otezla [...] tablet Status: Approved through 03/30/2025 Submitted via: [employer] Insurance: [employer] Case Number: Mane: [phone] documented in this encounter Plan of Treatment Upcoming Encounters Date Type Department Care Team (Late st Contact Info) Description 07/27/2024 3:00 PM RETAIL SALES VITAMIN CONSULTANT Office Visit [facility] - Rheumatology [address] [place] [address], [place] [address] Jeremy Guy MD [address] [place] [address] 2L [place] [phone] 09/28/2024 3:00 PM CDT Office Visit [facility] - Rheumatology [address] [place] [address], [place] [phone] Jeremy Guy MD [address] [place] [address] 2L [place] [phone] documented as of this encounter Visit Diagnoses Not on filedocumented in this encounter Care Teams Non Garment Sewing Machine Operator Relationship Specialty Start Date End Date Anika Lemos, SEMICONDUCTOR ENGINEER-CONSULTING PRACTICE DIRECTOR [facility] [place] [address] PCP - General Nurse Practitioner 07/08/23 documented as of this encounter
--- OUTSIDE RECORDS SUMMARY | 2024-07-27 11:48 | XMS_ITS | Encounter Summary ---
Author Organization [facility] Address [address] [place] [address] Care Team Providers Care Ion Implant Machine Operator Name Role Phone Anika Lemos Yung ELLIOTT-TEST BORER HELPER Primary Care Provider + Reason for Referral * Medication Prior Authorization - Closed Specialty Diagnoses / Procedures Referred By Contac t Referred To Contact Diagnoses Psoriatic arthritis (HCC) Jeremy Gyu MD [address] [place] [address] 2L DIV [place] [address] Referral ID Status Reason Start Date Expiration Date Visits Re quested Visits Authorized [id number] Closed 1 1 Reason for Visit * Reason Comments Follow-up 3 month f/u Encounter Details Date Type Department Care Team (Late st Contact Info) Description 03/30/2024 3:40 PM CDT Office Visit [facility] - Rheumatology [address] [place] [address], [place] [address] Jeremy Guy MD [address] [place] [address] [address] DIV [place] [address] Psoriatic arthritis (HCC) (Primary Dx); [...] Division of Rheumatology Department of Internal Medicine [facility] ICD-10-CM 1. Psoriatic arthritis (HCC) L40.50 2. Therapeutic drug monitoring Z51.81 3. 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 Knee [...] Allergies, Disp: , Rfl: Cholecalciferol 250 MCG (79366 UT) TABS, Take 1 (one) tablet by [...] results found for: PROTEINTO , CREATININEUR , BZSQAPWCI1GS No results for input(s): HCGURINE , HCGQUANT in the last 36134 hours. Latent Infections No results found for: HEPBSAG , HBVSAB , HEPBSAB , HEPBCAB , HEPCAB No results found for: QUANTIFER , QNTTBGOLD , QNTPLUSTB1 , QNTPLUSTB2 , QNTMITOGEN , QUANTIFERO , QUANTIFECI , QUANTIF , QUANNIL , QUAMIT , QFTTBAGN , FQTNAFBZJ06 , AFBSMR Immunology Labs Inflammatory Markers Recent [...] , SMITHRNPAB , SCL70 , ANTICENTROB , SJ1NKFBX , QKRDD743XP , DJYUXTC1XE , HISTONEIGG No results for input(s): C3 , C4 in the last 32620 hours. APLS-related Auto-Ab's No results found for: L5QOFNZIJE , I7BIFLUGRR , X2BVKRXIRN , DTUR0URN , CVGT3EJY , CRDLPNIGM , CRDLPNIGG , CRDLPNIGA , DILUTEPT , DPTCFMRATIO , TT , PTTLA , DRVVTBASE , LABINTE Myopathy No results found for: CK , ALDOLASE , SAE1AB , NXP2AB , MDA5AB , NPL4SZX , MYOINTERP , MI2AB , W922317 , PL12AB , PL7AB , OJAB , EJAB , SRPAB , LI0VCMSB , KUAB , SMITHRNPAB , TOLMM533VM , VIF43NF , BHH06NX , TFZVMPDU5OUC , ACHBLOCKAB , ACHBINDAB Vasculitis and ANCAs No results found for: NEUTCYTOAB , ANTIPROT3 , ANTIMPO , C0DNTFN Genetics Lab Results Component Value Date/Time HLAB27 [...] , TSH , T4FREE in the last 49864 hours. No results found for: LHRK91CW Heme No results found for: RETICCTPCT , RETICULOCYTE , IRON , FERRITIN , TRANSFERRIN , TRANSFERRSAT , TIBC , FIBRINOGEN , DDIMER , VITB12 , FOLATE , HAPTOGLOBIN , LDHTOTAL No results for input(s): PT , INR , PTT in the last 86445 hours. Renal No results found for: CALCIUMION , PHBLD , IONCAART , MAGNESIUM , PHOS , SODIUMRAN , POTASSIUMUR , CHLORIDER Cardiac & Lipids No results for input(s): TROPONINI , CKMB , BNP in the last 71480 hours. No results for input(s): CHOL , TRIG , HDL , LDLCALC , LDLDIRECT in the last 09043 hours. Respiratory No results found for: SARSCOV2 , RINFLUANAA , RINFLUBNAA , INFLUARAPID , INFLUBRAPID , INFLUCNTRL , STREPARAPID , STREPAQC Hepatobiliary & GI No results found for: GGT , LIPASE , R7EMIVFNDQIZ , CMVPCR , CMVSOURCE , GDHANTIGEN , [...] results found for: GLUCSF , PROTEINCSF , QPS4UAHODO , LFH5LCCLDE , ZPVS2KJG , COCCIDIGG , LRF7GFW , CRYPTOAGCSF , ENTEROVIRPCR , OLIGOBAND , OLIGOBANDNUM , IGG , TIU2AJX , ALBUMINMS , NKCCDXK8RCF , ALBUMININDEX , IGGINDEX , IGGALBRATIO , SYNTHESRTE , OLIGOCINTRP , TOXOPLASIGG , CYSTICERO Body Fluid No results found for: LABLD , GROSSDESCRIP , MICROPDESCR STIs (HIV, GC, Trich, Syphilis) No results found for: HIV12 , FER5GYBWAJ , ATD8GLZ89KRE , CHLAMDIA , CHLTRNAA , GC , NGONORRNAA , TRICVAGAP , TRICHVAGBY , TPALLIDUM Cultures & Other Micro No results found for: URINECULT , BLOODCULT , BDERMAGUR , BDERMINTERP For assessment and recommendations, please see above. This note was generated using the [employer] speech recognition system. Grammatical errors, random wordinsertions, [...] st Contact Info) Description 07/27/2024 3:00 PM SLIP FEEDER Office Visit [facility] - Rheumatology [address] [place] [phone] Jeremy Guy MD [address] [place] [address] 2[address] DIV [place] [phone] 09/28/2024 3:00 PM CDT Office Visit [facility] - Rheumatology [address] [place] [phone] Jeremy Guy MD [address] [place] [address] 2[address] DIV [place] [phone] documented as of this encounter Visit Diagnoses Diagnosis Psoriatic arthritis (HCC)- Primary Psoriatic arthropathy Therapeutic drug monitoring Encounter for therapeutic drug monitoring Immunosuppression due to drug therapy (HCC) documented in this encounter Care Teams Ion Implant Machine Operator Relationship Specialty Start Date End Date Anika Lemos, CHASSIS DRIVER-TEST BORER HELPER [address] [address] PCP - General Nurse Practitioner 07/08/23 documented as of this encounter
--- OUTSIDE RECORDS SUMMARY | 2024-07-27 11:48 | XMS_ITS | Encounter Summary ---
Author Organization [facility] Address [address] [place] [address] Care Team Providers Care Emissions Engineer Name Role Phone Anika Lemos Yung ELLIOTT-LOMBARDI DEVELOPER Primary Care Provider + Reason for Visit * Reason Onset Date Comments MEDICATION REFILL 11/04/2023 Encounter Details Date Type Department Care Team (Late st Contact Info) Description 11/04/2023 Refill [facility] - Rheumatology [address] [place] [address], [facility] [place] [address] Jeremy Guy MD [address] [place] [address] [place] [address] MEDICATION REFILL Social History Tobacco [...] st Contact Info) Description 07/27/2024 3:00 PM MULTI PUNCH OPERATOR Office Visit [facility] - Rheumatology [address] [place] [phone] Jeremy Guy MD [address] [place] [address] 2L [place] [phone] 09/28/2024 3:00 PM CDT Office Visit [facility] - Rheumatology [address] [place] [phone] Jeremy Guy MD [address] [place] [address] 2L [place] [phone] documented as of this encounter Visit Diagnoses Diagnosis Psoriatic arthritis (HCC) Psoriatic arthropathy documented in this encounter Care Teams Emissions Engineer Relationship Specialty Start Date End Date Anika Lemos APRN-LOMBARDI DEVELOPER [address] [address] PCP - General Nurse Practitioner 07/08/23 documented as of this encounter
--- OUTSIDE RECORDS SUMMARY | 2024-07-27 11:48 | XMS_ITS | Encounter Summary ---
Author Organization [facility] Address [address] [place] [address] Care Team Providers Care Wound Specialist Name Role Phone Anika Lemos EARL-SAMPLE CASE PORTER Primary Care Provider + Encounter Details Date Type Department Care Team (Late Contact Info) Description 04/02/2024 Orders Only [facility] - Rheumatology [address] [place] [address] Jeremy Guy MD [address] [place] [address] 2L [place] [address] Therapeutic drug monitoring Social History [...] (Late Contact Info) Description 07/27/2024 3:00 PM RN REFERRAL Office Visit [facility] - Rheumatology [address] [place] [phone] Jeremy Guy MD [address] [place] [address] 2[address] [place] [phone] 09/28/2024 3:00 PM CDT Office Visit [facility] - Rheumatology [facility] [facility], [place] [phone] Jeremy Guy MD [address] [place] [address] [place] [phone] documented as of this encounter Visit Diagnoses Diagnosis Therapeutic drug monitoring Encounter for therapeutic drug monitoring documented in this encounter Care Teams Wound Specialist Relationship Specialty Start Date End Date Anika Lemos, WALLCOVERING TEXTURER-SAMPLE CASE PORTER [address] [place] [address] [place] [address] PCP - General Nurse Practitioner 07/08/23 documented as of this encounter
--- OUTSIDE RECORDS SUMMARY | 2024-07-27 11:48 | XMS_ITS | Patient Health Summary ---
Author Organization [facility] Address [address] [facility] [place] [address] Care Team Providers Care Cargo Operations Agent Name Role Phone OtilioclariAnika APRN-MEMS ENGINEER Primary Care Provider + Note from [facility],non-owned Affiliates and Associated Physician Practices is amultiple site organization consisting of ambulatory clinics and hospital sitesin [place], [place], [place] and [place]. This disclosure is being madepursuant to the Care Everywhere program and may not contain all information available regarding this patient. Last updated 18.[facility] Allergies * Latex(Urticaria) -Medium [...] mg intrauterine device * Cholecalciferol 250 MCG (72969 UT) TABS Take 1 (one) tablet by [...] Comments Blood Pressure 127/89 06/29/2024 3:50 PM ATTENDANCE CLERK Pulse 105 06/29/2024 3:50 PM ATTENDANCE CLERK Temperature 36.3 ??C (97.3 ??F) 06/29/2024 3:50 PM CS T Respiratory Rate - - Oxygen Saturation 97% 03/30/2024 3:07 PM CDT Inhaled Oxygen Concentration - - Weight 102.9 kg (226 lb 12.8 oz) 06/29/2024 3:50 PM ATTENDANCE CLERK Height 165.1 cm (5' 5 ) 06/29/2024 3:50 PM ATTENDANCE CLERK Body Mass Index 37.74 06/29/2024 3:50 PM ATTENDANCE CLERK Procedures * HEPATIC FUNCTION PANEL(Performed 11/25/2023) Performed [...] C-Reactive Protein 7 0 - 10 mg/L [employer] INSURANCE BILL Blood BLOOD SPECIMEN / Unknown 11/25/2023 8:56 AM CDT 11/25/2023 Narrative Resulting Agency Comment Lab Testing performed at: [facility] ??[facility] [phone] Jeremy Guy MD LAB - CHEMISTRY LUZ ROLDAN [facility] Organization Address City/State/ZIP Co de Phone Number [facility] INSURANCE BILL [address] [place] [address] * CBC WITH DIFFERENTIAL (11/25/2023 8:56 AM [...] Resulting Agency Comment [facility] performed [facility]: [facility] [address] [facility] ??[facility] [phone] Jeremy Guy MD LAB - HEMATOLOGY ORD ERABLES [facility] INSURANCE BILL [address] [place] [address] * (ABNORMAL) HEPATIC FUNCTION PANEL (11/25/2023 8:56 AM CDT) Only the most recent of2 resultswithin the time period is included. Pathologist [facility] Protein Total 6.5 6.0 - 8.5 g/dL [...] Agency Comment Lab Testing performed at: [facility] [address] ??[facility] [id number] Jeremy Guy MD LAB - CHEMISTRY ORDE RABLES Performing Organization Address City/[facility]/ZIP Co de Phone Number [facility] INSURANCE BILL [address] [place] [address] * QUANTIFERON-TB GOLD PLUS 4-TUBE (08/30/2023 11:32 AM ATTENDANCE CLERK) QuantiFERON Criteria [facility] INSURANCE BILL Comment: QuantiFERON-TB [...] Chemiluminescence immunoassay methodology 08/30/2023 11:3 2 AM ATTENDANCE CLERK 08/30/2023 Narrative Resulting Agency Comment Lab Testing performed at: [employer] ??[facility] [phone] Jeremy Guy MD LAB - CHEMISTRY LUZ [facility] Organization Address City/State/ZIP Co de Phone Number [facility] INSURANCE BILL [address] [place] [address] * RHEUMATOID FACTOR BLOOD QUANTITATIVE (08/30/2023 11:32 AM ATTENDANCE CLERK) Only the most recent of2 resultswithin the time period is included. Rheumatoid Factor <10.0 <14.0 IU/mL [facility] INSURANCE BILL 08/30/2023 11:3 2 AM ATTENDANCE CLERK 08/30/2023 Narrative Resulting Agency Comment Lab Testing performed at: [employer] ??[facility] [phone] Jeremy Guy MD LAB - CHEMISTRY ORDJuju ROLDAN [facility] INSURANCE BILL [address] [place] [address] * ERYTHROCYTE SEDIMENTATION RATE (08/30/2023 11:32 AM ATTENDANCE CLERK) Only the most recent of2 resultswithin the time period is included. Erythrocyte Sedimentation Rate Westergren 9 0 - 32 mm/hr [facility] INSURANCE BILL 08/30/2023 11:3 2 AM ATTENDANCE CLERK 08/30/2023 Narrative Resulting Agency Comment Lab Testing performed at: [facility] [address] ??[facility] [phone] Jeremy Guy MD LAB - HEMATOLOGY ORD ISAK Performing Organization Address City/[facility]/ZIP Co de Phone Number [facility] INSURANCE BILL [address] [place] [address] * COMPREHENSIVE METABOLIC PANEL (08/30/2023 11:32 AM ATTENDANCE CLERK) Only the most recent of2 resultswithin the [...] [facility] INSURANCE BILL 08/30/2023 11:3 2 AM ATTENDANCE CLERK 08/30/2023 Narrative Resulting Agency Comment Lab Testing performed at: [facility] [place] [address] ??[facility] [phone] Jeremy Guy MD LAB - CHEMISTRY LUZ ROLDAN [facility] INSURANCE BILL [address] [place] [address] * HEPATITIS B CORE ANTIBODY TOTAL (08/30/2023 11:32 AM ATTENDANCE CLERK) Only the most recent of2 resultswithin the time period is included. Hepatitis B Core Virus Antibody Total Negative Negative [facility] INSURANCE BILL 08/30/2023 11:3 2 AM ATTENDANCE CLERK 08/30/2023 Narrative Resulting Agency Comment Lab Testing performed at: [facility] [place] [address] ??[facility] [phone] Jeremy Guy MD LAB - CHEMISTRY LUZ ROLDAN [facility] INSURANCE BILL [address] [place] [address] * HEPATITIS B SURFACE ANTIGEN W RFLX CONFIRMATION (08/30/2023 11:32 AM ATTENDANCE CLERK) Only the most recent of2 resultswithin the time period is included. Hepatitis B Virus Surface Antigen Negative Negative [facility] INSURANCE BILL 08/30/2023 11:3 2 AM ATTENDANCE CLERK 08/30/2023 Narrative Resulting Agency Comment Lab Testing performed at: [facility] [place] [address] ??[facility] [id number] Jeremy Guy MD LAB - CHEMISTRY LUZ ROLDAN [facility] INSURANCE BILL [address] [place] [address] * HLA TYPING B27 (08/30/2023 11:31 AM ATTENDANCE CLERK) Only the most recent of2 resultswithin the time period is included. Pathologist [facility] HLA-B27 Negative [facility] INSURANCE BILL Comment: HLA-B*27 Negative B27 allele interpretation for all loci based on IMGT/HLA database version 3.51.0 This test was developed and its performance characteristics determined by [facility]. ??It has not been cleared or approved by the Food and Drug Administration. HLA Lab CLIA ID Number [id number] THis test was performed using Polymerase Chain Reaction (PCR) and Sequence Specific Oligonucleotide Probes (SSOP) technique. Sequence Based Typing (SBT) may be used as a supplemental method when necessary. If you have questions, please call [employer] customer service at or email at . Blood BLOOD SPECIMEN / Unknown 08/30/2023 11:31 AM ATTENDANCE CLERK 08/30/2023 Narrative Resulting Agency Comment Lab Testing performed at: [place] [address] [facility] ??[facility] [id number] Jeremy Guy MD LAB - CHEMISTRY LUZ ROLDAN [facility] INSURANCE BILL [address] [place] [address] * CYCLIC CITRUL PEPTIDE ANTIBODY IGG/IGA (CCP) (08/30/2023 11:30 AM ATTENDANCE CLERK) [facility] CCP Antibodies IgG/IgA 8 0 - 19 units [facility] INSURANCE BILL Comment: ? Negative ? <20 ? Weak positive ?20 - 39 ? Moderate positive ??40 - 59 ? Strong positive ?>59 Blood BLOOD SPECIMEN / Unknown 08/30/2023 11:30 AM ATTENDANCE CLERK 08/30/2023 Narrative Resulting Agency Comment Lab Testing performed at: [facility] [address] ??[facility] [phone] Jeremy Guy MD LAB - SEROLOGY ORDER GEOVANNA Performing Organization Address [facility] de Phone Number [facility] INSURANCE BILL [address] [place] [address] * HEPATITIS C ANTIBODY (08/30/2023 11:30 AM ATTENDANCE CLERK) Hepatitis C Antibody Non Reactive Non Reactive [facility] INSURANCE BILL Comment: HCV antibody alone does not differentiate between previously resolved infection and active infection. Equivocal and Reactive HCV antibody results should be followed up with an HCV RNA test to support the diagnosis of active HCV infection. Blood BLOOD SPECIMEN / Unknown 08/30/2023 11:30 AM ATTENDANCE CLERK 08/30/2023 Narrative Resulting Agency Comment Lab Testing performed at: [facility] [address] ??[facility] [id number] Jeremy Guy MD LAB - CHEMISTRY ORDE RABMIGUEL Performing Organization Address [facility] de Phone Number [facility] INSURANCE BILL [address] [place] [address] * CYCLIC CITRULLINATED PEPTIDE(CCP) AB IGG (07/26/2023 10:44 AM ATTENDANCE CLERK) [facility] Antibodies IgG/IgA <20 <20 Units [facility] INSURANCE BILL Comment: ? Negative: <20 ? Weak Positive: 20-39 ? Moderate Positive: 40-59 ??Strong Positive: >59 Blood BLOOD SPECIMEN / Unknown 07/26/2023 10:44 AM ATTENDANCE CLERK 07/26/2023 Narrative Resulting Agency Comment Lab Testing performed at: [email or web address] [address] [facility] ??[facility] [phone] Jeremy Guy MD LAB - CHEMISTRY LUZ ROLDAN Performing Organization Address City/[facility]/ZIP Co de Phone Number [facility] INSURANCE BILL [address] [place] [address] * QUANTIFERON TB-GOLD (07/26/2023 10:44 AM ATTENDANCE CLERK) [facility] QuantiFERON [...] Chemiluminescence immunoassay methodology 07/26/2023 10:4 4 AM ATTENDANCE CLERK 07/26/2023 Narrative Resulting Agency Comment Lab Testing performed at: [employer] [place] [address] ??[facility] [phone] Jeremy Guy MD LAB - CHEMISTRY LUZ ROLDAN [facility] INSURANCE BILL [address] [place] [address] Care Teams Cargo Operations Agent Relationship Specialty Start Date End Date Anika Lemos, REINFORCING IRON WORKER HELPER-MEMS ENGINEER [address] [address] PCP - General Nurse Practitioner 07/08/23
--- OUTSIDE RECORDS SUMMARY | 2024-07-27 11:48 | XMS_ITS | Encounter Summary ---
Author Organization [facility] Address [address] [place] [address] Care Team Providers Care Street Light Cleaner Name Role Phone Anika Lemos Yung ELLIOTT-CONSULTING PSYCHOLOGIST Primary Care Provider + Encounter Details Date [...] (Late Contact Info) Description 07/27/2024 3:00 PM SENIOR CYBER SECURITY ANALYST Office Visit [facility] - Rheumatology [address] [place] [phone] Jeremy Guy MD [address] [place] [address] 2L [place] [phone] 09/28/2024 3:00 PM CDT Office Visit [facility] - Rheumatology [address] [place] [address] [phone] Jeremy Guy MD [address] [place] [address] 2L [place] [phone] documented as of this encounter Visit Diagnoses Not on filedocumented in this encounter Care Teams Street Light Cleaner Relationship Specialty Start Date End Date Anika Lemos, ASSOCIATE SOFTWARE DEVELOPMENT ENGINEER-CONSULTING PSYCHOLOGIST [address] [place] [address] [place] [phone] PCP - General Nurse Practitioner 07/08/23 documented as of this encounter
--- OUTSIDE RECORDS SUMMARY | 2024-07-27 11:48 | XMS_ITS | Encounter Summary ---
Author Organization [facility] Address [address] [place] [address] Care Team Providers Care Core Man Name Role Phone Anika Lemos MANAGER AVIATION-VIRTUALIZATION ARCHITECT Primary Care Provider + Encounter Details Date [...] st Contact Info) Description 07/27/2024 3:00 PM POUNCER Office Visit [facility] - Rheumatology [address] [place] [phone] Jeremy Guy MD [address] [place] [address] 2L [place] [phone] 09/28/2024 3:00 PM CDT Office Visit [facility] - Rheumatology [address] [place] [address] [phone] Jeremy Guy MD [address] [place] [address] 2L [place] [phone] documented as of this encounter Visit Diagnoses Not on filedocumented in this encounter Care Teams Core Man Relationship Specialty Start Date End Date Anika Lemos, MANAGER AVIATION-VIRTUALIZATION ARCHITECT [address] [place] [address] PCP - General Nurse Practitioner 07/08/23 documented as of this encounter
--- OUTSIDE RECORDS SUMMARY | 2024-07-27 11:48 | XMS_ITS | Encounter Summary ---
Author Organization [facility] Address [facility] [place] [address] Care Team Providers Care Gas Scrubber Operator Name Role Phone Anika Lemos EARL-BULL GANG SUPERVISOR Primary Care Provider + Reason for Visit * Reason Comments Refill Request Encounter Details Date Type Department Care Team (Late st Contact Info) Description 04/05/2024 Refill [facility] - Rheumatology [address] [place] [phone] Jeremy Guy MD [address] [place] [address] 2L [place] [phone] Refill Request Social History Tobacco [...] st Contact Info) Description 07/27/2024 3:00 PM ANTHROPOLOGIST Office Visit [facility] - Rheumatology [address] [place] [address] [phone] Jeremy Guy MD [address] [place] [address] 2L [place] [phone] 09/28/2024 3:00 PM CDT Office Visit [facility] - Rheumatology [address] [place] [address], [place] [phone] Jeremy Guy MD [address] [place] [address] [place] [phone] documented as of this encounter Visit Diagnoses Diagnosis Psoriatic arthritis (HCC) Psoriatic arthropathy documented in this encounter Care Teams Gas Scrubber Operator Relationship Specialty Start Date End Date Anika Lemos, FISHER SPEAR-BULL GANG SUPERVISOR [facility] [place] [address] PCP - General Nurse Practitioner 07/08/23 documented as of this encounter
--- OUTSIDE RECORDS SUMMARY | 2024-07-27 11:48 | XMS_ITS | Referral Summary ---
Author Organization [facility] Address [address] [facility] [place] [address] Care Team Providers Care Fryer Operator Name Role Phone Anika Lemos Yung ELLIOTT-PREFORM MACHINE OPERATOR Primary Care Provider + Source Comments [facility],non-owned Affiliates and Associated Physician Practices is amultiple site organization consisting of ambulatory clinics and hospital sitesin [place], [place], [place] and [place]. This disclosure is being madepursuant to the Care Everywhere program and may not contain all information available regarding this patient. Last updated 18.[facility] Encounters Date Type Department Care Team Description 07/22/2024 Orders Only [facility] - Rheumatology [address] [place] [phone] Jeremy Guy MD 07/22/2024 Telephone [facility] - Rheumatology [address] [place] [phone] Jeremy Guy MD Pain 06/29/2024 Travel 06/29/2024 3:40 PM BUSINESS PARTNER Office Visit [facility] - Rheumatology [address] [place] [phone] Jeremy Guy MD Psoriatic arthritis (HCC) (Primary Dx); Therapeutic drug monitoring 06/25/2024 Orders Only [facility] - Rheumatology [address] [place] [phone] Jeremy Guy MD Therapeutic drug monitoring from [...] mg intrauterine device Active Cholecalciferol 250 MCG (38895 UT) TABS Take 1 (one) tablet by [...] Comments Blood Pressure 127/89 06/29/2024 3:50 PM BUSINESS PARTNER Pulse 105 06/29/2024 3:50 PM BUSINESS PARTNER Temperature 36.3 ??C (97.3 ??F) 06/29/2024 3:50 PM CS T Respiratory Rate - - Oxygen Saturation 97% 03/30/2024 3:07 PM CDT Inhaled Oxygen Concentration - - Weight 102.9 kg (226 lb 12.8 oz) 06/29/2024 3:50 PM BUSINESS PARTNER Height 165.1 cm (5' 5 ) 06/29/2024 3:50 PM BUSINESS PARTNER Body Mass Index 37.74 06/29/2024 3:50 PM BUSINESS PARTNER Plan of Treatment Upcoming Encounters Date Type Department Care Team (Late st Contact Info) Description 07/27/2024 3:00 PM BUSINESS PARTNER [facility] [address] [place] [phone] Jeremy Guy MD [address] [place] [phone] 09/28/2024 3:00 PM CDT Office Visit [facility] - Rheumatology [address] [place] [phone] Jeremy Guy MD [address] [place] [address] [address] [place] [phone] Procedures Procedure Name Priority Date/Time Associated Diagnosis Comments COMPREHENSIVE METABOLIC PANEL 08/30/2023 11:32 AM BUSINESS PARTNER HEPATITIS C ANTIBODY Routine 08/30/2023 11:30 AM BUSINESS PARTNER Polyarthritis from Last 3 Months or Most Recently Relevant to Health Maintenance Results * COMPREHENSIVE METABOLIC PANEL (08/30/2023 11:32 AM BUSINESS PARTNER) Pathologist [facility] Glucose 87 70 - 99 mg/dL [facility] [...] [facility] INSURANCE BILL 08/30/2023 11:3 2 AM BUSINESS PARTNER 08/30/2023 Narrative Resulting Agency Comment [facility]: [facility] [address] [facility] ??[facility] [phone] Jeremy Guy MD LAB - CHEMISTRY LUZ ROLDAN [facility] INSURANCE BILL [address] [place] [address] * HEPATITIS C ANTIBODY (08/30/2023 11:30 AM [facility]) Hepatitis C Antibody Non Reactive Non Reactive [facility] INSURANCE BILL Comment: HCV antibody alone does not differentiate between previously resolved infection and active infection. Equivocal and Reactive HCV antibody results should be followed up with an HCV RNA test to support the diagnosis of active HCV infection. Blood BLOOD SPECIMEN / Unknown 08/30/2023 11:30 AM BUSINESS PARTNER 08/30/2023 Narrative Resulting Agency Comment Lab Testing performed at: [facility] [id number] [facility] ??[facility] [id number] Jeremy Guy MD LAB - CHEMISTRY LUZ ROLDAN [facility] INSURANCE BILL [address] [place] [address] from Last 3 Months or Most Recently Relevant to Health Maintenance Care Teams Fryer Operator Relationship Specialty Start Date End Date Anika Lemos, [place]-PREFORM MACHINE OPERATOR [address] [place] [address] PCP - General Nurse Practitioner 07/08/23
--- OUTSIDE RECORDS SUMMARY | 2024-07-27 11:48 | XMS_ITS | Clinical Summary ---
Author Organization [facility] [employer] Address [address] [facility] [place] [address] Care Team Providers Care Paper Finisher Name Role Phone Otilioclari Anika Yung ELLIOTT-CONTACT LENS CUTTER Primary Care Provider + Source Comments [facility],non-owned Affiliates and Associated Physician Practices is amultiple site organization consisting of ambulatory clinics and hospital sitesin [place], [place], [place] and [place]. This disclosure is being madepursuant to the Care Everywhere program and may not contain all information available regarding this patient. Last updated 18.[facility] [employer] Allergies Active Allergy Reactions Criticality Noted Date [...] mg intrauterine device Active Cholecalciferol 250 MCG (51083 UT) TABS Take 1 (one) tablet by [...] Orders Only [facility] - Rheumatology [address] [place] [phone] Jeremy Guy MD 07/22/2024 Telephone [facility] Rheumatology [address] [place] [phone] Jeremy Guy MD Pain 06/29/2024 3:40 PM PASTRYCOOK Office Visit [facility] - Rheumatology [address] [place] [phone] Jeremy Guy MD Psoriatic arthritis (HCC) (Primary Dx); Therapeutic drug monitoring 06/29/2024 Travel 06/25/2024 Orders Only [facility] - Rheumatology [address] [place] [phone] Jeremy Guy MD Therapeutic drug monitoring from [...] Comments Blood Pressure 127/89 06/29/2024 3:50 PM PASTRYCOOK Pulse 105 06/29/2024 3:50 PM PASTRYCOOK Temperature 36.3 ??C (97.3 ??F) 06/29/2024 3:50 PM CS T Respiratory Rate - - Oxygen Saturation 97% 03/30/2024 3:07 PM CDT Inhaled Oxygen Concentration - - Weight 102.9 kg (226 lb 12.8 oz) 06/29/2024 3:50 PM PASTRYCOOK Height 165.1 cm (5' 5 ) 06/29/2024 3:50 PM PASTRYCOOK Body Mass Index 37.74 06/29/2024 3:50 PM PASTRYCOOK Plan of Treatment Upcoming Encounters Date Type Department Care Team (Late st Contact Info) Description 07/27/2024 3:00 PM PASTRYCOOK Office Visit [facility] - Rheumatology [address] [place] [phone] Jeremy Guy MD [address] [place] [address] [address] [phone] 09/28/2024 3:00 PM CDT Office Visit [facility] - Rheumatology [address] [place] [phone] Jeremy Guy MD [address] [place] [address] [address] [phone] Health Maintenance Due Date Last Done Comments [...] Comments COMPREHENSIVE METABOLIC PANEL 08/30/2023 11:32 AM PASTRYCOOK HEPATITIS C ANTIBODY Routine 08/30/2023 11:30 AM PASTRYCOOK Polyarthritis from Last 3 Months or Most Recently Relevant to Health Maintenance Results * COMPREHENSIVE METABOLIC PANEL (08/30/2023 11:32 AM PASTRYCOOK) Glucose 87 70 - 99 mg/dL [facility] [...] [facility] INSURANCE BILL 08/30/2023 11:3 2 AM PASTRYCOOK 08/30/2023 Narrative Resulting Agency Comment Lab Testing performed at: [facility] ??[facility] [phone] Jeremy Guy MD LAB - CHEMISTRY LUZ ROLDAN [facility] INSURANCE BILL [address] [place] [address] * HEPATITIS C ANTIBODY (08/30/2023 11:30 AM PASTRYCOOK) Hepatitis C Antibody Non Reactive Non Reactive [facility] INSURANCE BILL Comment: HCV antibody alone does not differentiate between previously resolved infection and active infection. Equivocal and Reactive HCV antibody results should be followed up with an HCV RNA test to support the diagnosis of active HCV infection. Blood BLOOD SPECIMEN / Unknown 08/30/2023 11:30 AM PASTRYCOOK 08/30/2023 Narrative Resulting Agency Comment Lab Testing performed at: [facility] ??[facility] [id number] Jeremy Guy MD LAB - CHEMISTRY LUZ ROLDAN [facility] INSURANCE BILL [address] [place] [address] from Last 3 Months or Most Recently Relevant to Health Maintenance Care Teams Paper Finisher Relationship Specialty Start Date End Date Anika Lemos, HOTEL RECEPTIONIST-CONTACT LENS CUTTER [address] [place] [address] PCP - General Nurse Practitioner 07/08/23
--- OUTSIDE RECORDS SUMMARY | 2024-07-27 11:48 | XMS_ITS | Encounter Summary ---
Author Organization [facility] Address [address] [place] [address] Care Team Providers Care Intermission Coordinator Name Role Phone Anika Lemos Yung ELLIOTT-PEDIATRIC RN Primary Care Provider + Reason for Visit * Reason Onset Date Comments Medication Management 11/05/2023 Humira Encounter Details Date Type Department Care Team (Late st Contact Info) Description 11/05/2023 Refill [facility] - Rheumatology [address] [place] [address], [place] [address] Jeremy Guy MD [address] [place] [address] [place] [address] Medication Management (Humira) Social History [...] Fuchs, PharmD - 11/05/2023 5:22 PM CDT [facility] has received specialty prescription order (Humira) for this patient. Our pharmacy is unable to fill the prescription due to insurance restrictions. Prescription(s) have been pended back to prescriber to be resent to correct pharmacy- ([facility]). Thank you for the opportunity to participate in this patient's care. PA Status: Prior Authorization Approved Nathan Fuchs PharmD [facility]- documented in this encounter Plan of Treatment Upcoming Encounters Date Type Department Care Team (Late st Contact Info) Description 07/27/2024 3:00 PM HOT DIE PRESS OPERATOR Office Visit [facility] [address] [place] [address], [place] [address] Jeremy Guy MD [address] [place] [address] 2L [place] [phone] 09/28/2024 3:00 PM CDT Office Visit [facility] - Rheumatology [address] [place] [address], [place] [address] Jeremy Guy MD [address] [place] [address] 2L [place] [phone] documented as of this encounter Visit Diagnoses Diagnosis Psoriatic arthritis (HCC) Psoriatic arthropathy documented in this encounter Care Teams Intermission Coordinator Relationship Specialty Start Date End Date Anika Lemos APRN-LAVINIA [address] [place] [address] PCP - General Nurse Practitioner 07/08/23 documented as of this encounter
--- OUTSIDE RECORDS SUMMARY | 2024-07-27 11:48 | XMS_ITS | Encounter Summary ---
Author Organization [facility] Address [address] [facility] [place] [address] Care Team Providers Care Electrical & Instrumentation Supervisor Name Role Phone Anika Lemos Yung ELLIOTT-STOCK CHASER Primary Care Provider + Encounter Details Date [...] (Late Contact Info) Description 07/27/2024 3:00 PM RADIOLOGICAL METALLURGIST Office Visit [facility] - Rheumatology [address] [place] [phone] Jeremy Guy MD [address] [place] [address] 2L [place] [phone] 09/28/2024 3:00 PM CDT Office Visit [facility]ology [address] [place] [phone] Jeremy Guy MD [address] [place] [address] 2L [place] [phone] documented as of this encounter Visit Diagnoses Not on filedocumented in this encounter Care Teams Electrical & Instrumentation Supervisor Relationship Specialty Start Date End Date Anika Lemos, ACCOUNT OFFICER-STOCK CHASER [address] [facility] [address] [place] [address] [place] [address] PCP - General Nurse Practitioner 07/08/23 documented as of this encounter
--- OUTSIDE RECORDS SUMMARY | 2024-07-27 11:48 | XMS_ITS | Encounter Summary ---
Author Organization [facility] Address [address] [place] [address] Care Team Providers Care Treating Plant Pumper Name Role Phone Anika Lemos Yung ELLIOTT-NET APPLICATION SUPPORT SPECIALIST Primary Care Provider + Reason for Visit * Reason Comments Psoriatic Arthritis Encounter Details Date Type Department Care Team (Latest Contact Info) Description 11/04/2023 3:40 PM CDT Office Visit [facility] - Rheumatology [address] [place] [address], [place] [address] Jeremy Guy MD [address] [place] [address] [place] [address] Psoriatic arthritis (HCC) (Primary Dx); [...] and Humira I recommend annual influenza vaccine, [id number], Prevnar, Pneumovax, Shingrix. Avoid live vaccines. Patient [...] Division of Rheumatology Department of Internal Medicine [facility] ICD-10-CM 1. Psoriatic arthritis (HCC) L40.50 2. Therapeutic drug monitoring Z51.81 3. 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 Encounter for counseling regarding contraception Z30.09 Orders Placed This Encounter ??? methotrexate 2.5 MG tablet ??? adalimumab (Humira, 2 Pen,) 40 MG/0.4ML injection Future Appointments Date Time Provider Department Center 12/30/2023 3:40 PM Jeremy Guy MD [id number] Subjective History of Present Illness: still has left index DIP swelling and not able to completely flex the finger though proximal fingerswelling has improved. no other joints pain reported today. Disease Hx: 10/10 she woke up with left knee swelling(she thought she twisted it) s/p knee aspiration by Ortho showing WBCs ~90793 and negative for infectious and crystals. Knee [...] Disp: , Rfl: ??? Cholecalciferol 250 MCG (48134 UT) TABS, Take 1 (one) tablet by [...] 5 ) Wt 102.1 kg (225 lb) ZyX788% BMI 37.44 kg/m?? GENERAL: not in acute [...] results found for: PROTEINTO , CREATININEUR , QBCOJHIFS0QO No results for input(s): HCGURINE , HCGQUANT in the last 71518 hours. Latent Infections No results found for: HEPBSAG , HBVSAB , HEPBSAB , HEPBCAB , HEPCAB No results found for: QUANTIFER , QNTTBGOLD , QNTPLUSTB1 , QNTPLUSTB2 , QNTMITOGEN , QUANTIFERO , QUANTIFECI , QUANTIF , QUANNIL , QUAMIT , QFTTBAGN , HYZPUZDWB85 , AFBSMR Immunology Labs Inflammatory Markers Recent [...] , SMITHRNPAB , SCL70 , ANTICENTROB , TG9KOJFV , ABWND084HH , HPNEADN6CG , HISTONEIGG No results for input(s): C3 , C4 in the last 51418 hours. APLS-related Auto-Ab's No results found for: C7KWEQNBLB , H9QLPOTLSS , T7RROAUVZB , QFDG9NCP , LTHU0XYA , CRDLPNIGM , CRDLPNIGG , CRDLPNIGA , DILUTEPT , DPTCFMRATIO , TT , PTTLA , DRVVTBASE , LABINTE Myopathy No results found for: CK , ALDOLASE , SAE1AB , NXP2AB , MDA5AB , CCB4IWI , MYOINTERP , MI2AB , P969230 , PL12AB , PL7AB , OJAB , EJAB , SRPAB , SA3VMUQG , KUAB , SMITHRNPAB , ORRTJ010EQ , USW06BY , PIA67IM , VEYUZGHE1UYJ , ACHBLOCKAB , ACHBINDAB Vasculitis and ANCAs No results found for: NEUTCYTOAB , ANTIPROT3 , ANTIMPO , C4ZJLAR Genetics Lab Results Component Value Date/Time HLAB27 [...] , TSH , T4FREE in the last 33819 hours. No results found for: SGSD61ZR Heme No results found for: RETICCTPCT , RETICULOCYTE , IRON , FERRITIN , TRANSFERRIN , TRANSFERRSAT , TIBC , FIBRINOGEN , DDIMER , VITB12 , FOLATE , HAPTOGLOBIN , LDHTOTAL No results for input(s): PT , INR , PTT in the last 01708 hours. Renal No results found for: CALCIUMION , PHBLD , IONCAART , MAGNESIUM , PHOS , SODIUMRAN , POTASSIUMUR , CHLORIDER Cardiac & Lipids No results for input(s): TROPONINI , CKMB , BNP in the last 73435 hours. No results for input(s): CHOL , TRIG , HDL , LDLCALC , LDLDIRECT in the last 92417 hours. Respiratory No results found for: SARSCOV2 , RINFLUANAA , RINFLUBNAA , INFLUARAPID , INFLUBRAPID , INFLUCNTRL , STREPARAPID , STREPAQC Hepatobiliary & GI No results found for: GGT , LIPASE , P6NHCXFEMZQO , CMVPCR , CMVSOURCE , GDHANTIGEN , [...] results found for: GLUCSF , PROTEINCSF , MGT3OWCNAJ , SWE3VXPZWA , HWTU7VPU , COCCIDIGG , YTV3KRD , CRYPTOAGCSF , ENTEROVIRPCR , OLIGOBAND , OLIGOBANDNUM , IGG , QVX4WFY , ALBUMINMS , GYTFZGI2RCO , ALBUMININDEX , IGGINDEX , IGGALBRATIO , SYNTHESRTE , OLIGOCINTRP , TOXOPLASIGG , CYSTICERO Body Fluid No results found for: LABLD , GROSSDESCRIP , MICROPDESCR STIs (HIV, GC, Trich, Syphilis) No results found for: HIV12 , PYO1HHFTSN , YDA4MRN64GVB , CHLAMDIA , CHLTRNAA , GC , NGONORRNAA , TRICVAGAP , TRICHVAGBY , TPALLIDUM Cultures & Other Micro No results found for: URINECULT , BLOODCULT , BDERMAGUR , BDERMINTERP For assessment and recommendations, please see above. This note was generated using the Flutter speech recognition system. Grammatical errors, random wordinsertions, [...] st Contact Info) Description 07/27/2024 3:00 PM DECK MECHANIC Office Visit [facility] - Rheumatology [address] [place] [phone] Jeremy Guy MD [address] [place] [address] [place] [address] 09/28/2024 3:00 PM CDT Office Visit [facility], [place] [phone] Jeremy Guy MD [address] [place] [address] [place] [phone] documented as of this encounter Visit Diagnoses Diagnosis Psoriatic arthritis (HCC)- Primary Psoriatic arthropathy Therapeutic drug monitoring Encounter for therapeutic drug monitoring Immunosuppression due to drug therapy (HCC) Encounter for counseling regarding contraception documented in this encounter Care Teams Treating Plant Pumper Relationship Specialty Start Date End Date Anika Lemos, FACULTY CRIMINAL JUSTICE-NET APPLICATION SUPPORT SPECIALIST [address] [facility] [address] PCP - General Nurse Practitioner 07/08/23 documented as of this encounter
--- OUTSIDE RECORDS SUMMARY | 2024-07-27 11:48 | XMS_ITS | Encounter Summary ---
Author Organization [facility] Address [address] [place] [address] Care Team Providers Care Supervisor Furnace Process Name Role Phone Anika Lemos Yung ELLIOTT-APPEALS REVIEWER VETERAN Primary Care Provider + Reason for Visit * Reason Onset Date Comments Medication Reaction 02/02/2024 Encounter Details Date Type Department Care Team (Late st Contact Info) Description 02/02/2024 Telephone [facility] Rhe[facility]ology [address] [place] [address], [facility] [place] [address] Jeremy Guy MD [address] [place] [address] [place] [address] Medication Reaction Social History Tobacco [...] a few hours. Please advise, pt callback: [phone] documented in this encounter Plan of Treatment Upcoming Encounters Date Type Department Care Team (Late st Contact Info) Description 07/27/2024 3:00 PM BUSINESS LINE MANAGER Office Visit [facility] Rheumatology [address] [place] [address], [place] [phone] Jeremy Guy MD [address] [place] [address] 2L [place] [phone] 09/28/2024 3:00 PM CDT Office Visit [facility] - Rheumatology [address] [place] [address], [place] [phone] Jeremy Guy MD [address] [place] [address] 2L [place] [phone] documented as of this encounter Visit Diagnoses Not on filedocumented in this encounter Care Teams Supervisor Furnace Process Relationship Specialty Start Date End Date Anika Lemos, JUKEBOX CHECKER-APPEALS REVIEWER VETERAN [address] [facility] [place] [address] PCP - General Nurse Practitioner 07/08/23 documented as of this encounter
--- OUTSIDE RECORDS SUMMARY | 2024-07-27 11:48 | XMS_ITS | Encounter Summary ---
Author Organization [facility] Address [address] [facility] [place] [address] Care Team Providers Care Hull Line Crew Member Name Role Phone Anika Lemos REAL ESTATE ASSOCIATE-LAMP SHADE JOINER Primary Care Provider + Encounter Details Date [...] st Contact Info) Description 07/27/2024 3:00 PM PLY SPLICER Office Visit [facility] - Rheumatology [address] [place] [phone] Jeremy Guy MD [address] [place] [address] 2L [place] [phone] 09/28/2024 3:00 PM CDT Office Visit [facility] Rheumatology [address] [place] [phone] Jeremy Guy MD [address] [place] [address] 2L [place] [phone] documented as of this encounter Visit Diagnoses Not on filedocumented in this encounter Care Teams Hull Line Crew Member Relationship Specialty Start Date End Date Anika Lemos, REAL ESTATE ASSOCIATE-LAMP SHADE JOINER [address] [facility] [place] [address] PCP - General Nurse Practitioner 07/08/23 documented as of this encounter
--- OUTSIDE RECORDS SUMMARY | 2024-07-27 11:48 | XMS_ITS | Encounter Summary ---
Author Organization [facility] Address [address] [facility] [place] [address] Care Team Providers Care Machine Feeder Raw Stock Name Role Phone Anika Lemos Yung ELLIOTT-MEDICAL CLERK Primary Care Provider + Reason for Visit * Reason Comments Follow-up 3 MONTH F/U Encounter Details Date Type Department Care Team (Late st Contact Info) Description 06/29/2024 3:40 PM TELEVISION MAINTENANCE MAN Office Visit [facility] - Rheumatology [address] [place] [address], [facility] [place] [address] Jeremy Guy MD [address] [place] [address] [place] [address] Psoriatic arthritis (HCC) (Primary Dx); [...] Comments Blood Pressure 127/89 06/29/2024 3:50 PM TELEVISION MAINTENANCE MAN Pulse 105 06/29/2024 3:50 PM TELEVISION MAINTENANCE MAN Temperature 36.3 ??C (97.3 ??F) 06/29/2024 3:50 PM CS T Respiratory Rate - - Oxygen Saturation - - Inhaled Oxygen Concentration - - Weight 102.9 kg (226 lb 12.8 oz) 06/29/2024 3:50 PM TELEVISION MAINTENANCE MAN Height 165.1 cm (5' 5 ) 06/29/2024 3:50 PM TELEVISION MAINTENANCE MAN Body Mass Index 37.74 06/29/2024 3:50 PM TELEVISION MAINTENANCE MAN documented in this encounter Progress Notes * [...] Division of Rheumatology Department of Internal Medicine [facility] ICD-10-CM 1. Psoriatic arthritis (HCC) L40.50 2. Therapeutic drug monitoring Z51.81 Z79.899 No orders of the defined types were placed in this encounter. Future Appointments Date Time Provider Department Center 09/28/2024 3:00 PM Jeremy Guy MD [id number] [facility] Subjective History of Present Illness: She [...] s/p knee aspiration by Ortho showing WBCs ~93333 and negative for infectious and crystals. Knee [...] Allergies, Disp: , Rfl: Cholecalciferol 250 MCG (37457 UT) TABS, Take 1 (one) tablet by [...] results found for: PROTEINTO , CREATININEUR , JATJGAQUP4OK No results for input(s): HCGURINE , HCGQUANT in the last 81860 hours. Latent Infections No results found for: HEPBSAG , HBVSAB , HEPBSAB , HEPBCAB , HEPCAB No results found for: QUANTIFER , QNTTBGOLD , QNTPLUSTB1 , QNTPLUSTB2 , QNTMITOGEN , QUANTIFERO , QUANTIFECI , QUANTIF , QUANNIL , QUAMIT , QFTTBAGN , FVLTWZCVQ84 , AFBSMR Immunology Labs Inflammatory Markers Recent [...] , SMITHRNPAB , SCL70 , ANTICENTROB , KS1LBSYZ , QKQLE133LL , FGORDEZ3WE , HISTONEIGG No results for input(s): C3 , C4 in the last 94637 hours. APLS-related Auto-Ab's No results found for: M3DZDNTLLF , N1PUKWMPCS , E4FOHICEDR , QGJZ2TRP , RCLJ5APM , CRDLPNIGM , CRDLPNIGG , CRDLPNIGA , DILUTEPT , DPTCFMRATIO , TT , PTTLA , DRVVTBASE , LABINTE Myopathy No results found for: CK , ALDOLASE , SAE1AB , NXP2AB , MDA5AB , PXA3CMV , MYOINTERP , MI2AB , V731426 , PL12AB , PL7AB , OJAB , EJAB , SRPAB , RL4BPNTE , KUAB , SMITHRNPAB , UCARM586TM , QRD94YS , OYR27HX , KMZEQOEK4KHI , ACHBLOCKAB , ACHBINDAB Vasculitis and ANCAs No results found for: NEUTCYTOAB , ANTIPROT3 , ANTIMPO , C9NFOTZ Genetics Lab Results Component Value Date/Time HLAB27 [...] , TSH , T4FREE in the last 35974 hours. No results found for: GSIC53YV Heme No results found for: RETICCTPCT , RETICULOCYTE , IRON , FERRITIN , TRANSFERRIN , TRANSFERRSAT , TIBC , FIBRINOGEN , DDIMER , VITB12 , FOLATE , HAPTOGLOBIN , LDHTOTAL No results for input(s): PT , INR , PTT in the last 92001 hours. Renal No results found for: CALCIUMION , PHBLD , IONCAART , MAGNESIUM , PHOS , SODIUMRAN , POTASSIUMUR , CHLORIDER Cardiac & Lipids No results for input(s): TROPONINI , CKMB , BNP in the last 57683 hours. No results for input(s): CHOL , TRIG , HDL , LDLCALC , LDLDIRECT in the last 54427 hours. Respiratory No results found for: SARSCOV2 , RINFLUANAA , RINFLUBNAA , INFLUARAPID , INFLUBRAPID , INFLUCNTRL , STREPARAPID , STREPAQC Hepatobiliary & GI No results found for: GGT , LIPASE , I5AEETCDFPMQ , CMVPCR , CMVSOURCE , GDHANTIGEN , [...] results found for: GLUCSF , PROTEINCSF , EAZ4XKNJCZ , LFH1UKLTJJ , HQXO1HUS , COCCIDIGG , IWW2DCQ , CRYPTOAGCSF , ENTEROVIRPCR , OLIGOBAND , OLIGOBANDNUM , IGG , MOZ5YEJ , ALBUMINMS , OWFKDUU8LIL , ALBUMININDEX , IGGINDEX , IGGALBRATIO , SYNTHESRTE , OLIGOCINTRP , TOXOPLASIGG , CYSTICERO Body Fluid No results found for: LABLD , GROSSDESCRIP , MICROPDESCR STIs (HIV, GC, Trich, Syphilis) No results found for: HIV12 , ZGP0THCOIK , CDK9RCS64PFI , CHLAMDIA , CHLTRNAA , GC , NGONORRNAA , TRICVAGAP , TRICHVAGBY , TPALLIDUM Cultures & Other Micro No results found for: URINECULT , BLOODCULT , BDERMAGUR , BDERMINTERP For assessment and recommendations, please see above. This note was generated using the BlikBook speech recognition system. Grammatical errors, random wordinsertions, [...] directlywith the author for clarification. Thank you. VISION MAINTENANCE MAN documented in this encounter Plan of Treatment Upcoming Encounters Date Type Department Care Team (Late st Contact Info) Description 07/27/2024 3:00 PM TELEVISION MAINTENANCE MAN Office Visit [facility] - Rheumatology [address] [place] [address], [place] [address] Jeremy Guy MD [address] [place] [address] 2L [place] [phone] 09/28/2024 3:00 PM CDT Office Visit [facility] - Rheumatology [address] [place] [phone] Jeremy Guy MD [address] [place] [address] 2[address] [place] [phone] documented as of this encounter Visit Diagnoses Diagnosis Psoriatic arthritis (HCC)- Primary Psoriatic arthropathy Therapeutic drug monitoring Encounter for therapeutic drug monitoring documented in this encounter Care Teams Machine Feeder Raw Stock Relationship Specialty Start Date End Date Anika Lemos, CLOSING MACHINE OPERATOR-MEDICAL CLERK [address] [facility] [place] [address] PCP - General Nurse Practitioner 07/08/23 documented as of this encounter
--- OUTSIDE RECORDS SUMMARY | 2024-07-27 11:49 | XMS_ITS | Encounter Summary ---
Author Organization [facility] Address [address] [place] [address] Care Team Providers Care Slide Fastener Repairer Name Role Phone Anika Lemos Yung ELLIOTT-CUSTOM PROTECTION OFFICER Primary Care Provider + Reason for Visit * Reason Comments Follow-up Polyarthritis Encounter Details Date Type Department Care Team (Latest Contact Info) Description 07/31/2023 3:20 PM ROOF DESIGNER Office Visit [facility] - Rheumatology [address] [place] [address], [place] [address] Jeremy Guy MD [address] [place] [address] [place] [address] Psoriatic arthritis (HCC) (Primary Dx); [...] Comments Blood Pressure 122/88 07/31/2023 3:28 PM ROOF DESIGNER Pulse 95 07/31/2023 3:28 PM ROOF DESIGNER Temperature 36.7 ??C (98 ??F) 07/31/2023 3:28 PM ROOF DESIGNER Respiratory Rate - - Oxygen Saturation - - Inhaled Oxygen Concentration - - Weight 104.2 kg (229 lb 12.8 oz) 07/31/2023 3:28 PM ROOF DESIGNER Height 167.6 cm (5' 6 ) 07/31/2023 3:28 PM ROOF DESIGNER Body Mass Index 37.09 07/31/2023 3:28 PM ROOF DESIGNER documented in this encounter Progress Notes * [...] with methotrexate I recommend annual influenza vaccine, QYIGQ01nyczals, Prevnar, Pneumovax, Shingrix. Avoid live vaccines. Patient [...] Division of Rheumatology Department of Internal Medicine [facility] ICD-10-CM 1. Psoriatic arthritis ([facility]) L40.50 2. Polyarthritis M13.0 3. Therapeutic drug monitoring Z51.81 4. 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 Encounter for counseling regarding [...] Center 11/04/2023 3:40 PM Jeremy Guy MD [id number] [facility] Subjective History of Present Illness: 10/10 she woke up with left knee swelling(she thought she twisted it) s/p knee aspiration by Ortho showing WBCs ~04366 and negative for infectious and crystals. Knee [...] Current Outpatient Medications: ??? Cholecalciferol 250 MCG (73571 UT) TABS, Take 1 (one) tablet by [...] results found for: PROTEINTO , CREATININEUR , ZCMCNKXPG8EC No results for input(s): HCGURINE , HCGQUANT in the last 69506 hours. Latent Infections No results found for: HEPBSAG , HBVSAB , HEPBSAB , HEPBCAB , HEPCAB No results found for: QUANTIFER , QNTTBGOLD , QNTPLUSTB1 , QNTPLUSTB2 , QNTMITOGEN , QUANTIFERO , QUANTIFECI , QUANTIF , QUANNIL , QUAMIT , QFTTBAGN , UFRXWYTDL42 , AFBSMR Immunology Labs Inflammatory Markers Recent [...] , SMITHRNPAB , SCL70 , ANTICENTROB , SF9KTMTG , LERMS330NF , VPHRWRY2CL , HISTONEIGG No results for input(s): C3 , C4 in the last 92224 hours. APLS-related Auto-Ab's No results found for: K4PLDZQCLF , N4WLNBISTC , F6FRCAONFX , DLNZ7QBK , WFED1AGL , CRDLPNIGM , CRDLPNIGG , CRDLPNIGA , DILUTEPT , DPTCFMRATIO , TT , PTTLA , DRVVTBASE , LABINTE Myopathy No results found for: CK , ALDOLASE , SAE1AB , NXP2AB , MDA5AB , RIJ9CXL , MYOINTERP , MI2AB , R758644 , PL12AB , PL7AB , OJAB , EJAB , SRPAB , NP2LCIYL , KUAB , SMITHRNPAB , VSLKY813SB , OAA57OV , GZI82GR , LHDLFTLH3GSG , ACHBLOCKAB , ACHBINDAB Vasculitis and ANCAs No results found for: NEUTCYTOAB , ANTIPROT3 , ANTIMPO , X8OKUGR Genetics No results found for: HLAB27 Gammopathy/Paraproteinemia No results found for: KAPPAFREE , LAMBDAFREE , KLFREERATIO , IGM , IGG , IGA No results found for: SPEINTERP , SERUMPEALB , SERUMPEA1 , SERUMPEA2 , SERUMPEBE , SERUMPEGA , PROT , LABIMMURE , CRYOGLOBQUAL Other Labs Endocrine & Metabolic No results for input(s): URICACID , HGBA1C , TSH , T4FREE in the last 35019 hours. No results found for: FNFD29JK Heme No results found for: RETICCTPCT , RETICULOCYTE , IRON , FERRITIN , TRANSFERRIN , TRANSFERRSAT , TIBC , FIBRINOGEN , DDIMER , VITB12 , FOLATE , HAPTOGLOBIN , LDHTOTAL No results for input(s): PT , INR , PTT in the last 61950 hours. Renal No results found for: CALCIUMION , PHBLD , IONCAART , MAGNESIUM , PHOS , SODIUMRAN , POTASSIUMUR , CHLORIDER Cardiac & Lipids No results for input(s): TROPONINI , CKMB , BNP in the last 80000 hours. No results for input(s): CHOL , TRIG , HDL , LDLCALC , LDLDIRECT in the last 71623 hours. Respiratory No results found for: SARSCOV2 , RINFLUANAA , RINFLUBNAA , INFLUARAPID , INFLUBRAPID , INFLUCNTRL , STREPARAPID , STREPAQC Hepatobiliary & GI No results found for: GGT , LIPASE , U4IPANHKRILJ , CMVPCR , CMVSOURCE , GDHANTIGEN , [...] results found for: GLUCSF , PROTEINCSF , FGC6ZMKMPX , TGO3DFSGTV , NULC3THO , COCCIDIGG , AAK5PQS , CRYPTOAGCSF , ENTEROVIRPCR , OLIGOBAND , OLIGOBANDNUM , IGG , HHK5MIS , ALBUMINMS , WOWPUQN3XWH , ALBUMININDEX , IGGINDEX , IGGALBRATIO , SYNTHESRTE , OLIGOCINTRP , TOXOPLASIGG , CYSTICERO Body Fluid No results found for: LABLD , GROSSDESCRIP , MICROPDESCR STIs (HIV, GC, Trich, Syphilis) No results found for: HIV12 , MFQ5GJBXVT , GAM4KZF80SQT , CHLAMDIA , CHLTRNAA , GC , NGONORRNAA , TRICVAGAP , TRICHVAGBY , TPALLIDUM Cultures & Other Micro No results found for: URINECULT , BLOODCULT , BDERMAGUR , BDERMINTERP For assessment and recommendations, please see above. This note was generated using the adSage speech recognition system. Grammatical errors, random wordinsertions, [...] directlywith the author for clarification. Thank you. DESIGNER documented in this encounter Plan of Treatment Upcoming Encounters Date Type Department Care Team (Late st Contact Info) Description 07/27/2024 3:00 PM ROOF DESIGNER Office Visit [facility] - Rheumatology [address] [place] [phone] Jeremy Guy MD [address] [place] [address] [address] [place] [address] 09/28/2024 3:00 PM CDT Office Visit [facility] - Rheumatology [address] [place] [address], [place] [address] Jeremy Guy MD [address] [place] [address] [address] [place] [address] Scheduled Orders Name Type Priority Associated Diagnoses [...] QUANTIFERON-TB GOLD PLUS 4-TUBE 08/30/2023 11:32 AM ROOF DESIGNER RHEUMATOID FACTOR BLOOD QUANTITATIVE 08/30/2023 11:32 AM ROOF DESIGNER C-REACTIVE PROTEIN Routine 08/30/2023 11 :32 AM ROOF DESIGNER Therapeutic drug monitoring ERYTHROCYTE SEDIMENTATION RATE 08/30/2023 11:32 AM ROOF DESIGNER CBC W AUTO DIFFERENTIAL Routine 08/30/2023 11:32 AM ROOF DESIGNER Therapeutic drug monitoring COMPREHENSIVE METABOLIC PANEL 08/30/2023 11:32 AM ROOF DESIGNER HEPATIC FUNCTION PANEL Routine 11:32 AM ROOF DESIGNER Therapeutic drug monitoring HEPATITIS B CORE ANTIBODY TOTAL 08/30/2023 11:32 AM ROOF DESIGNER HEPATITIS B SURFACE ANTIGEN W RFLX CONFIRMATION 08/30/2023 11:32 AM ROOF DESIGNER HLA TYPING B27 Routine 08/30/2023 11:31 AM ROOF DESIGNER Polyarthritis CYCLIC CITRUL PEPTIDE ANTIBODY IGG/IGA (CCP) Routine 08/30/2023 11:30 AM ROOF DESIGNER Polyarthritis HEPATITIS C ANTIBODY Routine 08/30/2023 11:30 AM ROOF DESIGNER Polyarthritis documented in this encounter Results * [...] Resulting Agency Comment Lab Testing performed at: [email or web address] [place] [address] [place], [place] [address]ox [facility] ??[facility] [phone] Jeremy Guy MD LAB - CHEMISTRY LUZ ROLDAN [facility] INSURANCE BILL [address] [place] [address] * C-REACTIVE PROTEIN (11/25/2023 8:56 AM CDT) Pathologist [facility] C-Reactive Protein 7 0 - 10 mg/L [facility] INSURANCE BILL Blood BLOOD SPECIMEN / Unknown 11/25/2023 8:56 AM CDT 11/25/2023 Narrative Resulting Agency Comment Lab Testing performed at: [facility] ??[facility] [phone] Jeremy Guy MD LAB - CHEMISTRY LUZ ROLDAN Performing Organization Address City/[facility]/ZIP Co de Phone Number [facility] INSURANCE BILL [address] [place] [address] * CBC WITH DIFFERENTIAL (11/25/2023 8:56 AM CDT) [facility] WBC 8.6 3.4 - 10.8 x10E3/uL [facility] [...] Resulting Agency Comment Lab Testing performed at: [address] ??[facility] [phone] Jeremy Guy MD LAB - HEMATOLOGY ORD ERABLES [facility] INSURANCE BILL [address] [place] [address] * QUANTIFERON-TB GOLD PLUS 4-TUBE (08/30/2023 11:32 AM ROOF DESIGNER) Pathologist [facility] QuantiFERON Criteria [facility] INSURANCE BILL Comment: QuantiFERON-TB [...] Chemiluminescence immunoassay methodology 08/30/2023 11:3 2 AM ROOF DESIGNER 08/30/2023 Narrative Resulting Agency Comment Lab Testing performed at: [facility] [place] [address] ??[facility] [phone] Jeremy Guy MD LAB - CHEMISTRY LUZ ROLDAN Performing Organization Address City/[facility]/ZIP Co de Phone Number [facility] INSURANCE BILL [address] [place] [address] * HEPATITIS B CORE ANTIBODY TOTAL (08/30/2023 11:32 AM ROOF DESIGNER) Hepatitis B Core Virus Antibody Total Negative Negative [facility] INSURANCE BILL 08/30/2023 11:3 2 AM ROOF DESIGNER 08/30/2023 Narrative Resulting Agency Comment Lab Testing performed at: [facility] [place] [address] Road ??[facility] [phone] Jeremy Guy MD LAB - CHEMISTRY LUZ ROLDAN [facility] INSURANCE BILL [address] [place] [address] * HEPATITIS B SURFACE ANTIGEN W RFLX CONFIRMATION (08/30/2023 11:32 AM ROOF DESIGNER) Hepatitis B Virus Surface Antigen Negative Negative [facility] INSURANCE BILL 08/30/2023 11:3 2 AM ROOF DESIGNER 08/30/2023 Narrative Resulting Agency Comment Lab Testing performed at: [email or web address] ??[facility] [phone] Jeremy Guy MD LAB - CHEMISTRY LUZ ROLDAN [facility] INSURANCE BILL [address] [place] [address] * RHEUMATOID FACTOR BLOOD QUANTITATIVE (08/30/2023 11:32 AM ROOF DESIGNER) Rheumatoid Factor <10.0 <14.0 IU/mL [facility] INSURANCE BILL 08/30/2023 11:3 2 AM ROOF DESIGNER 08/30/2023 Narrative Resulting Agency Comment Lab Testing performed at: [facility] ??[facility] [phone] Jeremy Guy MD LAB - CHEMISTRY LUZ ROLDAN Performing Organization Address City/[facility]/ZIP Co de Phone Number [facility] INSURANCE BILL [address] [place] [address] * COMPREHENSIVE METABOLIC PANEL (08/30/2023 11:32 AM ROOF DESIGNER) Glucose 87 70 - 99 mg/dL [facility] [...] [facility] INSURANCE BILL 08/30/2023 11:3 2 AM ROOF DESIGNER 08/30/2023 Narrative Resulting Agency Comment Lab Testing performed at: [facility] [address] ??[facility] [phone] Jeremy Guy MD LAB - CHEMISTRY ORDJuju ROLDAN [facility] INSURANCE BILL [address] [place] [address] * ERYTHROCYTE SEDIMENTATION RATE (08/30/2023 11:32 AM ROOF DESIGNER) Erythrocyte Sedimentation Rate Westergren 9 0 - 32 mm/hr [facility] INSURANCE BILL 08/30/2023 11:3 2 AM ROOF DESIGNER 08/30/2023 Narrative Resulting Agency Comment Lab Testing performed at: [facility] [address] ??[facility] [phone] Jeremy Guy MD LAB - HEMATOLOGY ORD ERABLES [facility] INSURANCE BILL [address] [place] [address] * HEPATIC FUNCTION PANEL (08/30/2023 11:32 AM ROOF DESIGNER) Bilirubin Direct 0.20 0.00 - 0.40 mg/dL [facility] INSURANCE BILL Blood BLOOD SPECIMEN / Unknown 08/30/2023 11:32 AM ROOF DESIGNER 08/30/2023 Narrative Resulting Agency Comment Lab Testing performed at: [facility] [address] ??[facility] [phone] Jeremy Guy MD LAB - CHEMISTRY ORDE RABMIGUEL [facility] INSURANCE BILL [address] [place] [address] * (ABNORMAL) C-REACTIVE PROTEIN (08/30/2023 11:32 AM ROOF DESIGNER) Pathologist [facility] C-Reactive Protein 17(H) 0 - 10 mg/L [facility] INSURANCE BILL Blood BLOOD SPECIMEN / Unknown 08/30/2023 11:32 AM ROOF DESIGNER 08/30/2023 Narrative Resulting Agency Comment Lab Testing performed at: [facility] [address] ??[facility] [phone] Jeremy Guy MD LAB - CHEMISTRY LUZ ROLDAN [facility] INSURANCE BILL [address] [place] [address] * CBC WITH DIFFERENTIAL (08/30/2023 11:32 AM ROOF DESIGNER) Pathologist [facility] WBC 10.6 3.4 - 10.8 x10E3/uL [facility] [...] BLOOD SPECIMEN / Unknown 08/30/2023 11:32 AM ROOF DESIGNER 08/30/2023 Narrative Resulting Agency Comment Lab Testing performed at: [facility] [address] [facility] ??[facility] [id number] Jeremy Guy MD LAB - HEMATOLOGY ORD TREASUREBLES Performing Organization Address [facility]/ZIP Co de Phone Number [facility] INSURANCE BILL [address] [place] [address] * HLA TYPING B27 (08/30/2023 11:31 AM ROOF DESIGNER) HLA-B27 Negative [facility] INSURANCE BILL Comment: HLA-B*27 Negative B27 allele interpretation for all loci based on IMGT/HLA database version 3.51.0 This test was developed and its performance characteristics determined by [facility]. ??It has not been cleared or approved by the Food and Drug Administration. [facility] Lab CLIA ID Number [id number] THis test was performed using Polymerase Chain Reaction (PCR) and Sequence Specific Oligonucleotide Probes (SSOP) technique. Sequence Based Typing (SBT) may be used as a supplemental method when necessary. If you have questions, please call HLA customer service at or email at [email or web address]. Blood BLOOD SPECIMEN / Unknown 08/30/2023 11:31 AM ROOF DESIGNER 08/30/2023 Narrative Resulting Agency Comment Lab Testing performed at: [address] ??[facility] [id number] Jeremy Guy MD LAB - CHEMISTRY ORDE RABLES [facility] INS[facility] B[facility] [address] [place] [address] * CYCLIC CITRUL PEPTIDE ANTIBODY IGG/IGA (CCP) (08/30/2023 11:30 AM ROOF DESIGNER) Pathologist [facility] CCP Antibodies IgG/IgA 8 0 - 19 units [facility] INSURANCE BILL Comment: ? Negative ? <20 ? Weak positive ?20 - 39 ? Moderate positive ??40 - 59 ? Strong positive ?>59 Blood BLOOD SPECIMEN / Unknown 08/30/2023 11:30 AM ROOF DESIGNER 08/30/2023 Narrative Resulting Agency Comment Lab Testing performed at: [address] ??[facility] [id number] Jeremy Guy MD LAB - SEROLOGY ORDER [facility] INSURANCE BILL [address] [place] [address] * HEPATITIS C ANTIBODY (08/30/2023 11:30 AM ROOF DESIGNER) Pathologist [facility] Hepatitis C Antibody Non Reactive Non Reactive [facility] INSURANCE BILL Comment: HCV antibody alone does not differentiate between previously resolved infection and active infection. Equivocal and Reactive HCV antibody results should be followed up with an HCV RNA test to support the diagnosis of active HCV infection. Blood BLOOD SPECIMEN / Unknown 08/30/2023 11:30 AM ROOF DESIGNER 08/30/2023 Narrative Resulting Agency Comment Lab Testing performed at: [facility] [address] ??[facility] [phone] Jeremy Guy MD LAB - CHEMISTRY LUZ ROLDAN [facility] INSURANCE BILL [address] [place] [address] documented in this encounter Visit Diagnoses Diagnosis Psoriatic arthritis (HCC)- Primary Psoriatic arthropathy Polyarthritis Unspecified polyarthropathy or polyarthritis, site unspecified Therapeutic drug monitoring Encounter for therapeutic drug monitoring Immunosuppression due to drug therapy (HCC) Encounter for counseling regarding contraception documented in this encounter Care Teams Slide Fastener Repairer Relationship Specialty Start Date End Date Anika Lemos, CORRECTIONAL OFFICER-CUSTOM PROTECTION OFFICER [address] [place] [address] PCP - General Nurse Practitioner 07/08/23 documented as of this encounter
--- OUTSIDE RECORDS SUMMARY | 2024-07-27 11:49 | XMS_ITS | Encounter Summary ---
Author Organization [facility] Address [address] [place] [address] Care Team Providers Care Yard Specialist Name Role Phone Anika Lemos EARL-MILK HAULER Primary Care Provider + Encounter Details Date Type Department Care Team ([facility] Contact Info) Description 10/17/2023 Orders Only [facility] - Rheumatology [address] [place] [phone] Jeremy Guy MD [address] [place] [address] [address]L [place] [address] Therapeutic drug monitoring Social History [...] Upcoming Encounters Date Type Department Care Team ([facility] Contact Info) Description 07/27/2024 3:00 PM HEADING UP MACHINE OPERATOR Office Visit [facility] - Rheumatology [address] [place] [phone] Jeremy Guy MD [address] [place] [address] 2L [place] [phone] 09/28/2024 3:00 PM CDT Office Visit [facility] - Rheumatology [address] [place] [address] [place] [address] Jeremy Guy MD [facility] [address]L [place] [address] documented as of this encounter Procedures Procedure [...] Agency Comment Lab Testing performed at: [facility] [address] [facility] ??[facility] [id number] Jeremy Guy MD LAB - CHEMISTRY LUZ ROLDAN [facility] INSURANCE BILL [address] [place] [address] * C-REACTIVE PROTEIN (11/25/2023 8:56 AM CDT) C-Reactive Protein 7 0 - 10 mg/L [facility] INSURANCE BILL Blood BLOOD SPECIMEN / Unknown 11/25/2023 8:56 AM CDT 11/25/2023 Narrative Resulting Agency Comment Lab Testing performed at: [facility] [address] [facility] ??[facility] [phone] Jeremy Guy MD LAB - CHEMISTRY LUZ ROLDAN [facility] INSURANCE BILL [address] [place] [address] * CBC WITH DIFFERENTIAL (11/25/2023 8:56 AM [...] Agency Comment Lab Testing performed at: [facility] [address] [facility] ??[facility] [phone] Jeremy Guy MD LAB - HEMATOLOGY ORD ERABLES [facility] INSURANCE BILL [address] [place] [address] documented in this encounter Visit Diagnoses Diagnosis Therapeutic drug monitoring Encounter for therapeutic drug monitoring documented in this encounter Care Teams Yard Specialist Relationship Specialty Start Date End Date Anika Lemos, TIMBER FELLER-MILK HAULER [address] [place] [address] PCP - General Nurse Practitioner 07/08/23 documented as of this encounter
--- OUTSIDE RECORDS SUMMARY | 2024-07-27 11:49 | XMS_ITS | Referral Summary ---
Author Organization [facility] Address [address] [place] [address] Care Team Providers Care Universal Banker Name Role Phone Anika Lemos NP Primary Care Provider [phone] Allergies Active Allergy Reactions Criticality Noted Date Comments Latex Hives Medium 10/04/2022 Penicillins Hives Medium 10/04/2022 Medications levonorgestreL (Mirena) IUD Mirena 21 mcg/24 hours (8 yrs) 52 mg intrauterine device Active ibuprofen (ADVIL,MOTRIN) 800 mg tabletIndicati ons:Pain Take 1 tablet (800 mg total) by mouth 3 (three) times a day 90 tablet 04/25/20 23 Active cholecalcifero l (VITAMIN D-3) 30128 unit tablet Active folic acid (FOLVITE) 1 [...] on file Legal Sex Female 10:34 AM BLOCK PILER Gender Identity Not on file Sexual Orientation [...] Treatment Not on file Insurance [employer]ANCE uBiome ACCESS OOS uBiome ACCESS OOS Care Teams Universal Banker Relationship Specialty Start Date End Date Aniak Lemos, ANTONELLA [address] [facility] [address] [place] [address] PCP - General Internal Medicine 10/28/22
--- OUTSIDE RECORDS SUMMARY | 2024-07-27 11:49 | XMS_ITS | Encounter Summary ---
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 [address] [place] [address] PCP - General Internal Medicine 10/28/22 documented as of this encounter
--- OUTSIDE RECORDS SUMMARY | 2024-07-27 11:49 | XMS_ITS | Clinical Summary ---
Author Organization [facility] Address [address] [place] [address] Care Team Providers Care Stone Dresser Name Role Phone Anika Lemos NP Primary Care Provider [phone] Allergies Active Allergy Reactions Criticality Noted Date Comments Latex Hives Medium 10/04/2022 Penicillins Hives Medium 10/04/2022 Medications levonorgestreL (Mirena) IUD Mirena 21 mcg/24 hours (8 yrs) 52 mg intrauterine device Active ibuprofen (ADVIL,MOTRIN) 800 mg tabletIndicati ons:Pain Take 1 tablet (800 mg total) by mouth 3 (three) times a day 90 tablet 04/25/20 23 Active cholecalcifero l (VITAMIN D-3) 19012 unit tablet Active folic acid (FOLVITE) 1 [...] on file 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
--- OUTSIDE RECORDS SUMMARY | 2024-07-27 11:49 | XMS_ITS | Encounter Summary ---
Author Organization [facility] Medical Group Address [address] [place] [address] Care Team Providers Care Business Account Executive Name Role Phone Anika Lemos NP Primary Care Provider [phone] Encounter Details Date Type Department Care Team (Late st Contact Info) Description 11/14/2022 Orders Only [facility] Medical [facility] Internal Medicine at [place] [address] [place] [address] Anika Lemos VP [employer] [address] [place], [place] [id number] Social History Tobacco Use Types Packs/Day Years [...] on file 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 ??If this is not [...] ??We have assigned Lipid Panel, Test Code #[id number] to this request. If this is not the testing you wished to receive on this specimen, please contact the [facility] Client Inquiry/Technical Services Department to clarify the test order. ??We appreciate your business. 11/14/2022 9:58 AM CDT 11/14/2022 Narrative [facility] - 11/15/2022 7:38 AM CDT Performed at: ??01 - [facility] [address] ??[id number] Welder Apprentice: Casper Huddleston PhD, Phone: ??[phone] Anika Lemos VP [employer] LAB BLOOD ORDERABLES Final Re sult Performing Organization Address [facility] de Phone Number [facility] - * (ABNORMAL) Vitamin D 25 hydroxy (11/14/2022 9:58 AM CDT) Vitamin D, 25-Hydroxy 14.2(L) 30.0 - 100.0 ng/mL [facility] - Comment: Vitamin D deficiency has been defined by the [place] [employer] and an Endocrine Society practice guideline as a level of serum 25-OH vitamin D less than 20 ng/mL (1,2). The Endocrine Society went on to further define vitamin D insufficiency as a level between 21 and 29 ng/mL (2). 1. IOM ([place] [employer]). 2010. Dietary reference ?? intakes [...] AM CDT Performed at: ?? - [facility] [address] ??[id number] Welder Apprentice: Casper Huddleston PhD, Phone: ??[phone] Anika Lemos VP [employer] LAB BLOOD ORDERABLES Final Re sult Performing Organization Address [facility] Co de Phone Number [facility] - * Rheumatoid factor (11/14/2022 9:58 AM CDT) RA Latex Turbid. <10.0 <14.0 IU/mL [facility] - 01 11/14/2022 9:58 AM CDT 11/14/2022 Narrative [facility] - 11/15/2022 7:38 AM CDT Performed at: ??01 - [facility] ??[id number] Welder Apprentice: Casper Huddleston PhD, Phone: ??[phone] Anika Lemos VP [employer] LAB BLOOD ORDERABLES Final Re sult Performing Organization Address [facility] de Phone Number [facility] - 01 * TSH (11/14/2022 9:58 AM CDT) Pathologist [facility] TSH 2.060 0.450 - 4.500 uIU/mL [facility] - 01 11/14/2022 9:58 AM CDT 11/14/2022 Narrative [facility] - 11/15/2022 7:38 AM CDT Performed at: ??01 - [facility] ??[id number] Welder Apprentice: Casper Huddleston PhD, Phone: ??[phone] Anika Lemos NP LAB BLOOD ORDERABLES Final Re sult Performing Organization Address [facility] de Phone Number [facility] - 01 * Hemoglobin A1c (11/14/2022 9:58 AM CDT) Hgb A1C 5.4 4.8 - 5.6 % [facility] - 01 Comment: ? Prediabetes: 5.7 - 6.4 ? Diabetes: >6.4 ? Glycemic control for adults with diabetes: <7.0 11/14/2022 9:58 AM CDT 11/14/2022 Narrative [facility] - 11/15/2022 7:38 AM CDT Performed at: ??01 - [facility] [address] ??[id number] Welder Apprentice: Casper Huddleston PhD, Phone: ??[phone] Anika Lemos VP [employer] LAB BLOOD ORDERABLES Final Re sult Performing Organization Address [facility] de Phone Number [facility] - * [...] AM CDT Performed at: ??01 - [facility] [address] ??[id number] Welder Apprentice: Casper Huddleston PhD, Phone: ??[phone] Anika Lemos VP [employer] LAB BLOOD ORDERABLES Final Re sult Performing Organization Address [facility] Phone Number [facility] - * (ABNORMAL) [...] 7:38 AM CDT Performed at: ?? - [facility] ??[id number] Welder Apprentice: Casper Huddleston PhD, Phone: ??[phone] us Anika Lemos NP LAB BLOOD ORDERABLES [...] have assigned CBC with Differential/Platelet, Test Code #[id number] to this request. If this is not the testing you wished to receive on this specimen, please [facility] the [facility] to clarify the test order. We appreciate your business. 11/14/2022 9:58 AM CDT 11/14/2022 Narrative [facility] - 11/15/2022 7:38 AM CDT Performed at: ?? - [facility] [address] ??[id number] Welder Apprentice: Casper Huddleston PhD, Phone: ??[phone] us Anika Lemos NP LAB BLOOD ORDERABLES Final Re sult [facility] - documented in this encounter Visit Diagnoses Not on filedocumented in this encounter Care Teams Business Account Executive Relationship Specialty Start Date End Date Anika Lemos, ANTONELLA [address] [place] [address] PCP - General Internal Medicine 10/28/22 documented as of this encounter
--- OUTSIDE RECORDS SUMMARY | 2024-07-27 11:49 | XMS_ITS | Encounter Summary ---
Author Organization [facility] Healthcare Address [address] [place] [address] Care Team Providers Care Hoist Worker Name Role Phone Anika Lemos NP Primary Care Provider [phone] Reason for Referral * Diagnostic Imaging (Routine) - Closed Specialty Diagnoses / Procedures Referred By Contac t Referred To Contact Diagnoses Breast cancer screening by mammogram Procedures Screening Mammogram Bilateral W Saud Anika Lemos NP [address] [place] [address] Phone: tel: fax: Unknown Place of Service fax: Referral ID Status Reason Start Date Expiration Date Visits Re quested Visits Authorized [id number] Closed 05/21/2023 06/19/2024 1 1 Reason for Visit * Reason Comments Follow-up Follow up on Vit D Encounter Details Date Type Department Care Team (Late st Contact Info) Description 05/21/2023 8:30 AM CDT Office Visit [facility] Internal Medicine at [place] [address] [place] [phone] Anika Lemos NP [address] [place], [place] [phone] Vitamin D deficiency (Primary Dx); BMI 37.0-37.9, [...] on file 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 She sees Rheumatology in June for her [...] D deficiency has been defined by the [place] of [employer] and an Endocrine Society practice guideline as a level of serum 25-OH vitamin D less than 20 ng/mL (1,2). The Endocrine Society went on to further define vitamin D insufficiency as a level between 21 and 29 ng/mL (2). 1. IOM ([place] [employer]). 2010. Dietary reference ?? intakes [...] AM CDT Performed at: ??01 - [facility] [address] ??[id number] Marketing Assistant Retail Division: Casper Huddleston PhD, Phone: ??[phone] Anika Lemos NP LAB BLOOD ORDERABLES Final [...] D ate End Date cholecalciferol (VITAMIN D-3) 65128 unit tablet added in this encounter Care Teams Hoist Worker Relationship Specialty Start Date End Date Anika Lemos NP [address] [facility] [address] [place] [address] PCP - General Internal Medicine 10/28/22 documented as of this encounter
--- OUTSIDE RECORDS SUMMARY | 2024-07-27 11:49 | XMS_ITS | Encounter Summary ---
Author Organization [facility] Address [address] [place] [address] Care Team Providers Care Classified Advertising Clerk Name Role Phone Anika Lemos Yung ELLIOTT-CIRCULAR KNIFE CUTTER MACHINE Primary Care Provider + Encounter Details Date [...] (Late Contact Info) Description 07/27/2024 3:00 PM ORTHOTIC AND PROSTHETIC TECHNICIAN Office Visit [facility] - Rheumatology [address] [place] [phone] Jeremy Guy MD [address] [place] [address] [address] [place] [phone] 09/28/2024 3:00 PM CDT Office Visit [facility] - Rheumatology [address] [place] [phone] Jeremy Guy MD [address] [place] [address] [address] [place] [phone] documented as of this encounter Visit Diagnoses Not on filedocumented in this encounter Care Teams Classified Advertising Clerk Relationship Specialty Start Date End Date Anika Lemos, WOOD CAULKER-CIRCULAR KNIFE CUTTER MACHINE [address] [place] [address] [place] [address] PCP - General Nurse Practitioner 07/08/23 documented as of this encounter
--- OUTSIDE RECORDS SUMMARY | 2024-07-27 11:49 | XMS_ITS | Encounter Summary ---
Author Organization [facility] Medical Group Address [address] [place] [address] Care Team Providers Care Leather Stretcher Name Role Phone Anika Lemos NP Primary Care Provider [phone] Reason for Referral * Diagnostic Imaging (Routine) - Closed Specialty Diagnoses / Procedures Referred By Contac t Referred To Contact Procedures Mammogram Bilateral (Statistical Only) Sandy Meehan MD [address] [place] [address] Phone: tel: Referral ID Status Reason Start Date Expiration Date Visits Re quested Visits Authorized [id number] Closed 11/19/2022 12/19/2023 1 1 Encounter Details Date Type Department Care Team (Late st Contact Info) Description 11/19/2022 Orders Only [facility] Medical [facility] Internal Medicine at [place] [address] [place] [address] [address] [place] [address] Sandy Meehan MD [address] [place] [address] Social History Tobacco Use Types Packs/Day [...] on file 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
--- OUTSIDE RECORDS SUMMARY | 2024-07-27 11:49 | XMS_ITS | Encounter Summary ---
Author Organization [facility] Healthcare Address [address] [place] [address] Care Team Providers Care Sales Promotion Officer Name Role Phone Anika Lemos NP Primary Care Provider [phone] Reason for Visit * Reason Comments New Patient Dysphagia Difficulty chewing n ot swallowing. EGD EGD/CSC never done i n the past. * Consultation (Routine) - Closed Specialty Diagnoses / Procedures Referred By Contac t Referred To Contact Gastroenterology Diagnoses Dysphagia, unspecified type Anika Lmeos NP [address] [facility] [address] [place] [address] Phone: tel: fax: Jax Johnson MD [address] [place] [address] [address] [place] [address] Phone: tel: fax: Referral ID Status Reason Start Date Expiration Date V isits Requested Visits Authorized [id number] Closed Specialty Services Required 11/14/2022 12/14/2023 1 1 Encounter Details Date Type Department Care Team (Latest Contact Info) Description 05/08/2023 10:00 AM CDT Office Visit [facility] Medical [facility] Gastroenterology at [address] [place] [address] Natalya Cat NP [address] [place] [address] Dysphagia, unspecified type Social History Tobacco Use [...] on file 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 [facility] Subjective/Objective Patient ID: Yarelis Mann is a [...] procedure Natalya Cat NP Voice recognition software ([employer]) was used to complete this document. Despite proofreading, steam crane operator variances and typographical errors may occur. documented [...] 05/08/2023 documented in this encounter Care Teams Sales Promotion Officer Relationship Specialty Start Date End Date Anika Lemos NP [address] [facility] [address] [place] [address] PCP - General Internal Medicine 10/28/22 documented as of this encounter
--- OUTSIDE RECORDS SUMMARY | 2024-07-27 11:49 | XMS_ITS | Encounter Summary ---
Author Organization [facility] Healthcare Address [address] [place] [address] Care Team Providers Care Economic Research Assistant Name Role Phone Anika Lemos NP Primary Care Provider [phone] Reason for Visit * Reason Onset Date Comments Test Results 11/26/2023 Encounter Details Date Type Department Care Team (Late st Contact Info) Description 11/26/2023 Telephone [facility] Medical Group Internal Medicine at [place] [address] [place] [address] Anika Lemos NP [address] [place] [address] Test Results Social History Tobacco [...] on file 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
--- OUTSIDE RECORDS SUMMARY | 2024-07-27 11:49 | XMS_ITS | Encounter Summary ---
Author Organization [facility] Address [address] [place] [address] Care Team Providers Care Hide Measuring Machine Operator Name Role Phone Anika Lemos NP Primary Care Provider [phone] Reason for Visit * Auth/Cert (Routine) Specialty Diagnoses / Procedures Referred By Torres rayo Referred To Contact Diagnoses Dysphagia, unspecified type Dysphagia, unspecified type [R13.10] Procedures TX ESOPHAGOGASTRODUODENOSCOPY TRANSORAL DIAGNOSTIC ESOPHAGOGASTRODUODENOSCOPY Referral ID Status Reason Start Date Expiration Date Visits Re quested Visits Authorized [id number] 1 1 Encounter Details Date Type Department Care Team (Late st Contact Info) Description 11/11/2023 12:40 PM CDT Anesthesia Event 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 Gender Identity Not on file Sexual Orientation Not on file documented as of this encounter OR Notes * Anesthesia Postprocedure Evaluation - Doris Rider MD - 11/11/2023 1:13 PM CDT Patient: Yarelis Mann Procedure Summary Date: 11/11/23 Room / Location: [facility] ENDOSCOPY ROOM [facility] Anesthesia Start: 1240 Anesthesia Stop: 1255 [...] Date End Date Provider cholecalciferol (VITAMIN D-3) 16249 unit tablet Past Week -- -- Sandy [...] Medication protocol when under care of a PERSONAL LINES ADVISOR Planned anesthesia: MAC Induction: Induction: intravenous. Informed Consent: Discussed plan with PERSONAL LINES ADVISOR. Anesthesia plan and risks discussed with patient. [...] mg documented in this encounter Care Teams Hide Measuring Machine Operator Relationship Specialty Start Date End Date Anika Lemos NP [address] [address] PCP - General Internal Medicine 10/28/22 documented as of this encounter
--- OUTSIDE RECORDS SUMMARY | 2024-07-27 11:49 | XMS_ITS | Encounter Summary ---
Author Organization [facility] Address [address] [place] [address] Care Team Providers Care Coastal Tug Mate Name Role Phone Anika Lemos Yung ELLIOTT-WOOD SASH AND FRAME CARPENTER Primary Care Provider + Reason for Visit * Reason Comments Establish Care Encounter Details Date Type Department Care Team (Latest Contact Info) Description 07/08/2023 1:00 PM ACID CONCENTRATOR Office Visit [facility] - Rheumatology [address] [place] [address], [facility] [place] [address] Jeremy Guy MD [address] [place] [address] [place] [address] Polyarthritis (Primary Dx); Need for [...] Comments Blood Pressure 138/88 07/08/2023 1:07 PM ACID CONCENTRATOR Pulse 81 07/08/2023 1:07 PM ACID CONCENTRATOR Temperature 36.4 ??C (97.6 ??F) 07/08/2023 1:07 PM CS T Respiratory Rate - - Oxygen Saturation - - Inhaled Oxygen Concentration - - Weight 100.6 kg (221 lb 12.8 oz) 07/08/2023 1:07 PM ACID CONCENTRATOR Height 167.6 cm (5' 6 ) 07/08/2023 1:07 PM ACID CONCENTRATOR Body Mass Index 35.8 07/08/2023 1:07 PM ACID CONCENTRATOR documented in this encounter Progress Notes * [...] Division of Rheumatology Department of Internal Medicine [facility] Encounter Diagnoses, Orders, and Future Appointments: 1. [...] Center 07/29/2023 3:20 PM Jeremy Guy MD [id number] [facility] Subjective History of Present Illness: 10/10 she woke up with left knee swelling(she thought she twisted it) s/p knee aspiration by Ortho showing WBCs ~42005 and negative for infectious and crystals. Knee [...] Current Outpatient Medications: ??? Cholecalciferol 250 MCG (51259 UT) TABS, Take 1 (one) tablet by [...] , MCV , PLTCOUNT in the last 62570 hours. No results found for: NEUTABS , LYMPHS , MONO , EOS , BASO , GRANIMMABS Metabolic Profile No results for input(s): NA , POTASSIUM , CL , CO2 , BUN , CREATININE , GLUCOSE , CALCIUM , ANIONGAP , EGFR , AST , ALT , ALKPHOS , PROT , ALB , TBILI in the last 34365 hours. No results found for: MG , PHOS , DBIL UA & UPC No results found for: SPECGRAVUA , PHUA , PROTEINUA , BLOODUA , LEUKOCYTEUA , NITRITEUA , GLUCOSEUA , KETONEUA , BILIRUBINUA , UROBILINUA , REFLXSTAT , URMIC , SQUAMOUS , TRANSEPIUA , RBCUA , WBCUA , BACTUA , EOSINU No results found for: PROTEINTO , CREATININEUR , KBAAMXHZG5HY No results for input(s): HCGURINE , HCGQUANT in the last 89764 hours. Latent Infections No results found for: HEPBSAG , HBVSAB , HEPBSAB , HEPBCAB , HEPCAB No results found for: QUANTIFER , QNTTBGOLD , QNTPLUSTB1 , QNTPLUSTB2 , QNTMITOGEN , QUANTIFERO , QUANTIFECI , QUANTIF , QUANNIL , QUAMIT , QFTTBAGN , WICGCEHET35 , AFBSMR Immunology Labs Inflammatory Markers No results for input(s): ESR , SEDRATE , CRP in the last 34026 hours. RA-related Auto-Ab's No results found for: RF , RA , RAQNT , CCPIGG , CCPIGGIGA JOHNATHAN-related No results found for: ANATITER , ANAPATTERN , ANTINUCLE , ANAIGG , DSDNAABIU , ANTIDNADSABQ , DSDNAIGGAB , SMITHANTI , ANTICHRO , CHROMATINAB , SSAANTIBO , SSBANTIBO , SMRNPANTI , SMITHRNPAB , SCL70 , ANTICENTROB , ZQ5GNWTT , INZKC388CX , GFRJGUT7DM , HISTONEIGG No results for input(s): C3 , C4 in the last 10148 hours. APLS-related Auto-Ab's No results found for: K9HNIPGLGF , Y8FZDSQZBL , I0OTASJWLH , QXHU6YJC , QWKR2QEX , CRDLPNIGM , CRDLPNIGG , CRDLPNIGA , DILUTEPT , DPTCFMRATIO , TT , PTTLA , DRVVTBASE , LABINTE Myopathy No results found for: CK , ALDOLASE , SAE1AB , NXP2AB , MDA5AB , YSP3HDW , MYOINTERP , MI2AB , E527474 , PL12AB , PL7AB , OJAB , EJAB , SRPAB , NE8YMHQL , KUAB , SMITHRNPAB , ULNHL181FO , RGL67GE , GYE54TQ , ETHOJJNX3PZC , ACHBLOCKAB , ACHBINDAB Vasculitis and ANCAs No results found for: NEUTCYTOAB , ANTIPROT3 , ANTIMPO , A2FBFQK Genetics No results found for: HLAB27 Gammopathy/Paraproteinemia No results found for: KAPPAFREE , LAMBDAFREE , KLFREERATIO , IGM , IGG , IGA No results found for: SPEINTERP , SERUMPEALB , SERUMPEA1 , SERUMPEA2 , SERUMPEBE , SERUMPEGA , PROT , LABIMMURE , CRYOGLOBQUAL Other Labs Endocrine & Metabolic No results for input(s): URICACID , HGBA1C , TSH , T4FREE in the last 68138 hours. No results found for: BFFS52HV Heme No results found for: RETICCTPCT , RETICULOCYTE , IRON , FERRITIN , TRANSFERRIN , TRANSFERRSAT , TIBC , FIBRINOGEN , DDIMER , VITB12 , FOLATE , HAPTOGLOBIN , LDHTOTAL No results for input(s): PT , INR , PTT in the last 64369 hours. Renal No results found for: CALCIUMION , PHBLD , IONCAART , MAGNESIUM , PHOS , SODIUMRAN , POTASSIUMUR , CHLORIDER Cardiac & Lipids No results for input(s): TROPONINI , CKMB , BNP in the last 00010 hours. No results for input(s): CHOL , TRIG , HDL , LDLCALC , LDLDIRECT in the last 89325 hours. Respiratory No results found for: SARSCOV2 , RINFLUANAA , RINFLUBNAA , INFLUARAPID , INFLUBRAPID , INFLUCNTRL , STREPARAPID , STREPAQC Hepatobiliary & GI No results found for: GGT , LIPASE , T8SFGZRLNMSG , CMVPCR , CMVSOURCE , GDHANTIGEN , [...] results found for: GLUCSF , PROTEINCSF , OSX1OMDIML , SSR2FZOYSI , FIYS0YZU , COCCIDIGG , MNI4CGI , CRYPTOAGCSF , ENTEROVIRPCR , OLIGOBAND , OLIGOBANDNUM , IGG , MXG4KLN , ALBUMINMS , MWESWSR6NIG , ALBUMININDEX , IGGINDEX , IGGALBRATIO , SYNTHESRTE , OLIGOCINTRP , TOXOPLASIGG , CYSTICERO Body Fluid No results found for: LABLD , GROSSDESCRIP , MICROPDESCR STIs (HIV, GC, Trich, Syphilis) No results found for: HIV12 , BGQ2HSADAZ , FOI1CRY31EWW , CHLAMDIA , CHLTRNAA , GC , NGONORRNAA , TRICVAGAP , TRICHVAGBY , TPALLIDUM Cultures & Other Micro No results found for: URINECULT , BLOODCULT , BDERMAGUR , BDERMINTERP For assessment and recommendations, please see above. This note was generated using the En Noir speech recognition system. Grammatical errors, random wordinsertions, [...] directlywith the author for clarification. Thank you. CONCENTRATOR documented in this encounter Plan of Treatment Upcoming Encounters Date Type Department Care Team (Late st Contact Info) Description 07/27/2024 3:00 PM ACID CONCENTRATOR [facility] [address] [place] [phone] Jermey Guy MD [address] [place] [address] 2L [place] [address] 09/28/2024 3:00 PM CDT Office Visit [facility] - Rheumatology [address] [place] [address], [place] [phone] Jeremy Guy MD [address] [place] [address] [address] [place] [address] Scheduled Orders Name Type Priority [...] FACTOR BLOOD QUANTITATIVE Routine 07/26/2023 10:44 AM ACID CONCENTRATOR Polyarthralgia C-REACTIVE PROTEIN Routine 07/26/2023 10 :44 AM ACID CONCENTRATOR Polyarthralgia HLA TYPING B27 Routine 07/26/2023 10:44 AM ACID CONCENTRATOR Polyarthralgia CYCLIC CITRULLINATED PEPTIDE(CCP) AB IGG Routine 07/26/2023 10:44 AM ACID CONCENTRATOR Polyarthralgia QUANTIFERON TB-GOLD 07/26/2023 1 0:44 AM ACID CONCENTRATOR ERYTHROCYTE SEDIMENTATION RATE Routine 07/26/2023 10:44 AM ACID CONCENTRATOR Polyarthralgia CBC W AUTO DIFFERENTIAL Routine 07/26/2023 10:44 AM ACID CONCENTRATOR Polyarthralgia COMPREHENSIVE METABOLIC PANEL Routine 07/26/2023 10:44 AM ACID CONCENTRATOR Polyarthralgia HEPATITIS B CORE ANTIBODY TOTAL Routine 07/26/2023 10:44 AM ACID CONCENTRATOR Need for hepatitis B screening test HEPATITIS B SURFACE ANTIGEN W RFLX CONFIRMATION Routine 07/26/2023 10:44 AM ACID CONCENTRATOR Need for hepatitis B screening test documented in this encounter Results * QUANTIFERON TB-GOLD (07/26/2023 10:44 AM ACID CONCENTRATOR) QuantiFERON Incubation Incubation performed. [facility] INSURANCE BILL [...] Chemiluminescence immunoassay methodology 07/26/2023 10:4 4 AM ACID CONCENTRATOR 07/26/2023 Narrative Resulting Agency Comment Lab Testing performed at: [employer] [address] ??[facility] [phone] Jeremy Guy MD LAB - CHEMISTRY ORDE RABMIGUEL [facility] INSURANCE BILL [address] [place] [address] * ERYTHROCYTE SEDIMENTATION RATE (07/26/2023 10:44 AM ACID CONCENTRATOR) Erythrocyte Sedimentation Rate Westergren 12 0 - 32 mm/hr [facility] INSURANCE BILL Blood BLOOD SPECIMEN / Unknown 07/26/2023 10:44 AM ACID CONCENTRATOR 07/26/2023 Narrative Resulting Agency Comment Lab Testing performed at: [address] [facility] ??[facility] [phone] Jeremy Guy MD LAB - HEMATOLOGY ORD ERABLES [facility] INSURANCE BILL [address] [place] [address] * (ABNORMAL) C-REACTIVE PROTEIN (07/26/2023 10:44 AM ACID CONCENTRATOR) C-Reactive Protein 11(H) 0 - 10 mg/L [facility] INSURANCE BILL Blood BLOOD SPECIMEN / Unknown 07/26/2023 10:44 AM ACID CONCENTRATOR 07/26/2023 Narrative Resulting Agency Comment Lab Testing performed at: [facility] [address] [facility] ??[facility] [phone] Jeremy Guy MD LAB - CHEMISTRY LUZ ROLDAN [facility] INSURANCE BILL [address] [place] [address] * COMPREHENSIVE METABOLIC PANEL (07/26/2023 10:44 AM ACID CONCENTRATOR) Glucose 91 70 - 99 mg/dL [facility] [...] BLOOD SPECIMEN / Unknown 07/26/2023 10:44 AM ACID CONCENTRATOR 07/26/2023 Narrative Resulting Agency Comment Lab Testing performed at: [facility] [address] [facility] ??[facility] [phone] Jeremy Guy MD LAB - CHEMISTRY LUZ ROLDAN [facility] INSURANCE BILL [address] [place] [address] * (ABNORMAL) CBC WITH DIFFERENTIAL (07/26/2023 10:44 AM ACID CONCENTRATOR) WBC 10.6 3.4 - 10.8 x10E3/uL [facility] [...] BLOOD SPECIMEN / Unknown 07/26/2023 10:44 AM ACID CONCENTRATOR 07/26/2023 Narrative Resulting Agency Comment Lab Testing performed at: [facility] [address] ??[facility] [phone] Jeremy Guy MD LAB - HEMATOLOGY ORD ERABLES [facility] INSURANCE BILL [address] [place] [address] * RHEUMATOID FACTOR BLOOD QUANTITATIVE (07/26/2023 10:44 AM ACID CONCENTRATOR) Rheumatoid Factor <10.0 <14.0 IU/mL [facility] INSURANCE BILL Blood BLOOD SPECIMEN / Unknown 07/26/2023 10:44 AM ACID CONCENTRATOR 07/26/2023 Narrative Resulting Agency Comment Lab Testing performed at: [facility] [address] [place], [place] [address] ??[facility] [phone] Jeremy Guy MD LAB - CHEMISTRY ORDE RABLES Performing Organization Address [facility]/ZIP Co de Phone Number [facility] INSURANCE BILL [address] [place] [address] * HLA TYPING B27 (07/26/2023 10:44 AM ACID CONCENTRATOR) HLA-B27 Negative [facility] INSURANCE BILL Comment: HLA-B*27 Negative B27 allele interpretation for all loci based on IMGT/HLA database version 3.51.0 This test was developed and its performance characteristics determined by [facility]. ??It has not been cleared or approved by the Food and Drug Administration. [facility] Lab CLIA ID Number [id number] THis test was performed using Polymerase Chain Reaction (PCR) and Sequence Specific Oligonucleotide Probes (SSOP) technique. Sequence Based Typing (SBT) may be used as a supplemental method when necessary. If you have questions, please call [employer] customer service at or email at [email or web address]. Blood BLOOD SPECIMEN / Unknown 07/26/2023 10:44 AM ACID CONCENTRATOR 07/26/2023 Narrative Resulting Agency Comment Lab Testing performed at: [facility] [place] [address] [facility] ??[facility] [phone] Jeremy Guy MD LAB - CHEMISTRY LUZ ROLDAN [facility] INSURANCE BILL [address] [place] [address] * CYCLIC CITRULLINATED PEPTIDE(CCP) AB IGG (07/26/2023 10:44 AM ACID CONCENTRATOR) CCP Antibodies IgG/IgA <20 <20 Units [facility] INSURANCE BILL Comment: ? Negative: <20 ? Weak Positive: 20-39 ? Moderate Positive: 40-59 ??Strong Positive: >59 Blood BLOOD SPECIMEN / Unknown 07/26/2023 10:44 AM ACID CONCENTRATOR 07/26/2023 Narrative Resulting Agency Comment Lab Testing performed at: [employer] [address] [place] [address] ??[facility] [phone] Jeremy Guy MD LAB - CHEMISTRY LUZ ROLDAN [facility] INSURANCE BILL [address] [place] [address] * HEPATITIS B SURFACE ANTIGEN W RFLX CONFIRMATION (07/26/2023 10:44 AM ACID CONCENTRATOR) Hepatitis B Virus Surface Antigen Negative Negative [facility] INSURANCE BILL Blood BLOOD SPECIMEN / Unknown 07/26/2023 10:44 AM ACID CONCENTRATOR 07/26/2023 Narrative Resulting Agency Comment Lab Testing performed at: [facility] [address] ??[facility] [phone] Jeremy Guy MD LAB - CHEMISTRY LUZ ROLDAN [facility] INSURANCE BILL [address] [place] [address] * HEPATITIS B CORE ANTIBODY TOTAL (07/26/2023 10:44 AM ACID CONCENTRATOR) Hepatitis B Core Virus Antibody Total Negative Negative [facility] INSURANCE BILL Blood BLOOD SPECIMEN / Unknown 07/26/2023 10:44 AM ACID CONCENTRATOR 07/26/2023 Narrative Resulting Agency Comment Lab Testing performed at: [facility] [address] ??[facility] [phone] Jeremy Guy MD LAB - CHEMISTRY LUZ ROLDAN [facility] INSURANCE BILL [address] [place] [address] documented in this encounter Visit Diagnoses Diagnosis Polyarthritis- Primary Unspecified polyarthropathy or polyarthritis, site unspecified Need for hepatitis B screening test Need for hepatitis C screening test Special screening examination for other specified viral diseases Screening-pulmonary TB Screening examination for pulmonary tuberculosis Polyarthralgia Pain in joint, multiple sites Family history of psoriasis Family history of skin conditions documented in this encounter Care Teams Coastal Tug Mate Relationship Specialty Start Date End Date Anika Lemos, LEACH TANK TENDER-WOOD SASH AND FRAME CARPENTER [address] [place] [address] PCP - General Nurse Practitioner 07/08/23 documented as of this encounter
--- OUTSIDE RECORDS SUMMARY | 2024-07-27 11:49 | XMS_ITS | Encounter Summary ---
Author Organization [facility] Healthcare Address [address] [place] [address] Care Team Providers Care Ship Self Defense System Mk1 Operator Name Role Phone Anika Lemos NP Primary Care Provider [phone] Reason for Visit * Reason Comments Hand Pain Right hand swollen s marco April 14 Encounter Details Date Type Department Care Team (Late st Contact Info) Description 04/25/2023 8:30 AM CDT Office Visit [facility] Medical Group Internal Medicine at [place] [address] [place] [address] Anika Lemos NP [address] [place] [address] Localized swelling on right hand [...] on file Legal Sex Female 10:34 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
--- OUTSIDE RECORDS SUMMARY | 2024-07-27 11:49 | XMS_ITS | Encounter Summary ---
Author Organization [facility] Address [address] [place] [address] Care Team Providers Care Dough Catcher Name Role Phone Anika Lemos Yung ELLIOTT-SENIOR ENGINEERING TEAM LEADER Primary Care Provider + Encounter Details Date [...] (Late Contact Info) Description 07/27/2024 3:00 PM TEXTILE BROKER Office Visit [facility] - Rheumatology [address] [place] [phone] Jeremy Guy MD [address] [place] [address] 2L [place] [phone] 09/28/2024 3:00 PM CDT Office Visit [facility] - Rheumatology [address] [place] [phone] Jeremy Guy MD [address] [place] [address] 2L [place] [phone] documented as of this encounter Visit Diagnoses Not on filedocumented in this encounter Care Teams Dough Catcher Relationship Specialty Start Date End Date Anika Lemos, LOTTERY CLERK-SENIOR ENGINEERING TEAM LEADER [address] [place] [address] [place] [address] PCP - General Nurse Practitioner 07/08/23 documented as of this encounter
--- OUTSIDE RECORDS SUMMARY | 2024-07-27 11:49 | XMS_ITS | Encounter Summary ---
Author Organization [facility] Address [address] [place] [address] Care Team Providers Care Magnetic Resonance Imaging Coordinator Name Role Phone Anika Lemos NP Primary Care Provider [phone] Reason for Visit * Auth/Cert (Routine) Specialty Diagnoses / Procedures Referred By Torres rayo Referred To Contact Diagnoses Dysphagia, unspecified type Dysphagia, unspecified type [R13.10] Procedures SD ESOPHAGOGASTRODUODENOSCOPY TRANSORAL DIAGNOSTIC ESOPHAGOGASTRODUODENOSCOPY Referral ID Status Reason Start Date Expiration Date Visits Re quested Visits Authorized [id number] 1 1 Encounter Details Date Type Department Care Team (Latest Contact Info) Description 11/11/2023 10:45 AM CDT - 11/11/2023 1:32 PM CDT Hospital Encounter [facility] [address] [place] [address] Jax Johnson MD [facility] [address] [address] Dysphagia, unspecified type Discharge Disposition: Discharge to [...] on file 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 ?? 2017 [employer] Information is for End User's use only and may not be sold, redistributed or otherwise used for commercial purposes. All illustrations and images included in CareNotes?? are the copyrighted property of [employer] ([employer], [employer]. or [employer]. The above information is an cable braider only. It is not intended as medical [...] at Time of Discharge cholecalciferol (VITAMIN D-3) 51316 unit tablet folic acid (FOLVITE) 1 mg [...] 1 11/10/2023 at 0800 cholecalciferol (VITAMIN D-3) 72337 unit tablet 11/09/2023 at 2200 levonorgestreL (Mirena) [...] - 11/11/2023 12:39 PM CDTAssociated Order(s): EGD [facility] ENDOSCOPY Patient Name: Amada White Procedure Date: 11/11/2023 12:39 PM Date of : 1980 Admit Type: Outpatient Age: 42 Gender: Female Attending MD: Jax Johnson M.D. Room: [facility] ENDOSCOPY ROOM 05 Note Status: Finalized [...] On: 11/11/2023 12:39 PM Recognized by the [employer] for promoting quality in endoscopy documented in this encounter Miscellaneous Notes * Pre-Procedure Instructions - Amada Purdy RN - 11/05/2023 3:22 PM CDT - No alcohol or smoking 12 hours before surgery - [place] teeth in the morning but don't swallow [...] morning of procedure - Covid: Denies Location ([facility] 1 Entrance A, [address] [place] [address]), arrival time (0830), procedure time (929), NPO [...] Resection) 11/11/2023 12:44 PM CDT Narrative PATHOLOGY [facility] - 11/13/2023 1:18 PM CDT [facility] Department of Pathology [address] [place] [address] ?? Note to Patients: ??This report may [...] : ??1980 (Age: 42) Gender: ??F Address: ??[address] [place] [address] ??[address] [facility] #: [id number] Service: Gastro Location: Patient Type: B SDS [...] Report Electronically Reviewed and Signed Out By ??tSeven Aguilar M.D. 11/13/2023 13:18:51 Specimen(s) Received: A: [...] 0. ?? jjmhb/11/11/2023 13:41 SUMAN Carmona PA ([facility]) Microscopic slide review and interpretation for this case was performed at [facility], Department of Surgical Pathology, [address] [facility] [place], [place] [id number], ??[place], [place] ??[address] ?? CLIA # [id number] us Jax Johnson MD LAB PATHOLOGY ORDERABLES Final R esult PATHOLOGY [facility] * EGD (11/11/2023 12:39 PM CDT) Anatomical Region Laterality Modality Other Narrative Procedure Note Jax Johnson MD - 11/11/2023 12:39 PM CDT [facility] END[facility] Patient Name: Amada White Procedure Date: 11/11/2023 12:39 PM Date of : 1980 Admit Type: Outpatient Age: 42 Gender: Female Attending MD: Jax Johnson M.D. Room: [facility] ENDOSCOPY ROOM 05 Note Status: Finalized [...] On: 11/11/2023 12:39 PM Recognized by the [employer] for promoting quality [...] 11/11/2023 documented in this encounter Care Teams Magnetic Resonance Imaging Coordinator Relationship Specialty Start Date End Date Anika Lemos NP [address] [address] PCP - General Internal Medicine 10/28/22 documented as of this encounter
--- OUTSIDE RECORDS SUMMARY | 2024-07-27 11:49 | XMS_ITS | Encounter Summary ---
Author Organization [facility] Address [address] [place] [address] Care Team Providers Care Bowling Alley Attendant Name Role Phone Anika Lemos Yung ELLIOTT-SERVICE COUNTER CASHIER Primary Care Provider + Reason for Visit * Reason Onset Date Comments Appointment 09/15/2023 Encounter Details Date Type Department Care Team (Late st Contact Info) Description 09/15/2023 Telephone [facility] - Rheumatology [address] [place] [address], [facility] [place] [address] Jeremy Guy MD [address] [place] [phone] Appointment Social History Tobacco Use Types [...] at this time.Appt reminder placed in mail. CLIPPER TENDER documented in this encounter Plan of Treatment Upcoming Encounters Date Type Department Care Team (Late st Contact Info) Description 07/27/2024 3:00 PM DRY CLIPPER TENDER Office Visit [facility] - Rheumatology [address] [place] [address], [place] [phone] Jeremy Guy MD [address] [place] [address] 2L [place] [phone] 09/28/2024 3:00 PM CDT Office Visit [facility] - Rheumatology [address] [place] [address], [place] [phone] Jeremy Guy MD [address] [place] [address] 2L [place] [phone] documented as of this encounter Visit Diagnoses Not on filedocumented in this encounter Care Teams Bowling Alley Attendant Relationship Specialty Start Date End Date Anika Lemos APRN-SERVICE COUNTER CASHIER [facility] [address] PCP - General Nurse Practitioner 07/08/23 documented as of this encounter
--- OUTSIDE RECORDS SUMMARY | 2024-07-27 11:49 | XMS_ITS | Encounter Summary ---
Author Organization [facility] Address [address] [place] [address] Care Team Providers Care Insurance Account Specialist Name Role Phone Anika Lemos NP Primary Care Provider [phone] Reason for Visit * Auth/Cert (Routine) Specialty Diagnoses / Procedures Referred By Torres rayo Referred To Contact Diagnoses Dysphagia, unspecified type Dysphagia, unspecified type [R13.10] Procedures [place] ESOPHAGOGASTRODUODENOSCOPY TRANSORAL DIAGNOSTIC ESOPHAGOGASTRODUODENOSCOPY Referral ID Status Reason Start Date Expiration Date Visits Re quested Visits Authorized [id number] 1 1 Encounter Details Date Type Department Care Team (Latest Contact Info) Description 11/11/2023 12:00 PM CDT - 11/11/2023 12:30 PM CDT Surgery [facility] GI Lab [address] [place] [address] Jax Johnson MD [address] [place] [address] ESOPHAGOGASTRODUODENOSCOPY ESOPHAGEAL GUIDE WIRE Surgery Details Date/Time [...] on file 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 ?? 2017 [employer] Information is for End User's use only and may not be sold, redistributed or otherwise used for commercial purposes. All illustrations and images included in CareNotes?? are the copyrighted property of [employer] or [employer]. The above information is an oxygen equipment aide only. It is not intended as medical [...] at Time of Discharge cholecalciferol (VITAMIN D-3) 81951 unit tablet folic acid (FOLVITE) 1 mg [...] 1 11/10/2023 at 0800 cholecalciferol (VITAMIN D-3) 23315 unit tablet 11/09/2023 at 2200 levonorgestreL (Mirena) [...] - 11/11/2023 12:39 PM CDTAssociated Order(s): EGD [facility] GI ENDOSCOPY Patient Name: Amada White Procedure Date: 11/11/2023 12:39 PM Date of : 1980 Admit Type: Outpatient Age: 42 Gender: Female Attending MD: Jax Johnson M.D. Room: [facility] ENDOSCOPY ROOM 05 Note Status: Finalized [...] On: 11/11/2023 12:39 PM Recognized by the [employer] for promoting quality in endoscopy documented in this encounter Miscellaneous Notes * Pre-Procedure Instructions - Amada Purdy RN - 11/05/2023 3:22 PM CDT - No alcohol or smoking 12 hours before surgery - [place] teeth in the morning but don't swallow [...] morning of procedure - Covid: Denies Location ([facility] Medical Building 1 Entrance A, [address] [place] [address]), arrival time (829), procedure time (929), NPO [...] Resection) 11/11/2023 12:44 PM CDT Narrative PATHOLOGY [facility] - 11/13/2023 1:18 PM CDT [facility] Department of Pathology [address] [place] [id number] ?? Note to Patients: ??This report may [...] : ??1980 (Age: 42) Gender: ??F Address: ??[address] [place] [address] ??62 [facility] #: [id number] Service: Gastro Location: Patient Type: [facility] OUTPATIENT ? Taken: 11/11/2023 Received: 11/11/2023 Accessioned: [...] for this case was performed at [facility], Department of Surgical Pathology, [address] [facility] [place], [place] [id number], ??[facility], [place] ??[address] ?? CLIA # [id number] us Jax Johnson MD LAB PATHOLOGY ORDERABLES Final R esult PATHOLOGY [facility] * EGD (11/11/2023 12:39 PM CDT) Anatomical Region Laterality Modality Other Narrative Procedure Note Jax Johnson MD - 11/11/2023 12:39 PM CDT [facility] GI ENDOSCOPY Patient Name: Amada White Procedure Date: 11/11/2023 12:39 PM Date of : 1980 Admit Type: Outpatient Age: 42 Gender: Female Attending MD: Jax Johnson M.D. Room: [facility] ENDOSCOPY ROOM 05 Note Status: Finalized [...] On: 11/11/2023 12:39 PM Recognized by the [employer] for promoting quality [...] 11/11/2023 documented in this encounter Care Teams Insurance Account Specialist Relationship Specialty Start Date End Date Anika Lemos NP [address] [facility] [address] [place] [address] PCP - General Internal Medicine 10/28/22 documented as of this encounter
--- OUTSIDE RECORDS SUMMARY | 2024-07-27 11:50 | XMS_ITS | Encounter Summary ---
Author Organization [facility] Address [address] [place] [address] Care Team Providers Care Rn Infusion Name Role Phone No, Physician Primary Care Provider [phone] Reason for Referral * Diagnostic Imaging (Routine) - Closed Specialty Diagnoses / Procedures Referred By Sydneeac perri Referred To Contact Diagnoses Chronic pain of left knee Procedures XR Knee Left 1 or 2 Views Clint Willson MD [address] [place] [address] [address] SEBAST[address] [place] [address] Phone: tel: fax: [address] [phone] Referral ID Status Reason Start Date Expiration Date Visits Re quested Visits Authorized [id number] Closed 10/10/2022 11/09/2023 1 1 Reason for Visit * Diagnostic Imaging (Routine) - Closed Specialty Diagnoses / Procedures Referred By Contac t Referred To Contact Diagnoses Chronic pain of left knee Procedures XR Knee Left 1 or 2 Views Clint Willson MD [address] [place] [address] [address] SEBASTIAN [address] [place] [address] Phone: tel: fax: [address] [phone] Referral ID Status Reason Start Date Expiration Date Visits Re quested Visits Authorized [id number] Closed 10/10/2022 11/09/2023 1 1 Encounter Details Date Type Department Care Team (Latest Contact Info) Description 10/10/2022 11:43 AM CDT - 10/10/2022 11:59 PM CDT Hospital Encounter [facility] Di[facility] Imaging [address] [place] [address] Chronic pain of left knee Discharge Disposition: [...] on file 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
--- OUTSIDE RECORDS SUMMARY | 2024-07-27 11:50 | XMS_ITS | Encounter Summary ---
Author Organization [facility] Address [address] [facility] [address] [place] [address] Care Team Providers Care Button Tufter Name Role Phone No, Physician Primary Care Provider [phone] Encounter Details Date Type Department Care Team (Late st Contact Info) Description 10/16/2022 Telephone [facility] Medical [facility] Orthopedics and Sports Medicine [address] [place] [phone] Clint Willson MD [address] [place] [address] Social History Tobacco Use Types Packs/Day Years [...] on file 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
--- OUTSIDE RECORDS SUMMARY | 2024-07-27 11:50 | XMS_ITS | Encounter Summary ---
Author Organization [facility] Address [address] [facility] [address] [place] [address] Care Team Providers Care Automatic Splicing Machine Operator Name Role Phone No, Physician Primary Care Provider [phone] Reason for Referral * Diagnostic Imaging (Routine) - Closed Specialty Diagnoses / Procedures Referred By Sydneeac t Referred To Contact Diagnoses Chronic pain of left knee Procedures XR Knee Left 1 or 2 Views Clint Willson MD [address] [place] [address] DR SEBASTIAN [address] [place] [address] Phone: tel: fax: [address] [phone] Referral ID Status Reason Start Date Expiration Date Visits Re quested Visits Authorized [id number] Closed 10/10/2022 11/09/2023 1 1 Reason for Visit * Consultation (Routine) - Closed Specialty Diagnoses / Procedures Referred By Controsa t Referred To Contact Orthopedic Surgery Diagnoses Knee effusion, left Acute pain of left knee Shashi Solano PA [address] [place] [address] [facility] [place] [address] Phone: tel: fax: Clint Willson MD [address] [place] [address] DR SEBASTIAN [address] [place] [address] Phone: tel: fax: Referral ID Status Reason Start Date Expiration Date V isits Requested Visits Authorized [id number] Closed Specialty Services Required 10/04/2022 11/03/2023 1 1 Encounter Details Date Type Department Care Team (Late st Contact Info) Description 10/10/2022 11:45 AM CDT Office Visit [facility] Orthopedics and Sports Medicine [facility] [address] [place] [phone] Clint Willson MD [address] [place] [address] [address] [place] [address] Chronic pain of left knee (Primary Dx); [...] on file 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 Visit Date: 10/10/2022 Physician: Clint WillsonMD Assessments: 1.41 y.o. female with left knee pain and effusion several days after twisting her knee 09/29/22 withevidence of effusion and concern for meniscus tear pathology and possible gout or pseudogout 2. 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
--- OUTSIDE RECORDS SUMMARY | 2024-07-27 11:50 | XMS_ITS | Encounter Summary ---
Author Organization [facility] Address [address] [facility] [address] [place] [address] Care Team Providers Care Aircraft Life Support Fitter Name Role Phone Anika Lemos NP Primary Care Provider [phone] Encounter Details Date Type Department Care Team (Late st Contact Info) Description 11/07/2022 8:30 AM CDT Office Visit [facility] Orthopedics and Sports Medicine [address] [place] [address] [address] [place] [phone] Clint Willson MD [address] [place] [address] Left knee pain, unspecified chronicity (Primary Dx); [...] on file 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 10/17/2022 left knee MRI showing very [...] was seen in the emergency room at [facility] on 04 October and x-rays were [...] joint documented in this encounter Care Teams Aircraft Life Support Fitter Relationship Specialty Start Date End Date Anika Lemos NP [address] [facility] 500 [place] [address] PCP - General Internal Medicine 10/28/22 documented as of this encounter
--- OUTSIDE RECORDS SUMMARY | 2024-07-27 11:50 | XMS_ITS | Encounter Summary ---
Author Organization [facility] Address [address] [facility] [address] [place] [address] Care Team Providers Care Talent Acquisition Lead Name Role Phone Anika Lemos NP Primary Care Provider [phone] Reason for Referral * Consultation (Routine) - Closed Specialty Diagnoses / Procedures Referred By Contac t Referred To Contact Gastroenterology Diagnoses Dysphagia, unspecified type Anika Lemos NP [address] [facility] [address] [place] [address] Phone: tel: fax: Kareen Johnson MD [facility] [address] [place] [address] Phone: tel: fax: Referral ID Status Reason Start Date Expiration Date V isits Requested Visits Authorized [id number] Closed Specialty Services Required 11/14/2022 12/14/2023 1 1 Question Answer Please select the performing region: [facility] [[id number]] Please select the performing department: [facility] [[id number]] To provider: KAREEN JOHNSON [[id number]] # of visits: 1 Reason for Visit * Reason Comments Establish Care Est careLeft knee pa in, swollen finger and wrist pain onset 1mo ago Encounter Details Date Type Department Care Team (Late st Contact Info) Description 11/14/2022 8:45 AM CDT Office Visit [facility] Medical [facility] Internal Medicine at [place] [address] [place] [address] Anika Lemos NP [address] [facility] [address] [place] [address] Physical exam, annual (Primary Dx); [...] on file 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 She has not [...] documented as of this encounter Care Teams Talent Acquisition Lead Relationship Specialty Start Date End Date Anika Lemos NP [address] [address] PCP - General Internal Medicine 10/28/22 documented as of this encounter
--- OUTSIDE RECORDS SUMMARY | 2024-07-27 11:50 | XMS_ITS | Encounter Summary ---
Author Organization [facility] Address [address] [facility] [address] [place] [address] Care Team Providers Care Relocation Coordinator Name Role Phone Anika Lemos NP Primary Care Provider [phone] Reason for Visit * Reason Comments Pain Encounter Details Date Type Department Care Team (Late st Contact Info) Description 10/28/2022 3:00 PM CDT Office [facility] Orthopedics and Sports Medicine [address] [place] [phone] Clint Willson MD [address] [place] [address] Chronic pain of left knee (Primary Dx) [...] on file 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 10/17/22 left knee MRI showing very [...] seen. LETHA ROGER Comment:Testing performed by : [facility], [address] [place]., [address] Report Final Report: No growth LETHA ROGER Comment:Testing performed by : [facility], [address] [place] [address]., [address] Synovial fluid (Knee, left) 10/28/2022 6:19 PM CDT 10/28/2022 10:57 PM CDT Narrative LETHA - 11/03/2022 12:24 PM CDT Insufficient specimen volume received for specimen concentration.?? Culture results may be falsely negative due to the limited volume of specimen received. Testing performed by [facility] Microbiology Laboratory ([phone]) Specimens submitted from normally sterile body sites [...] RAL ORDERABLES Final Result Performing Organization Address City/[facility]/ZIP Co de Phone Number LETHA [address] [place] [address] * Cell count with reflex to differential, body fluid (10/28/2022 3:58 PM CDT) Specimen type, fld Synovial [facility] Color, fld Crystal [facility] Clarity, fld Turbid [facility] Nucleated cells, fld 17,314 /cumm [facility] Comment: Interpretive Data Unless otherwise specified, the reference range and other method performance specifications have not been established for CSF/Body Fluid tests. ??The test results should be integrated into the clinical context for interpretation. Current interpretive data was last revised on 2019. RBC, fld 11,000 /cumm [facility] Fluid 10/28/2022 3:58 PM CDT 10/28/2022 3:58 PM CDT Clint Willson MD LAB BODY FLUIDS AND STO OLS ORDERABLES Edited Result - Final Performing Organization Address [facility] Co de Phone Number [address] [place] [address] * Crystal Analysis, Body Fluid (10/28/2022 3:58 PM CDT) Specimen type, fld Synovial [facility] Crystals Not Present Not Present [facility] Fluid 10/28/2022 3:58 PM CDT 10/28/2022 3:58 PM CDT Clint Willson MD LAB BODY FLUIDS AND STO OLS ORDERABLES Final Result Performing Organization Address City/[facility]/ZIP Co de Phone Number LETHA [address] [place] [address] documented in this encounter Visit Diagnoses Diagnosis Chronic pain of left knee- Primary Chronic pain of left knee documented in this encounter Historical Medications * This list may reflect changes made after this encounter. doxycycline hyclate 100 mg capsule TAKE 1 CAPSULE BY MOUTH TWICE DAILY WITH FOOD FOR 14 DAYS 10/24/2022 11/14/2022 added in this encounter Care Teams Relocation Coordinator Relationship Specialty Start Date End Date Ainka Lemos NP [address] [address] PCP - General Internal Medicine 10/28/22 documented as of this encounter
--- OUTSIDE RECORDS SUMMARY | 2024-07-27 11:50 | XMS_ITS | Encounter Summary ---
Author Organization [facility] Address [address] [place] [address] Care Team Providers Care Lieutenant Governor Name Role Phone No, Physician Primary Care Provider [phone] Reason for Referral * Consultation (Routine) - Closed Specialty Diagnoses / Procedures Referred By Contac t Referred To Contact Orthopedic Surgery Diagnoses Knee effusion, left Acute pain of left knee Shashi Solano PA [address] [facility] [place] [address] Phone: tel: fax: Clint Willson MD [address] [facility] [place] [address] Phone: tel: fax: Referral ID Status Reason Start Date Expiration Date V isits Requested Visits Authorized [id number] Closed Specialty Services Required 10/04/2022 11/03/2023 1 1 Question Answer Please select the performing region: External Order [171] To provider: CLINT WILLSON [[id number]] # of visits: 1 Reason for Visit * Reason Comments Leg Pain Knee Pain Encounter Details Date Type Department Care Team (Late st Contact Info) Description 10/04/2022 11:47 AM CDT - 10/04/2022 12:54 PM CDT Emergency [facility] Emergency Department [address] [place] [address] Knee effusion, left (Primary Dx); Acute pain [...] on file 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 * Knee Pain (AfterCare(R) Instructions(ER/ED)) (Barbadian) documented in this encounter Medications at Time [...] Meléndez D.O. PS: JUAN M Report ID: [id number] Read ing Location: [place] [address] ED COURSE/MEDICAL DECISION MAKING Differential diagnosis included [...] expresses understanding PATIENT INSTRUCTED TO FOLLOW UP Clint Willson MD [address] [facility] [address] [facility] [address] Call in 1 day Clint Willson MD [address] [facility] 100 [facility] [address] DISCHARGE MEDICATIONS Your medication list START taking [...] tablet This examination was transcribed using the [facility] voice recognition system without human freight agent. In an effort to expedite patient care, this report has not been adjusted for typographical, grammatical, and syntax by a trained medical cost consultant. Shashi Solano PA 10/04/22 1201 Cosigned by [...] AM T: ??10/04/2022 10:39 AM Report ID: [id number] Reading Location: [id number] Procedure Note María Meléndez, DO - 10/04/2022 [...] Meléndez D.O. PS: JUAN M Report ID: [id number] Reading Location: [place] [address] Azeb Peralta MD IMG XR PROCEDURES Aysha [...] 10/04/2022 documented in this encounter Care Teams Lieutenant Governor Relationship Specialty Start Date End Date No, Physician PCP - General 10/04/22 10/27/22 documented as of this encounter
--- OUTSIDE RECORDS SUMMARY | 2024-07-27 11:50 | XMS_ITS | Encounter Summary ---
Author Organization [facility] Address [address] [facility] [address] [place] [address] Care Team Providers Care Hand Ii Tube Bender Name Role Phone No, Physician Primary Care Provider [phone] Reason for Visit * Reason Onset Date Comments mri auth 10/15/2022 Encounter Details Date Type Department Care Team (Late st Contact Info) Description 10/15/2022 Telephone [facility] Orthopedics and Sports Medicine [address] [facility] [address] [place] [phone] Clint Willson MD [address] [place] [address] [address] [place] [address] mri auth Social History Tobacco Use Types [...] on file 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 Gender Identity Not on file Sexual Orientation Not on file documented as of this encounter Miscellaneous Notes * Telephone Encounter - Judy Durham ATC - 10/16/2022 8:02 AM CDT Auth faxed * Telephone Encounter - Fara Beaulieu - 10/15/2022 3:48 PM CDT LEO Ward from [facility] needing auth for MRI left knee documented in this encounter Plan of Treatment Not on file documented as of this encounter Visit Diagnoses Not on filedocumented in this encounter Care Teams Hand Ii Tube Bender Relationship Specialty Start Date End Date No, Physician PCP - General 10/04/22 10/27/22 documented as of this encounter
--- OUTSIDE RECORDS SUMMARY | 2024-07-27 11:50 | XMS_ITS | Encounter Summary ---
Author Organization [facility] Address [address] [facility] [address] [place] [address] Care Team Providers Care Bilingual Nanny Name Role Phone No, Physician Primary Care Provider [phone] Anika Lemos NP Primary Care Provider [phone] Reason for Visit * Reason Onset Date Comments mri 10/14/2022 Encounter Details Date Type Department Care Team (Late st Contact Info) Description 10/14/2022 Telephone [facility] Orthopedics and Sports Medicine [address] [phone] Clint Willson MD [address] [place] [address] mri Social History Tobacco Use Types [...] on file 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 I scheduled her appt for next available for results but she would like sooner if possible. documented in this encounter Plan of Treatment Not on file documented as of this encounter Visit Diagnoses Not on filedocumented in this encounter Care Teams Bilingual Nanny Relationship Specialty Start Date End Date No, Physician PCP - General 10/04/22 10/27/22 Anika Lemos NP [address] [facility] 500 [place] [address] PCP - General Internal Medicine 10/28/22 documented as of this encounter
--- OUTSIDE RECORDS SUMMARY | 2024-07-27 11:50 | XMS_ITS | Encounter Summary ---
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 LETHA ROGER Comment:Testing performed by : [facility], [address] [place]., [address] Report Final Report: No growth LETHA Comment:Testing performed by : [facility], [address] [place]., [address] Synovial fluid (Knee, left) 10/28/2022 6:19 PM CDT 10/28/2022 10:57 PM CDT Narrative LETHA - 11/03/2022 12:24 PM CDT Insufficient specimen volume received for specimen concentration.?? Culture results may be falsely negative due to the limited volume of specimen received. Testing performed by [facility] Microbiology Laboratory ([phone]) Specimens submitted from normally sterile body sites [...] RAL ORDERABLES Final Result Performing Organization Address [facility] de Phone Number LETHA [address] [address] * Cell Differential, Body Fluid (10/28/2022 3:58 PM CDT) Pathologist [facility] Total cells diffed 100 % [facility] Comment: Interpretive Data Unless otherwise specified, the reference range and other method performance specifications have not been established for CSF/Body Fluid tests. ??The test results should be integrated into the clinical context for interpretation. Current interpretive data was last revised on 2019. Neutrophils, fld 81 % [facility] Lymphs, fld 14 % [facility] Monocyte, fld 5 % [facility] Fluid 10/28/2022 3:58 PM CDT 10/28/2022 3:58 PM CDT Clint Willson MD LAB BODY FLUIDS AND STO OLS ORDERABLES Final Result Performing Organization Address [facility] de Phone Number [address] [address] * Crystal Analysis, Body Fluid (10/28/2022 3:58 PM CDT) Specimen type, fld Synovial [facility] Crystals Not Present Not Present [facility] Fluid 10/28/2022 3:58 PM CDT 10/28/2022 3:58 PM CDT Clint Willson MD LAB BODY FLUIDS AND STO OLS ORDERABLES Final Result Performing Organization Address [facility] Co de Phone Number [phone] [address] * Cell count with reflex to differential, [...] ORDERABLES Edited Result - Final LETHA [address] [facility] [place] [address] documented in this encounter Visit Diagnoses Diagnosis Chronic pain of left knee documented in this encounter Care Teams Chain Dyer Relationship Specialty Start Date End Date Anika Lemos NP [address] [facility] [address] [place] [address] PCP - General Internal Medicine 10/28/22 documented as of this encounter
--- OUTSIDE RECORDS SUMMARY | 2024-07-27 11:50 | XMS_ITS | Encounter Summary ---
Author Organization [facility] Address [address] [facility] [address] [place] [id number] Care Team Providers Care Workers Compensation Attorney Name Role Phone Anika Lemos NP Primary Care Provider [phone] Reason for Visit * Reason Onset Date Comments Lab Results 10/29/2022 Encounter Details Date Type Department Care Team (Late st Contact Info) Description 10/29/[address] 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
--- OUTSIDE RECORDS SUMMARY | 2024-07-27 11:50 | XMS_ITS | Encounter Summary ---
Author Organization [facility] Address [address] [place] [address] Care Team Providers Care Procurement Engineer Name Role Phone No, Physician Primary Care Provider [phone] Reason for Visit * MRI/CAT/PET Scan (Routine) - Closed Specialty Diagnoses / Procedures Referred By Torres rayo Referred To Contact Procedures MSK MR Outside Reference Transcribed Order, Provider Referral ID Status Reason Start Date Expiration Date Visits Re quested Visits Authorized [id number] Closed 10/22/2022 11/21/2023 1 1 Encounter Details Date Type Department Care Team (Latest Contact Info) Description 10/17/2022 - 10/17/2022 11:59 PM CDT Hospital Encounter [facility] [employer] [address] [place] [address] Discharge Disposition: Discharge to home or self [...] on file 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
--- OUTSIDE RECORDS SUMMARY | 2024-07-27 11:50 | XMS_ITS | Encounter Summary ---
Author Organization [facility] Address [address] [facility] [address] [place] [address] Care Team Providers Care Cable Reeler Name Role Phone No, Physician Primary Care Provider [phone] Anika Lemos NP Primary Care Provider [phone] Reason for Visit * Reason Onset Date Comments MRI Orders 10/11/2022 Encounter Details Date Type Department Care Team (Late st Contact Info) Description 10/11/2022 Telephone [facility] Orthopedics and Sports Medicine [address] [place] [phone] Clint Willson MD [address] [place] [id number] MRI Orders Social History Tobacco Use Types [...] on file 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 Gender Identity Not on file Sexual Orientation Not on file documented as of this encounter Miscellaneous Notes * Telephone Encounter - Veena Mendenhall - 10/11/2022 12:51 PM CDT [facility]: Patient called to let ginger know she will be going to [facility] - I already faxed the ordersover ( [phone] ) documented in this encounter Plan of Treatment Not on file documented as of this encounter Visit Diagnoses Not on filedocumented in this encounter Care Teams Cable Reeler Relationship Specialty Start Date End Date No, Physician PCP - General 10/04/22 10/27/22 Anika Lemos NP [address] [address] PCP - General Internal Medicine 10/28/22 documented as of this encounter
--- OUTSIDE RECORDS SUMMARY | 2024-07-27 11:50 | XMS_ITS | Encounter Summary ---
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
== END 2024-07-20 13:40 | disposition home or self-care (01) ==
PROVIDERS: Emergency Provider Student in an Organized Health Care Education/Training Program; PCP Nurse Practitioner Family
DX: R22.31 Localized swelling, mass and lump, right upper limb (principal); D72.829 Elevated white blood cell count, unspecified; R70.0 Elevated erythrocyte sedimentation rate; R79.82 Elevated C-reactive protein (CRP)
CPT/HCPCS: 36415; 73130; 80048; 82550; 85025; 85652; 86140; 93971; 96372; 99284; A9270; J1885